=== PATIENT | male | born 1955 | race Caucasian/White ===

== ENCOUNTER 2017-11-11 12:37 | Inpatient (IN) ==
--- NOTE | 2017-11-11 16:06 | Emergency Department Note ---
Disposition Clinical Impression: Cellulitis of both feet, Necrotic eschar Disposition: Admitted As Inpatient Condition: Fair [facility] Care Provider[facility] - Forms: ED Satisfaction Letter Time of Disposition: 16:13 Extremity Problem HPI - General Chief complaint: ED Extremity Problem,Nontraumatic Stated complaint: Feet swollen/bleeding Time Seen by Provider: 11/11/17 15:58 Source: patient Mode of arrival: ambulatory Limitations: no limitations Nursing Notes Reviewed: Yes Vital Signs Reviewed: Yes - History of Present Illness HPI Narrative: 62-year-old diabetic who says it has been fighting an infection for about 6 weeks in both of his feet. Recent revascularization surgery. He states he went [facility] and nothing was done for him there. Comes in with worsening redness and foul-smelling drainage. Pt Subjective Complaint: extremity pain, extremity swelling Onset (ago): week(s) Consistency: constant Pain Scale: 10 Quality: burning, aching Improves with: nothing Worsens with: weight bearing Associated symptoms: Reports: denies other symptoms - Related Data Home Medications Medication Instructions Recorded Confirmed Aspirin [Lo-Dose Aspirin EC] 325 mg PO DAILY 04/12/17 11/06/17 Lisinopril [Zestril] 20 mg PO DAILY 04/12/17 11/06/17 Insulin ASPART [Novolog Flexpen] 14 unit SQ AD 05/10/17 11/06/17 Insulin Glargine [Lantus] 54 unit SQ HS 05/10/17 11/06/17 Hydrochlorothiazide [Microzide] 12.5 mg PO DAILY 11/06/17 11/06/17 Isosorbide MONOnitrate (24 HR) 30 mg PO DAILY 11/06/17 11/06/17 [Imdur] Pravastatin Sodium [Pravachol] 10 mg PO 2XW 11/06/17 11/06/17 dilTIAZem HCl [Diltiazem 24Hr Cd] 120 mg PO DAILY 11/06/17 11/06/17 Previous Rx's Medication Instructions Recorded Acetaminophen [Tylenol] 1,000 mg PO Q6HR PRN #90 tablet 11/06/17 Clopidogrel [Plavix] 75 mg PO DAILY #30 tablet 11/06/17 Allergies Allergy/AdvReac Type Severity Reaction Status Date / Time atorvastatin [From Lipitor] Allergy Diarrhea Verified 04/12/17 10:01 All systems ED: reviewed and negative except as stated. Constitutional: Denies: fever, chills, weakness, weight change Eyes: Denies: eye pain, eye discharge, vision change ENT ED: Denies: ear pain, throat pain, dental pain, hearing loss, epistaxis, congestion, dysphagia Cardiovascular: Denies: chest pain, palpitations, dyspnea on exertion, edema, syncope Respiratory: Denies: cough, dyspnea, wheezes, hemoptysis, stridor Gastrointestinal: Denies: abdominal pain, nausea, vomiting, diarrhea, constipation, hematemesis, melena, hematochezia Genitourinary: Denies: urgency, dysuria, frequency, hematuria Musculoskeletal: Reports: arthralgia. Denies: back pain, neck pain, myalgia Integumentary: Denies: rash, abrasion, lesions Neurological: Denies: headache, weakness, numbness, paresthesias, confusion, abnormal gait, vertigo Psychiatric: Denies: anxiety, depression, suicidal thoughts, homicidal thoughts , auditory hallucinations, visual hallucinations Endocrine: Denies: fatigue Hematological/Lymphatic: Denies: easy bleeding, easy bruising Allergic/Immunologic: Denies: facial swelling, urticaria Past Medical History - Past Medical History Medical history: Reports: arthritis, atrial fibrillation, coronary artery disease, diabetes, myocardial infarction Surgical history: Reports: orthopedic, other Psychiatric history: Reports: no psych history - Social History Smoking Status: Current every day smoker Smokeless Tobacco Status: No Alcohol use: Reports: none Drug use: Reports: none Physical Exam - General Limitations: no limitations General appearance: alert, in no apparent distress - Head Head exam: atraumatic, normocephalic, normal inspection - Eye Eye exam: Present: normal appearance, PERRL, EOMI - ENT ENT exam: normal exam, normal oropharynx, mucous membranes moist - Neck Neck exam: Present: normal inspection, full ROM, trachea midline - Chest Chest inspection: Present: normal inspection, symmetric chest wall rise - Respiratory Respiratory exam: Present: normal lung sounds bilaterally - Cardiovascular Cardiovascular exam: Present: regular rate, normal rhythm, normal heart sounds - Abdominal Exam Abdominal exam: Present: soft, Non-Tender. Absent: tenderness, distention, guarding, rebound, rigidity - Expanded Lower Extremity Exam Foot/toe exam: Present: other (Necrotic area) - Back Exam Back exam: Present: normal inspection - Neurological Exam Neurological exam: Present: alert, oriented X3 - Psychiatric Psychiatric exam: Present: normal affect, normal mood - Skin Skin exam: Present: warm, dry, intact, normal color Course - Reevaluation(s) Reevaluation #1: 62-year-old diabetic with ulcers on both feet. Consultation obtained with podiatry will see the patient. Antibiotics started. Time: 18:07 - Consultations Consultation #1: Discussed with Dr. Morales, seeing in consult. Time: 16:13 Consultation #2: Discussed with Dr.Lalie morales. Time: 16:15 Vital Signs Temperature 98.4 F 11/11/17 12:39 Pulse Rate 69 11/11/17 12:39 Respiratory Rate 18 11/11/17 12:39 Blood Pressure 122/66 11/11/17 12:39 O2 Sat by Pulse Oximetry 100 11/11/17 12:39 Temperature 98.4 F 11/11/17 12:39 Pulse Rate 69 11/11/17 12:39 Respiratory Rate 18 11/11/17 12:39 Blood Pressure 122/66 11/11/17 12:39 O2 Sat by Pulse Oximetry 100 11/11/17 12:39 Oxygen Delivery Oxygen Delivery Room Air Extremity Problem, Nontraumati - Lab Data Lab results reviewed: Yes I reviewed the patient's lab results. Result diagrams: 11/11/17 16:31 11/11/17 16:31 Lab Results 11/11/17 11/11/17 11/11/17 Range/Units 16:31 16:31 16:31 WBC 14.5 H (4.3-11.1) K/mcL RBC 4.32 (4.19-5.50) M/mcL Hgb 13.0 (12.9-16.9) g/dL Hct 38.6 (37.5-50.1) % MCV 89.4 (83.0-100.0) fL MCH 30.1 (28.0-33.3) pg MCHC 33.7 (31.6-35.5) g/dL RDW 12.6 (11.5-14.5) % Plt Count 275 (140-400) K/mcL MPV 10.5 (9.4-12.4) fL Immature Gran % 0.5 (0-4) % Seg Neutrophils % 81.5 % Lymphocytes % 10.5 % Monocytes % 6.3 % Eosinophils % 0.9 % Basophils % 0.3 % Neutrophils # 11.8 H (1.6-8.9) K/mcL Lymphocytes # 1.5 (0.6-4.6) K/mcL Monocytes # 0.9 (0.0-1.3) K/mcL Eosinophils # 0.1 (0.0-0.6) K/mcL Basophils # 0.1 (0.0-0.2) K/mcL ESR 54 H (0-10) mm/hr Sodium 133 L (136-145) mEq/L Potassium 4.0 (3.5-5.1) mEq/L Chloride 102 (98-107) mEq/L Carbon Dioxide 26 (23-29) mEq/L BUN 25 H (8-23) mg/dL Creatinine 0.95 (0.70-1.30) mg/dL Est GFR ( Amer) > 60 (> 60) Est GFR (Non-Af Amer) > 60 (> 60) BUN/Creatinine Ratio 26 (6-26) Glucose 164 H (70-105) mg/dL Calculated Osmolality 284 (280-300) Lactic Acid (0.5-2.2) mmol/L Calcium 9.3 (8.6-10.3) mg/dL 11/11/17 Range/Units 16:31 WBC (4.3-11.1) K/mcL RBC (4.19-5.50) M/mcL Hgb (12.9-16.9) g/dL Hct (37.5-50.1) % MCV (83.0-100.0) fL MCH (28.0-33.3) pg MCHC (31.6-35.5) g/dL RDW (11.5-14.5) % Plt Count (140-400) K/mcL MPV (9.4-12.4) fL Immature Gran % (0-4) % Seg Neutrophils % % Lymphocytes % % Monocytes % % Eosinophils % % Basophils % % Neutrophils # (1.6-8.9) K/mcL Lymphocytes # (0.6-4.6) K/mcL Monocytes # (0.0-1.3) K/mcL Eosinophils # (0.0-0.6) K/mcL Basophils # (0.0-0.2) K/mcL ESR (0-10) mm/hr Sodium (136-145) mEq/L Potassium (3.5-5.1) mEq/L Chloride (98-107) mEq/L Carbon Dioxide (23-29) mEq/L BUN (8-23) mg/dL Creatinine (0.70-1.30) mg/dL Est GFR ( Amer) (> 60) Est GFR (Non-Af Amer) (> 60) BUN/Creatinine Ratio (6-26) Glucose (70-105) mg/dL Calculated Osmolality (280-300) Lactic Acid 1.0 (0.5-2.2) mmol/L Calcium (8.6-10.3) mg/dL - Radiology Data Radiology results reviewed: Yes I reviewed the patient's radiology results.
[2017-11-11 17:01] LABS: Basophils # 0.1 K/mcL (0.0-0.2); Basophils % 0.3 %; Eosinophils # 0.1 K/mcL (0.0-0.6); Eosinophils % 0.9 %; Hematocrit 38.6 % (37.5-50.1); Immature Granulocytes % 0.5 % (0-4); Lymphocytes # 1.5 K/mcL (0.6-4.6); Lymphocytes % 10.5 %; Mean Corpuscular HGB Conc 33.7 g/dL (31.6-35.5); Mean Corpuscular Hemoglobin 30.1 pg (28.0-33.3); Mean Corpuscular Volume 89.4 fL (83.0-100.0); Mean Platelet Volume 10.5 fL (9.4-12.4); Monocytes # 0.9 K/mcL (0.0-1.3); Monocytes % 6.3 %; Neutrophils # 11.8 K/mcL (1.6-8.9); Platelet Count 275 K/mcL (140-400); Red Blood Count 4.32 M/mcL (4.19-5.50); Red Cell Distribution Width 12.6 % (11.5-14.5); Segmented Neutrophils % 81.5 %
[2017-11-11 17:06] LABS: BUN/Creatinine Ratio 26 (6-26); Blood Urea Nitrogen 25 mg/dL (8-23); Calcium 9.3 mg/dL (8.6-10.3); Carbon Dioxide 26 mEq/L (23-29); Chloride 102 mEq/L (98-107); Glucose 164 mg/dL (70-105); Osmolality,Calculated 284 (280-300); Sodium 133 mEq/L (136-145); eGFR For African Americans > 60 (> 60); eGFR For Non-African Americans > 60 (> 60)
[2017-11-11] MEDS ORDERED: *HR* Dextrose 50 % in Water (Syg) 50 ML SYRINGE IVP PRN (18:24)
[2017-11-11] MEDS ORDERED: D5% in Water 1,000 ML IVC PRN (18:24)
[2017-11-11] MEDS ORDERED: Dextrose Gel 15 GM/37.5 ML TUBE PO PRN ×2 (18:24)
--- NOTE | 2017-11-11 18:35 | Internal Med History&Physical ---
<Jenae Harper - Last Filed: 11/11/17 19:09> Date of Encounter: 11/11/17 Time of Encounter: 18:28 Internal Medicine - H&P: HPI Admitted From: Home Plans for Post Hospital Care: Home History of present illness: Mr. Prescott is a 62 year old male with past medical history of peripheral vascular disease and diabetes presented with bilateral foot ulcers. He reported to have bilateral foot ulcers for the past 4 months, has been seen and treated in the [facility]. He underwent left lower extremity revascularization due to severe vascular stenosis/blockage on 11/06/2017. He reported his left leg ulcers much improved after the procedure. He has schedule for the right leg revascularization on 12/02/2017. But in the past couple days, his foot ulcers have become worse with foul smell and yellow drainage. At the ED, his vital signs were stable. X-ray for both feet was completed but results still pending. Received 1 dose of vancomycin. He will be admitted for further management. Past Med Surg Social Fam HX - Past Medical History Medical history: arthritis, atrial fibrillation, coronary artery disease, diabetes, myocardial infarction Psychiatric history: no psych history - Past Surgical History Surgical History: orthopedic, other - Social History Smoking Status: Current every day smoker Smokeless Tobacco Status: No Alcohol use: none Drug use: none - Family History Mother Living Status: Hx Family Cancer: Yes Internal Medicine - H&P: Meds Aspirin [Lo-Dose Aspirin EC] 325 mg PO DAILY 04/12/17 [History] Lisinopril [Zestril] 20 mg PO DAILY 04/12/17 [History] Insulin ASPART [Novolog Flexpen] 14 unit SQ QAM 05/10/17 [History] Acetaminophen [Tylenol] 1,000 mg PO Q6HR PRN #90 tablet 11/06/17 [Rx] Clopidogrel [Plavix] 75 mg PO DAILY #30 tablet 11/06/17 [Rx] Hydrochlorothiazide [Microzide] 12.5 mg PO DAILY 11/06/17 [History] Isosorbide MONOnitrate (24 HR) [Imdur] 30 mg PO DAILY 11/06/17 [History] Pravastatin Sodium [Pravachol] 10 mg PO MOTH 11/06/17 [History] dilTIAZem HCl [Diltiazem 24Hr Cd] 120 mg PO DAILY 11/06/17 [History] Insulin ASPART [NovoLOG] 10 unit SQ BID 11/11/17 [History] Insulin Glargine,Hum.rec.anlog [Lantus Solostar] 54 - 60 unit SQ HS 11/11/17 [ History] 3 Allergy/AdvReac Type Severity Reaction Status Date / Time atorvastatin [From Lipitor] Allergy Diarrhea Verified 11/11/17 18:33 All Systems PM: A 10-system review of systems was performed and is negative for pertinent findings except as documented above in the HPI. Review of systems: REVIEW OF SYSTEMS: CONSTITUTIONAL: No weight loss, fever, chills, weakness or fatigue. HEENT: Eyes: No visual loss, blurred vision, double vision or yellow sclerae. Ears, Nose, Throat: No hearing loss, sneezing, congestion, runny nose or sore throat. SKIN: No rash or itching. CARDIOVASCULAR: No chest pain, chest pressure or chest discomfort. No palpitations or edema. RESPIRATORY: No shortness of breath, cough or sputum. GASTROINTESTINAL: No anorexia, nausea, vomiting or diarrhea. No abdominal pain or blood. GENITOURINARY: No dysuria, urgency, or frequency. NEUROLOGICAL: No headache, dizziness, syncope, paralysis, ataxia, numbness or tingling in the extremities. No change in bowel or bladder control. MUSCULOSKELETAL: see HPI. HEMATOLOGIC: No anemia, bleeding or bruising. LYMPHATICS: No enlarged nodes. No history of splenectomy. PSYCHIATRIC: No history of depression or anxiety. ENDOCRINOLOGIC: No reports of sweating, cold or heat intolerance. No polyuria or polydipsia. - Constitutional Vitals: Temp Pulse Resp BP Pulse Ox 98.4 F 69 18 122/66 100 11/11/17 12:39 11/11/17 12:39 11/11/17 12:39 11/11/17 12:39 11/11/17 12:39 General appearance: Present: A&O X 3 Exam: PHYSICAL EXAMINATION: GENERAL APPEARANCE: The patient is alert, oriented and in no acute distress. HEENT: Head is normocephalic. The sinuses are nontender. Pupils are equal and reactive. The nares are patent. Oropharynx clear without lesions. NECK: Supple without lymphadenopathy. HEART: Regular rate and rhythm. LUNGS: No crackles or wheezes are heard. ABDOMEN: Soft, nontender, nondistended with good bowel sounds heard. Inguinal area is normal. EXTREMITIES: several wounds noted on both feet with black escar and yellow drainage. NEUROLOGICAL: Gross nonfocal. SKIN: Warm and dry without any rash. Internal Med - H&P Results - Labs CBC & Chem 7: 11/11/17 16:31 11/11/17 16:31 Labs: Short CBC 11/11/17 Range/Units 16:31 WBC 14.5 H (4.3-11.1) K/mcL Hgb 13.0 (12.9-16.9) g/dL Hct 38.6 (37.5-50.1) % Plt Count 275 (140-400) K/mcL Neutrophils # 11.8 H (1.6-8.9) K/mcL BMP 11/11/17 16:31 Sodium 133 L Potassium 4.0 Chloride 102 Carbon Dioxide 26 BUN 25 H Creatinine 0.95 Glucose 164 H Calcium 9.3 - Assessment and plan (1) Necrotic eschar Current Visit: Yes Status: Acute Assessment and plan: - Patient likely needs a debridement after the revascularization procedure. We will consult sap abap programmer. (2) Diabetes mellitus Current Visit: No Status: Chronic Assessment and plan: Continue Lantus at home dose, bolus insulin before each meal, continue insulin sliding scale. Qualifiers: Diabetes mellitus type: type 2 Diabetes mellitus technician terminal and repeater insulin use: with long-term use Diabetes mellitus complication status: with circulatory complication Diabetes mellitus complication detail: with peripheral angiopathy with gangrene Qualified Code(s): E11.52 - Type 2 diabetes 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; Z79.4 - predatory animal exterminator (current) use of insulin; Z79.4 - predatory animal exterminator (current) use of insulin; Z79.4 - predatory animal exterminator ( current) use of insulin; Z79.4 - predatory animal exterminator (current) use of insulin (3) Peripheral vascular disease Current Visit: No Status: Chronic Assessment and plan: - Continue aspirin, Plavix, statins. - Vascular surgery consult. (4) Chronic foot ulcer Current Visit: Yes Status: Acute Assessment and plan: 62-year-old male with history of diabetes and severe bilateral peripheral vascular disease presented with worsening bilateral foot wounds. He has been receiving treatment at [facility] in the past with IV antibiotics. He underwent right lower extremity revascularization about a week ago. He reported improved wound healing on the left side. He is planning to have right- sided leg revascularization 20 days. - Worsening bilateral foot wounds with for foul smell and yellow drainage. Suspicious for infection. Received 1 dose IV vancomycin at ED. Wound culture ordered. We will start patient on Zosyn plus vancomycin. - We will consult vascular surgery to see the surgery can be done in this admission. Qualifiers: Laterality: unspecified laterality Non-pressure ulcer stage: unspecified non-pressure ulcer stage Qualified Code(s): L97.509 - Non-pressure chronic ulcer of other part of unspecified foot with unspecified severity - Time Spent With Patient Total time spent is greater than 50% in coordination of care (as documented) at patient's floor/unit and/or counseling patient: Greater than 35 minutes <Ban Dorsey - Last Filed: 11/11/17 20:41> Date of Encounter: 11/11/17 Internal Medicine - H&P: HPI History of present illness: Mr. Prescott is a 62 year old male All Systems PM: A 10-system review of systems was performed and is negative for pertinent findings except as documented above in the HPI. - Constitutional Vitals: Temp Pulse Resp BP Pulse Ox 99.2 F 76 15 153/73 98 11/11/17 20:02 11/11/17 20:02 11/11/17 20:02 11/11/17 20:02 11/11/17 20:02 Internal Med - H&P Results - Labs CBC & Chem 7: 11/11/17 16:31 11/11/17 16:31 - Attending Attestation Examined the patient reviewed the note and agreed with the plan. - Assessment and plan (1) Necrotic eschar Current Visit: Yes Status: Acute (2) Diabetes mellitus Current Visit: No Status: Chronic Qualifiers: Diabetes mellitus type: type 2 Diabetes mellitus technician terminal and repeater insulin use: with technician terminal and repeater use Diabetes mellitus complication status: with circulatory complication Diabetes mellitus complication detail: with peripheral angiopathy with gangrene Qualified Code(s): E11.52 - Type 2 diabetes 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; Z79.4 - [facility] (current) use of insulin; Z79.4 - [facility] (current) use of insulin; Z79.4 - predatory animal exterminator ( current) use of insulin; Z79.4 - predatory animal exterminator (current) use of insulin (3) Peripheral vascular disease Current Visit: No Status: Chronic (4) Chronic foot ulcer Current Visit: Yes Status: Acute Qualifiers: Laterality: unspecified laterality Non-pressure ulcer stage: unspecified non-pressure ulcer stage Qualified Code(s): L97.509 - Non-pressure chronic ulcer of other part of unspecified foot with unspecified severity - Time Spent With Patient Total time spent is greater than 50% in coordination of care (as documented) at patient's floor/unit and/or counseling patient:
[2017-11-11] MEDS: Insulin LISPRO 300 UNITS/3 ML VIAL SQ SCH (21:13)
[2017-11-11] MEDS: Insulin DETEMIR 100 UNIT/ML X5UNITS SQ SCH (21:13)
[2017-11-12] MEDS: Piperacillin/Tazobactam 3.375 GM in 0.9 % Sodium Chloride Mini Bag 100 ML IVPB SCH ×2 (00:04→07:45)
[2017-11-12] MEDS: *HR* Heparin 5,000 UNIT/ML VIAL SQ SCH ×2 (05:55→17:15)
[2017-11-12] MEDS: Insulin LISPRO 300 UNITS/3 ML VIAL SQ SCH ×7 (07:44→20:20)
[2017-11-12] MEDS: Aspirin Enteric Coated 325 MG Tablet PO SCH (07:47)
[2017-11-12] MEDS: Diltiazem CD (24hr) 120 MG CAPSULE PO SCH (07:47)
[2017-11-12] MEDS: hydroCHLOROthiazide 25 MG TABLET PO SCH (07:48)
[2017-11-12] MEDS: Lisinopril 20 MG TABLET PO SCH (07:49)
[2017-11-12] MEDS: Isosorbide MONOnitrate (24 HR) 30 MG TAB.ER.24H PO SCH (07:49)
--- NOTE | 2017-11-12 11:50 | Vascular/Endovasc Consult Note ---
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 He has diabetic foot ulcers bilaterally which are actively infected. The patient previously underwent a left femoral to above-knee popliteal artery bypass graft with vein at another facility. He recently underwent an angiogram which revealed high-grade stenosis of the distal anastomosis. This was treated with angioplasty. His left lower extremity wounds have been healing per the patient's report. However he has developed bilateral foot infections. Would recommend continuing intravenous antibiotics at this time. Also recommend podiatry consultation. The patient has known right lower extremity peripheral vascular disease. He will be scheduled for an angiogram after his acute issues resolved. Continue with daily Plavix. Qualifiers: Peripheral atherosclerosis artery type: bypass graft, autologous vein Qualified Code(s): I70.433 - Atherosclerosis of autologous vein bypass graft(s) of the right leg with ulceration of ankle; I70.443 - Atherosclerosis of autologous vein bypass graft(s) of the left leg with ulceration of ankle; I70.443 - Atherosclerosis of autologous vein bypass graft(s) of the left leg with ulceration of ankle; I70.443 - Atherosclerosis of autologous vein bypass graft(s) of the left leg with ulceration of ankle; I70.443 - Atherosclerosis of autologous vein bypass graft(s) of the left leg with ulceration of ankle; I70.443 - Atherosclerosis of autologous vein bypass graft(s) of the left leg with ulceration of ankle; I70.443 - Atherosclerosis of autologous vein bypass graft(s) of the left leg with ulceration of ankle (2) CAD (coronary artery disease) Current Visit: Yes Status: Chronic Qualifiers: Coronary Disease-Associated Artery/Lesion type: [place] artery [place] vs. transplanted heart: unspecified whether [place] or transplanted heart Associated angina: without angina Qualified Code(s): I25.10 - Atherosclerotic heart disease of [place] coronary artery without angina pectoris (3) Cellulitis of both feet Current Visit: Yes Status: Acute (4) Diabetes mellitus Current Visit: No Status: Chronic Qualifiers: Diabetes mellitus type: type 2 Diabetes mellitus terminal gauger insulin use: with terminal gauger use Diabetes mellitus complication status: with circulatory complication Diabetes mellitus complication detail: with peripheral angiopathy with gangrene Qualified Code(s): E11.52 - Type 2 diabetes 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; Z79.4 - jail (current) use of insulin; Z79.4 - petroleum terminal plant operator (current) use of insulin; Z79.4 - petroleum terminal plant operator ( current) use of insulin; Z79.4 - petroleum terminal plant operator (current) use of insulin (5) Tobacco abuse Current Visit: Yes Status: Chronic The patient was counseled on smoking cessation. - History of Present Illness Consult date: 11/12/17 Requesting physician: Jenae Harper Consult reason: Peripheral vascular disease with ulceration Chief complaint: Bilateral foot infections History of present illness: Mr. Prescott is a 62 year old male with a history of hypertension hyperlipidemia and tobacco abuse COPD and diabetes. He also has a history of peripheral vascular disease with ulceration. He has no significant disease in the bilateral lower extremities. There is present undergone a left femoral to popliteal artery bypass at the [facility]. The patient recently required angioplasty of the distal anastomosis of his left femoral to popliteal artery bypass. He also significant right lower extremity disease. Patient presented with a cellulitis and ulceration of the bilateral lower extremities. Vascular surgery consultation for further evaluation. He denies chest pain or shortness of breath. He reports recent fevers. Past Med Surg Social Fam HX - Past Medical History Medical history: arthritis, atrial fibrillation, coronary artery disease, diabetes, myocardial infarction Psychiatric history: no psych history - Past Surgical History Surgical History: orthopedic, other - Social History Smoking Status: Current every day smoker Smokeless Tobacco Status: No Alcohol use: none Drug use: none - Family History Mother Adopted: [place]: Liliane Prescott Family Member Ethnicity: Non- Living Status: Age at : 76 Cause of : Bone Cancer Hx Family Cancer: Yes Son Living Status: Still Living Medications and Allergies Aspirin [Lo-Dose Aspirin EC] 325 mg PO DAILY 04/12/17 [History] Lisinopril [Zestril] 20 mg PO DAILY 04/12/17 [History] Insulin ASPART [Novolog Flexpen] 14 unit SQ QAM 05/10/17 [History] Acetaminophen [Tylenol] 1,000 mg PO Q6HR PRN #90 tablet 11/06/17 [Rx] Clopidogrel [Plavix] 75 mg PO DAILY #30 tablet 11/06/17 [Rx] Hydrochlorothiazide [Microzide] 12.5 mg PO DAILY 11/06/17 [History] Isosorbide MONOnitrate (24 HR) [Imdur] 30 mg PO DAILY 11/06/17 [History] Pravastatin Sodium [Pravachol] 10 mg PO MOTH 11/06/17 [History] dilTIAZem HCl [Diltiazem 24Hr Cd] 120 mg PO DAILY 11/06/17 [History] Insulin ASPART [NovoLOG] 10 unit SQ BID 11/11/17 [History] Insulin Glargine,Hum.rec.anlog [Lantus Solostar] 54 - 60 unit SQ HS 11/11/17 [ History] 3 Allergy/AdvReac Type Severity Reaction Status Date / Time atorvastatin [From Lipitor] Allergy Diarrhea Verified 11/11/17 18:33 All Systems Review: The remainder of the systems were reviewed and are negative - Constitutional Constitutional: fever(s), no chills - Cardiovascular Cardiovascular: no chest pain at rest, no dyspnea at rest Exam Vital Signs, Last 4 Hours Temp Pulse Resp BP Pulse Ox 11/12/17 10:32 98.8 F 67 18 142/65 97 11/12/17 09:00 97 General: Present: Conversant, No Apparent Distress Neck: Absent: JVD, Lymphadenopathy Cardiac: Present: Normal S1 and S2, No Murmur Lungs: Present: Normal Breath Sounds, No Wheeze, Rales, Rhonchi Neuro: Present: Alert and responsive, Motor nerves grossly intact, Sensory nerves grossly intact Abdomen: Present: Soft, Non-tender. Absent: Masses Vascular: Present: Normal capillary refill. Absent: Edema Skin: Present: Wound/ulcer(s) (Right lateral foot and heel ulceration. Bilateral great toe amputations. Cyanosis and ulceration of the left second toe.) Consult Discharge Plan - Plan [facility]errals: [facility] [Primary Care Provider[facility] -
--- NOTE | 2017-11-12 13:44 | Podiatry Consult Note ---
Date of Encounter: 11/12/17 Time of Encounter: 12:00 Assessment and Plan (1) Peripheral vascular disease Current visit: No Status: Chronic Vascular has been consulted, recent revasc x2 weeks of of the LLE, planned RLE once stable Most recent JOSEMANUEL's from October 2016 Segmental Pressures Side Location Pressure Index Result Right Posterior Tibial 84 0.68 Right Dorsalis Pedis 87 0.71 Left Posterior Tibial 116 0.94 Left Dorsalis Pedis 103 0.84 Ankle Brachial Index Right Systolic Diastolic JOSEMANUEL Brachial 113 0.71 Dorsalis Pedis 87 0.71 Posterior Tibial 84 0.68 Left Systolic Diastolic JOSEMANUEL Brachial 123 0.94 Dorsalis Pedis 103 0.84 Posterior Tibial 116 0.94 (2) Cellulitis of both feet Current visit: Yes Status: Acute Continue with current antibiotic treatment-Will obtain intraop cultures (3) Necrotic eschar Current visit: Yes Status: Acute Assessment: Multiple necrotic ulcerations of BLE as noted in exam PLAN: Assessed at bedside Cleansed wounds with saline Applied dry dressing, leave intact until tomorrow unless drainage is noted, all ulcerations intact and dry at this time Elevate heels off of bed at all times Will plan for formal debridement of all wounds tomorrow in OR with and probable amputation of distal aspect of toe #2 left Explained to patient at bedside, verbalized understanding Probable vac placement Will need SW on board for wound vac management and IV antibiotics on discharge Patient will be NPO after midnight Will follow up post op Please continue medical management (4) Chronic foot ulcer Current visit: Yes Status: Acute see above Qualifiers: Laterality: unspecified laterality Non-pressure ulcer stage: unspecified non-pressure ulcer stage Qualified Code(s): L97.509 - Non-pressure chronic ulcer of other part of unspecified foot with unspecified severity History of Present Illness HPI: Mr. Prescott is a 62 year old male admitted to [facility] with complaints of chronic ulcerations to bilateral feet. Patient has PMH significant for PVD with recent revasc of the LLE per manuel and pending revasc to the right. Patient states ulcerations of the RLE have been ongoing x6 weeks and [facility], states that wounds to LLE started 1-2 weeks ago. Patient also has hx of DM and is a current smoker, reports he has smoked 50+ years. Patient reports ulcerations are intermittently painful, states the pain comes and goes. Has dry dressings to feet on arrival. Patient is afebrile and resting comfortably in bed. Admit WBC 14.5 ESR 54, bilateral xrays of feet show no definite osteomyelitis. Patient was admitted and started on OV vanc and cefepine. Foot X-Ray 11/11/17 16:02 IMPRESSION: 1. Symmetric nonspecific mild dorsal forefoot edema which could relate to cellulitis. 2. 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 There are nonspecific changes of the metatarsal head which could represent postsurgical change though chronic osteomyelitis cannot be excluded. 3. No evidence of acute osseous abnormality. D/ / 11/11/2017 21:38:46 Jose Forde MD / geo Interpreting Provider: Jose Forde MD Past Med Surg Social Fam HX - Past Medical History Medical history: arthritis, atrial fibrillation, coronary artery disease, diabetes, myocardial infarction Psychiatric history: no psych history - Past Surgical History Surgical History: orthopedic, other - Social History Smoking Status: Current every day smoker Smokeless Tobacco Status: No Alcohol use: none Drug use: none - Family History Mother Adopted: [place]: Liliane Prescott Family Member Ethnicity: Non- Living Status: Age at : 76 Cause of : Bone Cancer Hx Family Cancer: Yes Medications and Allergies Aspirin [Lo-Dose Aspirin EC] 325 mg PO DAILY 04/12/17 [History] Lisinopril [Zestril] 20 mg PO DAILY 04/12/17 [History] Insulin ASPART [Novolog Flexpen] 14 unit SQ QAM 05/10/17 [History] Acetaminophen [Tylenol] 1,000 mg PO Q6HR PRN #90 tablet 11/06/17 [Rx] Clopidogrel [Plavix] 75 mg PO DAILY #30 tablet 11/06/17 [Rx] Hydrochlorothiazide [Microzide] 12.5 mg PO DAILY 11/06/17 [History] Isosorbide MONOnitrate (24 HR) [Imdur] 30 mg PO DAILY 11/06/17 [History] Pravastatin Sodium [Pravachol] 10 mg PO MOTH 11/06/17 [History] dilTIAZem HCl [Diltiazem 24Hr Cd] 120 mg PO DAILY 11/06/17 [History] Insulin ASPART [NovoLOG] 10 unit SQ BID 11/11/17 [History] Insulin Glargine,Hum.rec.anlog [Lantus Solostar] 54 - 60 unit SQ HS 11/11/17 [ History] 3 Allergy/AdvReac Type Severity Reaction Status Date / Time atorvastatin [From Lipitor] Allergy Diarrhea Verified 11/11/17 18:33 All Systems Reviewed: As per HPI Physical Exam - Constitutional Vitals: Temp Pulse Resp BP Pulse Ox 98.8 F 67 18 142/65 97 11/12/17 10:32 11/12/17 10:32 11/12/17 10:32 11/12/17 10:32 11/12/17 10:32 Exam: General Examination: CONSTITUTIONAL: Alert, oriented, in no acute distress, non-toxic. EXTREMITIES: CFT 3 seconds all toes. Edema +1 and pedal pulses per signal only, warm toes to tibia SKIN: Multiple ulcerations noted to bilateral feet, erythema and edema noted to feet consistent with cellulitis however it is not ascending or streaking at this time foul odor noted upon entering room from wounds to bilateral feet Left foot: Ulcer #1, MTP toe amputation site #1, large wound measuring [id number] with 50 % granulation tissue, 50% fibrous connective tissue and slight surrounding edema and erythema. No fluctuance noted. mild warmth Ulcer #2: Ischemic wound distal aspect toe #2 left, 1.6ens0nt very distal aspect of toe, no fluctuance, mild surrounding edema and erythema Ulcer #3 lateral aspect of MTP #5 - large unstageable [id number] with 40 % eschar tissue 60% hyperkeratotic devitalized tissue, fluctuance noted under wound mild warmth and erythema surrounding Ulcer #4 #5 lateral and posterior aspect of heel, small 0.3cmx0.3cm wounds with 100% fibrous base, underlying fluctuance noted to both wounds- surrounding erythema and edema Right Foot: Ulcer #6: Lateral aspect of MTP joint toe #5 , large [id number] ischemic unstageable wound, 80% eschar tissue, 20% devitalized hyperkeratosis with underlying fluctuance to wound and surrounding erythema and edema Ulcer #7 Lateral aspect right heel- Large unstageable ulceration, 100% eschar tissue [id number] with underlying fluctuance and surrounding erythema and edema NEUROLOGIC: Intact sensation to moderate touch Results - Labs Result Diagrams: 11/11/17 16:31 11/11/17 16:31 Labs: Abnormal lab results WBC 14.5 K/mcL (4.3-11.1) H 11/11/17 16:31 Neutrophils # 11.8 K/mcL (1.6-8.9) H 11/11/17 16:31 ESR 54 mm/hr (0-10) H 11/11/17 16:31 Sodium 133 mEq/L (136-145) L 11/11/17 16:31 BUN 25 mg/dL (8-23) H 11/11/17 16:31 Glucose 164 mg/dL (70-105) H 11/11/17 16:31 All other labs normal. Consult Discharge Plan - Plan Referrals: [facility] [Outside]
--- NOTE | 2017-11-12 14:53 | Internal Med Progress Note ---
Date of Encounter: 11/12/17 Time of Encounter: 14:49 - Assessment and plan (1) Necrotic eschar Current Visit: Yes Status: Acute Assessment and plan: surrounded by cellulitis on both feet, likely related to DM and severe PVD Stop Zosyn at day #1 continue vancomycin IV day #2 start cefepime IV wound cultures Podiatry and vascular surgery consulted - Patient likely needs a debridement after the revascularization procedure. (2) Diabetes mellitus Current Visit: No Status: Chronic Assessment and plan: Continue Lantus at home dose, bolus insulin before each meal, continue insulin sliding scale. Qualifiers: Diabetes mellitus type: type 2 Diabetes mellitus m[facility] insulin use: with donor relations officer use Diabetes mellitus complication status: with circulatory complication Diabetes mellitus complication detail: with peripheral angiopathy with gangrene Qualified Code(s): E11.52 - Type 2 diabetes 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; Z79.4 - [facility] (current) use of insulin; Z79.4 - [facility] (current) use of insulin; Z79.4 - [facility] ( current) use of insulin; Z79.4 - [facility] (current) use of insulin (3) Peripheral vascular disease Current Visit: No Status: Chronic Assessment and plan: - Continue aspirin, Plavix, statins. - Vascular surgery consult. (4) Chronic foot ulcer Current Visit: Yes Status: Acute Assessment and plan: 62-year-old male with history of diabetes and severe bilateral peripheral vascular disease presented with worsening bilateral foot wounds. He has been receiving treatment at a [facility] in the past with IV antibiotics. He underwent right lower extremity revascularization about a week ago. He reported improved wound healing on the left side. He is planning to have right-sided leg revascularization 20 days. - Worsening bilateral foot wounds with for foul smell and yellow drainage. . Qualifiers: Laterality: unspecified laterality Non-pressure ulcer stage: unspecified non-pressure ulcer stage Qualified Code(s): L97.509 - Non-pressure chronic ulcer of other part of unspecified foot with unspecified severity (5) A-fib Current Visit: Yes Status: Acute Assessment and plan: diltiazem Qualifiers: Atrial fibrillation type: paroxysmal Qualified Code(s): I48.0 - Paroxysmal atrial fibrillation (6) CAD (coronary artery disease) Current Visit: Yes Status: Acute Qualifiers: Coronary Disease-Associated Artery/Lesion type: [place] artery [place] vs. transplanted heart: unspecified whether [place] or transplanted heart Associated angina: without angina Qualified Code(s): I25.10 - Atherosclerotic heart disease of [place] coronary artery without angina pectoris - Time Spent With Patient Total time spent is greater than 50% in coordination of care (as documented) at patient's floor/unit and/or counseling patient: - Subjective Interval history: complains of pain on both feet mainly the right one, no CP or SOB, no abdominal pain , dysuria or diarrhea, no fever - Constitutional Vitals: Temp Pulse Resp BP Pulse Ox 98.8 F 67 18 142/65 97 11/12/17 10:32 11/12/17 10:32 11/12/17 10:32 11/12/17 10:32 11/12/17 10:32 General appearance: Present: A&O X 3 - Head Head exam: Present: atraumatic, normocephalic - Eye Eye exam: Present: PERRL, conjuntiva pink, sclera anicteric Pupils: Present: PERRL - Neck Neck exam general surgery: Present: supple, trachea midline. Absent: lymphadenopathy - Respiratory Respiratory exam: Present: CTAB. Absent: accessory muscle use, rales, rhonchi, wheezes - Cardiovascular Cardiovascular exam: Present: RRR, +S1, +S2. Absent: diastolic murmur, gallop, rubs, systolic murmur - GI/Abdominal GI/Abdominal exam: Present: normal bowel sounds, soft, no peritoneal signs. Absent: distended, tenderness - Extremities Exam Extremities exam: Present: warm, radial pulses palpable and symmetrical. Absent : calf tenderness, cyanotic, pedal edema - Neurological Exam Neurological exam: Present: CN II-XII intact, oriented X3, no focal deficits. Absent: pronater drift, facial droop, speech deficit - Skin Skin exam: Present: dry. Absent: intact Additional comments: multiple lower extremities wounds/eschars , worse on the right foot, covered by dressing Prior toe amputations left 2nd necrotic toe Internal Medicine: Result - Labs CBC & Chem 7: 11/11/17 16:31 11/11/17 16:31 Consult Discharge Plan - Plan Referrals: [facility] [Outside]
[2017-11-12] MEDS: Cefepime HCl 1,000 MG in Water for inj. (sterile) 20 ML 10 ML IVP SCH (15:52)
[2017-11-12] MEDS: Insulin DETEMIR 100 UNIT/ML X5UNITS SQ SCH (20:20)
[2017-11-13] MEDS: Cefepime HCl 1,000 MG in Water for inj. (sterile) 20 ML 10 ML IVP SCH ×2 (03:12→15:57)
[2017-11-13] MEDS: *HR* Heparin 5,000 UNIT/ML VIAL SQ SCH ×2 (06:22→18:27)
[2017-11-13 06:46] LABS: Hematocrit 36.6 % (37.5-50.1); Hemoglobin 11.9 g/dL (12.9-16.9); Mean Corpuscular HGB Conc 32.5 g/dL (31.6-35.5); Mean Corpuscular Hemoglobin 28.8 pg (28.0-33.3); Mean Corpuscular Volume 88.6 fL (83.0-100.0); Mean Platelet Volume 10.3 fL (9.4-12.4); Platelet Count 236 K/mcL (140-400); Red Blood Count 4.13 M/mcL (4.19-5.50); Red Cell Distribution Width 12.3 % (11.5-14.5)
[2017-11-13 06:59] LABS: BUN/Creatinine Ratio 22 (6-26); Blood Urea Nitrogen 17 mg/dL (8-23); Calcium 9.1 mg/dL (8.6-10.3); Carbon Dioxide 26 mEq/L (23-29); Chloride 106 mEq/L (98-107); Glucose 63 mg/dL (70-105); Osmolality,Calculated 284 (280-300); Potassium 4.1 mEq/L (3.5-5.1); Sodium 137 mEq/L (136-145); eGFR For African Americans > 60 (> 60); eGFR For Non-African Americans > 60 (> 60)
[2017-11-13] MEDS: Insulin LISPRO 300 UNITS/3 ML VIAL SQ SCH ×7 (07:54→19:48)
[2017-11-13] MEDS: Diltiazem CD (24hr) 120 MG CAPSULE PO SCH (07:58)
[2017-11-13] MEDS: Isosorbide MONOnitrate (24 HR) 30 MG TAB.ER.24H PO SCH (07:58)
[2017-11-13] MEDS: Lisinopril 20 MG TABLET PO SCH (07:58)
[2017-11-13] MEDS: Aspirin Enteric Coated 325 MG Tablet PO SCH (07:58)
[2017-11-13] MEDS: hydroCHLOROthiazide 25 MG TABLET PO SCH (07:59)
--- NOTE | 2017-11-13 08:36 | Internal Med Progress Note ---
Date of Encounter: 11/13/17 Time of Encounter: 08:34 - Assessment and plan (1) Necrotic eschar Current Visit: Yes Status: Acute Assessment and plan: surrounded by cellulitis on both feet, likely related to DM and severe PVD Stop Zosyn at day #1 continue vancomycin IV day #3 Continue cefepime IV day #2 wound cultures sent Podiatry and vascular surgery consulted - Patient likely needs a debridement after the revascularization procedure. (2) Diabetes mellitus Current Visit: No Status: Chronic Assessment and plan: Continue Lantus at home dose, bolus insulin before each meal, continue insulin sliding scale. Qualifiers: Diabetes mellitus type: type 2 Diabetes mellitus scientific illustrator insulin use: with scientific illustrator use Diabetes mellitus complication status: with circulatory complication Diabetes mellitus complication detail: with peripheral angiopathy with gangrene Qualified Code(s): E11.52 - Type 2 diabetes 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; Z79.4 - jail (current) use of insulin; Z79.4 - clerical receptionist (current) use of insulin; Z79.4 - clerical receptionist ( current) use of insulin; Z79.4 - jail (current) use of insulin (3) Peripheral vascular disease Current Visit: No Status: Chronic Assessment and plan: - Continue aspirin, Plavix, statins. - Vascular surgery consult. (4) Chronic foot ulcer Current Visit: Yes Status: Acute Assessment and plan: 62-year-old male with history of diabetes and severe bilateral peripheral vascular disease presented with worsening bilateral foot wounds. He has been receiving treatment at a [facility] in the past with IV antibiotics. He underwent right lower extremity revascularization about a week ago. He reported improved wound healing on the left side. He is planning to have right-sided leg revascularization 20 days. - Worsening bilateral foot wounds with for foul smell and yellow drainage. . Qualifiers: Laterality: unspecified laterality Non-pressure ulcer stage: unspecified non-pressure ulcer stage Qualified Code(s): L97.509 - Non-pressure chronic ulcer of other part of unspecified foot with unspecified severity (5) A-fib Current Visit: Yes Status: Acute Assessment and plan: diltiazem Qualifiers: Atrial fibrillation type: paroxysmal Qualified Code(s): I48.0 - Paroxysmal atrial fibrillation (6) CAD (coronary artery disease) Current Visit: Yes Status: Acute Qualifiers: Coronary Disease-Associated Artery/Lesion type: [place] artery [place] vs. transplanted heart: unspecified whether [place] or transplanted heart Associated angina: without angina Qualified Code(s): I25.10 - Atherosclerotic heart disease of [place] coronary artery without angina pectoris - Time Spent With Patient Total time spent is greater than 50% in coordination of care (as documented) at patient's floor/unit and/or counseling patient: - Subjective Interval history: complains of less pain on both feet mainly the right one, no CP or SOB, no abdominal pain , dysuria or diarrhea, no fever - Constitutional Vitals: Temp Pulse Resp BP Pulse Ox 98.5 F 75 16 155/77 96 11/13/17 06:32 11/13/17 06:32 11/13/17 06:32 11/13/17 06:32 11/13/17 06:32 General appearance: Present: A&O X 3 Exam: - Head Head exam: Present: atraumatic, normocephalic - Eye Eye exam: Present: PERRL, conjuntiva pink, sclera anicteric Pupils: Present: PERRL - Neck Neck exam general surgery: Present: supple, trachea midline. Absent: lymphadenopathy - Respiratory Respiratory exam: Present: CTAB. Absent: accessory muscle use, rales, rhonchi, wheezes - Cardiovascular Cardiovascular exam: Present: RRR, +S1, +S2. Absent: diastolic murmur, gallop, rubs, systolic murmur - GI/Abdominal GI/Abdominal exam: Present: normal bowel sounds, soft, no peritoneal signs. Absent: distended, tenderness - Extremities Exam Extremities exam: Present: warm, radial pulses palpable and symmetrical. Absent : calf tenderness, cyanotic, pedal edema - Neurological Exam Neurological exam: Present: CN II-XII intact, oriented X3, no focal deficits. Absent: pronater drift, facial droop, speech deficit - Skin Skin exam: Present: dry. Absent: intact Additional comments: multiple lower extremities wounds/eschars , worse on the right foot, covered by dressing Prior toe amputations left 2nd necrotic toe Internal Medicine: Result - Labs CBC & Chem 7: 11/13/17 06:00 11/13/17 06:00 Labs: Short CBC 11/13/17 Range/Units 06:00 WBC 10.5 (4.3-11.1) K/mcL Hgb 11.9 L (12.9-16.9) g/dL Hct 36.6 L (37.5-50.1) % Plt Count 236 (140-400) K/mcL BMP 11/13/17 06:00 Sodium 137 Potassium 4.1 Chloride 106 Carbon Dioxide 26 BUN 17 Creatinine 0.78 Glucose 63 L Calcium 9.1 Consult Discharge Plan - Plan [facility]: [facility] [Primary Care Provider[facility] -
[2017-11-13] MEDS ORDERED: *HR* OxyCODONE Immed Rel 5 MG TABLET PO PRN ×2 (15:52→21:59)
[2017-11-13] MEDS: *HR* OxyCODONE Immed Rel 5 MG TABLET PO PRN (16:13)
[2017-11-13] MEDS: Insulin DETEMIR 100 UNIT/ML X5UNITS SQ SCH (20:31)
--- NOTE | 2017-11-13 21:19 | Podiatry Progress Note ---
Date of Encounter: 11/13/17 Time of Encounter: 12:16 - Assessment and Plan (1) Cellulitis of both feet Current Visit: Yes Status: Acute Due to the ischemia of the second digit the decision was made to amputate the second digit of the left foot. The patient was also instructed that the ulcers were all be inspected for any purulence or infection. The patient was instructed that the large ulceration on the right foot may or may not be debrided depending on the condition of the deep tissue. We will inspect all of the ulceration sites very thoroughly and irrigate and debride all of the sites. After adequate irrigation and debridement the patient will hopefully undergo revascularization. The exact procedure discussed was irrigation and debridement of all ulceration sites on bilateral lower extremities with partial amputation of the left second digit.Patient was informed of the risks and complications of surgery. These may include but are not limited to the following ; nerve damage, numbness, tingling, RSD/CRPS, loss of motor function, loss of toe, loss of limb, loss of life, ischemia, wound healing issues, infection, scarring, keloid formation, continued pain, arthritis, non-union, mal-union, prominent hardware, displaced hardware, reaction to hardware, the need to remove hardware, bruising, continued limp, the need for future surgery, over correction, under correction, chronic swelling, the need for physical therapy, stiffness of joints, ulceration, slow healing, wound dehiscence, reaction to implant, reaction to sutures. The patient was informed of the possible conservative treatments available which may include but are not limited to the following: Orthotics, bracing, non -weight bearing, physical therapy, padding, taping, steroid injections, NSAIDS, casting. The patient was given the option to seek a second opinion. It was explained that surgery is an art and not an exact science therefore results cannot be guaranteed. All the patients questions and concerns were addressed. Patient agrees to have the surgery despite the possible risks and complications. Absolutely no guarantees were given or implied. Postoperatively the patient will likely need to remain nonweightbearing. The patient will likely need continuous wound care and may need to be transitioned to a wound VAC. The patient will need to follow up in a wound care center. The patient was instructed that amputation of additional digits or a foot may be required at a later time. The patient was instructed that the right foot ischemia is very severe and the wound may have difficulty healing. The patient relates that he understands. The was also instructed that this is a salvage procedure appropriate expectations were discussed. Subjective Principal diagnosis: Ischemic foot ulcers bilateral lower extremities Interval history: Patient relates that over the last few weeks he has had increasing pain in his feet. Patient relates that the foot ulcer seems to be getting infected. Patient relates that the skin is turning black. Patient relates that his left second toe is black. Patient relates pain associated with the ischemia. Patient denies any recent trauma. Objective - Vital Signs Vital Signs: Vital Signs Temp Pulse Resp BP Pulse Ox 11/13/17 19:03 99.0 F 68 15 124/65 97 Intake and Output 11/13/17 11/13/17 11/13/17 07:59 15:59 23:59 Intake Total 0 / 0 Output Total 250 / 250 Balance -250 / -250 Intake: Oral 0 / 0 Output: Urine 250 / 250 - Exam Exam: General Examination: CONSTITUTIONAL: Alert, oriented, in no acute distress, non-toxic. EXTREMITIES: CFT 3 seconds all toes except the great toes of bilateral lower extremities which are amputated and the second digit of the left foot which has ischemia at the distal aspect. Edema +1 and pedal pulses per signal only, warm toes to tibia SKIN: Multiple ulcerations noted to bilateral feet, erythema and edema noted to feet consistent with cellulitis however it is not ascending or streaking at this time foul odor noted upon entering room from wounds to bilateral feet Left foot: Ulcer #1, MTP toe amputation site #1, large wound measuring [id number] with 50 % granulation tissue, 50% fibrous connective tissue and slight surrounding edema and erythema. No fluctuance noted. mild warmth Ulcer #2: Ischemic wound distal aspect toe #2 left, [id number] very distal aspect of toe, no fluctuance, mild surrounding edema and erythema Ulcer #3 lateral aspect of MTP #5 - large unstageable [id number] with 40 % eschar tissue 60% hyperkeratotic devitalized tissue, fluctuance noted under wound mild warmth and erythema surrounding Ulcer #4 #5 lateral and posterior aspect of heel, small 0.3cmx0.3cm wounds with 100% fibrous base, underlying fluctuance noted to both wounds- surrounding erythema and edema Right Foot: Ulcer #6: Lateral aspect of MTP joint toe #5 , large [id number] ischemic unstageable wound, 80% eschar tissue, 20% devitalized hyperkeratosis with underlying fluctuance to wound and surrounding erythema and edema Ulcer #7 Lateral aspect right heel- Large unstageable ulceration, 100% eschar tissue [id number] with underlying fluctuance and surrounding erythema and edema NEUROLOGIC: Intact sensation to moderate touch - Lab Result Diagrams: 11/13/17 06:00 11/13/17 06:00 Labs: Abnormal lab results RBC 4.13 M/mcL (4.19-5.50) L 11/13/17 06:00 Hgb 11.9 g/dL (12.9-16.9) L 11/13/17 06:00 Hct 36.6 % (37.5-50.1) L 11/13/17 06:00 Neutrophils # 11.8 K/mcL (1.6-8.9) H 11/11/17 16:31 ESR 54 mm/hr (0-10) H 11/11/17 16:31 Glucose 63 mg/dL (70-105) L 11/13/17 06:00 Vancomycin Trough 15 mcg/mL (5-10) H 11/13/17 06:00 Consult Discharge Plan - Plan [facility]errals: [facility] [Primary Care Provider] -
--- NOTE | 2017-11-13 21:45 | Anesthesia Evaluation PreOp ---
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: CVA (CVA-no residual) Other Medical History: Diabetes Type II Anesthesia History: No Prior Anesthetic Complications, Past Anesthesia Alcohol Use: none Drug use: none Medications and Allergies Aspirin [Lo-Dose Aspirin EC] 325 mg PO DAILY 04/12/17 [History] Lisinopril [Zestril] 20 mg PO DAILY 04/12/17 [History] Insulin ASPART [Novolog Flexpen] 14 unit SQ QAM 05/10/17 [History] Acetaminophen [Tylenol] 1,000 mg PO Q6HR PRN #90 tablet 11/06/17 [Rx] Clopidogrel [Plavix] 75 mg PO DAILY #30 tablet 11/06/17 [Rx] Hydrochlorothiazide [Microzide] 12.5 mg PO DAILY 11/06/17 [History] Isosorbide MONOnitrate (24 HR) [Imdur] 30 mg PO DAILY 11/06/17 [History] Pravastatin Sodium [Pravachol] 10 mg PO MOTH 11/06/17 [History] dilTIAZem HCl [Diltiazem 24Hr Cd] 120 mg PO DAILY 11/06/17 [History] Insulin ASPART [NovoLOG] 10 unit SQ BID 11/11/17 [History] Insulin Glargine,Hum.rec.anlog [Lantus Solostar] 54 - 60 unit SQ HS 11/11/17 [ History] 3 Allergy/AdvReac Type Severity Reaction Status Date / Time atorvastatin [From Lipitor] Allergy Diarrhea Verified 11/11/17 18:33 - Meds/Allergy Pre-op Review Medications Reviewed: Yes Allergies Reviewed: Yes Beta Blockers on Current Med List: No Anesthesia Results - Labs 11/13/17 06:00 11/13/17 06:00 - Imaging EKG: report reviewed (11/04/2017 SINUS RHYTHM) Additional studies: 11/30/2015 Echo Impressions: LVEF 60%. The basal inferior segment appeared mildly hypokinetic, otherwise normal LV function. Mild concentric left ventricular hypertrophy. Mild left ventricular diastolic dysfunction. Atypical septal motion consistent with post-operative status. Normal right ventricular structure and function. No evidence of pulmonary hypertension. No significant valvular dysfunction. Anesthesia Exam Vital Signs/O2 Sat/Glucose, Most Recent Temp Pulse Resp BP Pulse Ox 99.0 F 68 15 124/65 97 11/13/17 19:03 11/13/17 19:03 11/13/17 19:03 11/13/17 19:03 11/13/17 19:03 Blood Glucose* 78 Height: 5'11'' Weight: 239 lbs/109 kg NPO (# of Hours): 8 Pain Scale: 5 (right foot) Pain Scale Used: Numeric (1 - 10) - HEENT Pupil (Motor): EOMI Mallampati: II Teeth: Edentulous Oral Opening: Greater than 3 - RECREATION ENGINEER LOC: Oriented RECREATION ENGINEER Motor: Normal RUE, Normal LUE, Normal RLE, Normal LLE, Normal Face RECREATION ENGINEER Sensory: Normal: RUE, LUE, Face, Deficit: RLE, LLE - Cardiac Rhythm: Regular Murmur: None - Pulmonary Breath Sounds: bilateral Clear (expiratory wheeze) Respiratory Effort: Symmetrical Anesthesia Assess/Plan ASA Score: 3 Modified Viviana Scale for Level of Consciousness: Cooperative, oriented, and tranquil Anesthetic Plan: General Monitoring Plan: Standard Monitors Recovery Plan: PACU
[2017-11-13] MEDS ORDERED: Albuterol 2.5 MG/3 ML NEBULIZER ONE (21:56)
[2017-11-13] MEDS ORDERED: Albuterol 2.5 MG/3 ML NEBULIZER IH ONE (21:58)
[2017-11-13] MEDS ORDERED: *HR* Midazolam HCl 2 MG/2 ML VIAL ONE (22:03)
[2017-11-13] MEDS ORDERED: *HR* Succinylcholine 200 MG/10 ML VIAL IVP ONE (22:03)
[2017-11-13] MEDS ORDERED: *HR* Propofol 200 MG/20 ML VIAL IVP ONE (22:03)
[2017-11-13] MEDS ORDERED: Lidocaine -MPF 2% 2 ML VIAL ONE (22:03)
[2017-11-13] MEDS ORDERED: *HR* FentaNYL (PF) 100 MCG/2 ML VIAL ONE ×2 (22:03→23:42)
[2017-11-13] MEDS ORDERED: Dexamethasone 4 MG/ML VIAL ONE (22:41)
[2017-11-13] MEDS ORDERED: Ondansetron 4 MG/2 ML VIAL ONE (22:41)
[2017-11-14] MEDS ORDERED: *HR* FentaNYL (PF) 100 MCG/2 ML VIAL IVP PRN (00:10)
--- NOTE | 2017-11-14 00:10 | Operative Note ---
Date of procedure: 11/13/17 Pre-op diagnosis: Ulcerations with infection bilateral feet, ischemia secondary to left foot Post-op diagnosis: same Procedure: Full-thickness debridement ulcerations bilateral feet with amputation of distal aspect of the left second digit at the level of the middle phalanx. Implants: None Complications: None Anesthesia: ROSALBAA Surgeon: Wiley Morales Was there an assistant coach present: No Estimated blood loss (cc): 5 Specimen: Second digit left foot, cultures from the left foot and right foot. Condition: stable Disposition: PACU Procedure in Detail: The patient was administered IV antibiotics. The patient was transported to the operative room and placed on operating table. Following anesthesia the extremity was scrubbed prepped and draped in the usual aseptic fashion. A timeout was performed. An incision was made and deepened through subcutaneous tissue with care taken to identify and retract all vital neurovascular structures. Incision was made circumferentially around the second digit of the left foot. The left second digit was noted to be completely ischemic at the distal aspect. An osteotomy was made in the middle phalanx removing half of the middle phalanx and the distal phalanx for the amputation. Irrigation was completed and flaps were created plantarly and dorsally and closed to close the amputation site. The left foot ulceration on the head of the fifth metatarsal was then debrided as well. There was noted to be a small amount of purulence at the dorsal aspect of the ulceration. The purulence was cultured. The remainder of the ulceration site was debrided. The ulceration measured approximately 2 cm in diameter and full-thickness in depth. The ulceration at the left lateral aspect of the heel was noted to be small and superficial in nature. The ischemic tissue was sharply debrided with a 15 blade scalpel, the debridement consisted of epidermis, dermis, subcutaneous and the full-thickness debridement was performed and there was not any signs of purulence at that ulceration site. The ulceration on the lateral aspect of the right fifth metatarsal head was also inspected and there is not any noted purulence or other sign of infection at the ulceration site. A debridement was performed which was full-thickness however less aggressive and a significant portion of the eschar was left intact. The eschar was crosshatched to allow better penetration of Santyl. The large ulceration on the right heel was inspected and at the dorsal aspect of the ulceration site/proximal aspect of the ulceration site there is noted to be purulence. The purulence was cultured. A full-thickness debridement was performed of the eschar to remove any purulent fluid. All of the sites were pulse irrigated and dressed with Adaptic, 4 x 4's, Kerlix. The patient tolerated the procedure and anesthesia well and was transported to the recovery room with vital signs stable and vascular status intact to both feet.
--- NOTE | 2017-11-14 00:53 | Anesthesia Evaluation Post Op ---
Date of Encounter: 11/14/17 Time of Encounter: 00:02 - Vital Signs Vital Signs: Vital Signs/O2 Sat/Glucose, Most Current Temp Pulse Resp BP Pulse Ox 11/13/17 23:57 73 20 112/54 95 - Lungs Lungs: Clear Ascult./Percussion - Airway Airway: Non-obstructed - Cardiovascular Regular Rate - Mental Status Mental Status: Alert & Oriented, Answers Appropriately - Pain Pain Scale: 0 Pain Scale used: Numeric (1 - 10) - Nausea Vomiting Nausea Vomiting: Not Present - Hydration Hydration: NPO, Has not voided - Discharge PostOp Status: Transfer Patient to floor
[2017-11-14] MEDS: Cefepime HCl 1,000 MG in Water for inj. (sterile) 20 ML 10 ML IVP SCH ×2 (02:45→16:09)
[2017-11-14] MEDS: *HR* Heparin 5,000 UNIT/ML VIAL SQ SCH ×2 (06:08→18:14)
--- NOTE | 2017-11-14 07:21 | Vascular/[facility] Progress Note ---
Date of Encounter: 11/13/17 Time of Encounter: 17:10 - Assessment and plan (1) Atherosclerosis of both lower extremities with bilateral ulceration of ankles Current Visit: Yes Status: Chronic The patient has a long history of peripheral vascular disease with ulcerations. He has diabetic foot ulcers bilaterally which are actively infected. The patient previously underwent a left femoral to above-knee popliteal artery bypass graft with vein at another facility. He recently underwent an angiogram which revealed high-grade stenosis of the distal anastomosis. This was treated with angioplasty. His left lower extremity wounds have been healing per the patient's report. However he has developed bilateral foot infections. Would recommend continuing intravenous antibiotics at this time. Also recommend podiatry consultation. The patient has known right lower extremity peripheral vascular disease. He will be scheduled for an angiogram after his acute issues resolved. Continue with daily Plavix. Qualifiers: Peripheral atherosclerosis artery type: bypass graft, autologous vein Qualified Code(s): I70.433 - Atherosclerosis of autologous vein bypass graft(s) of the right leg with ulceration of ankle; I70.443 - Atherosclerosis of autologous vein bypass graft(s) of the left leg with ulceration of ankle; I70.443 - Atherosclerosis of autologous vein bypass graft(s) of the left leg with ulceration of ankle; I70.443 - Atherosclerosis of autologous vein bypass graft(s) of the left leg with ulceration of ankle; I70.443 - Atherosclerosis of autologous vein bypass graft(s) of the left leg with ulceration of ankle; I70.443 - Atherosclerosis of autologous vein bypass graft(s) of the left leg with ulceration of ankle; I70.443 - Atherosclerosis of autologous vein bypass graft(s) of the left leg with ulceration of ankle (2) Cellulitis of both feet Current Visit: Yes Status: Acute (3) Chronic foot ulcer Current Visit: Yes Status: Acute Qualifiers: Laterality: unspecified laterality Non-pressure ulcer stage: unspecified non-pressure ulcer stage Qualified Code(s): L97.509 - Non-pressure chronic ulcer of other part of unspecified foot with unspecified severity (4) CAD (coronary artery disease) Current Visit: Yes Status: Chronic Qualifiers: Coronary Disease-Associated Artery/Lesion type: [place] artery [place] vs. transplanted heart: unspecified whether [place] or transplanted heart Associated angina: without angina Qualified Code(s): I25.10 - Atherosclerotic heart disease of [place] coronary artery without angina pectoris (5) Diabetes mellitus Current Visit: Yes Status: Chronic Qualifiers: Diabetes mellitus type: type 2 Diabetes mellitus group home insulin use: with group home use Diabetes mellitus complication status: with circulatory complication Diabetes mellitus complication detail: with peripheral angiopathy with gangrene Qualified Code(s): E11.52 - Type 2 diabetes 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; 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 - Subjective Interval history: The patient is comfortable and without complaints. He reports that his pain is well controlled. He denies chest pain or shortness of breath. He denies feveres or chills. Vital Signs, Last 4 Hours Temp Pulse Resp BP Pulse Ox 11/14/17 06:37 98.1 F 66 16 180/76 96 11/14/17 04:12 97.8 F 67 15 158/72 95 11/14/17 03:30 98.3 F 67 16 145/71 98 - Physical Examination General: Present: Conversant, No Apparent Distress Cardiac: Present: Normal S1 and S2 Lungs: Present: Normal Breath Sounds Neuro: Present: Alert and responsive, No focal deficits noted, Motor nerves grossly intact, Sensory nerves grossly intact Vascular: Present: Normal capillary refill, Pulse, diminished. Absent: Edema Abdomen: Present: Soft Skin: Present: Wound/ulcer(s) (necrotic wounds on bilateral feet) Results 11/19/17 05:17 11/19/17 05:17 11/13/17 06:00 11/13/17 06:00 Consult Discharge Plan - Plan Referrals: Jad Harris MD [Partnered Physician] - [facility] Provider[facility] -
--- NOTE | 2017-11-14 08:31 | Internal Med Progress Note ---
Date of Encounter: 11/14/17 Time of Encounter: 08:29 - Assessment and plan (1) Necrotic eschar Current Visit: Yes Status: Acute Assessment and plan: surrounded by cellulitis on both feet, likely related to DM and severe PVD s/p left 2nd toe partial amputation and debridement of wounds Stopped Zosyn at day #1 continue vancomycin IV day #4 Continue cefepime IV day #3 wound cultures pending: growing GNR and GPC Podiatry and vascular surgery consulted - Patient likely needs a debridement after the revascularization procedure. (2) Diabetes mellitus Current Visit: No Status: Chronic Assessment and plan: Continue Lantus at home dose, bolus insulin before each meal, continue insulin sliding scale. 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 - Vascular surgery consult. (4) Chronic foot ulcer Current Visit: Yes Status: Acute Assessment and plan: 62-year-old male with history of diabetes and severe bilateral peripheral vascular disease presented with worsening bilateral foot wounds. He has been receiving treatment at a [facility] in the past with IV antibiotics. He underwent right lower extremity revascularization about a week ago. He reported improved wound healing on the left side. He is planning to have right-sided leg revascularization 20 days. - Worsening bilateral foot wounds with for foul smell and yellow drainage. . Qualifiers: Laterality: unspecified laterality Non-pressure ulcer stage: unspecified non-pressure ulcer stage Qualified Code(s): L97.509 - Non-pressure chronic ulcer of other part of unspecified foot with unspecified severity (5) A-fib Current Visit: Yes Status: Acute Assessment and plan: diltiazem Qualifiers: Atrial fibrillation type: paroxysmal Qualified Code(s): I48.0 - Paroxysmal atrial fibrillation (6) CAD (coronary artery disease) Current Visit: Yes Status: Acute Qualifiers: Coronary Disease-Associated Artery/Lesion type: [place] artery [place] vs. transplanted heart: unspecified whether [place] or transplanted heart Associated angina: without angina Qualified Code(s): I25.10 - Atherosclerotic heart disease of [place] coronary artery without angina pectoris - Time Spent With Patient Total time spent is greater than 50% in coordination of care (as documented) at patient's floor/unit and/or counseling patient: - Subjective Interval history: Denies pain on both feet mainly the right one, no CP or SOB, no abdominal pain , dysuria or diarrhea, no fever - Constitutional Vitals: Temp Pulse Resp BP Pulse Ox 98.1 F 66 16 180/76 96 11/14/17 06:37 11/14/17 06:37 11/14/17 06:37 11/14/17 06:37 11/14/17 06:37 General appearance: Present: A&O X 3 Exam: - Head Head exam: Present: atraumatic, normocephalic - Eye Eye exam: Present: PERRL, conjuntiva pink, sclera anicteric Pupils: Present: PERRL - Neck Neck exam general surgery: Present: supple, trachea midline. Absent: lymphadenopathy - Respiratory Respiratory exam: Present: CTAB. Absent: accessory muscle use, rales, rhonchi, wheezes - Cardiovascular Cardiovascular exam: Present: RRR, +S1, +S2. Absent: diastolic murmur, gallop, rubs, systolic murmur - GI/Abdominal GI/Abdominal exam: Present: normal bowel sounds, soft, no peritoneal signs. Absent: distended, tenderness - Extremities Exam Extremities exam: Present: warm, radial pulses palpable and symmetrical. Absent : calf tenderness, cyanotic, pedal edema - Neurological Exam Neurological exam: Present: CN II-XII intact, oriented X3, no focal deficits. Absent: pronater drift, facial droop, speech deficit - Skin Skin exam: Present: dry. Absent: intact Additional comments: multiple lower extremities wounds/eschars , worse on the right foot covered by dressing Prior toe amputations left 2nd necrotic toe partially amputated Internal Medicine: Result - Labs CBC & Chem 7: 11/13/17 06:00 11/13/17 06:00 Consult Discharge Plan - Plan [facility]: [facility] [[facility] Care Provider[facility] -
[2017-11-14] MEDS: hydroCHLOROthiazide 25 MG TABLET PO SCH (08:53)
[2017-11-14] MEDS: Aspirin Enteric Coated 325 MG Tablet PO SCH (08:53)
[2017-11-14] MEDS: Insulin LISPRO 300 UNITS/3 ML VIAL SQ SCH ×7 (08:53→21:19)
[2017-11-14] MEDS: Lisinopril 20 MG TABLET PO SCH (08:53)
[2017-11-14] MEDS: Diltiazem CD (24hr) 120 MG CAPSULE PO SCH (08:53)
[2017-11-14] MEDS: Isosorbide MONOnitrate (24 HR) 30 MG TAB.ER.24H PO SCH (08:57)
--- NOTE | 2017-11-14 13:54 | Podiatry Progress Note ---
Date of Encounter: 11/14/17 Time of Encounter: 12:40 - Assessment and Plan (1) Cellulitis of both feet Current Visit: Yes Status: Acute (2) Chronic foot ulcer Current Visit: Yes Status: Acute S/p full-thickness debridement ulcerations bilateral feet with amputation of distal aspect of the left second digit at the level of the middle phalanx by Dr. Morales on 11/13/17. Dressings changed at bedside. Right foot ulcerations with necrotic tissue, malodrous, periwound erythema to both ulcerations, no streaking. Ulcerations to left foot with granualtion and fibrous tissue, no necrosis to wound beds of left foot, incision line is well approximated, no streaking. WBC: 10.5, a febrile Wound cultures from 11/12/17: Left 2nd toe isolated Staph Aureus Right foot: prelim: Gram Negative Ramírez, Gram Positive Cocci. Intraop cutlures obtained and pending. Plan: Dressings changed at bedside. Continue antibiotics. Probable wound vac to the right lateral calcanues and lateral aspect of left foot at the 5th met head. animal control licensing worker for discharge planning with wound vac and IV antibiotics. Patient will most likely need further wound debridement of the right foot after revascularization. Will continue to follow patient closely. Qualifiers: Laterality: unspecified laterality Non-pressure ulcer stage: unspecified non-pressure ulcer stage Qualified Code(s): L97.509 - Non-pressure chronic ulcer of other part of unspecified foot with unspecified severity (3) Atherosclerosis of both lower extremities with bilateral ulceration of ankles Current Visit: Yes Status: Chronic Qualifiers: Peripheral atherosclerosis artery type: bypass graft, autologous vein Qualified Code(s): I70.433 - Atherosclerosis of autologous vein bypass graft(s) of the right leg with ulceration of ankle; I70.443 - Atherosclerosis of autologous vein bypass graft(s) of the left leg with ulceration of ankle; I70.443 - Atherosclerosis of autologous vein bypass graft(s) of the left leg with ulceration of ankle; I70.443 - Atherosclerosis of autologous vein bypass graft(s) of the left leg with ulceration of ankle; I70.443 - Atherosclerosis of autologous vein bypass graft(s) of the left leg with ulceration of ankle; I70.443 - Atherosclerosis of autologous vein bypass graft(s) of the left leg with ulceration of ankle; I70.443 - Atherosclerosis of autologous vein bypass graft(s) of the left leg with ulceration of ankle (4) Diabetes mellitus Current Visit: No Status: Chronic Qualifiers: Diabetes mellitus type: type 2 Diabetes mellitus [facility] 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 Diabetes mellitus complication status: with circulatory complication Diabetes mellitus complication detail: with peripheral angiopathy with gangrene Qualified Code(s): E11.52 - Type 2 diabetes 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; 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 Morales on 11/13/17. Patient is sitting up in bed eating lunch with brother at bedside. Patient denies any pain, fever, chills, or flu like symptoms overnight. Dressings are intact to both feet. Objective - Vital Signs Vital Signs: Vital Signs Temp Pulse Resp BP Pulse Ox 11/14/17 10:59 98.2 F 69 18 135/66 95 11/14/17 06:37 98.1 F 66 16 180/76 96 11/14/17 04:12 97.8 F 67 15 158/72 95 11/14/17 03:30 98.3 F 67 16 145/71 98 11/14/17 02:30 98.2 F 73 14 132/71 98 11/14/17 01:20 98.5 F 67 14 108/72 94 11/14/17 01:00 98 F 71 16 122/66 92 11/14/17 00:30 98.2 F 71 16 119/67 96 11/14/17 00:07 98.8 F 70 20 112/57 98 11/13/17 23:57 73 20 112/54 95 11/13/17 23:47 72 20 109/53 93 11/13/17 23:37 98.2 F 77 20 105/58 95 11/13/17 19:03 99.0 F 68 15 124/65 97 Intake and Output 11/13/17 11/14/17 11/14/17 23:59 07:59 15:59 Intake Total 260 / 260 210 / 210 490 / 490 Output Total 255 / 255 100 / 100 925 / 925 Balance 5 110 / 110 -435 / -435 Intake: IV Fluids 260 / 260 250 / 250 Maxipime 1,000 MG In Water for inj. (sterile) 10 ML @ 150 mls/ hr IVP Q12H [facility] Rx#:[id number] Vancocin 1,500 MG In 0.9 % 250 / 250 250 / 250 Sodium Chloride 250 ML @ 166. 667 mls/hr IVPB Q12H [facility] Rx#: [id number] Oral 0 / 0 200 / 200 240 / 240 Output: Urine 250 / 250 100 / 100 925 / 925 Estimated Blood Loss Other: Meal Breakfast Percent of Meal Consumed 100% Weight 103.3 kg Blood Glucose* 88 339 Patient Weight 11/14/17 23:59 Weight 103.3 kg - Exam Exam: General appearance: alert awake oriented X 3. Calm and pleasant, no acute distress.. Vascular: Pedal pulses non palpable. Edema graded at 1+/4, Skin Temperature warm , No calf pain with manual compression. capillary refill time is immediate to digits. Postop Exam: S/P Incision line to toe #2 left foot well approximated, light periwound erythema, no streaking, no pus, no odor. Wound #1: Full thickness ulceration to the lateral aspect of the right calcaneus measuring 5 cm in length x 6 cm in width x 1.5 cm in depth, base of wound is necrotic and malodorous, moderate amount of bloody drainage observed to dressing, periwound erythema. Wound #2: Lateral aspect of right foot at the 5th metatarsal head, with dried eschar, connected, unstageable, periwound erythema, no streaking. No purulent drainage. Wound #3: Full thickness ulceration to the lateral aspect of left foot at the 5th metatarsal head measuring 2.2 cm in length x 2 cm in width x 0.5 cm in depth , base of wound with yellow fibrous tissue and dried blood, wound edges connected, no tunneling, no sinus tracts, no odor, no pus. periwound erythema, no streaking. No probe to bone, no exposed bone, ligament or tendon. Wound #4: Full thickness ulceration to the lateral aspect of left calcaneus measuring 1.5 cm in length x 1.5 cm in width x 0.2 cm in depth base of wound with yellow fibrous tissue and granulation tissue, no pus, no odor, no tunneling , no sinus tracts, no probe to bone, no exposed bone, ligament or tendon. Wound #5: Ulceration to the amputation site of the 1st MTPJ left, base of wound with 80 % granualtion tissue, 20 % yellow tissue, no pus, no odor, no streaking , no fluctuance. - Lab Result Diagrams: 11/13/17 06:00 11/13/17 06:00 Labs: Abnormal lab results RBC 4.13 M/mcL (4.19-5.50) L 11/13/17 06:00 Hgb 11.9 g/dL (12.9-16.9) L 11/13/17 06:00 Hct 36.6 % (37.5-50.1) L 11/13/17 06:00 Neutrophils # 11.8 K/mcL (1.6-8.9) H 11/11/17 16:31 ESR 54 mm/hr (0-10) H 11/11/17 16:31 Glucose 63 mg/dL (70-105) L 11/13/17 06:00 Vancomycin Trough 15 mcg/mL (5-10) H 11/13/17 06:00 - VTE Documentation of Mechanical Device: Intermittent pneumatic compression device Consult Discharge Plan - Plan [facility]: [facility] [Primary Care Provider[facility] -
[2017-11-14] MEDS: Insulin DETEMIR 100 UNIT/ML X5UNITS SQ SCH (21:19)
[2017-11-15] MEDS: *HR* OxyCODONE Immed Rel 5 MG TABLET PO PRN (01:04)
[2017-11-15] MEDS: Cefepime HCl 1,000 MG in Water for inj. (sterile) 20 ML 10 ML IVP SCH (03:32)
[2017-11-15 05:27] LABS: Hematocrit 34.8 % (37.5-50.1); Hemoglobin 11.5 g/dL (12.9-16.9); Mean Corpuscular Volume 87.9 fL (83.0-100.0); Mean Platelet Volume 10.4 fL (9.4-12.4); Platelet Count 251 K/mcL (140-400); Red Blood Count 3.96 M/mcL (4.19-5.50); Red Cell Distribution Width 12.2 % (11.5-14.5)
[2017-11-15] MEDS: *HR* Heparin 5,000 UNIT/ML VIAL SQ SCH ×2 (05:36→16:52)
[2017-11-15 05:48] LABS: BUN/Creatinine Ratio 25 (6-26); Blood Urea Nitrogen 27 mg/dL (8-23); Carbon Dioxide 30 mEq/L (23-29); Chloride 103 mEq/L (98-107); Glucose 274 mg/dL (70-105); Osmolality,Calculated 297 (280-300); Potassium 4.3 mEq/L (3.5-5.1); Sodium 136 mEq/L (136-145); eGFR For African Americans > 60 (> 60); eGFR For Non-African Americans > 60 (> 60)
[2017-11-15] MEDS: Insulin LISPRO 300 UNITS/3 ML VIAL SQ SCH ×7 (07:36→22:32)
[2017-11-15] MEDS: Aspirin Enteric Coated 325 MG Tablet PO SCH (07:40)
[2017-11-15] MEDS: Diltiazem CD (24hr) 120 MG CAPSULE PO SCH (07:40)
[2017-11-15] MEDS: Isosorbide MONOnitrate (24 HR) 30 MG TAB.ER.24H PO SCH (07:40)
[2017-11-15] MEDS: Lisinopril 20 MG TABLET PO SCH (07:41)
[2017-11-15] MEDS: hydroCHLOROthiazide 25 MG TABLET PO SCH (07:41)
[2017-11-15] MEDS ORDERED: Aminoglycoside Consult 1 EACH MC ONE (08:11)
[2017-11-15] MEDS ORDERED: Piperacillin/Tazobactam 3.375 GM in 0.9 % Sodium Chloride Mini Bag 100 ML IVPB SCH (08:43)
--- NOTE | 2017-11-15 08:48 | Internal Med Progress Note ---
Date of Encounter: 11/15/17 Time of Encounter: 08:44 - Assessment and plan (1) Necrotic eschar Current Visit: Yes Status: Acute Assessment and plan: surrounded by cellulitis on both feet, likely related to DM and severe PVD s/p left 2nd toe partial amputation and debridement of wounds Stopped Zosyn at day #1, resume Zosyn Discontinue vancomycin IV at day #5 and cefepime IV at day #4 wound cultures pending: growing GNR and MSSA ( pansensitive) Podiatry and vascular surgery consulted - Patient likely needs further debridement , Vascular surgery might repeat angiogram after acute problems improve (2) Diabetes mellitus Current Visit: No Status: Chronic Assessment and plan: Continue Lantus at home dose, bolus insulin before each meal, continue insulin sliding scale. Qualifiers: Diabetes mellitus type: type 2 Diabetes mellitus usp insulin use: with watermelon inspector use Diabetes mellitus complication status: with circulatory complication Diabetes mellitus complication detail: with peripheral angiopathy with gangrene Qualified Code(s): E11.52 - Type 2 diabetes 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; Z79.4 - care home (current) use of insulin; Z79.4 - emt intermediate (current) use of insulin; Z79.4 - emt intermediate ( current) use of insulin; Z79.4 - emt intermediate (current) use of insulin (3) Peripheral vascular disease Current Visit: No Status: Chronic Assessment and plan: - Continue aspirin, Plavix, statins. - Vascular surgery consulted. (4) Chronic foot ulcer Current Visit: Yes Status: Acute Assessment and plan: 62-year-old male with history of diabetes and severe bilateral peripheral vascular disease presented with worsening bilateral foot wounds. He has been receiving treatment at a [facility] in the past with IV antibiotics. He underwent right lower extremity revascularization about a week ago. He reported improved wound healing on the left side. He is planning to have right-sided leg revascularization 20 days. - Came with worsening bilateral foot wounds with for foul smell and yellow drainage. . Qualifiers: Laterality: unspecified laterality Non-pressure ulcer stage: unspecified non-pressure ulcer stage Qualified Code(s): L97.509 - Non-pressure chronic ulcer of other part of unspecified foot with unspecified severity (5) A-fib Current Visit: Yes Status: Acute Assessment and plan: diltiazem Qualifiers: Atrial fibrillation type: paroxysmal Qualified Code(s): I48.0 - Paroxysmal atrial fibrillation (6) CAD (coronary artery disease) Current Visit: Yes Status: Chronic Qualifiers: Coronary Disease-Associated Artery/Lesion type: [place] artery [place] vs. transplanted heart: unspecified whether [place] or transplanted heart Associated angina: without angina Qualified Code(s): I25.10 - Atherosclerotic heart disease of [place] coronary artery without angina pectoris - Time Spent With Patient Total time spent is greater than 50% in coordination of care (as documented) at patient's floor/unit and/or counseling patient: - Subjective Interval history: Feet are very fouls smelling. Denies pain on both feet mainly the right one, no CP or SOB, no abdominal pain , dysuria or diarrhea, no fever - Constitutional Vitals: Temp Pulse Resp BP Pulse Ox 97.7 F 62 16 135/79 96 11/15/17 06:48 11/15/17 06:48 11/15/17 06:48 11/15/17 06:48 11/15/17 06:48 General appearance: Present: A&O X 3 Exam: - Head Head exam: Present: atraumatic, normocephalic - Eye Eye exam: Present: PERRL, conjuntiva pink, sclera anicteric Pupils: Present: PERRL - Neck Neck exam general surgery: Present: supple, trachea midline. Absent: lymphadenopathy - Respiratory Respiratory exam: Present: CTAB. Absent: accessory muscle use, rales, rhonchi, wheezes - Cardiovascular Cardiovascular exam: Present: RRR, +S1, +S2. Absent: diastolic murmur, gallop, rubs, systolic murmur - GI/Abdominal GI/Abdominal exam: Present: normal bowel sounds, soft, no peritoneal signs. Absent: distended, tenderness - Extremities Exam Extremities exam: Present: warm, radial pulses palpable and symmetrical. Absent : calf tenderness, cyanotic, pedal edema - Neurological Exam Neurological exam: Present: CN II-XII intact, oriented X3, no focal deficits. Absent: pronater drift, facial droop, speech deficit - Skin Skin exam: Present: dry. Absent: intact Additional comments: multiple lower extremities wounds/eschars , worse on the right foot aterior and posterior lateral areas with necrotic tissue Prior toe amputations left 2nd necrotic toe partially amputated, surrounding erythema improving Internal Medicine: Result - Labs CBC & Chem 7: 11/15/17 05:12 11/15/17 05:12 Labs: Short CBC 11/15/17 Range/Units 05:12 WBC 10.7 (4.3-11.1) K/mcL Hgb 11.5 L (12.9-16.9) g/dL Hct 34.8 L (37.5-50.1) % Plt Count 251 (140-400) K/mcL BMP 11/15/17 05:12 Sodium 136 Potassium 4.3 Chloride 103 Carbon Dioxide 30 H BUN 27 H Creatinine 1.06 Glucose 274 H Calcium 9.0 - VTE Documentation of Mechanical Device: Intermittent pneumatic compression device Consult Discharge Plan - Plan [facility]: [facility] [Primary Care Provider] -
[2017-11-15] MEDS: Piperacillin/Tazobactam 3.375 GM in 0.9 % Sodium Chloride Mini Bag 100 ML IVPB SCH ×2 (10:36→19:50)
--- NOTE | 2017-11-15 13:41 | Podiatry Progress Note ---
Date of Encounter: 11/15/17 Time of Encounter: 12:00 - Assessment and Plan (1) Peripheral vascular disease Current Visit: No Status: Chronic Vascular has been consulted, recent revasc x2 weeks of of the LLE, planned RLE once stable Most recent JOSEMANUEL's from October 2016 Segmental Pressures Side Location Pressure Index Result Right Posterior Tibial 84 0.68 Right Dorsalis Pedis 87 0.71 Left Posterior Tibial 116 0.94 Left Dorsalis Pedis 103 0.84 Ankle Brachial Index Right Systolic Diastolic JOSEMANUEL Brachial 113 0.71 Dorsalis Pedis 87 0.71 Posterior Tibial 84 0.68 Left Systolic Diastolic JOSEMANUEL Brachial 123 0.94 Dorsalis Pedis 103 0.84 Posterior Tibial 116 0.94 (2) Cellulitis of both feet Current Visit: Yes Status: Acute Continue with current antibiotic treatment-Will obtain intraop cultures (3) Necrotic eschar Current Visit: Yes Status: Acute S/p full-thickness debridement ulcerations bilateral feet with amputation of distal aspect of the left second digit at the level of the middle phalanx by Dr. Morales on 11/13/17. Dressings changed at bedside. Right foot ulcerations with necrotic tissue, malodrous, periwound erythema to both ulcerations, no streaking. Ulcerations to left foot with granualtion and fibrous tissue, no necrosis to wound beds of left foot, incision line is well approximated, no streaking. Wound cultures from 11/12/17: Left 2nd toe isolated Staph Aureus and citrobacter frundii Right foot: prelim: Gram Negative Ramírez, Gram Positive Cocci. Intraop cutlures obtained and pending. Plan: Dressings changed at bedside. Continue antibiotics. 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 Patient will most likely need further wound debridement of the right foot after revascularization. Will continue to follow patient closely. (4) Chronic foot ulcer Current Visit: Yes Status: Acute see above Qualifiers: Laterality: unspecified laterality Non-pressure ulcer stage: unspecified non-pressure ulcer stage Qualified Code(s): L97.509 - Non-pressure chronic ulcer of other part of unspecified foot with unspecified severity Subjective Principal diagnosis: Ischemic foot ulcers bilateral lower extremities Interval history: Patient is s/p full-thickness debridement ulcerations bilateral feet with amputation of distal aspect of the left second digit at the level of the middle phalanx by Dr. Morales on 11/13/17. Patient is resting comfortably in bed at this time. Patient denies any pain, fever, chills, or flu like symptoms overnight. Dressings are intact to both feet. Objective - Vital Signs Vital Signs: Vital Signs Temp Pulse Resp BP Pulse Ox 11/15/17 10:48 98.2 F 59 16 104/63 94 11/15/17 06:48 97.7 F 62 16 135/79 96 11/15/17 03:05 98.3 F 65 16 120/72 96 11/14/17 20:30 97 11/14/17 19:02 98.2 F 66 14 116/57 97 11/14/17 14:54 98.6 F 65 18 136/52 96 Intake and Output 11/14/17 11/15/17 11/15/17 23:59 07:59 15:59 Intake Total 450 / 450 480 / 480 830 / 830 Output Total 575 / 575 350 / 350 175 / 175 Balance -125 / -125 130 / 130 655 / 655 Intake: IV Fluids Maxipime 1,000 MG In Water for inj. (sterile) 10 ML @ 150 mls/ hr IVP Q12H PENDING SALE TO [facility] Rx#:[id number] Oral 440 / 440 480 / 480 830 / 830 Output: Urine 575 / 575 350 / 350 175 / 175 Other: Meal Dinner Lunch Percent of Meal Consumed 85% 100% # Bowel Movements 0 0 Blood Glucose* 297 276 180 - Exam Exam: General appearance: alert awake oriented X 3. Calm and pleasant, no acute distress.. Vascular: Pedal pulses non palpable. Edema graded at 1+/4, Skin Temperature warm , No calf pain with manual compression. capillary refill time is immediate to digits. Postop Exam: S/P Incision line to toe #2 left foot well approximated, light periwound erythema, no streaking, no pus, no odor. Wound #1: Full thickness ulceration to the lateral aspect of the right calcaneus measuring 5 cm in length x 6 cm in width x 1.5 cm in depth, base of wound is necrotic and malodorous, moderate amount of serous drainage observed to dressing, periwound erythema., there remains boggy tissue within wound. NO granulation tissue noted. Wound #2: Lateral aspect of right foot at the 5th metatarsal head, with dried eschar, connected, unstageable, periwound erythema, no streaking. No purulent drainage. Wound #3: Full thickness ulceration to the lateral aspect of left foot at the 5th metatarsal head measuring 2.2 cm in length x 2 cm in width x 0.5 cm in depth , base of wound with yellow fibrous tissue and dried blood, wound edges connected, no tunneling, no sinus tracts, no odor, no pus. periwound erythema, no streaking. No probe to bone, no exposed bone, ligament or tendon. Wound #4: Full thickness ulceration to the lateral aspect of left calcaneus measuring 1.5 cm in length x 1.5 cm in width x 0.2 cm in depth base of wound with yellow fibrous tissue and granulation tissue, no pus, no odor, no tunneling , no sinus tracts, no probe to bone, no exposed bone, ligament or tendon. Wound #5: Ulceration to the amputation site of the 1st MTPJ left, base of wound with 80 % granualtion tissue, 20 % yellow tissue, no pus, no odor, no streaking , no fluctuan - Lab Result Diagrams: 11/15/17 05:12 11/15/17 05:12 Labs: Abnormal lab results RBC 3.96 M/mcL (4.19-5.50) L 11/15/17 05:12 Hgb 11.5 g/dL (12.9-16.9) L 11/15/17 05:12 Hct 34.8 % (37.5-50.1) L 11/15/17 05:12 Neutrophils # 11.8 K/mcL (1.6-8.9) H 11/11/17 16:31 ESR 54 mm/hr (0-10) H 11/11/17 16:31 Carbon Dioxide 30 mEq/L (23-29) H 11/15/17 05:12 BUN 27 mg/dL (8-23) H 11/15/17 05:12 Glucose 274 mg/dL (70-105) H 11/15/17 05:12 POC Glucose 276 mg/dL (70-99) H 11/15/17 07:17 Vancomycin Trough 22 mcg/mL (5-10) H 11/15/17 05:12 Microbiology, Last 48 Hours 11/13/17 Unknown Wound Culture - Preliminary Right Foot Gram Negative Ramírez - VTE Documentation of Mechanical Device: Intermittent pneumatic compression device Consult Discharge Plan - Plan [facility]errals: [facility] [Primary Care Provider] -
--- NOTE | 2017-11-15 18:50 | Vascular/Endovas Progress Note ---
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 He has previously been revascularized the left lower extremities. He has significant right lower extremity disease. He has been scheduled for an angiogram with possible intervention on 11/18/2017. The risks benefits alternatives were discussed and all questions were answered. He will continue with daily Plavix at this time. Qualifiers: Peripheral atherosclerosis artery type: bypass graft, autologous vein Qualified Code(s): I70.433 - Atherosclerosis of autologous vein bypass graft(s) of the right leg with ulceration of ankle; I70.443 - Atherosclerosis of autologous vein bypass graft(s) of the left leg with ulceration of ankle; I70.443 - Atherosclerosis of autologous vein bypass graft(s) of the left leg with ulceration of ankle; I70.443 - Atherosclerosis of autologous vein bypass graft(s) of the left leg with ulceration of ankle; I70.443 - Atherosclerosis of autologous vein bypass graft(s) of the left leg with ulceration of ankle; I70.443 - Atherosclerosis of autologous vein bypass graft(s) of the left leg with ulceration of ankle; I70.443 - Atherosclerosis of autologous vein bypass graft(s) of the left leg with ulceration of ankle (2) CAD (coronary artery disease) Current Visit: Yes Status: Chronic Qualifiers: Coronary Disease-Associated Artery/Lesion type: [place] artery [place] vs. transplanted heart: unspecified whether [place] or transplanted heart Associated angina: without angina Qualified Code(s): I25.10 - Atherosclerotic heart disease of [place] coronary artery without angina pectoris (3) Cellulitis of both feet Current Visit: Yes Status: Acute (4) Diabetes mellitus Current Visit: No Status: Chronic Qualifiers: Diabetes mellitus type: type 2 Diabetes mellitus custodial insulin use: with director long term care use Diabetes mellitus complication status: with circulatory complication Diabetes mellitus complication detail: with peripheral angiopathy with gangrene Qualified Code(s): E11.52 - Type 2 diabetes 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; Z79.4 - director long term care (current) use of insulin; Z79.4 - director long term care (current) use of insulin; Z79.4 - director long term care ( current) use of insulin; Z79.4 - [facility] (current) use of insulin (5) Tobacco abuse Current Visit: Yes Status: Chronic The patient was counseled on smoking cessation. - Subjective Interval history: The patient reports adequate pain control. He denies any fevers or chills. He denies chest pain shortness breath. - Physical Examination General: Present: Conversant, No Apparent Distress HEENT: Present: Pupils equal Cardiac: Present: Reg Rate and Rhythm Lungs: Present: Normal Breath Sounds Neuro: Present: Alert and responsive, No focal deficits noted Vascular: Present: Normal capillary refill, Surgical incisions (Right foot wounds are bandaged, left wound VAC in place). Absent: Edema Abdomen: Present: Soft Skin: Present: No rashes noted on visualized skin, Wound/ulcer(s) (No odor detected) - VTE Documentation of Mechanical Device: Intermittent pneumatic compression device Results 11/15/17 05:12 11/15/17 05:12 Lab Results, Last 24 hours 11/15/17 11/15/17 05:12 05:12 WBC 10.7 Hgb 11.5 L Hct 34.8 L Plt Count 251 Sodium 136 Potassium 4.3 Chloride 103 Carbon Dioxide 30 H BUN 27 H Creatinine 1.06 Glucose 274 H Calcium 9.0 Consult Discharge Plan - Plan [facility]errals: [facility] [Primary Care Provider] -
[2017-11-15] MEDS: Insulin DETEMIR 100 UNIT/ML X5UNITS SQ SCH (22:28)
[2017-11-16] MEDS: Piperacillin/Tazobactam 3.375 GM in 0.9 % Sodium Chloride Mini Bag 100 ML IVPB SCH ×3 (03:24→21:20)
[2017-11-16] MEDS: *HR* Heparin 5,000 UNIT/ML VIAL SQ SCH ×2 (06:01→17:37)
[2017-11-16] MEDS: Insulin LISPRO 300 UNITS/3 ML VIAL SQ SCH ×8 (08:09→21:22)
[2017-11-16] MEDS: Aspirin Enteric Coated 325 MG Tablet PO SCH (08:11)
[2017-11-16] MEDS: Lisinopril 20 MG TABLET PO SCH (08:11)
[2017-11-16] MEDS: Isosorbide MONOnitrate (24 HR) 30 MG TAB.ER.24H PO SCH (08:11)
[2017-11-16] MEDS: Diltiazem CD (24hr) 120 MG CAPSULE PO SCH (08:11)
[2017-11-16] MEDS: hydroCHLOROthiazide 25 MG TABLET PO SCH (08:12)
--- NOTE | 2017-11-16 08:34 | Internal Med Progress Note ---
Date of Encounter: 11/16/17 Time of Encounter: 08:30 - Assessment and plan (1) Necrotic eschar Current Visit: Yes Status: Acute Assessment and plan: surrounded by cellulitis on both feet, likely related to DM and severe PVD s/p left 2nd toe partial amputation and debridement of wounds Stopped Zosyn at day #1 of hospitalization , resumed Zosyn day #2 ( will cover anarobes as well) Discontinued vancomycin IV at day #5 and cefepime IV at day #4 wound cultures pending: growing Leclercia, ( pansensitive) MSSA, Citrobacter ( resistant to Augmentin and cefazolin) . Culture from Right foot 11/13/17 growing additional GNR and SA, sensitivities pending Podiatry and vascular surgery consulted - Patient likely needs further debridement , Vascular surgery might repeat angiogram by Saturday (2) Diabetes mellitus Current Visit: No Status: Chronic Assessment and plan: Change Levemir to 30 units twice a day, lispro up to 15 units 3 times a day plus sliding scale. 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 treater helper insulin use: with termite treater helper use Diabetes mellitus complication status: with circulatory complication Diabetes mellitus complication detail: with peripheral angiopathy with gangrene Qualified Code(s): E11.52 - Type 2 diabetes 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; Z79.4 - termite treater helper (current) use of insulin; Z79.4 - nursing home (current) use of insulin; Z79.4 - nursing home ( current) use of insulin; Z79.4 - nursing home (current) use of insulin (3) Peripheral vascular disease Current Visit: No Status: Chronic Assessment and plan: - Continue aspirin, Plavix, statins. - Vascular surgery consulted. (4) Chronic foot ulcer Current Visit: Yes Status: Acute Assessment and plan: 62-year-old male with history of diabetes and severe bilateral peripheral vascular disease presented with worsening bilateral foot wounds. He has been receiving treatment at a [facility] in the past with IV antibiotics. He underwent right lower extremity revascularization about a week ago. He reported improved wound healing on the left side. He is planning to have right-sided leg revascularization 20 days. - Came with worsening bilateral foot wounds with for foul smell and yellow drainage. . Qualifiers: Laterality: unspecified laterality Non-pressure ulcer stage: unspecified non-pressure ulcer stage Qualified Code(s): L97.509 - Non-pressure chronic ulcer of other part of unspecified foot with unspecified severity (5) A-fib Current Visit: Yes Status: Acute Assessment and plan: diltiazem Qualifiers: Atrial fibrillation type: paroxysmal Qualified Code(s): I48.0 - Paroxysmal atrial fibrillation (6) CAD (coronary artery disease) Current Visit: Yes Status: Chronic Qualifiers: Coronary Disease-Associated Artery/Lesion type: [place] artery [place] vs. transplanted heart: unspecified whether [place] or transplanted heart Associated angina: without angina Qualified Code(s): I25.10 - Atherosclerotic heart disease of [place] coronary artery without angina pectoris - Time Spent With Patient Total time spent is greater than 50% in coordination of care (as documented) at patient's floor/unit and/or counseling patient: - Subjective Interval history: Feet wounds are less foul smelling. Denies pain on both feet mainly the right one, no CP or SOB, no abdominal pain , dysuria or diarrhea, no fever - Constitutional Vitals: Temp Pulse Resp BP Pulse Ox 97.9 F 67 16 171/72 97 11/16/17 07:02 11/16/17 07:02 11/16/17 07:02 11/16/17 07:02 11/16/17 07:02 General appearance: Present: A&O X 3 Exam: - Head Head exam: Present: atraumatic, normocephalic - Eye Eye exam: Present: PERRL, conjuntiva pink, sclera anicteric Pupils: Present: PERRL - Neck Neck exam general surgery: Present: supple, trachea midline. Absent: lymphadenopathy - Respiratory Respiratory exam: Present: CTAB. Absent: accessory muscle use, rales, rhonchi, wheezes - Cardiovascular Cardiovascular exam: Present: RRR, +S1, +S2. Absent: diastolic murmur, gallop, rubs, systolic murmur - GI/Abdominal GI/Abdominal exam: Present: normal bowel sounds, soft, no peritoneal signs. Absent: distended, tenderness - Extremities Exam Extremities exam: Present: warm, radial pulses palpable and symmetrical. Absent : calf tenderness, cyanotic, pedal edema - Neurological Exam Neurological exam: Present: CN II-XII intact, oriented X3, no focal deficits. Absent: pronater drift, facial droop, speech deficit - Skin Skin exam: Present: dry. Absent: intact Additional comments: multiple lower extremities wounds/eschars , worse on the right foot aterior and posterior lateral areas with necrotic tissue Prior toe amputations left 2nd necrotic toe partially amputated, surrounding erythema improving Internal Medicine: Result - Labs CBC & Chem 7: 11/15/17 05:12 11/15/17 05:12 - VTE Documentation of Mechanical Device: Intermittent pneumatic compression device Consult Discharge Plan - Plan Referrals: Jad Harris MD [Partnered Physician] - [facility] [Primary Care Provider] -
[2017-11-16] MEDS: Insulin DETEMIR 100 UNIT/ML X5UNITS SQ SCH ×2 (09:46→21:22)
--- NOTE | 2017-11-16 14:12 | Vascular/Endovas Progress Note ---
Date of Encounter: 11/16/17 Time of Encounter: 13:30 - Assessment and plan (1) Peripheral vascular disease Current Visit: No Status: Chronic Patient for aortogram with runoff and possible endovascular intervention per Dr. Harris on Saturday morning. The procedure was reviewed with the patient. All questions were answered. - Subjective Interval history: The patient has no complaints. Vital Signs, Last 4 Hours Temp Pulse Resp BP Pulse Ox 11/16/17 10:57 98.1 F 72 16 127/68 96 - Physical Examination General: Present: Conversant, No Apparent Distress Vascular: Present: Other (The wound VAC is in position and functioning for left foot. The right foot dressing is intact over the ankle and foot area. The right calf is mildly tender. The patient does have a odor of necrotic tissue from the right foot.) - VTE Documentation of Mechanical Device: Intermittent pneumatic compression device Results 11/15/17 05:12 11/15/17 05:12 Consult Discharge Plan - Plan Referrals: Jad Harris MD [Partnered Physician] - [facility] [Primary Care Provider] -
[2017-11-16] MEDS: *HR* OxyCODONE Immed Rel 5 MG TABLET PO PRN (21:20)
[2017-11-17] MEDS: Piperacillin/Tazobactam 3.375 GM in 0.9 % Sodium Chloride Mini Bag 100 ML IVPB SCH ×3 (03:39→20:41)
[2017-11-17] MEDS: *HR* Heparin 5,000 UNIT/ML VIAL SQ SCH ×2 (05:44→18:15)
[2017-11-17] MEDS: Insulin LISPRO 300 UNITS/3 ML VIAL SQ SCH ×7 (07:47→22:14)
[2017-11-17] MEDS: Lisinopril 20 MG TABLET PO SCH (07:49)
[2017-11-17] MEDS: hydroCHLOROthiazide 25 MG TABLET PO SCH (07:49)
[2017-11-17] MEDS: Diltiazem CD (24hr) 120 MG CAPSULE PO SCH (07:49)
[2017-11-17] MEDS: Isosorbide MONOnitrate (24 HR) 30 MG TAB.ER.24H PO SCH (07:49)
[2017-11-17] MEDS: Aspirin Enteric Coated 325 MG Tablet PO SCH (07:49)
[2017-11-17] MEDS: Insulin DETEMIR 100 UNIT/ML X5UNITS SQ SCH (07:55)
--- NOTE | 2017-11-17 08:23 | Internal Med Progress Note ---
Date of Encounter: 11/17/17 Time of Encounter: 08:21 - Assessment and plan (1) Necrotic eschar Current Visit: Yes Status: Acute Assessment and plan: surrounded by cellulitis on both feet, likely related to DM and severe PVD s/p left 2nd toe partial amputation and debridement of wounds Stopped Zosyn at day #1 of hospitalization , resumed Zosyn day #3 ( will cover anarobes as well) Discontinued vancomycin IV at day #5 and cefepime IV at day #4 wound cultures pending: growing Leclercia, ( pansensitive) MSSA, Citrobacter ( resistant to Augmentin and cefazolin) . Culture from Right foot 11/13/17 growing additional GNR and SA, sensitivity still pending Podiatry and vascular surgery consulted - Patient likely needs further debridement , Vascular surgery might repeat angiogram by Saturday (2) Diabetes mellitus Current Visit: No Status: Chronic Assessment and plan: Change Levemir to 30 units twice a day, lispro up to 15 units 3 times a day plus sliding scale. Give only 15 unit of levemir tonight as he will be NPO Qualifiers: Diabetes mellitus type: type 2 Diabetes mellitus mcfp insulin use: with mcfp use Diabetes mellitus complication status: with circulatory complication Diabetes mellitus complication detail: with peripheral angiopathy with gangrene Qualified Code(s): E11.52 - Type 2 diabetes 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; Z79.4 - terminal system operator (current) use of insulin; Z79.4 - alf (current) use of insulin; Z79.4 - alf ( current) use of insulin; Z79.4 - alf (current) use of insulin (3) Peripheral vascular disease Current Visit: No Status: Chronic Assessment and plan: - Continue aspirin, Plavix, statins. - Vascular surgery consulted. (4) Chronic foot ulcer Current Visit: Yes Status: Acute Assessment and plan: 62-year-old male with history of diabetes and severe bilateral peripheral vascular disease presented with worsening bilateral foot wounds. He has been receiving treatment at a [facility] in the past with IV antibiotics. He underwent right lower extremity revascularization about a week prior to his admission. He reported improved wound healing on the left side. He is planning to have right-sided leg revascularization 20 days. - Came with worsening bilateral foot wounds with for foul smell and yellow drainage. . Qualifiers: Laterality: unspecified laterality Non-pressure ulcer stage: unspecified non-pressure ulcer stage Qualified Code(s): L97.509 - Non-pressure chronic ulcer of other part of unspecified foot with unspecified severity (5) A-fib Current Visit: Yes Status: Acute Assessment and plan: diltiazem Qualifiers: Atrial fibrillation type: paroxysmal Qualified Code(s): I48.0 - Paroxysmal atrial fibrillation (6) CAD (coronary artery disease) Current Visit: Yes Status: Chronic Qualifiers: Coronary Disease-Associated Artery/Lesion type: [place] artery [place] vs. transplanted heart: unspecified whether [place] or transplanted heart Associated angina: without angina Qualified Code(s): I25.10 - Atherosclerotic heart disease of [place] coronary artery without angina pectoris - Time Spent With Patient Total time spent is greater than 50% in coordination of care (as documented) at patient's floor/unit and/or counseling patient: - Subjective Interval history: No new complaints. Feet wounds are less foul smelling. Denies pain on both feet mainly the right one, no CP or SOB, no abdominal pain , dysuria or diarrhea, no fever - Constitutional Vitals: Temp Pulse Resp BP Pulse Ox 98.2 F 66 17 128/78 95 11/17/17 07:28 11/17/17 07:28 11/17/17 07:28 11/17/17 07:28 11/17/17 07:28 General appearance: Present: A&O X 3 Exam: - Head Head exam: Present: atraumatic, normocephalic - Eye Eye exam: Present: PERRL, conjuntiva pink, sclera anicteric Pupils: Present: PERRL - Neck Neck exam general surgery: Present: supple, trachea midline. Absent: lymphadenopathy - Respiratory Respiratory exam: Present: CTAB. Absent: accessory muscle use, rales, rhonchi, wheezes - Cardiovascular Cardiovascular exam: Present: RRR, +S1, +S2. Absent: diastolic murmur, gallop, rubs, systolic murmur - GI/Abdominal GI/Abdominal exam: Present: normal bowel sounds, soft, no peritoneal signs. Absent: distended, tenderness - Extremities Exam Extremities exam: Present: warm, radial pulses palpable and symmetrical. Absent : calf tenderness, cyanotic, pedal edema - Neurological Exam Neurological exam: Present: CN II-XII intact, oriented X3, no focal deficits. Absent: pronater drift, facial droop, speech deficit - Skin Skin exam: Present: dry. Absent: intact Additional comments: multiple lower extremities wounds/eschars , worse on the right foot aterior and posterior lateral areas with necrotic tissue Prior toe amputations left 2nd necrotic toe partially amputated, surrounding erythema improving Internal Medicine: Result - Labs CBC & Chem 7: 11/15/17 05:12 11/15/17 05:12 - VTE Documentation of Mechanical Device: Intermittent pneumatic compression device Consult Discharge Plan - Plan Referrals: Jad Harris MD [Partnered Physician] - [facility] [[facility] Care Provider[facility] -
[2017-11-17] MEDS ORDERED: Insulin DETEMIR 100 UNIT/ML X5UNITS SQ ONE (21:00)
--- NOTE | 2017-11-17 22:42 | Podiatry Progress Note ---
Date of Encounter: 11/17/17 Time of Encounter: 22:38 - Assessment and Plan (1) Cellulitis of both feet Current Visit: Yes Status: Acute The patient was instructed that there is a low probability that we will be able to save his right leg due to the large wounds. If we are able to increase his blood flow and we will increase his chances of keeping his leg. Patient was instructed that the left leg also may or may not be very viable. We will continue the wound VAC on the left leg to try and salvage as much as we can and continue to monitor the site for infection. Patient related understanding. From this point forward we will continue to monitor the sites and may consider another washout on some patient has increased vascularity and we could also consider putting a wound VAC on the site to improve the chances of the right leg healing. Subjective Principal diagnosis: Ischemic foot ulcers bilateral lower extremities Interval history: Patient relates that overall he is feeling okay, patient relates that he is having the procedure tomorrow. Patient relates that he hopes that he will be able to keep his leg. Patient denies any other new pedal complaints. Objective - Vital Signs Vital Signs: Vital Signs Temp Pulse Resp BP Pulse Ox 11/17/17 20:51 99 11/17/17 19:23 98.6 F 63 14 138/63 99 11/17/17 15:37 98.4 F 60 17 117/60 96 11/17/17 10:30 98.2 F 69 16 121/59 99 11/17/17 07:28 98.2 F 66 17 128/78 95 11/17/17 03:51 98.3 F 67 14 161/75 97 Intake and Output 11/17/17 11/17/17 11/17/17 07:59 15:59 23:59 Intake Total 680 / 680 340 / 340 480 / 480 Output Total 1200 / 1200 0 / 0 600 / 600 Balance -520 / -520 340 / 340 -120 / -120 Intake: IV Fluids 200 / 200 100 / 100 Zosyn 3.375 GM In 0.9 % Sodium 200 / 200 100 / 100 Chloride (Mini-Bag +) 100 ML @ 25 mls/hr IVPB Q8H HUI Rx#: [id number] Oral 480 / 480 240 / 240 480 / 480 Output: Urine 1200 / 1200 0 / 0 600 / 600 Other: Meal Lunch Dinner Percent of Meal Consumed 100% 100% # Bowel Movements 0 Weight 106.2 kg Blood Glucose* 235 175 126 Patient Weight 11/17/17 23:59 Weight 106.2 kg - Exam Exam: Ulcers consistent with prior exam. Wound VAC intact to the left foot ulceration. No new open wounds. Pulses difficult to palpate. Right lower extremity has impaired blood flow. - Lab Result Diagrams: 11/15/17 05:12 11/15/17 05:12 Labs: Abnormal lab results RBC 3.96 M/mcL (4.19-5.50) L 11/15/17 05:12 Hgb 11.5 g/dL (12.9-16.9) L 11/15/17 05:12 Hct 34.8 % (37.5-50.1) L 11/15/17 05:12 Neutrophils # 11.8 K/mcL (1.6-8.9) H 11/11/17 16:31 ESR 54 mm/hr (0-10) H 11/11/17 16:31 Carbon Dioxide 30 mEq/L (23-29) H 11/15/17 05:12 BUN 27 mg/dL (8-23) H 11/15/17 05:12 Glucose 274 mg/dL (70-105) H 11/15/17 05:12 POC Glucose 124 mg/dL (70-99) H 11/17/17 21:01 Vancomycin Trough 15 mcg/mL (5-10) H 11/15/17 17:48 Microbiology, Last 48 Hours 11/13/17 Unknown Anaerobic Culture - Preliminary Right Foot At this time, no anaerobic growth is present. The culture will be finalized after 5 days of incubation. 11/13/17 Unknown Anaerobic Culture - Preliminary Left Foot At this time, no anaerobic growth is present. The culture will be finalized after 5 days of incubation. 11/13/17 Unknown Wound Culture - Final Right Foot Leclercia adecarboxylata Citrobacter freundii Staphylococcus aureus 11/13/17 Unknown Wound Culture - Final Left Foot Staphylococcus aureus - VTE Documentation of Mechanical Device: Intermittent pneumatic compression device Consult Discharge Plan - Plan Referrals: Jad Harris MD [Partnered Physician] - [facility] [Primary Care Provider] -
[2017-11-18] MEDS: Piperacillin/Tazobactam 3.375 GM in 0.9 % Sodium Chloride Mini Bag 100 ML IVPB SCH (03:57)
[2017-11-18 05:32] LABS: BUN/Creatinine Ratio 29 (6-26); Blood Urea Nitrogen 26 mg/dL (8-23); Calcium 9.3 mg/dL (8.6-10.3); Carbon Dioxide 26 mEq/L (23-29); Chloride 103 mEq/L (98-107); Glucose 155 mg/dL (70-105); Osmolality,Calculated 288 (280-300); Potassium 4.3 mEq/L (3.5-5.1); Sodium 135 mEq/L (136-145); eGFR For African Americans > 60 (> 60); eGFR For Non-African Americans > 60 (> 60)
[2017-11-18] MEDS: *HR* Heparin 5,000 UNIT/ML VIAL SQ SCH ×2 (05:35→17:30)
[2017-11-18] MEDS ORDERED: 0.9 % Sodium Chloride 1,000 ML ONE ×2 (07:09→07:59)
[2017-11-18] MEDS ORDERED: Heparin 1,000 UNITS/500 mL 500 ML ONE (07:09)
[2017-11-18] MEDS ORDERED: ISOVUE-250 150 ML INFUS..BTL IV ONE (07:09)
[2017-11-18] MEDS ORDERED: *HR* Heparin 10,000 UNIT/10 ML VIAL ONE (07:09)
--- NOTE | 2017-11-18 07:56 | Pre-Sedation Evaluation ---
Pre-sedation evaluation - Pre-sedation checklist Date of procedure: 11/13/17 Procedure: peripheral Recent Vitals: Last Vital Signs Temp 98.2 F 11/18/17 07:01 Pulse 68 11/18/17 07:01 Resp 16 11/18/17 07:01 BP 163/79 11/18/17 07:01 Pulse Ox 97 11/18/17 07:01 H&P (including ROS) documented in medical record: Yes Previous reaction to sedatives/anesthetics: No Dietary Status: NPO after Midnight Dentition: No loose teeth or bridges ASA Classification *see protocol: CLASS III-Severe systemic disease Plan of Care: Pt appropriate candidate for procedure/moderate/conscious sedation , Risks/benefits of procedure/sedation discussed w/ patient/family
[2017-11-18 07:58] LABS: INR 1.2; Prothrombin Time 13.3 Seconds (9.4-12.1)
[2017-11-18] MEDS ORDERED: *HR* FentaNYL (PF) 100 MCG/2 ML VIAL ONE (07:59)
[2017-11-18] MEDS ORDERED: *HR* Midazolam HCl 2 MG/2 ML VIAL ONE (07:59)
--- NOTE | 2017-11-18 08:24 | Internal Med Progress Note ---
Date of Encounter: 11/18/17 Time of Encounter: 08:22 - Assessment and plan (1) Necrotic eschar Current Visit: Yes Status: Acute Assessment and plan: surrounded by cellulitis on both feet, likely related to DM and severe PVD s/p left 2nd toe partial amputation and debridement of wounds Stop Zosyn day #4 , start Levaquin IV Discontinued vancomycin IV at day #5 and cefepime IV at day #4 wound cultures : growing Leclercia, ( pansensitive) MSSA, Citrobacter ( resistant to Augmentin and cefazolin) . All sensitive to Levaquin Podiatry and vascular surgery consulted - Patient likely needs further debridement or amputations , Vascular surgery will perfome angiogram today (2) Diabetes mellitus Current Visit: No Status: Chronic Assessment and plan: May resume Levemir to 30 units twice a day after procedure, lispro up to 15 units 3 times a day plus sliding scale. Given only 15 unit of levemir last night as he was NPO Qualifiers: Diabetes mellitus type: type 2 Diabetes mellitus penitentiary insulin use: with penitentiary use Diabetes mellitus complication status: with circulatory complication Diabetes mellitus complication detail: with peripheral angiopathy with gangrene Qualified Code(s): E11.52 - Type 2 diabetes 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; Z79.4 - rn long term care (current) use of insulin; Z79.4 - rn long term care (current) use of insulin; Z79.4 - rn long term care ( current) use of insulin; Z79.4 - detention (current) use of insulin (3) Peripheral vascular disease Current Visit: No Status: Chronic Assessment and plan: - Continue aspirin, Plavix, statins. - Vascular surgery consulted. (4) Chronic foot ulcer Current Visit: Yes Status: Acute Assessment and plan: 62-year-old male with history of diabetes and severe bilateral peripheral vascular disease presented with worsening bilateral foot wounds. He has been receiving treatment at [facility] in the past with IV antibiotics. He underwent right lower extremity revascularization about a week prior to his admission. He reported improved wound healing on the left side. He is planning to have right-sided leg revascularization 20 days. - Came with worsening bilateral foot wounds with for foul smell and yellow drainage. . Qualifiers: Laterality: unspecified laterality Non-pressure ulcer stage: unspecified non-pressure ulcer stage Qualified Code(s): L97.509 - Non-pressure chronic ulcer of other part of unspecified foot with unspecified severity (5) A-fib Current Visit: Yes Status: Acute Assessment and plan: diltiazem Qualifiers: Atrial fibrillation type: paroxysmal Qualified Code(s): I48.0 - Paroxysmal atrial fibrillation (6) CAD (coronary artery disease) Current Visit: Yes Status: Chronic Qualifiers: Coronary Disease-Associated Artery/Lesion type: [place] artery [place] vs. transplanted heart: unspecified whether [place] or transplanted heart Associated angina: without angina Qualified Code(s): I25.10 - Atherosclerotic heart disease of [place] coronary artery without angina pectoris - Time Spent With Patient Total time spent is greater than 50% in coordination of care (as documented) at patient's floor/unit and/or counseling patient: - Subjective Interval history: Stable. Feet wounds are less foul smelling. Denies pain on both feet mainly the right one, no CP or SOB, no abdominal pain , dysuria or diarrhea, no fever - Constitutional Vitals: Temp Pulse Resp BP Pulse Ox 98.2 F 68 16 163/79 97 11/18/17 07:01 11/18/17 07:01 11/18/17 07:01 11/18/17 07:01 11/18/17 07:01 General appearance: Present: A&O X 3 Exam: - Head Head exam: Present: atraumatic, normocephalic - Eye Eye exam: Present: PERRL, conjuntiva pink, sclera anicteric Pupils: Present: PERRL - Neck Neck exam general surgery: Present: supple, trachea midline. Absent: lymphadenopathy - Respiratory Respiratory exam: Present: CTAB. Absent: accessory muscle use, rales, rhonchi, wheezes - Cardiovascular Cardiovascular exam: Present: RRR, +S1, +S2. Absent: diastolic murmur, gallop, rubs, systolic murmur - GI/Abdominal GI/Abdominal exam: Present: normal bowel sounds, soft, no peritoneal signs. Absent: distended, tenderness - Extremities Exam Extremities exam: Present: warm, radial pulses palpable and symmetrical. Absent : calf tenderness, cyanotic, pedal edema - Neurological Exam Neurological exam: Present: CN II-XII intact, oriented X3, no focal deficits. Absent: pronater drift, facial droop, speech deficit - Skin Skin exam: Present: dry. Absent: intact Additional comments: multiple lower extremities wounds/eschars , worse on the right foot aterior and posterior lateral areas with necrotic tissue Prior toe amputations left 2nd necrotic toe partially amputated, surrounding erythema improving Internal Medicine: Result - Labs CBC & Chem 7: 11/15/17 05:12 11/18/17 04:53 Labs: BMP 11/18/17 04:53 Sodium 135 L Potassium 4.3 Chloride 103 Carbon Dioxide 26 BUN 26 H Creatinine 0.89 Glucose 155 H Calcium 9.3 - ABG Interpretation ABG results: PT/INR, D-dimer PT 13.3 Seconds (9.4-12.1) H 11/18/17 07:32 - VTE Documentation of Mechanical Device: Intermittent pneumatic compression device Consult Discharge Plan - Plan Referrals: Jad Harris MD [Partnered Physician] - [facility] [Primary Care Provider] -
--- NOTE | 2017-11-18 08:43 | Procedure Note ---
Date of procedure: 11/18/17 Pre-op diagnosis: Peripheral vascular disease with ulceration Post-op diagnosis: same Procedure: Angiogram with right superficial femoral artery angioplasty with 4 x 100mm balloon. Direct pressure held for hemostasis. Anesthesia: local, IV sedation (moderate conscious sedation) Surgeon: Jad Harris Was there an assistant statistician present: No Estimated blood loss (cc): 1 Specimen: none Pathology: none sent Condition: stable (no complications) Disposition: floor
[2017-11-18] MEDS: Insulin LISPRO 300 UNITS/3 ML VIAL SQ SCH ×7 (09:54→20:26)
[2017-11-18] MEDS: Isosorbide MONOnitrate (24 HR) 30 MG TAB.ER.24H PO SCH (12:05)
[2017-11-18] MEDS: Lisinopril 20 MG TABLET PO SCH (12:05)
[2017-11-18] MEDS: hydroCHLOROthiazide 25 MG TABLET PO SCH (12:06)
[2017-11-18] MEDS: Aspirin Enteric Coated 325 MG Tablet PO SCH (12:06)
[2017-11-18] MEDS: Diltiazem CD (24hr) 120 MG CAPSULE PO SCH (12:06)
[2017-11-18] MEDS: Levofloxacin 750 MG/150 ML 750 MG/150 ML BAG IVPB SCH (12:07)
--- NOTE | 2017-11-18 13:18 | Invasive Diagnostic Lab Proc ---
Name: Devin Prescott Date of Study: 11/18/2017 Date: 1955 Ht: 180.0 in Medical Record#: [id number] Age: 62 Wt: 105 lb Gender: Male BSA: 2.24 Order #: [id number] BMI: 32.41 Physicians Performing MD: Jad Jackson MD Referring MD: Referring MD: Staff Name Position Time In Tara Orellana RT (R) Tree Driller ReynaTara osei RT (R) Scrub Sites, Hannah RT (R) Monitor Indications Non-healing Ulcer Procedures Performed AORTOGRAPHY W/RUNOFF BILAT S&I FEM/POPL REVAS W/TLA Add'l Complete exam Pre-Procedure Checklist Informed consent is complete signed and on chart. H&P is on chart. ID band is on and ID verified with patient. Patient NPO for procedure The procedure was described for the patient and questions were answered. Blood Pressure: 179/87 ECG is on chart. Rhythm: NSR Plan of Care Patient will tolerate the procedure without complications. Adequate level of comfort will be maintained. Hemodynamics will remain stable Patient will recover from procedure without complications. Respiratory function will be maintained. Cardiac rhythm will remain stable. Patient temperature will be maintained. Patient and/or family have verbalized understanding of the procedure. Patient Education Chief Complaint/Reason for Test: Peripheral angiogram Developmental Category: Geriatric (65+ years) Learning Barriers: None Education Needs: Procedure Education Method: Verbal Information Taught: Peripheral angiogram Educational Evaluation: Able to repeat information Intravenous Access Time IV Size Location DC'd Fluid/Drip Rate Units RN 20g 1 07/11" Patent On Arrival Lt Antecubital 0.9NaCl 25 ml/hr Kristel Llamas RN Allergies atorvastatin Vital Signs Time BP Systolic BP Diastolic HR O2 Sats ASA 163 79 68 97 07:56 AM 07:59 AM 179 87 68 96 08:04 AM 173 83 68 98 08:09 AM 178 83 67 99 08:14 AM 163 80 69 99 08:19 AM 174 79 67 99 08:24 AM 170 82 65 99 08:29 AM 161 77 67 99 08:34 AM 155 79 67 98 08:39 AM 172 87 68 98 08:44 AM 166 83 66 99 08:49 AM 166 81 69 99 08:54 AM 183 81 68 99 09:20 AM 135 78 67 93 09:37 AM 169 78 70 96 09:50 AM 154 79 70 98 10:01 AM 159 71 71 97 10:34 AM 150 82 68 96 11:05 AM 137 77 68 94 Procedure Medications Time Medication Dose Units Method Route 07:56 AM Oxygen 2 L/min nasal cannula 08:05 AM Versed 1 mg Intravenous 08:13 AM Lidocaine 2% 6 ml Subcutaneous 08:14 AM Versed 1 mg Intravenous 08:24 AM Heparin 3000 units Intravenous 08:45 AM Plavix 75 mg Orally ASA Classification: CLASS III- Severe systemic disease (i.e. prior AMI, diabetes with vascular complications, morbid obesity) Hannah Score Preprocedure Postprocedure Activity 2- Moves 4 extremities sustained head lift Activity 2- Moves 4 extremities sustained head lift Circulation 2- SBP +/= 20 points of pre-anesthetic level Circulation 2- SBP +/= 20 points of pre-anesthetic level Consciousness 2- Awake and alert oriented x 3 Consciousness 2- Awake and alert oriented x 3 O2 Saturation 2- Able to maintain O2 satruation of 92% on room air O2 Saturation 2- Able to maintain O2 satruation of 92% on room air Respiratory 2- Able to deep breathe and cough well Respiratory 2- Able to deep breathe and cough well Total Score 10 Total Score 10 Contrast: Isovue 250- 150ml Contrast Amount: 20 ml Fluoro Dose: 86 mGy Activated Clotting Time Time Drawn ACT (sec) 08:36 AM 197 Procedure Log Time Note Entered By 07:38 AM Kristel Llamas RN Position: Tree Driller Time in: 07:38 07:38 AM Tara Orellana RT (R) Position: Scrub Time in: 07:38 07:39 AM Hannah Ochoa RT (R) Position: Monitor Time in: 07:39 07:55 AM Pt arrived to production laborer 1 at 07:55 [email or web address] 07:55 AM Case delayed: No [email or web address] 07:55 AM Physician arrived 07:55 dspell 07:55 AM Meet and greet completed 07:55 AM Sign in performed according to hospital policy. 07:56 AM Procedure start 07:55 dspell 07:56 AM 07:56 Oxygen at 2 L/min per nasal cannula by Kristel Llamas RN [facility] 07:56 AM Time: 07:56 Is patient comfortable and pain free?: [email or web address] AM Time: 07:56LOC: 5 = Fully awake and oriented or at pre-proc level [email or web address] 08:05 AM Hair removed from procedure site in holding area using clippers. Bilateral groin prepped with Chloraprep by Kristel Llamas RN, then patient was draped. Skin intact. tsites 08:05 AM 08:05 Versed 1 mg Intravenous Given by Kristel Llamas RN tsites 08:08 AM Time out perfomed tsites 08:[address] jackson reviewing previous angiogram tsites 08:13 AM 08:13 6 ml Lidocaine 2% to left groin Subcutaneous Given By Jad Jackson MD tsites 08:13 AM Ultrasound, Sonosite, utilized to obtain vascular access tsites 08:14 AM Access obtained in the left femoral artery by percutaneous puncture. 4 Fr. 10 cm Terumo Napoleon sheath placed in left femoral artery tsites 08:14 AM 08:14 Versed 1 mg Intravenous Given by Kristel Llamas RN tsites 08:14 AM 0.035 180cm Bentson wire utilized to assist with catheter placement tsites 08:14 AM 4Fr Omniflush catheter inserted over the wire tsites 08:21 AM Sheath exchanged for a 4 Fr 45 cm Flexor Check-Russell Performer sheath inserted into left femoral artery tsites 08:23 AM 0.014 Journey 300cm guidewire advanced to target vessel. tsites 08:23 AM 5cc of contrast injected into rt sfa tsites 08:25 AM 4 mm x 100 mm [place] balloon catheter placed into right superficial femoral tsites 08:26 AM Balloon inflated @ 12 joe for 60 seconds tsites 08:28 AM 5cc of contrast injected tsites 08:28 AM Balloon removed intact tsites 08:29 AM 5cc of contrast injected tsites 08:31 AM Balloon inflated @ 12 joe for 60 seconds tsites 08:24 AM 08:24 Heparin 3000 units Intravenous by Kristel Llamas RN tsites 08:33 AM 5cc of contrast injected tsites 08:34 AM ACT drawn tsites 08:37 AM ACT: 197 seconds 08:36 tsites 08:39 AM Procedure completed at 08:39 tsites 08:39 AM Sign Out completed: Radiation Dose 86 mGy Fluoro Time: 2.6 minutes. Isovue 250- 150ml contrast 20 ml given by Jad Jackson MD. Complications: None. Confirmed administered medications:Yes tsites 08:39 AM Isovue 250- 150ml,1 bottle(s) used. tsites 08:40 AM Arterial sheath pulled using manual compression and V+Pad for 15 minutes by Tara Orellana RT (R) tsites 08:40 AM Estimated Blood Loss: less than 20cc tsites 08:40 AM Post Blood Pressure: 172/87 tsites 08:40 AM Post EKG: NSR tsites 08:41 AM 08:41 Post Pulses: Bilateral DP & PT Doppler. 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 Pt taken to Holding room, Room # 4 08:59 tsites 08:59 AM Pt taken to Holding room Room# 4 tsites 09:00 AM Delay to floor: Receiving unit staff issue tsites 09:00 AM Family placed in consult room. tsites 09:00 AM Patient out of room 09:00 tsites 07:58 AM Recorded ECG: HR=68 Condition=Condition 1 07:58 AM Vitals capture started with the following parameters, Patient=Adult, Interval=5 min, Initial Pjvvbgff=015 mmHg, Deflation Rate=3 mmHg, Cuff placed on Right Arm 07:59 AM HR=68 bpm, ABXB=314/87 mmhg, SpO2=96.0 %, Resp=10 B/min 08:04 AM HR=68 bpm, VHAL=528/83 mmhg, SpO2=98.0 %, Resp=21 B/min 08:09 AM HR=67 bpm, YQPG=949/83 mmhg, SpO2=99.0 %, Resp=8 B/min 08:14 AM HR=69 bpm, ZJEA=266/80 mmhg, SpO2=99 %, Resp=12 B/min 08:19 AM HR=67 bpm, LHPY=300/79 mmhg, SpO2=99.0 %, Resp=24 B/min 08:24 AM HR=65 bpm, XQGH=105/82 mmhg, SpO2=99 %, Resp=16 B/min 08:29 AM HR=67 bpm, CZAC=300/77 mmhg, SpO2=99 %, Resp=9 B/min 08:34 AM HR=67 bpm, VVTJ=728/79 mmhg, SpO2=98 %, Resp=19 B/min 08:39 AM HR=68 bpm, LBMK=410/87 mmhg, SpO2=98.0 %, Resp=15 B/min 08:44 AM HR=66 bpm, UWQQ=652/83 mmhg, SpO2=99 %, Resp=17 B/min 08:49 AM HR=69 bpm, ISHK=022/81 mmhg, SpO2=99 %, Resp=11 B/min 08:54 AM HR=68 bpm, RQLF=366/81 mmhg, SpO2=99.0 %, Resp=20 B/min 09:00 AM PVIStat 09:37 AM Pt resting comfortably, no complaints of pain, family at the bedside. [email or web address] 10:01 AM pt assisted with post cath meal tray, voided 300cc clear yellow per urinal [email or web address] 10:39 AM Report given to Xin LEOS. Pt taken to , Room # 46 10:39 [email or web address] 10:39 AM nurse aware that pt will not be brought to the room until after [address] Jackson's request [email or web address] 11:05 AM Patient out of room 12:23 [email or web address] Post Procedure Information Blood Pressure: 172/87 mmHg Rhythm: NSR Post procedure instructions given Site Checks Time Location Status Staff Sheath In? Note 8:59:00 AM Lt Groin No bleeding/hematoma Tara Orellana RT (R) 11/18/2017 9:20:00 AM Lt Groin No bleeding/ No Hematoma Shannan Lobo RN 11/18/2017 9:36:00 AM Lt Groin No bleeding/ No Hematoma Tara Orellana RT (R) 11/18/2017 9:49:00 AM Lt Groin No bleeding/ No Hematoma Shannan Lobo RN 11/18/2017 10:01:00 AM Lt Groin No bleeding/ No Hematoma Shannan Lobo RN 11/18/2017 10:34:00 AM Lt Groin No bleeding/ No Hematoma Shannan Lobo RN 11/18/2017 11:05:00 AM Lt Groin No bleeding/ No Hematoma Shannan Lobo RN Pulses Time Site Pre Procedure Post Procedure Note Bilateral DP Doppler Bilateral radial 2+ 8:41:00 AM Bilateral DP & PT Doppler Updated by Shannan Lobo RN on 11/18/2017 12:24:00 PM electronically signed on 11/18/2017 12:24:29 PM with status of Final
[2017-11-19] MEDS: *HR* Heparin 5,000 UNIT/ML VIAL SQ SCH ×2 (05:10→17:27)
[2017-11-19 06:05] LABS: Hematocrit 34.1 % (37.5-50.1); Hemoglobin 11.5 g/dL (12.9-16.9); Mean Corpuscular HGB Conc 33.7 g/dL (31.6-35.5); Mean Corpuscular Hemoglobin 29.8 pg (28.0-33.3); Mean Corpuscular Volume 88.3 fL (83.0-100.0); Mean Platelet Volume 10.1 fL (9.4-12.4); Platelet Count 255 K/mcL (140-400); Red Blood Count 3.86 M/mcL (4.19-5.50); Red Cell Distribution Width 12.2 % (11.5-14.5)
[2017-11-19 06:12] LABS: BUN/Creatinine Ratio 30 (6-26); Blood Urea Nitrogen 26 mg/dL (8-23); Calcium 9.3 mg/dL (8.6-10.3); Carbon Dioxide 25 mEq/L (23-29); Chloride 103 mEq/L (98-107); Glucose 252 mg/dL (70-105); Osmolality,Calculated 291 (280-300); Potassium 4.7 mEq/L (3.5-5.1); Sodium 134 mEq/L (136-145); eGFR For African Americans > 60 (> 60); eGFR For Non-African Americans > 60 (> 60)
[2017-11-19] MEDS: Levofloxacin 750 MG/150 ML 750 MG/150 ML BAG IVPB SCH (08:37)
[2017-11-19] MEDS: Aspirin Enteric Coated 325 MG Tablet PO SCH (08:38)
[2017-11-19] MEDS: Diltiazem CD (24hr) 120 MG CAPSULE PO SCH (08:38)
[2017-11-19] MEDS: Lisinopril 20 MG TABLET PO SCH (08:38)
[2017-11-19] MEDS: Isosorbide MONOnitrate (24 HR) 30 MG TAB.ER.24H PO SCH (08:38)
[2017-11-19] MEDS: hydroCHLOROthiazide 25 MG TABLET PO SCH (08:39)
[2017-11-19] MEDS: Insulin LISPRO 300 UNITS/3 ML VIAL SQ SCH ×7 (08:41→20:23)
--- NOTE | 2017-11-19 14:43 | Internal Med Progress Note ---
Date of Encounter: 11/19/17 Time of Encounter: 14:43 - Assessment and plan (1) Necrotic eschar Current Visit: Yes Status: Acute Assessment and plan: Bilateral feet. Surrounded by cellulitis. Patient with severe PVD. Underwent left second toe partial amputation and debridement. Wound VAC in place to left foot. Also underwent a right superficial femoral angioplasty. Podiatry and vascular surgery following. Wound culture is growing Leclercia, MSSA, Citrobacter all of them are sensitive to Levaquin. Patient is currently receiving Levaquin. We will consult infectious disease for further antibiotic recommendations. (2) Diabetes mellitus Current Visit: Yes Status: Chronic Assessment and plan: Blood sugars are elevated. We will place him on long-acting insulin and addition to sliding scale coverage. Qualifiers: Diabetes mellitus type: type 2 Diabetes mellitus computer terminal operator insulin use: with computer terminal operator use Diabetes mellitus complication status: with circulatory complication Diabetes mellitus complication detail: with peripheral angiopathy with gangrene Qualified Code(s): E11.52 - Type 2 diabetes 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; Z79.4 - intermodal dispatcher (current) use of insulin; Z79.4 - intermodal dispatcher (current) use of insulin; Z79.4 - intermodal dispatcher ( current) use of insulin; Z79.4 - [facility] (current) use of insulin (3) Peripheral vascular disease Current Visit: Yes Status: Chronic Assessment and plan: Continue aspirin and Plavix along with statin. (4) Chronic foot ulcer Current Visit: Yes Status: Acute Assessment and plan: Bilateral. Continue local wound care. Qualifiers: Laterality: unspecified laterality Non-pressure ulcer stage: unspecified non-pressure ulcer stage Qualified Code(s): L97.509 - Non-pressure chronic ulcer of other part of unspecified foot with unspecified severity (5) A-fib Current Visit: Yes Status: Chronic Assessment and plan: Rate controlled. Continue Cardizem Qualifiers: Atrial fibrillation type: paroxysmal Qualified Code(s): I48.0 - Paroxysmal atrial fibrillation (6) CAD (coronary artery disease) Current Visit: Yes Status: Chronic Assessment and plan: On aspirin, Plavix, simvastatin, lisinopril. Qualifiers: Coronary Disease-Associated Artery/Lesion type: [place] artery [place] vs. transplanted heart: unspecified whether [place] or transplanted heart Associated angina: without angina Qualified Code(s): I25.10 - Atherosclerotic heart disease of [place] coronary artery without angina pectoris - Time Spent With Patient Total time spent is greater than 50% in coordination of care (as documented) at patient's floor/unit and/or counseling patient: - Subjective Interval history: Patient seen earlier today. Was lying in bed. Comfortable. Did complain of some pain in his bilateral lower extremities. Underwent angioplasty of his right lower extremity yesterday. No postoperative complications. - Constitutional Vitals: Temp Pulse Resp BP Pulse Ox 98.7 F 68 16 118/66 98 11/19/17 14:34 11/19/17 14:34 11/19/17 14:34 11/19/17 14:34 11/19/17 14:34 General appearance: Present: cooperative, mild distress, A&O X 3, answers questions appropriately - Neck Neck exam general surgery: Present: supple, trachea midline. Absent: lymphadenopathy - Respiratory Respiratory exam: Present: CTAB. Absent: accessory muscle use, rales, rhonchi, wheezes - Cardiovascular Cardiovascular exam: Present: RRR, +S1, +S2. Absent: diastolic murmur, gallop, rubs, systolic murmur - GI/Abdominal GI/Abdominal exam: Present: normal bowel sounds, soft, no peritoneal signs. Absent: distended, tenderness - Extremities Exam Extremities exam: Present: warm, radial pulses palpable and symmetrical. Absent : calf tenderness, cyanotic, pedal edema Additional comments: Both feet are currently bandaged. Wound VAC in place to left foot. - Neurological Exam Neurological exam: Present: CN II-XII intact, oriented X3, no focal deficits. Absent: pronater drift, facial droop, speech deficit - Skin Skin exam: Present: dry, intact Internal Medicine: Result - Labs CBC & Chem 7: 11/19/17 05:17 11/19/17 05:17 Labs: Short CBC 11/19/17 Range/Units 05:17 WBC 8.9 (4.3-11.1) K/mcL Hgb 11.5 L (12.9-16.9) g/dL Hct 34.1 L (37.5-50.1) % Plt Count 255 (140-400) K/mcL BMP 11/19/17 05:17 Sodium 134 L Potassium 4.7 Chloride 103 Carbon Dioxide 25 BUN 26 H Creatinine 0.87 Glucose 252 H Calcium 9.3 - ABG Interpretation ABG results: PT/INR, D-dimer PT 13.3 Seconds (9.4-12.1) H 11/18/17 07:32 - VTE Documentation of Mechanical Device: Intermittent pneumatic compression device Consult Discharge Plan - Plan Referrals: Jad Harris MD [Partnered Physician] - ME,PCP [Primary Care Provider] -
[2017-11-19] MEDS: Insulin DETEMIR 100 UNIT/ML X5UNITS SQ SCH (20:30)
[2017-11-20] MEDS: *HR* Heparin 5,000 UNIT/ML VIAL SQ SCH ×2 (05:53→17:40)
[2017-11-20] MEDS: Insulin LISPRO 300 UNITS/3 ML VIAL SQ SCH ×7 (08:27→21:24)
[2017-11-20] MEDS: hydroCHLOROthiazide 25 MG TABLET PO SCH (08:29)
[2017-11-20] MEDS: Isosorbide MONOnitrate (24 HR) 30 MG TAB.ER.24H PO SCH (08:29)
[2017-11-20] MEDS: Diltiazem CD (24hr) 120 MG CAPSULE PO SCH (08:29)
[2017-11-20] MEDS: Aspirin Enteric Coated 325 MG Tablet PO SCH (08:29)
[2017-11-20] MEDS: Levofloxacin 750 MG/150 ML 750 MG/150 ML BAG IVPB SCH (08:30)
[2017-11-20] MEDS: Lisinopril 20 MG TABLET PO SCH (08:30)
[2017-11-20] MEDS ORDERED: Insulin DETEMIR 100 UNIT/ML X5UNITS SQ ONE (14:25)
--- NOTE | 2017-11-20 14:33 | Infectious Disease Consult ---
Date of Encounter: 11/20/17 Time of Encounter: 14:15 Assessment and Plan (1) Sepsis Status: Acute Assessment and plan: The patient had two SIRS criteria. Likely secondary to left 2nd toe osteomyelitis and bilateral foot infections. Improved. WBC normalized. Afebrile since 11/12/17. Blood cultures drawn 11/11/17 x 2 sets are negative. Qualifiers: Sepsis type: sepsis due to unspecified organism Qualified Code(s): A41.9 - Sepsis, unspecified organism (2) Osteomyelitis Status: Acute Assessment and plan: Location: Left foot, distal second toe. Causative organism: MSSA. Likely secondary to chronic venous ulcers. ESR 54 pre-op. Podiatry consulted and following. Status post debridement of ulcers to the bilateral feet with amputation of the distal left second digit at the level of the middle phalanx. Pathology indicative of OM. Cultures as above. Continue wound care and activity restrictions per the podiatry team. Start Rocephin 2 grams IV daily. Duration of treatment depends on the clinical picture. Given the patient's poor vasculature, diabetes, and extensive infection, will likely pursue IV antibiotics on discharge with exact duration determined based on the patient's response to therapy. Consult VAT prior to discharge for line placement. hvac services professional to assist with discharge planning. Qualifiers: Osteomyelitis type: acute hematogenous Osteomyelitis location: foot Laterality: left Qualified Code(s): M86.072 - Acute hematogenous osteomyelitis , left ankle and foot (3) Wound infection Status: Acute Assessment and plan: Location: Right heel and left fifth metatarsal wounds. Causative organisms: MSSA, Citrobacter freundii, Lecleria adecarboxylata. Secondary to non-healing venous ulcers. Status post debridement 11/13/[address] Morales. Wound care per the podiatry team. Continue Levaquin 750mg IV daily. Start Rocephin 2 grams IV daily. Duration of treatment depends on the clinical picture. Monitor renal function and dose-adjust antibiotics. (4) Cellulitis of both feet Status: Acute Assessment and plan: Causative organism: Lecleria adecarboxylata, Citrobacter freundii, and MSSA. Secondary to chronic venous stasis ulcers. Improved per patient reports. Antibiotics as above. (5) Diabetes mellitus Status: Chronic Assessment and plan: Check HgbA1C. Recommend aggressive glucose monitoring and control to promote wound healing and prevent re-infection. Management per the primary team. Qualifiers: Diabetes mellitus type: type 2 Diabetes mellitus glass blower helper insulin use: with fpc use Diabetes mellitus complication status: with circulatory complication Diabetes mellitus complication detail: with peripheral angiopathy with gangrene Qualified Code(s): E11.52 - Type 2 diabetes 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; Z79.4 - doctor of dental medicine (current) use of insulin; Z79.4 - custodial (current) use of insulin; Z79.4 - doctor of dental medicine ( current) use of insulin; Z79.4 - custodial (current) use of insulin (6) Peripheral vascular disease Status: Chronic Assessment and plan: Status post femoral to above the knee popliteal bypass graft in 2015. Status post left LE Angiogram with balloon angioplasty of the previous graft anastamosis 11/06/[address] Harris. Status post RLE angiogram with balloon angioplasty of the right SFA. Vascular surgery consulted and following. (7) A-fib Status: Chronic Qualifiers: Atrial fibrillation type: paroxysmal Qualified Code(s): I48.0 - Paroxysmal atrial fibrillation (8) CAD (coronary artery disease) Status: Chronic Qualifiers: Coronary Disease-Associated Artery/Lesion type: [place] artery [place] vs. transplanted heart: unspecified whether [place] or transplanted heart Associated angina: without angina Qualified Code(s): I25.10 - Atherosclerotic heart disease of [place] coronary artery without angina pectoris (9) Tobacco abuse Status: Chronic Infectious Disease HPI - Data of Consult Patient: new to practice Consult date: 11/20/17 Requesting Physician: Salena Mobley MD [facility] Care Provider[facility] - Consult Narrative Reason for consult: Bilateral foot ulcers History of present illness: Mr. Prescott is a 62 year old male with a past medical history of arthritis, A. fib, CAD, type 2 diabetes currently on oral anti-hyperglycemics and insulin, MT status post CABG, remote history of bilateral great toe infection status post amputation, and peripheral vascular disease status post femoral to above-the- knee popliteal bypass graft with vein back in 2015 and status post angiogram 11/[address] Harris that showed 99% stenosis of the previous bypass with angioplasty of the bypass with no residual stenosis. The patient was admitted to the hospital 11/11/17 for bilateral foot ulcers. We are consulted November 20 for antibiotic recommendations for bilateral foot infections. Briefly, the patient is a 62-year-old male with past medical history as stated above. The patient reports spontaneous onset of a crack to his right heel that started about 6 weeks ago. He states he was evaluated [facility] the [facility] and had some mild debridement of the wound and was referred to their wound care center. He states he saw the wound care center at the [facility] and was instructed to go to the urgent care for evaluation. He states once he got there, the physician did not seem concerned about his feet and he was discharged. He subsequently saw Dr. Harris on November 04 in the office and was scheduled for a peripheral angiogram which was completed on November 06 that showed 99% stenosis of the distal anastomosis of the previous femoral to [id number] popliteal bypass graft. He underwent successful angioplasty and was scheduled to undergo a LLE angiogram on 11/29/17. He developed ulcerations to the left heel, left second toe , and overlying the first MT on the left foot as well. A couple of days prior to admission, the patient developed worsening pain, foul-smelling drainage, and increased erythema with wound regression. He presented to the ER for evaluation. Upon arrival to the ER, the patient was afebrile and hemodynamically stable. He did have leukocytosis with neutrophilic predominance. Lactic acid and serum creatinine were normal. ESR was elevated at 54. He had bilateral foot x-rays that showed symmetric nonspecific mild dorsal foot edema which could relate to cellulitis, prior bilateral first digit and mutations at the MTP joints with nonspecific changes of the metatarsal head which could represent postsurgical change though chronic osteomyelitis could not be excluded. There was no evidence of acute osseous abnormality. Blood cultures were negative x 2 sets. The patient was started empirically on IV antibiotics and admitted to the hospital for further evaluation. Since admission, the patient has been evaluated by vascular surgery and podiatry. Hydrate the patient to the operating room on November 13 performed debridement of the ulcers on the bilateral feet with irritation of the distal aspect of the left second digit at the level of the middle phalanx. Review of the operative note indicates that there was pus in the right heel and left fifth metatarsal wounds. Pathology of the left second toe that was amputated was positive for ostial myelitis. Cultures of the left second toe was positive for MSSA. Cultures of the right heel are positive for Citrobacter, MSSA, and Lecleria adecarboxylata. Vascular surgery took the patient to the [facility] on November 18 and performed angiogram with angioplasty of the right SFA. His antibiotics were de-escalated to IV Levaquin. We've been asked to evaluate and make further recommendations. During my exam today, the patient states that overall he feels better. He denies any systemic symptoms prior to arrival, including fevers, chills, or rigors. Denies chest pain, shortness of breath, or cough. Denies headache, neck pain, or weakness. Denies congestion, earache, or sore throat. Denies nausea, vomiting, or diarrhea. Denies abdominal pain, urinary complaints, or appetite changes. States he wasn't eating much at home due to the smell of his foot. Reports severe pain prior to admission, but states the pain has improved markedly. Reports foul-smelling drainage from several of the wounds and reports some increased redness around them as well. Denies any redness or streaking up the leg. Denies oral thrush or other skin lesions. The patient lives at home alone. He has family that check in on him. He does smoke about 1.5 packs of cigarettes per day. Denies alcohol or illicit drug use. Denies exposure to animals. 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 Denies travel outside the [facility]. Denies exposure to water other than bathing. CC: Salena Mobley MD Past Med Surg Social Fam HX - Past Medical History Attestation: Yes The following information was validated with the patient. Source: patient, old records reviewed, nursing notes reviewed Medical history: arthritis, atrial fibrillation, coronary artery disease, diabetes, myocardial infarction Psychiatric history: no psych history - Past Surgical History Surgical History: coronary bypass (CABG), orthopedic, other (Bilateral great toe amputations) - Social History Smoking Status: Current every day smoker Packs per day: 1.5 Smokeless Tobacco Status: No Alcohol use: none Drug use: none Occupational status: retired Current living situation: Home - Independent Activity Level: Independent ambulation Recent Out of Country Travel Within the Last 8 Weeks: No Exposure or Possible Exposure to Illness During Travel: No - Family History Mother Adopted: [employer]: Liliane Prescott Family Member Ethnicity: Non- Living Status: Age at : 77 Cause of : Bone Cancer Hx Family Cancer: Yes Son Living Status: Still Living Infectious Disease-CN:Meds Aspirin [Lo-Dose Aspirin EC] 325 mg PO DAILY 04/12/17 [History] Lisinopril [Zestril] 20 mg PO DAILY 04/12/17 [History] Insulin ASPART [Novolog Flexpen] 14 unit SQ QAM 05/10/17 [History] Acetaminophen [Tylenol] 1,000 mg PO Q6HR PRN #90 tablet 11/06/17 [Rx] Clopidogrel [Plavix] 75 mg PO DAILY #30 tablet 11/06/17 [Rx] Hydrochlorothiazide [Microzide] 12.5 mg PO DAILY 11/06/17 [History] Isosorbide MONOnitrate (24 HR) [Imdur] 30 mg PO DAILY 11/06/17 [History] Pravastatin Sodium [Pravachol] 10 mg PO MOTH 11/06/17 [History] dilTIAZem HCl [Diltiazem 24Hr Cd] 120 mg PO DAILY 11/06/17 [History] Insulin ASPART [NovoLOG] 10 unit SQ BID 11/11/17 [History] Insulin Glargine,Hum.rec.anlog [Lantus Solostar] 54 - 60 unit SQ HS 11/11/17 [ History] 3 Allergy/AdvReac Type Severity Reaction Status Date / Time atorvastatin [From Lipitor] Allergy Diarrhea Verified 11/11/17 18:33 All systems: reviewed and no additional remarkable complaints except as stated Exam - Constitutional Vitals: Temp Pulse Resp BP Pulse Ox 98.3 F 67 16 118/71 99 11/20/17 10:49 11/20/17 10:49 11/20/17 07:38 11/20/17 10:49 11/20/17 10:49 General appearance: average body habitus, cooperative, no acute distress - Head Head exam: Present: atraumatic, normal inspection, normocephalic - Eye Eye exam: Present: EOMI, normal appearance, PERRL Pupils: Present: normal accommodation - ENT ENT exam: Present: mucous membranes moist - Neck Neck exam: Present: normal inspection - Respiratory Respiratory exam: Present: CTAB. Absent: rales, respiratory distress, rhonchi, wheezes - Cardiovascular Cardiovascular exam: Present: irregular rhythm. Absent: tachycardia - GI/Abdominal GI/Abdominal exam: Present: normal bowel sounds, soft. Absent: distended, tenderness - Extremities Exam Extremities exam: Present: tenderness (Bilateral feet). Absent: pedal edema - Expanded Lower Extremity Exam 1 - Status post amputation of the distal aspect of the left foot 2nd toe with sutures intact. Erythema noted to the remaining digit. 2 - Superficial lesion noted overlying the 1st MT head with some scabbing. No warmth, erythema, or fluctuance noted. 1 - Large ulceration noted to the posterior and lateral aspects of the right heel with ~75% wound eschar and 25% slough. Mild erythema surrounding the wound. Foul-smelling. 2 - Ulceration noted to the lateral aspect of the right foot overlying the 5th MTP joint with 100% eschar. No surrounding erythema noted. 3 - Ulceration noted to the lateral aspect of the left foot with wound bed beefy red with some slough. No surrounding erythema or drainage. 4 - Superficial ulceration noted to the lateral aspect of the left heel with 100% beefy red wound bed. No drainage or erythema noted. - Neurological Exam Neurological exam: Present: alert, oriented X3, no focal deficits - Psychiatric Psychiatric exam: Present: normal affect, normal mood - Skin Skin exam: Present: dry, intact, normal color, warm Infectious Disease CN: Results - Labs CBC & Chem 7: 11/19/17 05:17 11/19/17 05:17 Cultures: Cultures 11/13/17 Unknown Anaerobic Culture - Preliminary Left Foot 11/13/17 Unknown Anaerobic Culture - Preliminary Right Foot At this time, no anaerobic growth is present. The culture will be finalized after 5 days of incubation. 11/13/17 Unknown Wound Culture - Final Right Foot Leclercia adecarboxylata Citrobacter freundii Staphylococcus aureus 11/13/17 Unknown Wound Culture - Final Left Foot Staphylococcus aureus - VTE Documentation of Mechanical Device: Intermittent pneumatic compression device Consult Discharge Plan - Plan Referrals: Jad Harris MD [Partnered Physician] - [facility] [Primary Care Provider[facility] - - Attending Attestation I examined this patient and my medical decision-making was reviewed with the Resident Physician. I agree with the documented findings, disposition and treatment plan as described except to the extent set forth below. This is an addendum to original report dictated by Shannan Kulkarni CNP. Please refer to Seven note for full detail. Patient is a 62-year-old gentleman with past medical history mentioned below including remote history of bilateral great toe infection status post amputation , peripheral vascular disease status post femoral to [id number] popliteal bypass graft in 2015 with a vein. Repeat angiogram November [address] falcon revealed 99% stenosis of previous bypass presented to the hospital on November 11 with bilateral foot ulcers, we are consulted on November 20 for antibiotic recommendations. Since admission patient has not been septic and had normal lactic acid. Inflammatory markers were elevated with an ESR 54. Bilateral foot x-rays showed symmetric nonspecific mild dorsal foot edema which could relate to cellulitis. Patient was seen by surgery where he had debridement and there was pus in the right heel and the left fifth metatarsal wound. Cultures grew MSSA, Citrobacter and Lecleria adecarboxylata. Vascular surgery took the patient to the [facility] on November 18 and performed angiogram with angioplasty of the right SFA. His antibiotics were de-escalated to IV Levaquin. We've been asked to evaluate and make further recommendations. Assessment and plan: Osteomyelitis Wound infection Bilateral feet cellulitis Sepsis Severe peripheral vascular disease Recommendations: At this point patients prognosis is guarded because he has severe peripheral vascular disease not sure antibiotics are given at home but we will try them as a salvage approach. Based on his bacteria profile I think the reasonable thing to do is start Rocephin and start levofloxacin. Rocephin theoretically would cover all 3 organisms Citrobacter has high amp C activity. Duration of treatment at least 2 weeks maybe longer. While on antibiotics. To do CBC, BMP , ESR and CRP weekly Patient will probably need a midline Monitor labs and for drug toxicity
--- NOTE | 2017-11-20 14:44 | Podiatry Progress Note ---
Date of Encounter: 11/21/17 Time of Encounter: 12:30 - Assessment and Plan (1) Cellulitis of both feet Current Visit: Yes Status: Acute (2) Chronic foot ulcer Current Visit: Yes Status: Acute S/p full-thickness debridement ulcerations bilateral feet with amputation of distal aspect of the left second digit at the level of the middle phalanx by Dr. Morales on 11/13/17. Dressings changed at bedside. Right foot ulcerations with necrotic tissue, malodrous, periwound erythema to ulcerations of the right heel, no streaking. Ulcerations to left foot with granulation and fibrous tissue , no necrosis to wound beds of left foot, incision line is well approximated, no streaking. WBC: 8.9 on 11/19/17, a febrile Patient is s/p angiogram with right superficial femoral artery angioplasty by Dr. Harris on 11/18/17 Microbiology 11/13/17 Unknown Right Foot Wound Culture - Final Leclercia adecarboxylata Citrobacter freundii Staphylococcus aureus 11/13/17 Unknown Left Foot Wound Culture - Final Staphylococcus aureus 11/11/17 16:31 Peripheral Venipuncture Blood Culture - Final No growth. 11/11/17 16:31 Peripheral Venipuncture Blood Culture - Final No growth. 11/12/17 15:30 Right Foot Wound Culture - Final Citrobacter freundii Staphylococcus aureus 11/12/17 15:30 Left Second Toe Wound Culture - Final Staphylococcus aureus Plan: Dressings changed at bedside. Infectious Disease consulted and evaluated patient today. Continue wound vac to the left lateral aspect of left foot at the 5th metatarsal head, change every M-W-, connect to 125 mmhg low continuous suction with small black [place] wound vac sponge. Patient will require wound vac post discharge. Wound vac paperwork completed. No surgical debridement of ulcerations to right foot at this time, will allow for more adequate perfusion of right foot. Recommend treating wounds to right foot with Santyl and gentamicin. Follow up with Dr. Morales one week after discharge from the hospital. odd job worker for discharge planning with wound vac and IV antibiotics. Will continue to follow patient closely. Qualifiers: Laterality: unspecified laterality Non-pressure ulcer stage: unspecified non-pressure ulcer stage Qualified Code(s): L97.509 - Non-pressure chronic ulcer of other part of unspecified foot with unspecified severity (3) Atherosclerosis of both lower extremities with bilateral ulceration of ankles Current Visit: Yes Status: Chronic Qualifiers: Peripheral atherosclerosis artery type: bypass graft, autologous vein Qualified Code(s): I70.433 - Atherosclerosis of autologous vein bypass graft(s) of the right leg with ulceration of ankle; I70.443 - Atherosclerosis of autologous vein bypass graft(s) of the left leg with ulceration of ankle; I70.443 - Atherosclerosis of autologous vein bypass graft(s) of the left leg with ulceration of ankle; I70.443 - Atherosclerosis of autologous vein bypass graft(s) of the left leg with ulceration of ankle; I70.443 - Atherosclerosis of autologous vein bypass graft(s) of the left leg with ulceration of ankle; I70.443 - Atherosclerosis of autologous vein bypass graft(s) of the left leg with ulceration of ankle; I70.443 - Atherosclerosis of autologous vein bypass graft(s) of the left leg with ulceration of ankle (4) Diabetes mellitus Current Visit: Yes Status: Chronic Qualifiers: Diabetes mellitus type: type 2 Diabetes mellitus fdc insulin use: with ferry terminal agent use Diabetes mellitus complication status: with circulatory complication Diabetes mellitus complication detail: with peripheral angiopathy with gangrene Qualified Code(s): E11.52 - Type 2 diabetes 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; Z79.4 - [facility] (current) use of insulin; Z79.4 - long term care social worker (current) use of insulin; Z79.4 - [facility] ( current) use of insulin; Z79.4 - [facility] (current) use of insulin (5) Peripheral vascular disease Current Visit: Yes Status: Chronic Subjective Principal diagnosis: Ischemic foot ulcers bilateral lower extremities Interval history: Patient is s/p full-thickness debridement ulcerations bilateral feet with amputation of distal aspect of the left second digit at the level of the middle phalanx by Dr. Morales on 11/13/17. Patient is sitting up in bed eating lunch. Patient denies any pain, fever, chills, or flu like symptoms overnight. Dressings are intact to both feet. Patient is s/p angiogram with right superficial femoral artery angioplasty by Dr. Harris on 11/18/17. Patient states his feet are feeling better. Patient states he is hoping to go home soon. Objective - Vital Signs Vital Signs: Vital Signs Temp Pulse Resp BP Pulse Ox 11/20/17 10:49 98.3 F 67 118/71 99 11/20/17 07:38 97.8 F 61 16 172/78 97 11/20/17 04:31 98.0 F 80 14 157/75 97 11/19/17 20:07 98.6 F 66 14 152/72 97 Intake and Output 11/19/17 11/20/17 11/20/17 23:59 07:59 15:59 Intake Total 440 / 440 0 / 0 Output Total 400 / 400 1025 / 1025 250 / 250 Balance 40 / 40 -1025 / -1025 -250 / -250 Intake: Oral 440 / 440 0 / 0 Output: Urine 400 / 400 1025 / 1025 250 / 250 Other: Meal Dinner Percent of Meal Consumed 100% Weight 108.862 kg Blood Glucose* 165 184 224 Patient Weight 11/20/17 23:59 Weight 108.862 kg - Exam Exam: General appearance: alert awake oriented X 3. Calm and pleasant, no acute distress.. Vascular: Pedal pulses non palpable. Edema graded at 1+/4, Skin Temperature warm , No calf pain with manual compression. capillary refill time is immediate to digits. Postop Exam: S/P Incision line to toe #2 left foot well approximated, light periwound erythema, no streaking, no pus, no odor. Wound #1: Full thickness ulceration to the lateral aspect of the right calcaneus measuring 5 cm in length x 6 cm in width x 1.5 cm in depth, base of wound is with 80% connected eschar, 20 % white slough, malodorous, moderate amount of serous drainage observed to dressing, periwound erythema, no streaking , no probe to bone, no exposed bone. Wound #2: Lateral aspect of right foot at the 5th metatarsal head, with dried eschar, connected, unstageable, no streaking. No purulent drainage,no periwound erythema. Wound #3: Full thickness ulceration to the lateral aspect of left foot at the 5th metatarsal head measuring 2 cm in length x 2 cm in width x 0.5 cm in depth, base of wound with yellow fibrous tissue, wound edges connected and macerated, no tunneling, no sinus tracts, no odor, no pus. periwound erythema, no streaking. No probe to bone, no exposed bone. Wound #4: Full thickness ulceration to the lateral aspect of left calcaneus measuring 1.5 cm in length x 1.5 cm in width x 0.2 cm in depth base of wound with 100% granulation tissue, no pus, no odor, no tunneling, no sinus tracts, no probe to bone, no exposed bone, ligament or tendon. Wound #5: Ulceration to the amputation site of the 1st MTPJ left, base of wound with 80 % granulation tissue, 20 % yellow tissue, no pus, no odor, no streaking , no fluctuance, no pus, no odor, no probe to bone, no streaking, no ascending cellulitis. - Lab Result Diagrams: 11/19/17 05:17 11/19/17 05:17 Labs: Abnormal lab results RBC 3.86 M/mcL (4.19-5.50) L 11/19/17 05:17 Hgb 11.5 g/dL (12.9-16.9) L 11/19/17 05:17 Hct 34.1 % (37.5-50.1) L 11/19/17 05:17 Neutrophils # 11.8 K/mcL (1.6-8.9) H 11/11/17 16:31 ESR 54 mm/hr (0-10) H 11/11/17 16:31 PT 13.3 Seconds (9.4-12.1) H 11/18/17 07:32 Sodium 134 mEq/L (136-145) L 11/19/17 05:17 BUN 26 mg/dL (8-23) H 11/19/17 05:17 BUN/Creatinine Ratio 30 (6-26) H 11/19/17 05:17 Glucose 252 mg/dL (70-105) H 11/19/17 05:17 POC Glucose 232 mg/dL (70-99) H 11/19/17 11:33 Vancomycin Trough 15 mcg/mL (5-10) H 11/15/17 17:48 Microbiology, Last 48 Hours 11/13/17 Unknown Anaerobic Culture - Preliminary Left Foot - VTE Documentation of Mechanical Device: Intermittent pneumatic compression device Consult Discharge Plan - Plan Referrals: Jad Harris MD [Partnered Physician] - Shannan Kulkarni CNP [Advanced Practice Nurse] - 12/09/17 9:20 am [facility] [Primary Care Provider[facility] - Prescriptions: cefTRIAXone [Rocephin] 2,000 mg IVPB DAILY #14 vial Levofloxacin 750 MG/150 ML [Levaquin Premix 750mg/150 mL] 750 mg IVPB DAILY #14 bag
[2017-11-20] MEDS ORDERED: cefTRIAXone 2,000 MG in 0.9 % Sodium Chloride Mini Bag 100 ML IVPB SCH (15:00)
--- NOTE | 2017-11-20 16:10 | Internal Med Progress Note ---
Date of Encounter: 11/20/17 Time of Encounter: 16:17 - Assessment and plan (1) Necrotic eschar Current Visit: Yes Status: Acute Assessment and plan: With acute infection. Status post-debridement of the left foot lesion. Wound VAC in place. Discussed with podiatry. Will evaluate patient and may consider possible surgery later today. If not will reschedule patient for surgery for right foot as outpatient in a few days to allow for healing and return of blood flow from recent angioplasty. Infectious diseases has been consulted and will follow the recommendations regarding antibiotic treatment. Continue Levaquin for now. (2) Diabetes mellitus Current Visit: Yes Status: Chronic Assessment and plan: Remains elevated. Will add Levemir 10 units during daytime. Continue sliding scale coverage and Levemir 15 units at bedtime. Qualifiers: Qualified Code(s): E11.52 - Type 2 diabetes 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; Z79.4 - longterm (current) use of insulin (3) Peripheral vascular disease Current Visit: Yes Status: Chronic Assessment and plan: status post right-sided superficial femoral angioplasty. Follow up with vascular surgery as outpatient. Continue aspirin and Plavix. (4) Chronic foot ulcer Current Visit: Yes Status: Acute Qualifiers: Qualified Code(s): L97.509 - Non-pressure chronic ulcer of other part of unspecified foot with unspecified severity (5) A-fib Current Visit: Yes Status: Chronic Assessment and plan: Rate controlled. On Cardizem. Not currently on anticoagulation. Qualifiers: Qualified Code(s): I48.0 - Paroxysmal atrial fibrillation (6) CAD (coronary artery disease) Current Visit: Yes Status: Chronic Assessment and plan: On aspirin, Plavix, Zocor and Zestril. Qualifiers: Qualified Code(s): I25.10 - Atherosclerotic heart disease of [place] coronary artery without angina pectoris - Time Spent With Patient Total time spent is greater than 50% in coordination of care (as documented) at patient's floor/unit and/or counseling patient: - Subjective Interval history: Patient is doing well. Denies any complaints. Pain in his lower extremities is well controlled. No fever or chills reported overnight. - Constitutional Vitals: Temp Pulse Resp BP Pulse Ox 98.3 F 67 16 118/71 99 11/20/17 10:49 11/20/17 10:49 11/20/17 07:38 11/20/17 10:49 11/20/17 10:49 General appearance: Present: cooperative, mild distress, A&O X 3, answers questions appropriately - Neck Neck exam general surgery: Present: supple, trachea midline. Absent: lymphadenopathy - Respiratory Respiratory exam: Present: CTAB. Absent: accessory muscle use, rales, rhonchi, wheezes - Cardiovascular Cardiovascular exam: Present: RRR, +S1, +S2. Absent: diastolic murmur, gallop, rubs, systolic murmur - GI/Abdominal GI/Abdominal exam: Present: normal bowel sounds, soft, no peritoneal signs. Absent: distended, tenderness - Extremities Exam Extremities exam: Present: warm, radial pulses palpable and symmetrical. Absent : calf tenderness, cyanotic, pedal edema Additional comments: Bilateral feet are bandaged. Wound VAC in place to left foot. - Neurological Exam Neurological exam: Present: alert, oriented X3, no focal deficits. Absent: facial droop, speech deficit Internal Medicine: Result - Labs CBC & Chem 7: 11/19/17 05:17 11/19/17 05:17 - ABG Interpretation ABG results: PT/INR, D-dimer PT 13.3 Seconds (9.4-12.1) H 11/18/17 07:32 - VTE Documentation of Mechanical Device: Intermittent pneumatic compression device Consult Discharge Plan - Plan Referrals: Jad Harris MD [Partnered Physician] - [facility] Provider[facility] -
[2017-11-20] MEDS: cefTRIAXone 2,000 MG in Water for inj. (sterile) 20 ML 20 ML IVP SCH (16:28)
[2017-11-20] MEDS: Insulin DETEMIR 100 UNIT/ML X5UNITS SQ SCH (21:22)
[2017-11-21] MEDS: *HR* Heparin 5,000 UNIT/ML VIAL SQ SCH ×2 (05:44→18:35)
[2017-11-21] MEDS: Insulin LISPRO 300 UNITS/3 ML VIAL SQ SCH ×7 (08:46→20:09)
[2017-11-21] MEDS: Aspirin Enteric Coated 325 MG Tablet PO SCH (08:47)
[2017-11-21] MEDS: Diltiazem CD (24hr) 120 MG CAPSULE PO SCH (08:47)
[2017-11-21] MEDS: Isosorbide MONOnitrate (24 HR) 30 MG TAB.ER.24H PO SCH (08:47)
[2017-11-21] MEDS: Levofloxacin 750 MG/150 ML 750 MG/150 ML BAG IVPB SCH (08:47)
[2017-11-21] MEDS: hydroCHLOROthiazide 25 MG TABLET PO SCH (08:47)
[2017-11-21] MEDS: Lisinopril 20 MG TABLET PO SCH (08:48)
[2017-11-21] MEDS ORDERED: Insulin DETEMIR 100 UNIT/ML X5UNITS SQ SCH ×2 (09:00→21:00)
--- NOTE | 2017-11-21 09:43 | Infectious Disease Progress No ---
Date of Encounter: 11/21/17 Time of Encounter: 09:40 - Assessment and Plan (1) Sepsis Current Visit: Yes Status: Resolved The patient had two SIRS criteria. Likely secondary to left 2nd toe osteomyelitis and bilateral foot infections. Improved. WBC normalized. Afebrile since 11/12/17. Blood cultures drawn 11/11/17 x 2 sets are negative. Qualifiers: Sepsis type: sepsis due to unspecified organism Qualified Code(s): A41.9 - Sepsis, unspecified organism (2) Osteomyelitis Current Visit: Yes Status: Acute Location: Left foot, distal second toe. Causative organism: MSSA. Likely secondary to chronic venous ulcers. ESR 54 pre-op. Podiatry consulted and following. Status post debridement of ulcers to the bilateral feet with amputation of the distal left second digit at the level of the middle phalanx. Pathology indicative of OM. Cultures as above. Continue wound care and activity restrictions per the podiatry team. Continue Rocephin 2 grams IV daily. Duration of treatment depends on the clinical picture. Given the patient's poor vasculature, diabetes, and extensive infection, will likely pursue IV antibiotics on discharge with exact duration determined based on the patient's response to therapy. Consult VAT prior to discharge for line placement. human services worker to assist with discharge planning. Will need weekly CBC, BUN/Cr, ESR, and CRP. Will need weekly IV care per protocol. Follow up with ID 12/09/17 at 0920. Qualifiers: Osteomyelitis type: acute hematogenous Osteomyelitis location: foot Laterality: left Qualified Code(s): M86.072 - Acute hematogenous osteomyelitis , left ankle and foot (3) Wound infection Current Visit: Yes Status: Acute Location: Right heel and left fifth metatarsal wounds. Causative organisms: MSSA, Citrobacter freundii, Lecleria adecarboxylata. Secondary to non-healing venous ulcers. Status post debridement 11/13/[address] Morales. Wound care per the podiatry team. Continue Levaquin 750mg IV daily. Continue Rocephin 2 grams IV daily. In theory, Rocephin would cover all causative organisms, but Citrobacter has a high incidence of developing AmpC gene, leading to treatment failure. Duration of treatment depends on the clinical picture. Monitor renal function and dose-adjust antibiotics. (4) Cellulitis of both feet Current Visit: Yes Status: Acute Causative organism: Lecleria adecarboxylata, Citrobacter freundii, and MSSA. Secondary to chronic venous stasis ulcers. Improved per patient reports. Antibiotics as above. (5) Diabetes mellitus Current Visit: Yes Status: Chronic Check HgbA1C. Recommend aggressive glucose monitoring and control to promote wound healing and prevent re-infection. Management per the primary team. Qualifiers: Diabetes mellitus type: type 2 Diabetes mellitus skilled nursing insulin use: with oysterman use Diabetes mellitus complication status: with circulatory complication Diabetes mellitus complication detail: with peripheral angiopathy with gangrene Qualified Code(s): E11.52 - Type 2 diabetes 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; Z79.4 - tank terminal gauger (current) use of insulin; Z79.4 - tank terminal gauger (current) use of insulin; Z79.4 - correction ( current) use of insulin; Z79.4 - correction (current) use of insulin (6) Peripheral vascular disease Current Visit: Yes Status: Chronic Status post femoral to above the knee popliteal bypass graft in 2016. Status post left LE Angiogram with balloon angioplasty of the previous graft anastamosis 11/06/[address] Harris. Status post RLE angiogram with balloon angioplasty of the right SFA. Vascular surgery consulted and following. (7) A-fib Current Visit: Yes Status: Chronic Qualifiers: Atrial fibrillation type: paroxysmal Qualified Code(s): I48.0 - Paroxysmal atrial fibrillation (8) CAD (coronary artery disease) Current Visit: Yes Status: Chronic Qualifiers: Coronary Disease-Associated Artery/Lesion type: [place] artery [place] vs. transplanted heart: unspecified whether [place] or transplanted heart Associated angina: without angina Qualified Code(s): I25.10 - Atherosclerotic heart disease of [place] coronary artery without angina pectoris (9) Tobacco abuse Current Visit: Yes Status: Chronic - Subjective Interval history: Patient seen and examined. No acute events noted overnight. Patient resting in bed. Denies fevers, chills, or rigors. Denies chest pain, shortness of breath, or cough. Denies nausea, vomiting, or diarrhea. Denies abdominal pain, appetite changes, or urinary complaints. Reports mild pain in the right foot, but otherwise denies pain. Denies oral thrush or new skin lesions. Infect Dis PN-Objective Data - Labs CBC & Chem 7: 11/19/17 05:17 11/19/17 05:17 Labs: Laboratory Results - last 24 hr 11/19/17 11/19/17 11/20/17 16:11 20:07 07:42 POC Glucose 160 H 165 H 184 H 11/20/17 11/20/17 10:54 16:21 POC Glucose 224 H 150 H Cultures: Cultures 11/13/17 Unknown Anaerobic Culture - Preliminary Left Foot 11/13/17 Unknown Anaerobic Culture - Preliminary Right Foot At this time, no anaerobic growth is present. The culture will be finalized after 5 days of incubation. 11/13/17 Unknown Wound Culture - Final Right Foot Leclercia adecarboxylata Citrobacter freundii Staphylococcus aureus 11/13/17 Unknown Wound Culture - Final Left Foot Staphylococcus aureus Exam - Constitutional Vitals: Temp Pulse Resp BP Pulse Ox 98.1 F 71 15 156/95 99 11/21/17 06:58 11/21/17 06:58 11/21/17 06:58 11/21/17 06:58 11/21/17 06:58 General appearance: average body habitus, cooperative, no acute distress - Head Head exam: Present: atraumatic, normal inspection, normocephalic - Eye Eye exam: Present: EOMI, normal appearance, PERRL Pupils: Present: normal accommodation - ENT ENT exam: Present: mucous membranes moist - Neck Neck exam: Present: normal inspection - Respiratory Respiratory exam: Present: CTAB. Absent: rales, respiratory distress, rhonchi, wheezes - Cardiovascular Cardiovascular exam: Present: RRR, +S1, +S2 - GI/Abdominal GI/Abdominal exam: Present: normal bowel sounds, soft. Absent: distended, tenderness - Extremities Exam Additional comments: WOund VAC dressing noted to the left foot with scant serous drainage noted. Overlying guaze dressing C/D/I. Surgical site to the left 2nd toe with sutures intact and mild erythema. No tenderness or fluctuance noted. Right foot dressing with small amount of serous drainage noted. Foul-smelling. No erythema noted up the leg. Right groin dressing C/D/I. - Neurological Exam Neurological exam: Present: alert, oriented X3, no focal deficits - Psychiatric Psychiatric exam: Present: normal affect, normal mood - Skin Skin exam: Present: dry, intact, normal color, warm - VTE Documentation of Mechanical Device: Intermittent pneumatic compression device Consult Discharge Plan - Plan Referrals: Jad Harris MD [Partnered Physician] - [place],PCP [Primary Care Provider] - Shannan Kulkarni CNP [Advanced Practice Nurse] - 12/09/17 9:20 am Prescriptions: cefTRIAXone [Rocephin] 2,000 mg IVPB DAILY #14 vial Levofloxacin 750 MG/150 ML [Levaquin Premix 750mg/150 mL] 750 mg IVPB DAILY #14 bag - Attending Attestation I examined this patient and my medical decision-making was reviewed with the Resident Physician. I agree with the documented findings, disposition and treatment plan as described except to the extent set forth below.
[2017-11-21 10:27] LABS: Estimated Average Glucose 206 mg/dl; Hemoglobin A1C 8.8 %
[2017-11-21] MEDS: Gentamicin Oint 15 GM TUBE TP SCH (14:41)
--- NOTE | 2017-11-21 14:53 | Internal Med Progress Note ---
Date of Encounter: 11/21/17 Time of Encounter: 11:20 - Assessment and plan (1) Sepsis Current Visit: Yes Status: Resolved Assessment and plan: Present on admission. On IV antibiotics. From acute osteomyelitis and bilateral foot infections. Qualifiers: Sepsis type: sepsis due to unspecified organism Qualified Code(s): A41.9 - Sepsis, unspecified organism (2) Osteomyelitis Current Visit: Yes Status: Acute Assessment and plan: Involving the left foot distal second toe. Patient does have a wound infection in the right foot and will need surgery on this at some point. Podiatry following. Continue IV antibiotics. 4-6 weeks of intravenous antibiotics. habilitation worker working on this [facility]. Continue local wound VAC care to left foot. Patient will eventually need surgery on the right foot. Qualifiers: Osteomyelitis type: acute hematogenous Osteomyelitis location: foot Laterality: left Qualified Code(s): M86.072 - Acute hematogenous osteomyelitis , left ankle and foot (3) Necrotic eschar Current Visit: Yes Status: Acute Assessment and plan: Continue current antibiotics (4) Diabetes mellitus Current Visit: Yes Status: Chronic Assessment and plan: Blood sugars remain elevated. We will increase long-acting insulin regimen Qualifiers: Diabetes mellitus type: type 2 Diabetes mellitus jail insulin use: with jail use Diabetes mellitus complication status: with circulatory complication Diabetes mellitus complication detail: with peripheral angiopathy with gangrene Qualified Code(s): E11.52 - Type 2 diabetes 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; Z79.4 - watch repairer (current) use of insulin; Z79.4 - watch repairer (current) use of insulin; Z79.4 - watch repairer ( current) use of insulin; Z79.4 - watch repairer (current) use of insulin (5) Peripheral vascular disease Current Visit: Yes Status: Chronic Assessment and plan: Status post-balloon angioplasty of the right superficial femoral artery. Continue aspirin, Plavix and statin (6) Chronic foot ulcer Current Visit: Yes Status: Acute Qualifiers: Laterality: unspecified laterality Non-pressure ulcer stage: unspecified non-pressure ulcer stage Qualified Code(s): L97.509 - Non-pressure chronic ulcer of other part of unspecified foot with unspecified severity (7) A-fib Current Visit: Yes Status: Chronic Assessment and plan: Rate controlled. Continue Cardizem Qualifiers: Atrial fibrillation type: paroxysmal Qualified Code(s): I48.0 - Paroxysmal atrial fibrillation (8) CAD (coronary artery disease) Current Visit: Yes Status: Chronic Assessment and plan: Chronic. On aspirin, Plavix and statin Qualifiers: Coronary Disease-Associated Artery/Lesion type: [place] artery [place] vs. transplanted heart: unspecified whether [place] or transplanted heart Associated angina: without angina Qualified Code(s): I25.10 - Atherosclerotic heart disease of [place] coronary artery without angina pectoris (9) Cellulitis of both feet Current Visit: Yes Status: Acute Assessment and plan: Treating with IV antibiotics. - Time Spent With Patient Total time spent is greater than 50% in coordination of care (as documented) at patient's floor/unit and/or counseling patient: - Subjective Interval history: Patient doing well at this time. No new complaints. Pain in his lower extremities is well controlled. [facility] and IV antibiotics. EP IV placed today - Constitutional Vitals: Temp Pulse Resp BP Pulse Ox 98.2 F 67 15 100/56 98 11/21/17 14:26 11/21/17 14:26 11/21/17 14:26 11/21/17 14:26 11/21/17 14:26 General appearance: Present: cooperative, mild distress, A&O X 3, answers questions appropriately - Neck Neck exam general surgery: Present: supple, trachea midline. Absent: lymphadenopathy - Respiratory Respiratory exam: Present: CTAB. Absent: accessory muscle use, rales, rhonchi, wheezes - Cardiovascular Cardiovascular exam: Present: RRR, +S1, +S2. Absent: diastolic murmur, gallop, rubs, systolic murmur - Extremities Exam Extremities exam: Present: warm, radial pulses palpable and symmetrical. Absent : calf tenderness, cyanotic, pedal edema Additional comments: Both feet bandaged. Left foot wound VAC in place - Neurological Exam Neurological exam: Present: alert, CN II-XII intact, oriented X3, no focal deficits. Absent: facial droop, speech deficit Internal Medicine: Result - Labs CBC & Chem 7: 11/19/17 05:17 11/19/17 05:17 - ABG Interpretation ABG results: PT/INR, D-dimer PT 13.3 Seconds (9.4-12.1) H 11/18/17 07:32 - VTE Documentation of Mechanical Device: Intermittent pneumatic compression device Consult Discharge Plan - Plan Referrals: Jad Harris MD [Partnered Physician] - Shannan Kulkarni CNP [Advanced Practice Nurse] - 12/09/17 9:20 am [place],PCP [Primary Care Provider] - Prescriptions: cefTRIAXone [Rocephin] 2,000 mg IVPB DAILY #14 vial Levofloxacin 750 MG/150 ML [Levaquin Premix 750mg/150 mL] 750 mg IVPB DAILY #14 bag
[2017-11-21] MEDS: cefTRIAXone 2,000 MG in Water for inj. (sterile) 20 ML 20 ML IVP SCH (15:22)
[2017-11-22] MEDS: *HR* Heparin 5,000 UNIT/ML VIAL SQ SCH (05:27)
[2017-11-22] MEDS: Levofloxacin 750 MG/150 ML 750 MG/150 ML BAG IVPB SCH (08:28)
[2017-11-22] MEDS: Insulin LISPRO 300 UNITS/3 ML VIAL SQ SCH ×4 (08:28→12:16)
[2017-11-22] MEDS: hydroCHLOROthiazide 25 MG TABLET PO SCH (08:29)
[2017-11-22] MEDS: Diltiazem CD (24hr) 120 MG CAPSULE PO SCH (08:29)
[2017-11-22] MEDS: Lisinopril 20 MG TABLET PO SCH (08:30)
[2017-11-22] MEDS: Aspirin Enteric Coated 325 MG Tablet PO SCH (08:30)
[2017-11-22] MEDS: Isosorbide MONOnitrate (24 HR) 30 MG TAB.ER.24H PO SCH (08:30)
[2017-11-22] MEDS ORDERED: Insulin DETEMIR 100 UNIT/ML X5UNITS SQ SCH (09:00)
[2017-11-22 11:13] VITALS: BP 106/61
[2017-11-22] MEDS: Gentamicin Oint 15 GM TUBE TP SCH (12:15)
--- NOTE | 2017-11-22 12:20 | Infectious Disease Progress No ---
Date of Encounter: 11/22/17 Time of Encounter: 12:19 - Assessment and Plan (1) Sepsis Current Visit: Yes Status: Resolved The patient had two SIRS criteria. Likely secondary to left 2nd toe osteomyelitis and bilateral foot infections. Improved. WBC normalized. Afebrile since 11/12/17. Blood cultures drawn 11/11/17 x 2 sets are negative. Qualifiers: Sepsis type: sepsis due to unspecified organism Qualified Code(s): A41.9 - Sepsis, unspecified organism (2) Osteomyelitis Current Visit: Yes Status: Acute Location: Left foot, distal second toe. Causative organism: MSSA. Likely secondary to chronic venous ulcers. ESR 54 pre-op. Podiatry consulted and following. Status post debridement of ulcers to the bilateral feet with amputation of the distal left second digit at the level of the middle phalanx. Pathology indicative of OM. Cultures as above. Continue wound care and activity restrictions per the podiatry team. Continue Rocephin 2 grams IV daily. Duration of treatment depends on the clinical picture. Given the patient's poor vasculature, diabetes, and extensive infection, will likely pursue IV antibiotics on discharge with exact duration determined based on the patient's response to therapy. Consult VAT prior to discharge for line placement. marine services technician to assist with discharge planning. Will need weekly CBC, BUN/Cr, ESR, and CRP. Will need weekly IV care per protocol. Follow up with ID 12/09/17 at 0920. Qualifiers: Osteomyelitis type: acute hematogenous Osteomyelitis location: foot Laterality: left Qualified Code(s): M86.072 - Acute hematogenous osteomyelitis , left ankle and foot (3) Wound infection Current Visit: Yes Status: Acute Location: Right heel and left fifth metatarsal wounds. Causative organisms: MSSA, Citrobacter freundii, Lecleria adecarboxylata. Secondary to non-healing venous ulcers. Status post debridement 11/13/[address] Morales. Wound care per the podiatry team. Continue Levaquin 750mg IV daily. Continue Rocephin 2 grams IV daily. In theory, Rocephin would cover all causative organisms, but Citrobacter has a high incidence of developing AmpC gene, leading to treatment failure. Duration of treatment depends on the clinical picture. Monitor renal function and dose-adjust antibiotics. (4) Cellulitis of both feet Current Visit: Yes Status: Acute Causative organism: Lecleria adecarboxylata, Citrobacter freundii, and MSSA. Secondary to chronic venous stasis ulcers. Improved per patient reports. Antibiotics as above. (5) Diabetes mellitus Current Visit: Yes Status: Chronic Check HgbA1C. Recommend aggressive glucose monitoring and control to promote wound healing and prevent re-infection. Management per the primary team. Qualifiers: Diabetes mellitus type: type 2 Diabetes mellitus half-way insulin use: with terminal carman use Diabetes mellitus complication status: with circulatory complication Diabetes mellitus complication detail: with peripheral angiopathy with gangrene Qualified Code(s): E11.52 - Type 2 diabetes 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; Z79.4 - dedicated intermodal truck driver (current) use of insulin; Z79.4 - dedicated intermodal truck driver (current) use of insulin; Z79.4 - detention ( current) use of insulin; Z79.4 - detention (current) use of insulin (6) Peripheral vascular disease Current Visit: Yes Status: Chronic Status post femoral to above the knee popliteal bypass graft in 2016. Status post left LE Angiogram with balloon angioplasty of the previous graft anastamosis 11/06/[address] Harris. Status post RLE angiogram with balloon angioplasty of the right SFA. Vascular surgery consulted and following. (7) A-fib Current Visit: Yes Status: Chronic Qualifiers: Atrial fibrillation type: paroxysmal Qualified Code(s): I48.0 - Paroxysmal atrial fibrillation (8) CAD (coronary artery disease) Current Visit: Yes Status: Chronic Qualifiers: Coronary Disease-Associated Artery/Lesion type: [place] artery [place] vs. transplanted heart: unspecified whether [place] or transplanted heart Associated angina: without angina Qualified Code(s): I25.10 - Atherosclerotic heart disease of [place] coronary artery without angina pectoris (9) Tobacco abuse Current Visit: Yes Status: Chronic - Subjective Interval history: Patient seen and examined. No acute events noted overnight. Patient resting in bed. Denies fevers, chills, or rigors. Denies chest pain, shortness of breath, or cough. Denies nausea, vomiting, or diarrhea. He tells me that [facility] and [facility] and hopefully he can be discharged later today Infect Dis PN-Objective Data - Labs CBC & Chem 7: 11/19/17 05:17 11/19/17 05:17 Labs: Laboratory Results - last 24 hr 11/20/17 11/21/17 11/21/17 20:25 06:59 11:03 POC Glucose 186 H 200 H 208 H 11/21/17 11/21/17 15:55 19:32 POC Glucose 145 H 199 H Cultures: Cultures 11/13/17 Unknown Anaerobic Culture - Final Left Foot No anaerobes were recovered. 11/13/17 Unknown Anaerobic Culture - Final Right Foot No anaerobes were recovered. 11/13/17 Unknown Wound Culture - Final Right Foot Leclercia adecarboxylata Citrobacter freundii Staphylococcus aureus 11/13/17 Unknown Wound Culture - Final Left Foot Staphylococcus aureus Exam - Constitutional Vitals: Temp Pulse Resp BP Pulse Ox 99.0 F 90 15 106/61 97 11/22/17 11:08 11/22/17 11:08 11/22/17 11:08 11/22/17 11:08 11/22/17 11:08 General appearance: no acute distress, no febrile - Head Head exam: Present: atraumatic, normocephalic - Respiratory Respiratory exam: Present: CTAB. Absent: wheezes - Cardiovascular Cardiovascular exam: Present: RRR, +S1, +S2 - GI/Abdominal GI/Abdominal exam: Present: normal bowel sounds, soft. Absent: tenderness - VTE Documentation of Mechanical Device: Intermittent pneumatic compression device Consult Discharge Plan - Plan Referrals: Jad Harris MD [Partnered Physician] - Shannan Kulkarni CNP [Advanced Practice Nurse] - 12/09/17 9:20 am [facility] [Primary Care Provider[facility] - Prescriptions: cefTRIAXone [Rocephin] 2,000 mg IVPB DAILY #14 vial Levofloxacin 750 MG/150 ML [Levaquin Premix 750mg/150 mL] 750 mg IVPB DAILY #14 bag
--- NOTE | 2017-11-22 12:51 | Discharge Summary ---
- NOTES TO OUTPATIENT PROVIDER Notes to Outpatient Provider: Patient hospitalized for necrotic wounds in bilateral feet. Evaluated by podiatry and underwent debridement on the left side. Diagnosed with osteomyelitis. Also has wounds on right foot. Underwent balloon angioplasty due to history of PVD. Will be discharged today with wound VAC on left foot and IV antibiotics with plan for surgery at later date on right foot. He will follow up with infectious disease and podiatry after discharge. Follow up on CBC, BMP, CRP and ESR weekly while patient is receiving IV antibiotics. He will be on IV antibiotics for 4-6 weeks. Date of Encounter: 11/22/17 Time of Encounter: 12:49 - Discharge Diagnosis (1) Sepsis Priority: Primary Status: Resolved Qualifiers: Sepsis type: sepsis due to unspecified organism Qualified Code(s): A41.9 - Sepsis, unspecified organism (2) Osteomyelitis Priority: Secondary Status: Acute Qualifiers: Osteomyelitis type: acute hematogenous Osteomyelitis location: foot Laterality: left Qualified Code(s): M86.072 - Acute hematogenous osteomyelitis , left ankle and foot (3) Necrotic eschar Priority: Secondary Status: Acute (4) Diabetes mellitus Priority: Secondary Status: Chronic Qualifiers: Diabetes mellitus type: type 2 Diabetes mellitus scientific programmer insulin use: with scientific programmer use Diabetes mellitus complication status: with circulatory complication Diabetes mellitus complication detail: with peripheral angiopathy with gangrene Qualified Code(s): E11.52 - Type 2 diabetes 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; Z79.4 - nuclear equipment research engineer (current) use of insulin; Z79.4 - nuclear equipment research engineer (current) use of insulin; Z79.4 - nuclear equipment research engineer ( current) use of insulin; Z79.4 - skilled nursing (current) use of insulin (5) Peripheral vascular disease Priority: Secondary Status: Chronic (6) Chronic foot ulcer Priority: Secondary Status: Acute Qualifiers: Laterality: unspecified laterality Non-pressure ulcer stage: unspecified non-pressure ulcer stage Qualified Code(s): L97.509 - Non-pressure chronic ulcer of other part of unspecified foot with unspecified severity (7) A-fib Priority: Secondary Status: Chronic Qualifiers: Atrial fibrillation type: paroxysmal Qualified Code(s): I48.0 - Paroxysmal atrial fibrillation (8) CAD (coronary artery disease) Priority: Secondary Status: Chronic Qualifiers: Coronary Disease-Associated Artery/Lesion type: [place] artery [place] vs. transplanted heart: unspecified whether [place] or transplanted heart Associated angina: without angina Qualified Code(s): I25.10 - Atherosclerotic heart disease of [place] coronary artery without angina pectoris (9) Cellulitis of both feet Priority: Secondary Status: Acute Hospital course: Mr. Prescott is a 62 year old male Patient with history of diabetes, peripheral arterial disease, hypertension who was hospitalized for necrotic wounds in bilateral feet. Evaluated by podiatry and underwent debridement on the left side. Diagnosed with osteomyelitis. He also has necrotic wounds on right foot. Per recommendations from vascular surgery, patient underwent balloon angioplasty due to his history of PVD. He has had a wound VAC in place on his left foot following debridement. He does need surgery on his right foot but a podiatric recommends giving some time to allow the foot to heal from his angioplasty. He will be discharged today with wound VAC on left foot and IV antibiotics with plan for surgery at later date on right foot. He will follow up with infectious disease and podiatry after discharge. Follow up on CBC, BMP , CRP and ESR weekly while patient is receiving IV antibiotics. He will be on IV antibiotics for 4-6 weeks. Discharge discussed with: patient, nurse, social work, otm consultant - Time Spent with Patient Total time spent providing and/or coordinating discharge services: Greater than 30 minutes (45 min) - Discharge Medications Prescriptions: cefTRIAXone [Rocephin] 2,000 mg IVPB DAILY #14 vial Collagenase Oint [Santyl] 1 appl TP DAILY #1 tube Gentamicin Oint [Garamycin] 1 appl TP DAILY #1 tube Levofloxacin 750 MG/150 ML [Levaquin Premix 750mg/150 mL] 750 mg IVPB DAILY #14 bag Home Medications: Aspirin [Lo-Dose Aspirin EC] 325 mg PO DAILY 04/12/17 [History] Lisinopril [Zestril] 20 mg PO DAILY 04/12/17 [History] Insulin ASPART [Novolog Flexpen] 14 unit SQ QAM 05/10/17 [History] Acetaminophen [Tylenol] 1,000 mg PO Q6HR PRN #90 tablet 11/06/17 [Rx] Clopidogrel [Plavix] 75 mg PO DAILY #30 tablet 11/06/17 [Rx] Hydrochlorothiazide [Microzide] 12.5 mg PO DAILY 11/06/17 [History] Isosorbide MONOnitrate (24 HR) [Imdur] 30 mg PO DAILY 11/06/17 [History] Pravastatin Sodium [Pravachol] 10 mg PO MOTH 11/06/17 [History] dilTIAZem HCl [Diltiazem 24Hr Cd] 120 mg PO DAILY 11/06/17 [History] Insulin ASPART [NovoLOG] 10 unit SQ BID 11/11/17 [History] Insulin Glargine,Hum.rec.anlog [Lantus Solostar] 54 - 60 unit SQ HS 11/11/17 [ History] Levofloxacin 750 MG/150 ML [Levaquin Premix 750mg/150 mL] 750 mg IVPB DAILY #14 bag 11/21/17 [Rx] cefTRIAXone [Rocephin] 2,000 mg IVPB DAILY #14 vial 11/21/17 [Rx] Collagenase Oint [Santyl] 1 appl TP DAILY #1 tube 11/22/17 [Rx] Gentamicin Oint [Garamycin] 1 appl TP DAILY #1 tube 11/22/17 [Rx] Allergies/Adverse Reactions: 3 Allergy/AdvReac Type Severity Reaction Status Date / Time atorvastatin [From Lipitor] Allergy Diarrhea Verified 11/11/17 18:33 Date of admission: 11/13/17 18:44 [facility] care [facility] Consults: 11/19/17 13:48 Consult to Infectious Diseases [CONS] Routine Consulting Provider: Infectious Disease [facility] Reason for Consult: Multiorganism wound infection Call Completed: Yes 11/21/17 09:49 Consult to Invasive Line Access Team [CONS] Routine Reason for Consult: Rocephin and LEvaquin 2-6 weeks Line Type: EPIV PICC line indications: nuclear equipment research engineer Med/Antibiotic Time Notified: 09:50 Call Completed: Yes Discharging clinician: Salena Mobley Anticipated date of discharge: 11/22/17 - Constitutional Vitals: Temp Pulse Resp BP Pulse Ox 99.0 F 90 15 106/61 97 11/22/17 11:08 11/22/17 11:08 11/22/17 11:08 11/22/17 11:08 11/22/17 11:08 General appearance: Present: cooperative, A&O X 3, no acute distress, answers questions appropriately - Neck Neck exam general surgery: Present: supple, trachea midline. Absent: lymphadenopathy - Respiratory Respiratory exam: Present: CTAB. Absent: accessory muscle use, rales, rhonchi, wheezes - Cardiovascular Cardiovascular exam: Present: RRR, +S1, +S2. Absent: diastolic murmur, gallop, rubs, systolic murmur - GI/Abdominal GI/Abdominal exam: Present: normal bowel sounds, soft, no peritoneal signs. Absent: distended, tenderness - Extremities Exam Extremities exam: Present: warm, radial pulses palpable and symmetrical. Absent : calf tenderness, cyanotic, pedal edema Additional comments: Both feet are bandaged. Wound VAC to left foot in place. - Neurological Exam Neurological exam: Present: alert, oriented X3, no focal deficits. Absent: facial droop, speech deficit - Skin Skin exam: Present: dry, intact - Patient Status Disposition: Home Health Service Condition: Fair Functional capacity at discharge: wheelchair bound Overall status at discharge: patient is progressing back to baseline - Discharge Instructions Instructions: Cellulitis (DC), Diabetes Mellitus Type 2 in Adults (DC), Peripheral Vascular Disorders (DC) Follow Up With: Wiley Morales DPM [Partnered Physician] - 12/05/17 2:00 pm (In one to 2 weeks) Jad Harris MD [Partnered Physician] - 12/16/17 11:40 am (In 1-2 weeks) Shannan Kulkarni CNP [Advanced Practice Nurse] - 12/09/17 9:20 am - Diet and Activity Activity: increase activity as tolerated Diet: diabetic diet, low fat, low cholesterol, low salt diet - VTE Documentation of Mechanical Device: Intermittent pneumatic compression device
--- NOTE | 2017-11-22 12:57 | Physician Discharge Referral ---
Home Health/Hosp Referral Info Transfer to: Home Health Provider in Charge Post Discharge: PCP - Diagnosis (1) Sepsis Priority: Primary Status: Resolved (2) Osteomyelitis Priority: Secondary Status: Acute (3) Necrotic eschar Priority: Secondary Status: Acute (4) Diabetes mellitus Priority: Secondary Status: Chronic (5) Peripheral vascular disease Priority: Secondary Status: Chronic (6) Chronic foot ulcer Priority: Secondary Status: Acute (7) A-fib Priority: Secondary Status: Chronic (8) CAD (coronary artery disease) Priority: Secondary Status: Chronic (9) Cellulitis of both feet Priority: Secondary Status: Acute - Respiratory Orders Smoking Cessation: Smoking cessation has been advised. For more information, call the [facility] Tobacco Quit Line at 6-694-GRZI-NOW. - Diet/Nutrition Diet/Nutrition Orders: Cardiac, No Concentrated Sweets (diabetic) - Activity Activity Orders: Chair - Services Needed Following services are medically necessary services: Nursing, Physical Therapy, Occupational Therapy, Home Infusion Home Care Orders: Please check CBC, basic panel, ESR, CRP weekly while patient is receiving IV antibiotics. Please change dressings to BLE daily, cleanse all wounds, except lateral foot wound which has wound vac placed, with sterile saline, apply adaptic to incision line of left foot and wound of amputation site of left, 4x4 and kerlix. Apply 50/50 mix of Santyl and Gentamicin ointment, nickel thick amount to the ulcerations of the right foot with dry sterile gauze to the right heel and saline moistened gauze to the ulceration lateral aspect of 5th metatarsal head right foot with kerlix and tape. Please apply wound vac to left lateral foot wound Small black simplace sponge, track to top of foot, drape skin with tegaderm for protection Apply to 125mmhg suction Nurse to apply and change - Transfer Medications Prescriptions: cefTRIAXone [Rocephin] 2,000 mg IVPB DAILY #14 vial Collagenase Oint [Santyl] 1 appl TP DAILY #1 tube Gentamicin Oint [Garamycin] 1 appl TP DAILY #1 tube Levofloxacin 750 MG/150 ML [Levaquin Premix 750mg/150 mL] 750 mg IVPB DAILY #14 bag Home Medications: Aspirin [Lo-Dose Aspirin EC] 325 mg PO DAILY 04/12/17 [History] Lisinopril [Zestril] 20 mg PO DAILY 04/12/17 [History] Insulin ASPART [Novolog Flexpen] 14 unit SQ QAM 05/10/17 [History] Acetaminophen [Tylenol] 1,000 mg PO Q6HR PRN #90 tablet 11/06/17 [Rx] Clopidogrel [Plavix] 75 mg PO DAILY #30 tablet 11/06/17 [Rx] Hydrochlorothiazide [Microzide] 12.5 mg PO DAILY 11/06/17 [History] Isosorbide MONOnitrate (24 HR) [Imdur] 30 mg PO DAILY 11/06/17 [History] Pravastatin Sodium [Pravachol] 10 mg PO MOTH 11/06/17 [History] dilTIAZem HCl [Diltiazem 24Hr Cd] 120 mg PO DAILY 11/06/17 [History] Insulin ASPART [NovoLOG] 10 unit SQ BID 11/11/17 [History] Insulin Glargine,Hum.rec.anlog [Lantus Solostar] 54 - 60 unit SQ HS 11/11/17 [ History] Levofloxacin 750 MG/150 ML [Levaquin Premix 750mg/150 mL] 750 mg IVPB DAILY #14 bag 11/21/17 [Rx] cefTRIAXone [Rocephin] 2,000 mg IVPB DAILY #14 vial 11/21/17 [Rx] Collagenase Oint [Santyl] 1 appl TP DAILY #1 tube 11/22/17 [Rx] Gentamicin Oint [Garamycin] 1 appl TP DAILY #1 tube 11/22/17 [Rx] Allergies/Adverse Reactions: 3 Allergy/AdvReac Type Severity Reaction Status Date / Time atorvastatin [From Lipitor] Allergy Diarrhea Verified 11/11/17 18:33 Certification: Further, I certify that my clinical findings support that this patient is homebound (i.e. absences from home require considerable and taxing effort and are for medical reasons or yazidism services or infrequently or short duration when for other reasons) because: Homebound Reason: Patient requires assistance of a person or device to safely leave home Attestation: My signature below is to certify that this patient is under my care and that I, or nurse practitioner, or a physician's guest services assistant working with me, has a face-to -face encounter with this patient.
[2017-11-22] MEDS: cefTRIAXone 2,000 MG in Water for inj. (sterile) 20 ML 20 ML IVP SCH (15:12)
== END 2017-11-22 17:10 | disposition home health service (06) | DRG 854 ==
LOC: 3ANU 12:37 → EMEROO 12:37 → SUATTDRO 18:44 → 3ANU 19:51 → SUATTDRO 11-13 18:44
PROVIDERS: ADMIT General Practice; ATTEND Internal Medicine

== ENCOUNTER 2017-12-09 10:18 | Inpatient (IN) ==
[2017-12-09] MEDS ORDERED: 0.9 % Sodium Chloride 1,000 ML IVC ONE (10:40)
[2017-12-09] MEDS ORDERED: *HR* OxyCODONE/APAP 5/325 TABLET PO ONE (10:44)
--- NOTE | 2017-12-09 10:48 | Emergency Department Note ---
Disposition Clinical Impression: Peripheral arterial disease Foot ulcer Qualifiers: Laterality: unspecified laterality Non-pressure ulcer stage: unspecified non- pressure ulcer stage Qualified Code(s): L97.509 - Non-pressure chronic ulcer of other part of unspecified foot with unspecified severity Osteomyelitis Qualifiers: Osteomyelitis type: subacute Osteomyelitis location: foot Laterality: right Qualified Code(s): M86.271 - Subacute osteomyelitis, right ankle and foot Anemia Qualifiers: Anemia type: unspecified type Qualified Code(s): D64.9 - Anemia, unspecified Disposition: Admitted As Inpatient Condition: Fair Time of Disposition: 12:00 Extremity Problem HPI - General Chief complaint: ED Extremity Problem,Nontraumatic Stated complaint: "ulcers on feet infected/swollen" Time Seen by Provider: 12/09/17 10:26 Source: patient, family Mode of arrival: private vehicle Limitations: no limitations Nursing Notes Reviewed: Yes Vital Signs Reviewed: Yes - History of Present Illness HPI Narrative: Devin is a pleasant 62-year-old male. He presents the emergency room with a chief complaint of worsening infection in his right foot. He has he [facility] States that at treatment earlier in the day is requested to come to the emergency for evaluation for osteomyelitis. He denies antibiotics in the last 30 days. He denies fevers. He has a history of bilateral great how this amputations. He is diabetic. He is unsure what his last chemotherapy lumen A1c was. Pt Subjective Complaint: extremity pain Onset (ago): month(s) Consistency: constant Injury Location: left, right, lower extremity Pain Scale: 4 Quality: stabbing, sharp Worsens with: weight bearing, walking - Related Data Home Medications Medication Instructions Recorded Confirmed Aspirin [Lo-Dose Aspirin EC] 325 mg PO DAILY 04/12/17 12/09/17 Insulin ASPART [Novolog Flexpen] 14 unit SQ QAM 05/10/17 12/09/17 Isosorbide MONOnitrate (24 HR) 30 mg PO DAILY 11/06/17 12/09/17 [Imdur] Pravastatin Sodium [Pravachol] 10 mg PO MOTH 11/06/17 12/09/17 dilTIAZem HCl [Diltiazem 24Hr Cd] 120 mg PO DAILY 11/06/17 12/09/17 Insulin ASPART [NovoLOG] 10 unit SQ BID 11/11/17 12/09/17 Insulin Glargine,Hum.rec.anlog 54 - 60 unit SQ HS 11/11/17 12/09/17 [Lantus Solostar] Budesonide/Formoterol 80/4.5 2 puff IH BID 12/09/17 12/09/17 [Symbicort 80/4.5] Lisinopril/Hydrochlorothiazide 1 tab PO DAILY 12/09/17 12/09/17 [Zestoretic 20-12.5 mg Tablet] Previous Rx's Medication Instructions Recorded Acetaminophen [Tylenol] 1,000 mg PO Q6HR PRN #90 tablet 11/06/17 Clopidogrel [Plavix] 75 mg PO DAILY #30 tablet 11/06/17 Levofloxacin 750 MG/150 ML 750 mg IVPB DAILY #14 bag 11/21/17 [Levaquin Premix 750mg/150 mL] cefTRIAXone [Rocephin] 2,000 mg IVPB DAILY #14 vial 11/21/17 Collagenase Oint [Santyl] 1 appl TP DAILY #1 tube 11/22/17 Gentamicin Oint [Garamycin] 1 appl TP DAILY #1 tube 11/22/17 Allergies Allergy/AdvReac Type Severity Reaction Status Date / Time atorvastatin [From Lipitor] Allergy Diarrhea Verified 11/11/17 18:33 All systems ED: reviewed and negative except as stated. Review of Systems: As Per HPI Past Medical History - Past Medical History Medical history: Reports: arthritis, atrial fibrillation, coronary artery disease, diabetes, myocardial infarction Surgical history: Reports: coronary bypass (CABG), orthopedic, other (Bilateral great toe amputations) Psychiatric history: Reports: no psych history - Social History Smoking Status: Current every day smoker Smokeless Tobacco Status: No Alcohol use: Reports: none Drug use: Reports: none Physical Exam Patient presents with both feet wrapped and postop shoes. The left side has a great toe amputation and some tissue degeneration on the distal tip of the 2nd toe. The right foot has 2 decub ulcers on the lateral side, one posterior lateral measuring roughly 6 cm x 4 cm with dark necrosis and drainage from the center. The anterior lateral ulcer measure roughly 3 cm x 2 cm and with necrosis centrally. Great toe also amputated. 2+ dorsalis pedis pulse. Patient has sensation on that outside of both ulcerated areas. - General Limitations: no limitations General appearance: alert Course Vital Signs Temperature 99.5 F 12/09/17 10:21 Pulse Rate 92 12/09/17 10:21 Respiratory Rate 18 12/09/17 10:21 Blood Pressure 115/71 12/09/17 10:21 O2 Sat by Pulse Oximetry 98 12/09/17 10:21 Temperature 98.0 F 12/10/17 07:22 Pulse Rate 65 12/10/17 07:22 Respiratory Rate 16 12/10/17 07:22 Blood Pressure 151/68 12/10/17 07:22 O2 Sat by Pulse Oximetry 95 12/10/17 07:22 Oxygen Delivery Oxygen Delivery Room Air Extremity Problem, Nontraumati - MDM Narrative Medical decision making narrative: Care was signed out to oncoming physician Dr. Alvarado. Initial workup is in the computer we are awaiting labs results of imaging. Patient likely dissipate disposition will be inpatient with an orthopedic consult. - Lab Data Result diagrams: 12/10/17 04:45 12/10/17 04:45 Lab Results 12/09/17 12/09/17 12/09/17 Range/Units 11:57 11:57 11:57 WBC 12.0 H (4.3-11.1) K/mcL RBC 3.30 L (4.19-5.50) M/mcL Hgb 9.9 L D (12.9-16.9) g/dL Hct 29.7 L (37.5-50.1) % MCV 90.0 (83.0-100.0) fL MCH 30.0 (28.0-33.3) pg MCHC 33.3 (31.6-35.5) g/dL RDW 13.1 (11.5-14.5) % Plt Count 188 (140-400) K/mcL MPV 10.0 (9.4-12.4) fL Immature Gran % 1.0 (0-4) % Seg Neutrophils % 85.3 % Lymphocytes % 5.8 % Monocytes % 7.2 % Eosinophils % 0.5 % Basophils % 0.2 % Neutrophils # 10.2 H (1.6-8.9) K/mcL Lymphocytes # 0.7 (0.6-4.6) K/mcL Monocytes # 0.9 (0.0-1.3) K/mcL Eosinophils # 0.1 (0.0-0.6) K/mcL Basophils # 0.0 (0.0-0.2) K/mcL PT 14.3 H (9.4-12.1) Seconds INR 1.3 APTT 31.8 (26.0-36.0) Seconds Sodium 134 L (136-145) mEq/L Potassium 4.2 (3.5-5.1) mEq/L Chloride 103 (98-107) mEq/L Carbon Dioxide 23 (23-29) mEq/L BUN 27 H (8-23) mg/dL Creatinine 1.01 (0.70-1.30) mg/dL Est GFR ( Amer) > 60 (> 60) Est GFR (Non-Af Amer) > 60 (> 60) BUN/Creatinine Ratio 27 H (6-26) Glucose 309 H (70-105) mg/dL Calculated Osmolality 295 (280-300) Lactic Acid (0.5-2.2) mmol/L Calcium 9.1 (8.6-10.3) mg/dL Phosphorus 3.1 (2.7-4.5) mg/dL Magnesium 1.7 (1.6-2.6) mg/dL Total Bilirubin 0.6 (0.3-1.0) mg/dL Direct Bilirubin 0.1 (0.0-0.2) mg/dL Indirect Bilirubin 0.5 (0.0-1.2) mg/dL AST 7 L (13-39) Units/L ALT 6 L (7-52) Units/L Alkaline Phosphatase 73 (34-104) Units/L Serum Total Protein 7.2 (6.4-8.9) g/dL Albumin 3.3 L (3.5-5.7) g/dL Globulin 3.9 H (2.4-3.5) g/dL Albumin/Globulin Ratio 0.8 L (1.1-2.2) Urine Color (Yellow) Urine Clarity (Clear) Urine pH (5.0-8.0) pH Units Ur Specific [place] (1.010-1.025) Urine Protein (Neg-Trace) mg/dL Urine Glucose (UA) (Normal) mg/dL Urine Ketones (Negative) mg/dL Urine Blood (Negative) Urine Nitrite (Negative) Urine Bilirubin (Negative) Urine Urobilinogen (Normal) mg/dL Ur Leukocyte Esterase (Negative) Urine Microscopic RBC (0-3) per hpf Urine Microscopic WBC (0-3) per hpf Ur Squamous Epith Cells (None-Few) per lpf Urine Bacteria (None-Few) per hpf Hyaline Casts (None-Few) per lpf Ur Culture Indicated? (NO) 12/09/17 12/09/17 Range/Units 11:57 12:24 WBC (4.3-11.1) K/mcL RBC (4.19-5.50) M/mcL Hgb (12.9-16.9) g/dL Hct (37.5-50.1) % MCV (83.0-100.0) fL MCH (28.0-33.3) pg MCHC (31.6-35.5) g/dL RDW (11.5-14.5) % Plt Count (140-400) K/mcL MPV (9.4-12.4) fL Immature Gran % (0-4) % Seg Neutrophils % % Lymphocytes % % Monocytes % % Eosinophils % % Basophils % % Neutrophils # (1.6-8.9) K/mcL Lymphocytes # (0.6-4.6) K/mcL Monocytes # (0.0-1.3) K/mcL Eosinophils # (0.0-0.6) K/mcL Basophils # (0.0-0.2) K/mcL PT (9.4-12.1) Seconds INR APTT (26.0-36.0) Seconds Sodium (136-145) mEq/L Potassium (3.5-5.1) mEq/L Chloride (98-107) mEq/L Carbon Dioxide (23-29) mEq/L BUN (8-23) mg/dL Creatinine (0.70-1.30) mg/dL Est GFR ( Amer) (> 60) Est GFR (Non-Af Amer) (> 60) BUN/Creatinine Ratio (6-26) Glucose (70-105) mg/dL Calculated Osmolality (280-300) Lactic Acid 1.1 (0.5-2.2) mmol/L Calcium (8.6-10.3) mg/dL Phosphorus (2.7-4.5) mg/dL Magnesium (1.6-2.6) mg/dL Total Bilirubin (0.3-1.0) mg/dL Direct Bilirubin (0.0-0.2) mg/dL Indirect Bilirubin (0.0-1.2) mg/dL AST (13-39) Units/L ALT (7-52) Units/L Alkaline Phosphatase (34-104) Units/L Serum Total Protein (6.4-8.9) g/dL Albumin (3.5-5.7) g/dL Globulin (2.4-3.5) g/dL Albumin/Globulin Ratio (1.1-2.2) Urine Color Yellow (Yellow) Urine Clarity Clear (Clear) Urine pH 5.5 (5.0-8.0) pH Units Ur Specific [place] > 1.030 H (1.010-1.025) Urine Protein 30 H (Neg-Trace) mg/dL Urine Glucose (UA) >=1000 H (Normal) mg/dL Urine Ketones Negative (Negative) mg/dL Urine Blood Negative (Negative) Urine Nitrite Negative (Negative) Urine Bilirubin Negative (Negative) Urine Urobilinogen Normal (Normal) mg/dL Ur Leukocyte Esterase Negative (Negative) Urine Microscopic RBC 0-3 (0-3) per hpf Urine Microscopic WBC 0-3 (0-3) per hpf Ur Squamous Epith Cells Many H (None-Few) per lpf Urine Bacteria None Seen (None-Few) per hpf Hyaline Casts None Seen (None-Few) per lpf Ur Culture Indicated? NO (NO)
[2017-12-09] MEDS ORDERED: *HR* FentaNYL (PF) 100 MCG/2 ML VIAL IVP ONE (11:09)
--- NOTE | 2017-12-09 11:11 | Emergency Department Note ---
Disposition Clinical Impression: Peripheral arterial disease Foot ulcer Qualifiers: Laterality: unspecified laterality Non-pressure ulcer stage: unspecified non- pressure ulcer stage Qualified Code(s): L97.509 - Non-pressure chronic ulcer of other part of unspecified foot with unspecified severity Osteomyelitis Qualifiers: Osteomyelitis type: subacute Osteomyelitis location: foot Laterality: right Qualified Code(s): M86.271 - Subacute osteomyelitis, right ankle and foot Anemia Qualifiers: Anemia type: unspecified type Qualified Code(s): D64.9 - Anemia, unspecified Disposition: Admitted As Inpatient Condition: Fair Forms: ED Satisfaction Letter Time of Disposition: 12:35 General Adult HPI - General Chief complaint: ED Extremity Problem,Nontraumatic Stated complaint: "ulcers on feet infected/swollen" Time Seen by Provider: 12/09/17 10:26 Source: patient, family Limitations: no limitations - History of Present Illness Pain Scale: 10 - Related Data Home Medications Medication Instructions Recorded Confirmed Aspirin [Lo-Dose Aspirin EC] 325 mg PO DAILY 04/12/17 11/11/17 Lisinopril [Zestril] 20 mg PO DAILY 04/12/17 11/11/17 Insulin ASPART [Novolog Flexpen] 14 unit SQ QAM 05/10/17 11/11/17 Hydrochlorothiazide [Microzide] 12.5 mg PO DAILY 11/06/17 11/11/17 Isosorbide MONOnitrate (24 HR) 30 mg PO DAILY 11/06/17 11/11/17 [Imdur] Pravastatin Sodium [Pravachol] 10 mg PO MOTH 11/06/17 11/11/17 dilTIAZem HCl [Diltiazem 24Hr Cd] 120 mg PO DAILY 11/06/17 11/11/17 Insulin ASPART [NovoLOG] 10 unit SQ BID 11/11/17 11/11/17 Insulin Glargine,Hum.rec.anlog 54 - 60 unit SQ HS 11/11/17 11/11/17 [Lantus Solostar] Previous Rx's Medication Instructions Recorded Acetaminophen [Tylenol] 1,000 mg PO Q6HR PRN #90 tablet 11/06/17 Clopidogrel [Plavix] 75 mg PO DAILY #30 tablet 11/06/17 Levofloxacin 750 MG/150 ML 750 mg IVPB DAILY #14 bag 11/21/17 [Levaquin Premix 750mg/150 mL] cefTRIAXone [Rocephin] 2,000 mg IVPB DAILY #14 vial 11/21/17 Collagenase Oint [Santyl] 1 appl TP DAILY #1 tube 11/22/17 Gentamicin Oint [Garamycin] 1 appl TP DAILY #1 tube 11/22/17 Allergies Allergy/AdvReac Type Severity Reaction Status Date / Time atorvastatin [From Lipitor] Allergy Diarrhea Verified 11/11/17 18:33 Past Medical History - Past Medical History Medical history: Reports: arthritis, atrial fibrillation, coronary artery disease, diabetes, myocardial infarction Surgical history: Reports: coronary bypass (CABG), orthopedic, other (Bilateral great toe amputations) Psychiatric history: Reports: no psych history - Social History Smoking Status: Current every day smoker Smokeless Tobacco Status: No Alcohol use: Reports: none Drug use: Reports: none Physical Exam - General Limitations: no limitations General appearance: alert, appears intoxicated Course Vital Signs Temperature 99.5 F 12/09/17 10:21 Pulse Rate 92 12/09/17 10:21 Respiratory Rate 18 12/09/17 10:21 Blood Pressure 115/71 12/09/17 10:21 O2 Sat by Pulse Oximetry 98 12/09/17 10:21 Temperature 99.5 F 12/09/17 10:21 Pulse Rate 83 12/09/17 11:01 Respiratory Rate 18 12/09/17 11:01 Blood Pressure 149/67 12/09/17 11:01 O2 Sat by Pulse Oximetry 99 12/09/17 11:01 Oxygen Delivery Oxygen Delivery Room Air Medical Decision Making - Lab Data Lab results reviewed: Yes I reviewed the patient's lab results. Result diagrams: 12/09/17 11:57 Lab Results 12/09/17 12/09/17 12/09/17 Range/Units 11:57 11:57 11:57 WBC 12.0 H (4.3-11.1) K/mcL RBC 3.30 L (4.19-5.50) M/mcL Hgb 9.9 L D (12.9-16.9) g/dL Hct 29.7 L (37.5-50.1) % MCV 90.0 (83.0-100.0) fL MCH 30.0 (28.0-33.3) pg MCHC 33.3 (31.6-35.5) g/dL RDW 13.1 (11.5-14.5) % Plt Count 188 (140-400) K/mcL MPV 10.0 (9.4-12.4) fL Immature Gran % 1.0 (0-4) % Seg Neutrophils % 85.3 % Lymphocytes % 5.8 % Monocytes % 7.2 % Eosinophils % 0.5 % Basophils % 0.2 % Neutrophils # 10.2 H (1.6-8.9) K/mcL Lymphocytes # 0.7 (0.6-4.6) K/mcL Monocytes # 0.9 (0.0-1.3) K/mcL Eosinophils # 0.1 (0.0-0.6) K/mcL Basophils # 0.0 (0.0-0.2) K/mcL PT 14.3 H (9.4-12.1) Seconds INR 1.3 APTT 31.8 (26.0-36.0) Seconds Lactic Acid 1.1 (0.5-2.2) mmol/L - Radiology Data Radiology results reviewed: Yes I reviewed the patient's radiology results. Attestation Statement - Attestation Attestation: For this encounter, I have reviewed the [employer] or PA documentation, treatment plan, and medical decision making; and I have had face to face time with this patient. [id number] time provided Patient presents at the recommendation of his home health care team. He is currently receiving midline antibiotics for bilateral lower extremity foot ulcers secondary to peripheral arterial disease. The patient does have draining foul-smelling ulcers involving his right lower extremity as well as his left lower extremity at the feet. He complains of pain over the affected areas. The patient is being managed by podiatry, vascular surgery, infectious disease. I anticipate him requiring admission upon completion of the workup today
[2017-12-09 12:13] LABS: Basophils % 0.2 %; Eosinophils # 0.1 K/mcL (0.0-0.6); Eosinophils % 0.5 %; Hematocrit 29.7 % (37.5-50.1); Hemoglobin 9.9 g/dL (12.9-16.9); Lymphocytes # 0.7 K/mcL (0.6-4.6); Lymphocytes % 5.8 %; Mean Corpuscular HGB Conc 33.3 g/dL (31.6-35.5); Monocytes # 0.9 K/mcL (0.0-1.3); Monocytes % 7.2 %; Neutrophils # 10.2 K/mcL (1.6-8.9); Platelet Count 188 K/mcL (140-400); Red Cell Distribution Width 13.1 % (11.5-14.5); Segmented Neutrophils % 85.3 %
[2017-12-09 12:15] LABS: INR 1.3; Prothrombin Time 14.3 Seconds (9.4-12.1)
[2017-12-09 12:18] LABS: Activated Partial Thrombo Time 31.8 Seconds (26.0-36.0)
[2017-12-09 12:46] LABS: Bilirubin,Urine Negative (Negative); Blood,Urine Negative (Negative); Clarity,Urine Clear (Clear); Color,Urine Yellow (Yellow); Glucose,Urine (UA) >=1000 mg/dL (Normal); Ketones,Urine Negative (Negative); Leukocyte Esterase,Urine Negative (Negative); Nitrite,Urine Negative (Negative); PH,Urine 5.5 pH Units (5.0-8.0); Protein,Urine 30 mg/dL (Neg-Trace); Specific Gravity,Urine > 1.030 (1.010-1.025); Urobilinogen,Urine Normal (Normal)
[2017-12-09 12:49] LABS: Bacteria,Urine None Seen per hpf (None-Few); Hyaline Casts,Urine None Seen per lpf (None-Few); RBC,Urine 0-3 per hpf (0-3); Squamous Epithelial Cell,Urine Many per lpf (None-Few); WBC,Urine 0-3 per hpf (0-3)
[2017-12-09 12:51] LABS: Alanine Aminotransferase 6 Units/L (7-52); Albumin 3.3 g/dL (3.5-5.7); Albumin/Globulin Ratio 0.8 (1.1-2.2); Alkaline Phosphatase 73 Units/L (34-104); Aspartate Amino Transferase 7 Units/L (13-39); BUN/Creatinine Ratio 27 (6-26); Bilirubin,Direct 0.1 mg/dL (0.0-0.2); Bilirubin,Indirect 0.5 mg/dL (0.0-1.2); Bilirubin,Total 0.6 mg/dL (0.3-1.0); Blood Urea Nitrogen 27 mg/dL (8-23); Calcium 9.1 mg/dL (8.6-10.3); Carbon Dioxide 23 mEq/L (23-29); Chloride 103 mEq/L (98-107); Globulin 3.9 g/dL (2.4-3.5); Glucose 309 mg/dL (70-105); Magnesium 1.7 mg/dL (1.6-2.6); Osmolality,Calculated 295 (280-300); Phosphorous 3.1 mg/dL (2.7-4.5); Potassium 4.2 mEq/L (3.5-5.1); Sodium 134 mEq/L (136-145); Total Protein 7.2 g/dL (6.4-8.9); eGFR For African Americans > 60 (> 60); eGFR For Non-African Americans > 60 (> 60)
[2017-12-09] MEDS ORDERED: Ipratropium/Albuterol Neb 3 ML IH PRN (13:50)
[2017-12-09] MEDS ORDERED: Cefepime HCl 1,000 MG in Water for inj. (sterile) 20 ML 10 ML IVP SCH (13:50)
[2017-12-09] MEDS ORDERED: Naloxone 0.4 MG/ML INJ IVP PRN (13:58)
[2017-12-09] MEDS ORDERED: D5% in Water 1,000 ML IVC PRN (13:58)
[2017-12-09] MEDS ORDERED: Dextrose Gel 15 GM/37.5 ML TUBE PO PRN ×2 (13:58)
[2017-12-09] MEDS ORDERED: *HR* Dextrose 50 % in Water (Syg) 50 ML SYRINGE IVP PRN (13:58)
[2017-12-09] MEDS ORDERED: Insulin DETEMIR 100 UNIT/ML X5UNITS SQ SCH (14:00)
--- NOTE | 2017-12-09 14:04 | Internal Med History&Physical ---
Date of Encounter: 12/09/17 Time of Encounter: 14:01 Internal Medicine - H&P: HPI Chief complaint: Right foot infection Admitted From: Emergency Dept History of present illness: Mr. Prescott is a 62 year old male with past medical history of hypertension diabetes type 2 insulin-dependent, tobacco abuse who was recently discharged from this hospital on 11/22/2017 when he was treated for osteomyelitis, he was sent on 2 more weeks of Rocephin and Levaquin IV as he grew Leclercia, Staphylococcus aureus and Citrobacter in his cultures, the patient says that he has been very compliant and has been taking his antibiotics every day until yesterday, he was sent from the wound center as his wounds have been more foul smelling in both feet. His hemoglobin is 9.9 today and has been dropping slowly over the past few months, white blood cell count is 12, sodium is 134 glucose 309. X-ray of the right foot shows the fifth metatarsal head osteomyelitis, he has a wound VAC on the left foot. They are contacted the podiatry service for the patient to be evaluated. Heart rate is 92. Denies any other complaints Past Med Surg Social Fam HX - Past Medical History Medical history: arthritis, atrial fibrillation (Not on anticoagulation), coronary artery disease, diabetes (Insulin-dependent), myocardial infarction, other (CAD status post stents, tobacco use, polydipsia bacterial infection in both feet, tuberculosis, asthma, gastric ulcers, anemia, diastolic CHF) Additional medical history: swelled retna's, bad blood flow, heart attack Psychiatric history: no psych history - Past Surgical History Surgical History: coronary bypass (CABG), orthopedic, other, other (Balloon angioplasty due to severe peripheral vascular disease, toes amputations) Additional surgical history: Bilat big toe amputation. left artery cleaned out - Social History Smoking Status: Current every day smoker Packs per day: 1 Smokeless Tobacco Status: No Alcohol use: none Drug use: none - Family History Mother Adopted: No Family Member Ethnicity: Non- Living Status: Hx Family Cancer: Yes Son Living Status: Still Living - Additional Family History Additional family history: Father with myocardial infarction, mother with diabetes Internal Medicine - H&P: Meds Aspirin [Lo-Dose Aspirin EC] 325 mg PO DAILY 04/12/17 [History] Lisinopril [Zestril] 20 mg PO DAILY 04/12/17 [History] Insulin ASPART [Novolog Flexpen] 14 unit SQ QAM 05/10/17 [History] Acetaminophen [Tylenol] 1,000 mg PO Q6HR PRN #90 tablet 11/06/17 [Rx] Clopidogrel [Plavix] 75 mg PO DAILY #30 tablet 11/06/17 [Rx] Hydrochlorothiazide [Microzide] 12.5 mg PO DAILY 11/06/17 [History] Isosorbide MONOnitrate (24 HR) [Imdur] 30 mg PO DAILY 11/06/17 [History] Pravastatin Sodium [Pravachol] 10 mg PO MOTH 11/06/17 [History] dilTIAZem HCl [Diltiazem 24Hr Cd] 120 mg PO DAILY 11/06/17 [History] Insulin ASPART [NovoLOG] 10 unit SQ BID 11/11/17 [History] Insulin Glargine,Hum.rec.anlog [Lantus Solostar] 54 - 60 unit SQ HS 11/11/17 [ History] Levofloxacin 750 MG/150 ML [Levaquin Premix 750mg/150 mL] 750 mg IVPB DAILY #14 bag 11/21/17 [Rx] cefTRIAXone [Rocephin] 2,000 mg IVPB DAILY #14 vial 11/21/17 [Rx] Collagenase Oint [Santyl] 1 appl TP DAILY #1 tube 11/22/17 [Rx] Gentamicin Oint [Garamycin] 1 appl TP DAILY #1 tube 11/22/17 [Rx] 3 Allergy/AdvReac Type Severity Reaction Status Date / Time atorvastatin [From Lipitor] Allergy Diarrhea Verified 11/11/17 18:33 All Systems PM: A 10-system review of systems was performed and is negative for pertinent findings except as documented above in the HPI. Review of systems: Pressures or breath, chest pain, other systems out of the 10 reviewed were negative - Constitutional Vitals: Temp Pulse Resp BP Pulse Ox 98.6 F 71 16 158/91 96 12/09/17 13:55 12/09/17 13:55 12/09/17 13:55 12/09/17 13:55 12/09/17 13:55 General appearance: Present: A&O X 3 - Head Head exam: Present: atraumatic, normocephalic - Eye Eye exam: Present: PERRL, conjuntiva pink, sclera anicteric Pupils: Present: PERRL - Neck Neck exam general surgery: Present: supple, trachea midline. Absent: lymphadenopathy - Respiratory Respiratory exam: Present: CTAB. Absent: accessory muscle use, rales, rhonchi, wheezes - Cardiovascular Cardiovascular exam: Present: RRR, +S1, +S2. Absent: diastolic murmur, gallop, rubs, systolic murmur - GI/Abdominal GI/Abdominal exam: Present: normal bowel sounds, soft, no peritoneal signs. Absent: distended, tenderness - Extremities Exam Extremities exam: Present: warm, radial pulses palpable and symmetrical. Absent : calf tenderness, cyanotic, pedal edema - Neurological Exam Neurological exam: Present: CN II-XII intact, oriented X3, no focal deficits. Absent: pronater drift, facial droop, speech deficit Additional comments: Pedal Pulses are present but very diminished especially on the left foot - Skin Skin exam: Present: dry. Absent: intact Additional comments: Multiple wounds the largest one on the right heel measuring 6 x 5 cm necrotic, smaller one close to them right fifth metatarsal 2 x 2 centimeters that appears necrotic as well. Other wounds in the left foot with a recent second toe amputation which was partial, wound VAC in place Internal Med - H&P Results - Labs CBC & Chem 7: 12/09/17 11:57 12/09/17 11:57 - Assessment and plan (1) Osteomyelitis Current Visit: Yes Status: Acute Assessment and plan: New right fifth metatarsal head acute osteomyelitis With multiple other feet ulcers Continue cefepime which will cover all other bacteria that grew on prior cultures discussed above Start IV vancomycin Podiatry consulted IV fluids Omeprazole for GI prophylaxis and subcutaneous tenderness heparin for DVT prophylaxis. The patient will be admitted as inpatient, expected to stay more than 2 midnights. Full code. Time spent on this admission 40 minutes Qualifiers: Osteomyelitis type: subacute Osteomyelitis location: foot Laterality: right Qualified Code(s): M86.271 - Subacute osteomyelitis, right ankle and foot (2) Foot ulcer Current Visit: Yes Status: Acute Qualifiers: Laterality: unspecified laterality Non-pressure ulcer stage: unspecified non-pressure ulcer stage Qualified Code(s): L97.509 - Non-pressure chronic ulcer of other part of unspecified foot with unspecified severity (3) Peripheral arterial disease Current Visit: Yes Status: Acute Assessment and plan: Has been seen by Dr. Harris who performed an angioplasty during last hospitalization (4) Necrotic eschar Current Visit: No Status: Acute (5) A-fib Current Visit: No Status: Chronic Assessment and plan: Not on anticoagulation, continue diltiazem Qualifiers: Atrial fibrillation type: paroxysmal Qualified Code(s): I48.0 - Paroxysmal atrial fibrillation (6) CAD (coronary artery disease) Current Visit: No Status: Chronic Assessment and plan: Continue aspirin and Plavix Qualifiers: Coronary Disease-Associated Artery/Lesion type: [place] artery [place] vs. 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 Diabetes mellitus complication status: with circulatory complication Diabetes mellitus complication detail: with peripheral angiopathy with gangrene Qualified Code(s): E11.52 - Type 2 diabetes 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; 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 insulin; Z79.4 - [facility] (current) use of insulin; Z79.4 - silo painter ( current) use of insulin; Z79.4 - [facility] (current) use of insulin (8) Tobacco abuse Current Visit: No Status: Chronic Assessment and plan: Smoking cessation counseling given for 5 minutes, nicotine patch (9) Anemia Current Visit: Yes Status: Acute Assessment and plan: Acute on chronic blood loss anemia, history of gastric ulcers Hemoglobin has dropped from 13 on November 11 down to 9.9, no active bleeding Continue PPI GI consult to consider EGD Qualifiers: Anemia type: unspecified type Qualified Code(s): D64.9 - Anemia, unspecified - Time Spent With Patient Total time spent is greater than 50% in coordination of care (as documented) at patient's floor/unit and/or counseling patient:
[2017-12-09] MEDS: 0.9 % Sodium Chloride 1,000 ML IVC SCH (16:40)
[2017-12-09] MEDS: *HR* Heparin 5,000 UNIT/ML VIAL SQ SCH ×2 (16:41→21:55)
[2017-12-09] MEDS: Nicotine 21 MG PATCH.TD24 TD SCH (16:49)
[2017-12-09] MEDS: Insulin LISPRO 300 UNITS/3 ML VIAL SQ SCH ×2 (16:54→16:55)
[2017-12-09] MEDS: Cefepime HCl 1,000 MG in Water for inj. (sterile) 20 ML 10 ML IVP SCH (17:00)
[2017-12-09] MEDS: Insulin DETEMIR 100 UNIT/ML X5UNITS SQ SCH (21:54)
[2017-12-10] MEDS: *HR* HYDROcodone/Acet 5/325 mg TABLET PO PRN ×2 (02:51→14:03)
[2017-12-10 04:58] LABS: Hematocrit 26.1 % (37.5-50.1); Hemoglobin 8.8 g/dL (12.9-16.9); Mean Corpuscular HGB Conc 33.7 g/dL (31.6-35.5); Mean Corpuscular Hemoglobin 29.9 pg (28.0-33.3); Mean Corpuscular Volume 88.8 fL (83.0-100.0); Mean Platelet Volume 9.7 fL (9.4-12.4); Platelet Count 167 K/mcL (140-400); Red Blood Count 2.94 M/mcL (4.19-5.50); Red Cell Distribution Width 12.9 % (11.5-14.5)
[2017-12-10 05:14] LABS: BUN/Creatinine Ratio 26 (6-26); Blood Urea Nitrogen 26 mg/dL (8-23); Calcium 8.4 mg/dL (8.6-10.3); Carbon Dioxide 23 mEq/L (23-29); Chloride 106 mEq/L (98-107); Glucose 236 mg/dL (70-105); Osmolality,Calculated 288 (280-300); Potassium 3.8 mEq/L (3.5-5.1); Sodium 133 mEq/L (136-145); eGFR For African Americans > 60 (> 60); eGFR For Non-African Americans > 60 (> 60)
[2017-12-10] MEDS: Insulin LISPRO 300 UNITS/3 ML VIAL SQ SCH ×7 (05:32→17:01)
[2017-12-10] MEDS: *HR* Heparin 5,000 UNIT/ML VIAL SQ SCH ×2 (05:43→14:07)
[2017-12-10] MEDS: Cefepime HCl 1,000 MG in Water for inj. (sterile) 20 ML 10 ML IVP SCH ×2 (05:44→17:06)
[2017-12-10] MEDS: Insulin DETEMIR 100 UNIT/ML X5UNITS SQ SCH (08:38)
[2017-12-10] MEDS: Diltiazem CD (24hr) 120 MG CAPSULE PO SCH (08:40)
[2017-12-10] MEDS: Lisinopril 20 MG TABLET PO SCH (08:40)
[2017-12-10] MEDS: Aspirin Enteric Coated 325 MG Tablet PO SCH (08:40)
[2017-12-10] MEDS: Isosorbide MONOnitrate (24 HR) 30 MG TAB.ER.24H PO SCH (08:40)
[2017-12-10] MEDS: Nicotine 21 MG PATCH.TD24 TD SCH (08:51)
--- NOTE | 2017-12-10 12:05 | Gastroenterology Consult Note ---
<Calvin Hogue - Last Filed: 12/10/17 12:03> Date of Encounter: 12/10/17 Time of Encounter: 10:20 - Assessment and plan (1) Anemia Current Visit: Yes Status: Acute Assessment and plan: Hgb on admission was 9.9 and this AM Hgb 8.8. On 12/02/2017 Hgb 11.9 and on 2017 Hgb 13. Continue to monitor CBC and transfuse PRBC as needed. Plan for EGD and colonoscopy tomorrow. Clear liquid diet today, no red or purple. NPO at midnight. If unable tolerate NuLytely please use MiraLAX prep. If not clear by 6 AM, give 2 tap water enemas. Continue PPI. Qualifiers: Anemia type: unspecified type Qualified Code(s): D64.9 - Anemia, unspecified (2) Osteomyelitis Current Visit: Yes Status: Acute Qualifiers: Osteomyelitis type: subacute Osteomyelitis location: foot Laterality: right Qualified Code(s): M86.271 - Subacute osteomyelitis, right ankle and foot - Time Spent With Patient Total time spent is greater than 50% in coordination of care (as documented) at patient's floor/unit and/or counseling patient: GI History of Present Illness - Data of Consult Patient: new to practice Consult date: 12/10/17 Requesting Physician: Emanuel Ro - Consult Narrative Reason for consult: Anemia History of present illness: Mr. Prescott is a 62 year old male with PMHx of arthritis, Afib, CAD, DM, gastric ulcer, SD, CAD s/p stents, TB, asthma, CHF who presented to the ED from the wound center with worsening infection in his right foot. He follows with wound care regulatory affairs strategy specialist at the [facility]. He was recently discharged from this hospital on 11/22/2017 when he was treated for osteomyelitis, he was sent on 2 more weeks of Rocephin and Levaquin IV as he grew Leclercia, Staphylococcus aureus and Citrobacter in his cultures. We have been consulted to evaluate his anemia. Hgb on admission was 9.9 and this AM Hgb 8.8. On 12/02/2017 Hgb 11.9 and on 2017 Hgb 13. Procedures: Colonoscopy with 16 polyps per patient report. NSAIDs: ASA Anticoagulation: Plavix Past Med Surg Social Fam HX - Past Medical History Medical history: arthritis, atrial fibrillation, coronary artery disease, diabetes, myocardial infarction Additional medical history: swelled retna's, bad blood flow, heart attack Psychiatric history: no psych history - Past Surgical History Surgical History: coronary bypass (CABG), orthopedic, other (Bilateral great toe amputations) Additional surgical history: Bilat big toe amputation. left artery cleaned out - Social History Smoking Status: Current every day smoker Packs per day: 1 Smokeless Tobacco Status: No Alcohol use: none Drug use: none - Family History Mother Adopted: No Family Member Ethnicity: Non- Living Status: Hx Family Cancer: Yes Son Living Status: Still Living - Gastrointestinal Gastrointestinal: Present: as per HPI - Constitutional Constitutional: as per HPI - EENT Eyes: as per HPI Ears: Present: as per HPI Nose, mouth and throat: Present: as per HPI - Cardiovascular Cardiovascular ROS: Present: as per HPI - Respiratory Respiratory IM: Present: as per HPI - Genitourinary Genitourinary: Absent: change in color, Urinary frequency - Neurological ROS Neurological GI: Present: as per HPI - Hematologic/Lymphatic Hematologic/Lymphatic pediatric: Present: as per HPI - Musculoskeletal Musculoskeletal ROS GI: Present: as per HPI - Integumentary Integumentary GI: Present: as per HPI - Psychiatric ROS Psychiatric GI: Present: as per HPI - Endocrine Endocrine IM: Present: as per HPI - Constitutional Vitals: Temp Pulse Resp BP Pulse Ox 98.3 F 67 16 134/65 98 12/10/17 10:44 12/10/17 10:44 12/10/17 10:44 12/10/17 10:44 12/10/17 10:44 General appearance: Present: cooperative, A&O X 3, no acute distress, answers questions appropriately - Head Head exam: Present: atraumatic, normocephalic - Eye Eye exam: Present: normal appearance, sclera anicteric - ENT ENT exam: Present: mucous membranes moist - Neck Neck exam general surgery: Present: normal inspection, trachea midline - Respiratory Respiratory exam: Present: CTAB. Absent: rales, rhonchi - Cardiovascular Cardiovascular exam: Present: RRR, +S1, +S2 - GI/Abdominal GI/Abdominal exam: Present: soft, no peritoneal signs. Absent: distended, firm , guarding, tenderness - Rectal Rectal exam: Present: deferred - Extremities Exam Extremities exam: Present: warm - Neurological Exam Neurological exam: Present: no focal deficits - Psychiatric Psychiatric exam: Present: normal affect, normal mood - Skin Skin exam: Present: dry, intact, normal color, warm Results - Labs CBC & Chem 7: 12/10/17 04:45 12/10/17 04:45 Labs: Last Result Calcium 8.4 mg/dL (8.6-10.3) L 12/10/17 04:45 Entire Visit Hgb 8.8 g/dL (12.9-16.9) L 12/10/17 04:45 Hct 26.1 % (37.5-50.1) L 12/10/17 04:45 PT 14.3 Seconds (9.4-12.1) H 12/09/17 11:57 Total Bilirubin 0.6 mg/dL (0.3-1.0) 12/09/17 11:57 AST 7 Units/L (13-39) L 12/09/17 11:57 ALT 6 Units/L (7-52) L 12/09/17 11:57 - ABG ABG results: PT/INR, D-dimer PT 14.3 Seconds (9.4-12.1) H 12/09/17 11:57 Consult Discharge Plan - Plan [facility]errals: [facility] Care Provider[facility] - <Aroldo Goel - Last Filed: 12/10/17 14:33> Date of Encounter: 12/10/17 Time of Encounter: 12:00 - Time Spent With Patient Total time spent is greater than 50% in coordination of care (as documented) at patient's floor/unit and/or counseling patient: GI History of Present Illness - Data of Consult Requesting Physician: Emanuel Ro - Consult Narrative History of present illness: Mr. Prescott is a 62 year old male - Constitutional Vitals: Temp Pulse Resp BP Pulse Ox 98.3 F 67 16 134/65 98 12/10/17 10:44 12/10/17 10:44 12/10/17 10:44 12/10/17 10:44 12/10/17 10:44 Results - Labs CBC & Chem 7: 12/10/17 04:45 12/10/17 04:45 Labs: Last Result Calcium 8.4 mg/dL (8.6-10.3) L 12/10/17 04:45 Entire Visit Hgb 8.8 g/dL (12.9-16.9) L 12/10/17 04:45 Hct 26.1 % (37.5-50.1) L 12/10/17 04:45 PT 14.3 Seconds (9.4-12.1) H 12/09/17 11:57 Total Bilirubin 0.6 mg/dL (0.3-1.0) 12/09/17 11:57 AST 7 Units/L (13-39) L 12/09/17 11:57 ALT 6 Units/L (7-52) L 12/09/17 11:57 - ABG ABG results: PT/INR, D-dimer PT 14.3 Seconds (9.4-12.1) H 12/09/17 11:57 - Attending Attestation I have personally performed a face to face evaluation on this patient. I have reviewed and agree with the care plan. History and Exam by me shows: Patient seen patient with anemia but no overt GI bleeding. Recommendation: EGD/ colon in the morning
[2017-12-10] MEDS ORDERED: Gadolinium Contrast Agent (WT Based) IV PRN (13:58)
[2017-12-10] MEDS: 0.9 % Sodium Chloride 1,000 ML IVC SCH (14:04)
--- NOTE | 2017-12-10 14:09 | Podiatry Consult Note ---
Date of Encounter: 12/10/17 Time of Encounter: 12:30 Assessment and Plan (1) Foot ulcer Current visit: Yes Status: Acute Multiple ulcerations present Right lateral calcaneus wound and right lateral foot wound, cleanse daily with mild soap and water Adaptic and dry dressing There is an area of concern to the medial right foot, dark, purple, erythema noted, concerning of abscess formation, will obtain MRI to further assess, abscess vs vascular compromise Will also consult vascular, due to recent angio and sudden reports of pain want to rule out vascular compromise Continue current antibiotic therapy Left lateral foot wound, will write orders to reapply vac, MWF changes, 125mmHg suction, adaptic, 4x4 and kerliex to left lateral heel wound, adaptic to surgical site of toe #2 and adaptic to wound of amputation site of Toe #1. Qualifiers: Laterality: unspecified laterality Non-pressure ulcer stage: unspecified non-pressure ulcer stage Qualified Code(s): L97.509 - Non-pressure chronic ulcer of other part of unspecified foot with unspecified severity (2) Peripheral arterial disease Current visit: Yes Status: Acute consult vascular for evaluation Concern of right mid foot color change and acute pain (3) Cellulitis of both feet Current visit: No Status: Acute continue with current antibiotic therapy has midline in place Will order MRI of right foot (4) Necrotic eschar Current visit: No Status: Acute History of Present Illness HPI: Mr. Prescott is a 62 year old male admitted to [facility] for evaluation for pain of right foot. Patient was recently admitted and underwent 11/13 Full-thickness debridement ulcerations bilateral feet with amputation of distal aspect of the left second digit at the level of the middle phalanx per , he then underwent Angiogram with right superficial femoral artery angioplasty with 4 x 100mm balloon. Direct pressure held for hemostasis. on 11/18 with . Patient has known extensive hx of PVD. Patient was discharged in stable condition on IV rocephin 2grams daily and was to follow up outpatient with wound care center. Patient was readmitted on 12/09. States he started to have pain of the right foot about 1 week ago. Reports pain with touch or ambulation. States he has not been chilling but gets cold easily. Admitted with WBC 12.0 and temp of 99.2. Patient denies any known injury. Patient has midline to RUE for IV antibiotic therapy. Has history of IDDM and tobacco abuse. Past Med Surg Social Fam HX - Past Medical History Medical history: arthritis, atrial fibrillation, coronary artery disease, diabetes, myocardial infarction Additional medical history: swelled retna's, bad blood flow, heart attack Psychiatric history: no psych history - Past Surgical History Surgical History: coronary bypass (CABG), orthopedic, other (Bilateral great toe amputations) Additional surgical history: Bilat big toe amputation. left artery cleaned out - Social History Smoking Status: Current every day smoker Packs per day: 1 Smokeless Tobacco Status: No Alcohol use: none Drug use: none - Family History Mother Adopted: No Family Member Ethnicity: Non- Living Status: Hx Family Cancer: Yes Son Living Status: Still Living Medications and Allergies Aspirin [Lo-Dose Aspirin EC] 325 mg PO DAILY 04/12/17 [History] Insulin ASPART [Novolog Flexpen] 14 unit SQ QAM 05/10/17 [History] Acetaminophen [Tylenol] 1,000 mg PO Q6HR PRN #90 tablet 11/06/17 [Rx] Clopidogrel [Plavix] 75 mg PO DAILY #30 tablet 11/06/17 [Rx] Isosorbide MONOnitrate (24 HR) [Imdur] 30 mg PO DAILY 11/06/17 [History] Pravastatin Sodium [Pravachol] 10 mg PO MOTH 11/06/17 [History] dilTIAZem HCl [Diltiazem 24Hr Cd] 120 mg PO DAILY 11/06/17 [History] Insulin ASPART [NovoLOG] 10 unit SQ BID 11/11/17 [History] Insulin Glargine,Hum.rec.anlog [Lantus Solostar] 54 - 60 unit SQ HS 11/11/17 [ History] Levofloxacin 750 MG/150 ML [Levaquin Premix 750mg/150 mL] 750 mg IVPB DAILY #14 bag 11/21/17 [Rx] cefTRIAXone [Rocephin] 2,000 mg IVPB DAILY #14 vial 11/21/17 [Rx] Collagenase Oint [Santyl] 1 appl TP DAILY #1 tube 11/22/17 [Rx] Gentamicin Oint [Garamycin] 1 appl TP DAILY #1 tube 11/22/17 [Rx] Budesonide/Formoterol 80/4.5 [Symbicort 80/4.5] 2 puff IH BID 12/09/17 [History ] Lisinopril/Hydrochlorothiazide [Zestoretic 20-12.5 mg Tablet] 1 tab PO DAILY 10/23 [History] 3 Allergy/AdvReac Type Severity Reaction Status Date / Time atorvastatin [From Lipitor] Allergy Diarrhea Verified 11/11/17 18:33 All Systems Reviewed: as per HPI Denies any gastrointestinal issues Denies any n/v or diarrhea Denies any blood in stool Denies any blood in urine or burning with urination - Constitutional Additional comments: Awake alert and oriented, denies any fevers, chills, n/v or flu like symptoms. - Cardiovascular Additional comments: Denies any chest pain or SOB - Respiratory Additional comments: Denies any respiratory distress, cough or sputum production - Musculoskeletal Additional comments: reports pain of right foot, 12/15. Has neuropathy and is unable to report exact pain area, states that foot hurts Physical Exam - Constitutional Vitals: Temp Pulse Resp BP Pulse Ox 98.3 F 67 16 134/65 98 12/10/17 10:44 12/10/17 10:44 12/10/17 10:44 12/10/17 10:44 12/10/17 10:44 Exam: General appearance: alert awake oriented X 3. Calm and pleasant, no acute distress.. Vascular: Pedal pulses non palpable. Edema graded at 1+/4, Skin Temperature warm , No calf pain with manual compression. capillary refill time is immediate to digits. Postop Exam: S/P Incision line to toe #2 left foot well approximated, minimal periwound erythema , no streaking, no pus, no odor. Wound #1: Full thickness ulceration to the lateral aspect of the right calcaneus measuring 6 cm in length x 6 cm in width x 1.5 cm in depth, base of wound is with 80% connected eschar, 20 % white slough, malodorous, moderate amount of serous drainage observed to dressing, periwound erythema, no streaking , no probe to bone, no exposed bone. Wound #2: Lateral aspect of right foot at the 5th metatarsal head, with dried eschar, connected, unstageable, no streaking. No purulent drainage,no periwound erythema. Wound #3: Full thickness ulceration to the lateral aspect of left foot at the 5th metatarsal head measuring 2 cm in length x 2 cm in width x 0.5 cm in depth, base of wound with yellow fibrous tissue, wound edges connected and macerated, no tunneling, no sinus tracts, no odor, no pus. periwound erythema, no streaking. No probe to bone, no exposed bone. Wound #4: Full thickness ulceration to the lateral aspect of left calcaneus measuring 1.5 cm in length x 1.5 cm in width x 0.2 cm in depth base of wound with 100% granulation tissue, no pus, no odor, no tunneling, no sinus tracts, no probe to bone, no exposed bone, ligament or tendon. Wound #5: Ulceration to the amputation site of the 1st MTPJ left, base of wound with 80 % granulation tissue, 20 % yellow tissue, no pus, no odor, no streaking , no fluctuance, no pus, no odor, no probe to bone, no streaking, no ascending cellulitis. There is a noted area of concern to the medial aspect of right right foot nearing the arch, dark purple/red discoloration extending [id number], erythema surrounding to midfoot, slight warmth noted- concerning of abscess formation, patient reports pain to palpation however there is not noted fluctuance of this area. No open ulceration at this site, concern of tracking from lateral foot wounds. Results - Labs Result Diagrams: 12/10/17 04:45 12/10/17 04:45 Labs: Abnormal lab results RBC 2.94 M/mcL (4.19-5.50) L 12/10/17 04:45 Hgb 8.8 g/dL (12.9-16.9) L 12/10/17 04:45 Hct 26.1 % (37.5-50.1) L 12/10/17 04:45 Neutrophils # 10.2 K/mcL (1.6-8.9) H 12/09/17 11:57 PT 14.3 Seconds (9.4-12.1) H 12/09/17 11:57 Sodium 133 mEq/L (136-145) L 12/10/17 04:45 BUN 26 mg/dL (8-23) H 12/10/17 04:45 Glucose 236 mg/dL (70-105) H 12/10/17 04:45 POC Glucose 194 mg/dL (70-99) H 12/10/17 07:33 Calcium 8.4 mg/dL (8.6-10.3) L 12/10/17 04:45 AST 7 Units/L (13-39) L 12/09/17 11:57 ALT 6 Units/L (7-52) L 12/09/17 11:57 Albumin 3.3 g/dL (3.5-5.7) L 12/09/17 11:57 Globulin 3.9 g/dL (2.4-3.5) H 12/09/17 11:57 Albumin/Globulin Ratio 0.8 (1.1-2.2) L 12/09/17 11:57 Ur Specific [place] > 1.030 (1.010-1.025) H 12/09/17 12:24 Urine Protein 30 mg/dL (Neg-Trace) H 12/09/17 12:24 Urine Glucose (UA) >=1000 mg/dL (Normal) H 12/09/17 12:24 Ur Squamous Epith Cells Many per lpf (None-Few) H 12/09/17 12:24 H & H 12/10/17 Range/Units 04:45 Hgb 8.8 L (12.9-16.9) g/dL Hct 26.1 L (37.5-50.1) % All other labs normal. Consult Discharge Plan - Plan [facility]errals: [facility] [Primary Care Provider] -
[2017-12-10] MEDS ORDERED: SODIUM CHLORIDE/NAHCO3/KCL/PEG 4,000 ML SOLN.RECON PO ONE (17:00)
--- NOTE | 2017-12-10 19:01 | Internal Med Progress Note ---
Date of Encounter: 12/10/17 Time of Encounter: 11:00 - Assessment and plan (1) Anemia Current Visit: Yes Status: Acute Assessment and plan: Acute on chronic blood loss anemia, history of gastric ulcers Hemoglobin has dropped from 13 on November 11 down to 8.8 GI consult with plans for EGD/colonoscopy on 12/11/17 Qualifiers: Anemia type: unspecified type Qualified Code(s): D64.9 - Anemia, unspecified (2) Osteomyelitis Current Visit: Yes Status: Acute Assessment and plan: New right fifth metatarsal head acute osteomyelitis With multiple other feet ulcers Continue cefepime and IV vancomycin Podiatry consulted and appreciate recommendations Qualifiers: Osteomyelitis type: subacute Osteomyelitis location: foot Laterality: right Qualified Code(s): M86.271 - Subacute osteomyelitis, right ankle and foot (3) Peripheral arterial disease Current Visit: Yes Status: Acute Assessment and plan: Has been seen by Dr. 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 mellitus care home insulin use: with rodent exterminator use Diabetes mellitus complication status: with circulatory complication Diabetes mellitus complication detail: with peripheral angiopathy with gangrene Qualified Code(s): E11.52 - Type 2 diabetes 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; Z79.4 - termite treater (current) use of insulin; Z79.4 - half-way (current) use of insulin; Z79.4 - termite treater ( current) use of insulin; Z79.4 - termite treater (current) use of insulin (5) A-fib Current Visit: No Status: Chronic Assessment and plan: Not on anticoagulation, continue diltiazem Qualifiers: Atrial fibrillation type: paroxysmal Qualified Code(s): I48.0 - Paroxysmal atrial fibrillation (6) CAD (coronary artery disease) Current Visit: No Status: Chronic Assessment and plan: Continue aspirin and Plavix Qualifiers: Coronary Disease-Associated Artery/Lesion type: [place] artery [place] vs. transplanted heart: unspecified whether [place] or transplanted heart Associated angina: without angina Qualified Code(s): I25.10 - Atherosclerotic heart disease of [place] coronary artery without angina pectoris (7) Tobacco abuse Current Visit: No Status: Chronic Assessment and plan: Smoking cessation;nicotine patch (8) DVT prophylaxis Current Visit: Yes Status: Acute Assessment and plan: Subcutaneous heparin - Time Spent With Patient Total time spent is greater than 50% in coordination of care (as documented) at patient's floor/unit and/or counseling patient: - Subjective Interval history: Patient seen hemoglobin steadily declining but hemodynamically stable Consult with plans for EGD/colonoscopy on 12/11/17 - Constitutional Vitals: Temp Pulse Resp BP Pulse Ox 99.7 F H 74 16 134/67 94 12/10/17 15:42 12/10/17 15:42 12/10/17 15:42 12/10/17 15:42 12/10/17 15:42 General appearance: Present: A&O X 3 - Respiratory Respiratory exam: Present: CTAB. Absent: accessory muscle use, rales, rhonchi, wheezes - Cardiovascular Cardiovascular exam: Present: RRR, +S1, +S2. Absent: diastolic murmur, gallop, rubs, systolic murmur Internal Medicine: Result - Labs CBC & Chem 7: 12/10/17 04:45 12/10/17 04:45 Labs: Short CBC 12/10/17 Range/Units 04:45 WBC 9.6 (4.3-11.1) K/mcL Hgb 8.8 L (12.9-16.9) g/dL Hct 26.1 L (37.5-50.1) % Plt Count 167 (140-400) K/mcL BMP 12/10/17 04:45 Sodium 133 L Potassium 3.8 Chloride 106 Carbon Dioxide 23 BUN 26 H Creatinine 0.99 Glucose 236 H Calcium 8.4 L - ABG Interpretation ABG results: PT/INR, D-dimer PT 14.3 Seconds (9.4-12.1) H 12/09/17 11:57 - Impressions Impressions Foot MRI 12/10/17 13:58 IMPRESSION: 1. MRI signal characteristics in the 5th metatarsal head and 5th proximal phalangeal base compatible with osteomyelitis. 2. Deep soft tissue ulceration lateral to the 5th MTP joint. No sinus tract or drainable fluid collection. Adjacent subcutaneous edema extending along the dorsum of the mid and forefoot compatible with cellulitis. 3. Partially visualized bone marrow edema in the calcaneus with a suspected partially visualized overlying deep soft tissue ulceration. Consider further evaluation with dedicated MRI of the hindfoot. 4. Diffuse fatty atrophy and edema of the visualized musculature compatible with diabetic myopathy versus denervation versus myositis. 5. Status post 1st digit amputation. D/ / Brad Osborne MD / Brad Osborne MD Interpreting Provider: Brad Osborne MD Consult Discharge Plan - Plan [facility]errals: [facility] [Primary Care Provider] -
[2017-12-10] MEDS ORDERED: Budesonide/Formoterol 80/4.5 MDI IH SCH (22:00)
[2017-12-11] MEDS: Insulin LISPRO 300 UNITS/3 ML VIAL SQ SCH ×7 (03:32→21:09)
[2017-12-11] MEDS: *HR* Heparin 5,000 UNIT/ML VIAL SQ SCH ×2 (03:32→05:45)
[2017-12-11] MEDS: Insulin DETEMIR 100 UNIT/ML X5UNITS SQ SCH ×2 (03:32→08:38)
[2017-12-11] MEDS: Cefepime HCl 1,000 MG in Water for inj. (sterile) 20 ML 10 ML IVP SCH (05:44)
[2017-12-11] MEDS: Diltiazem CD (24hr) 120 MG CAPSULE PO SCH (08:36)
[2017-12-11] MEDS: Lisinopril 20 MG TABLET PO SCH (08:36)
[2017-12-11] MEDS: Nicotine 21 MG PATCH.TD24 TD SCH (08:37)
[2017-12-11] MEDS: Aspirin Enteric Coated 325 MG Tablet PO SCH (08:37)
[2017-12-11] MEDS: Isosorbide MONOnitrate (24 HR) 30 MG TAB.ER.24H PO SCH (08:37)
[2017-12-11 10:06] LABS: Basophils % 0.2 %; Eosinophils # 0.1 K/mcL (0.0-0.6); Eosinophils % 0.5 %; Hematocrit 24.8 % (37.5-50.1); Hemoglobin 8.3 g/dL (12.9-16.9); Immature Granulocytes % 0.7 % (0-4); Lymphocytes # 0.8 K/mcL (0.6-4.6); Lymphocytes % 7.2 %; Mean Corpuscular HGB Conc 33.5 g/dL (31.6-35.5); Mean Corpuscular Hemoglobin 29.6 pg (28.0-33.3); Mean Corpuscular Volume 88.6 fL (83.0-100.0); Mean Platelet Volume 10.3 fL (9.4-12.4); Monocytes # 0.8 K/mcL (0.0-1.3); Neutrophils # 8.7 K/mcL (1.6-8.9); Platelet Count 162 K/mcL (140-400); Red Cell Distribution Width 12.9 % (11.5-14.5); Segmented Neutrophils % 83.4 %
--- NOTE | 2017-12-11 11:01 | Infectious Disease Consult ---
Date of Encounter: 12/11/17 Time of Encounter: 10:51 Assessment and Plan (1) Sepsis Status: Resolved Assessment and plan: The patient had two SIRS criteria on admission. Likely secondary to osteomyelitis of the right foot. Improved. WBC normal. Tachycardia has resolved. The patient did have a fever yesterday. Blood cultures drawn 12/09/17 are NGTD x 2 sets. Qualifiers: Sepsis type: sepsis due to unspecified organism Qualified Code(s): A41.9 - Sepsis, unspecified organism (2) Osteomyelitis Status: Acute Assessment and plan: Previous osteomyelitis left foot second toe status post partial amputation. Imaging shows new osteomyelitis of the 5th metatarsal and 5th proximal phalanx. Causative organism unclear. Previous cultures positive for MSSA, Citrobacter, and Lecleria. Previously on IV Rocephin and IV Levaquin. X-ray of the right foot showed OM of the right 5th metatarsal. MRI of the right showed osteomyelitis of the right 5th metatarsal and 5th proximal phalanx. Podiatry consulted and following. Awaiting further input from vascular surgery. Wound care per the podiatry team. Check ESR and CRP. Continue Vancomycin IV. Pharmacy to dose. Goal trough ~15. Discontinue Cefepime. The patient grew Citrobacter previously which has a high rate of AmpC gene, making risk of treatment failure high when using 3rd or 4th generation cephalosporins. Start Meropenem 1 gram IV Q8H. Duration of treatment depends on the clinical picture. Monitor renal function and for drug toxicity and dose-adjust antibiotics. Qualifiers: Osteomyelitis type: subacute Osteomyelitis location: foot Laterality: right Qualified Code(s): M86.271 - Subacute osteomyelitis, right ankle and foot (3) Wound infection Status: Acute Assessment and plan: Previous wound infection of the right heel and left 5th metatarsal. Causative organisms: MSSA, Citrobacter freundii, Lecleria adecarboxylata. Clinically, left lateral foot wound looks okay, but right heel continues to have regression and very foul-smelling discharge. Podiatry consulted and following. Wound care recommendations from the Podiatry team. Given the extent of the right heel wound, I am not sure that the limb is salvageable, but will await further recommendations from the vascular and podiatry teams. Continue antibiotics as above for now. (4) Anemia Status: Acute Assessment and plan: Hemoglobin down to 9.9 on admission, 8.3 today. GI consulted. Recommend EGD/C-scope, but patient unable to tolerate bowel prep. Further workup and management per the primary and GI teams. Qualifiers: Anemia type: unspecified type Qualified Code(s): D64.9 - Anemia, unspecified (5) Diabetes mellitus Status: Chronic Assessment and plan: HgbA1C 8.8% last month. Recommend aggressive glucose monitoring and control to promote wound healing and prevent re-infection. Management per the primary team. Qualifiers: Diabetes mellitus type: type 2 Diabetes mellitus fci insulin use: with intermediate card tender use Diabetes mellitus complication status: with circulatory complication Diabetes mellitus complication detail: with peripheral angiopathy with gangrene Qualified Code(s): E11.52 - Type 2 diabetes 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; Z79.4 - intermediate card tender (current) use of insulin; Z79.4 - intermediate card tender (current) use of insulin; Z79.4 - skilled nursing ( current) use of insulin; Z79.4 - intermediate card tender (current) use of insulin (6) Peripheral vascular disease Status: Chronic Assessment and plan: Status post femoral to above the knee popliteal bypass graft in 2016. Status post left LE Angiogram with balloon angioplasty of the previous graft anastamosis 11/06/[address] Harris. Status post RLE angiogram with balloon angioplasty of the right SFA 11/18/[address] Harris. Vascular surgery consulted. Await recommendations. 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 Status: Chronic Qualifiers: Peripheral atherosclerosis artery type: bypass graft, autologous vein Qualified Code(s): I70.433 - Atherosclerosis of autologous vein bypass graft(s) of the right leg with ulceration of ankle; I70.443 - Atherosclerosis of autologous vein bypass graft(s) of the left leg with ulceration of ankle; I70.443 - Atherosclerosis of autologous vein bypass graft(s) of the left leg with ulceration of ankle; I70.443 - Atherosclerosis of autologous vein bypass graft(s) of the left leg with ulceration of ankle; I70.443 - Atherosclerosis of autologous vein bypass graft(s) of the left leg with ulceration of ankle; I70.443 - Atherosclerosis of autologous vein bypass graft(s) of the left leg with ulceration of ankle; I70.443 - Atherosclerosis of autologous vein bypass graft(s) of the left leg with ulceration of ankle (8) A-fib Status: Chronic Qualifiers: Atrial fibrillation type: paroxysmal Qualified Code(s): I48.0 - Paroxysmal atrial fibrillation (9) CAD (coronary artery disease) Status: Chronic Qualifiers: Coronary Disease-Associated Artery/Lesion type: [place] artery [place] vs. transplanted heart: unspecified whether [place] or transplanted heart Associated angina: without angina Qualified Code(s): I25.10 - Atherosclerotic heart disease of [place] coronary artery without angina pectoris (10) Tobacco abuse Status: Chronic Infectious Disease HPI - Data of Consult Patient: known to practice within the last 3 years Consult date: 12/11/17 Requesting Physician: Emanuel Ro Primary Care Provider: SHILA [facility] - Consult Narrative Reason for consult: Osteomyelitis History of present illness: Mr. Prescott is a 62 year old male with a past medical history of arthritis, A. fib, CAD, type 2 diabetes currently on oral anti-hyperglycemics and insulin, NE status post CABG, remote history of bilateral great toe infection status post amputation, and peripheral vascular disease status post femoral to above-the- knee popliteal bypass graft with vein back in 2015 and status post angiogram 11/[address] Harris that showed 99% stenosis of the previous bypass with angioplasty of the bypass with no residual stenosis. The patient was admitted to the hospital December 09 for PAD, osteomyelitis, and anemia. We are consulted December 11 for further recommendations for osteomyelitis of the right foot. Recent, the patient is a 62-year-old male with past medical history as stated above. The patient is well-known to the infectious disease services were on lyman on his case during his most recent hospitalization. At that time, the patient was admitted on November 11 for bilateral foot ulcers. At that time, he had had an ongoing ulcer to the right heel that had started about 6 weeks prior to admission. He had seen the [facility] and was referred to vascular surgery. He saw Dr. Gonzales as her on November 06 and had an angiogram that showed 99% stenosis of the distal anastomosis of the previous them to [id number] popliteal bypass graft. He underwent successful angioplasty was scheduled to undergo a left lower extremity angiogram on November 29. He developed ulcerations to the left heel , left second toe, and overlying the first metatarsal on the left foot as well. A couple of days prior to that admission he developed worsening pain, foul- smelling drainage, and increased erythema with wound regression. He presented to the ER at that time it was noted to have leukocytosis, elevated ESR, and osteomyelitis of the left foot second toe. He was admitted for further evaluation and seen by vascular surgery and podiatry. Podiatry took the patient to the OR on November 13 and performed debridement of all of the ulcers on bilateral feet with amputation of the distal aspect of the left second digit at the level of the middle phalanx. Intraoperatively, there was pus noted in the right heel wound, but no evidence of bony destruction. Intra-Op cultures taken of the left foot second toe amputation site were positive for MSSA. Pathology was positive for osteomyelitis of the left foot second toe. Wound culture obtained from the right heel grew out Citrobacter, MSSA, and Lecleria adecarboxylata. Vascular surgery took the patient to the [facility] on 11/18 and performed angiogram with angioplasty of the right SFA. Based on culture susceptibilities, we opted to discharge the patient on IV Rocephin and Levaquin. I saw the patient in the office two days ago and he was noted to have chills, malaise, and severe pain in the right heel with regression of the wounds and foul- smelling discharge. He was referred to the ER for further evaluation. Upon arrival to the ER, the patient had low-grade fever and leukocytosis. X-rays of the bilateral feet showed new osteomyelitis of the right 5th MT and proximal 5th phalanx. He was started on IV Vanc and Cefepime and admitted to the hospital for further evaluation. Since admission, the patient's WBC has normalized. He did have a fever this morning. Podiatry has been consulted and recommended an MRI of the right foot and Vascular surgery consult. MRI showed OM of the 5th metatarsal and 5th proximal phalanx. The patient was noted to have worsening anemia, so GI was consulted and recommended an EGD/C-scope to be completed today, but the patient could not tolerate the prep. Vascular consult is pending. We've been asked to evaluate and make further recommendations. During my exam today, the patient states that overall he feels better. Reports chills have resolved. Denies known fever this morning. Denies chest pain, shortness of breath, or cough. Denies nausea, vomiting, or diarrhea. States appetite is better than when I saw him in the office. Denies abdominal pain, urinary complaints. Denies oral thrush or skin lesions. The patient lives at home alone. He is retired. He smokes one pack of cigarettes per day. He denies alcohol or illicit drug use. CC: Emanuel Ro Past Med Surg Social Fam HX - Past Medical History Attestation: Yes The following information was validated with the patient. Source: patient, old records reviewed, nursing notes reviewed Medical history: arthritis, atrial fibrillation, coronary artery disease, diabetes, myocardial infarction Additional medical history: swelled retna's, bad blood flow, heart attack Psychiatric history: no psych history - Past Surgical History Surgical History: coronary bypass (CABG), orthopedic, other (Bilateral great toe amputations) Additional surgical history: Bilat big toe amputation. left artery cleaned out - Social History Smoking Status: Current every day smoker Packs per day: 1 Smokeless Tobacco Status: No Alcohol use: none Drug use: none Occupational status: retired Current living situation: Home - Independent Activity Level: Independent ambulation Recent Out of Country Travel Within the Last 8 Weeks: No Exposure or Possible Exposure to Illness During Travel: No - Family History Mother Adopted: No Family Member Ethnicity: Non- Living Status: Hx Family Cancer: Yes Son Living Status: Still Living Infectious Disease-CN:Meds Aspirin [Lo-Dose Aspirin EC] 325 mg PO DAILY 04/12/17 [History] Insulin ASPART [Novolog Flexpen] 14 unit SQ QAM 05/10/17 [History] Acetaminophen [Tylenol] 1,000 mg PO Q6HR PRN #90 tablet 11/06/17 [Rx] Clopidogrel [Plavix] 75 mg PO DAILY #30 tablet 11/06/17 [Rx] Isosorbide MONOnitrate (24 HR) [Imdur] 30 mg PO DAILY 11/06/17 [History] Pravastatin Sodium [Pravachol] 10 mg PO MOTH 11/06/17 [History] dilTIAZem HCl [Diltiazem 24Hr Cd] 120 mg PO DAILY 11/06/17 [History] Insulin ASPART [NovoLOG] 10 unit SQ BID 11/11/17 [History] Insulin Glargine,Hum.rec.anlog [Lantus Solostar] 54 - 60 unit SQ HS 11/11/17 [ History] Levofloxacin 750 MG/150 ML [Levaquin Premix 750mg/150 mL] 750 mg IVPB DAILY #14 bag 11/21/17 [Rx] cefTRIAXone [Rocephin] 2,000 mg IVPB DAILY #14 vial 11/21/17 [Rx] Collagenase Oint [Santyl] 1 appl TP DAILY #1 tube 11/22/17 [Rx] Gentamicin Oint [Garamycin] 1 appl TP DAILY #1 tube 11/22/17 [Rx] Budesonide/Formoterol 80/4.5 [Symbicort 80/4.5] 2 puff IH BID 12/09/17 [History ] Lisinopril/Hydrochlorothiazide [Zestoretic 20-12.5 mg Tablet] 1 tab PO DAILY 10/23 [History] 3 Allergy/AdvReac Type Severity Reaction Status Date / Time atorvastatin [From Lipitor] Allergy Diarrhea Verified 11/11/17 18:33 All systems: reviewed and no additional remarkable complaints except as stated Exam - Constitutional Vitals: Temp Pulse Resp BP Pulse Ox 98.9 F 71 17 158/65 96 12/11/17 10:39 12/11/17 10:39 12/11/17 10:39 12/11/17 10:39 12/11/17 10:39 General appearance: average body habitus, cooperative, no acute distress - Head Head exam: Present: atraumatic, normal inspection, normocephalic - Eye Eye exam: Present: EOMI, normal appearance, PERRL Pupils: Present: normal accommodation - ENT ENT exam: Present: mucous membranes moist - Neck Neck exam: Present: normal inspection - Respiratory Respiratory exam: Present: wheezes (Faint expiratory wheezes bilateral anterior bases.). Absent: rales, respiratory distress, rhonchi - Cardiovascular Cardiovascular exam: Present: irregular rhythm. Absent: tachycardia - GI/Abdominal GI/Abdominal exam: Present: normal bowel sounds, soft. Absent: distended, tenderness - Extremities Exam Extremities exam: Absent: pedal edema Additional comments: Bilateral foot dressings C/D/I. - Neurological Exam Neurological exam: Present: alert, oriented X3, no focal deficits - Psychiatric Psychiatric exam: Present: normal affect, normal mood - Skin Skin exam: Present: dry, intact, normal color, warm Infectious Disease CN: Results - Labs CBC & Chem 7: 12/13/17 08:14 12/13/17 08:14 Consult Discharge Plan - Plan Referrals: [facility],PCP [Primary Care Provider] - Luis New MD [Partnered Physician] - 01/01/18 11:45 am - Attending Attestation I examined this patient and my medical decision-making was reviewed with the Resident Physician. I agree with the documented findings, disposition and treatment plan as described except to the extent set forth below. This is an addendum to original report dictated by Shannan DURON. Please refer to Seven note for full detail. Patient is a 62-year-old gentleman well-known to our service with extensive past medical history mentioned below including diabetes mellitus type 2, coronary artery disease, vascular path with remote history of bilateral great toe infection status post amputation and peripheral vascular disease status post femoral to [id number] popliteal bypass graft with vein back in 2016 Status post angiogram on November 06 of this year with 99% stenosis was admitted for peripheral artery disease osteomyelitis and anemia we are consulted for antibiotics recommendation. Since admission, the patient's WBC has normalized. He did have a fever this morning. Podiatry has been consulted and recommended an MRI of the right foot and Vascular surgery consult. MRI showed OM of the 5th metatarsal and 5th proximal phalanx. The patient was noted to have worsening anemia, so GI was consulted and recommended an EGD/C-scope to be completed today , but the patient could not tolerate the prep. Vascular consult is pending. We' ve been asked to evaluate and make further recommendations. Currently patient laying in bed. Appears comfortable but mildly toxic. Denies really any complaints other than the fact that he had a lot of drainage from his feet with very foul-smelling odor. Assessment and plan: Sepsis Osteomyelitis previous cellulitis of the left foot second toe status post partial amputation and now imaging shows new also evidence of the fifth metatarsal and fifth proximal phalanx causative organism unclear but previous cultures were positive for MSSA, Citrobacter and Lecleria. Previously was treated with IV Rocephin and levofloxacin. Wound infection Anemia Poorly controlled blood sugar Tobacco abuse Peripheral vascular disease Atrial fibrillation Recommendation: Patient needs to be evaluated by vascular surgery. Podiatry resulted patient appreciated the recommendations. Based on previous cultures in the fact that he failed treatment, I would discontinue the cefepime and will start the patient on meropenem. Also continue vancomycin. Await cultures to finalize. Monitor labs. Check inflammatory markers. Prognosis is overall guarded.
[2017-12-11 11:07] LABS: BUN/Creatinine Ratio 21 (6-26); Blood Urea Nitrogen 17 mg/dL (8-23); C-Reactive Protein 163 mg/L (Less than 10); Calcium 8.1 mg/dL (8.6-10.3); Carbon Dioxide 23 mEq/L (23-29); Chloride 106 mEq/L (98-107); Glucose 127 mg/dL (70-105); Osmolality,Calculated 285 (280-300); Potassium 3.8 mEq/L (3.5-5.1); Sodium 136 mEq/L (136-145); eGFR For African Americans > 60 (> 60); eGFR For Non-African Americans > 60 (> 60)
--- NOTE | 2017-12-11 14:39 | Podiatry Progress Note ---
Date of Encounter: 12/11/17 Time of Encounter: 12:00 - Assessment and Plan (1) Foot ulcer Current Visit: Yes Status: Acute Multiple ulcerations present Right lateral calcaneus wound and right lateral foot wound, cleanse daily with mild soap and water apply gent/santyl mix and went to dry dressing Orders written There is an area of concern to the medial right foot, dark, purple, erythema noted, concerning of abscess formation, MRI shows no evidence of abscess formation Spoke with Shaq, states he will touch base with manuel for further evaluation , possibly in AM Continue current antibiotic therapy Left lateral foot wound, will write orders to reapply vac, MWF changes, 125mmHg suction, adaptic, 4x4 and kerliex to left lateral heel wound, adaptic to surgical site of toe #2 and adaptic to wound of amputation site of Toe #1. Qualifiers: Laterality: unspecified laterality Non-pressure ulcer stage: unspecified non-pressure ulcer stage Qualified Code(s): L97.509 - Non-pressure chronic ulcer of other part of unspecified foot with unspecified severity (2) Peripheral arterial disease Current Visit: Yes Status: Acute consult vascular for evaluation Concern of right mid foot color change and acute pain (3) Cellulitis of both feet Current Visit: No Status: Acute continue with current antibiotic therapy has midline in place MRI consistent with new osteomyelitis of the right 5th met but does not show apparent abscess formation Awaiting vascular recommendations prior to intervention (4) Necrotic eschar Current Visit: No Status: Acute Subjective Interval history: 12/11/17 Patient resting comfortably in bed. Dressings intact to BLE. States he has slightly increased pain today as compared to yesterday. Continues with IV antibiotics. Denies any known fevers, chills, n.v or flu like symptoms 12/10/17MrAmira Prescott is a 62 year old male admitted to [facility] for evaluation for pain of right foot. Patient was recently admitted and underwent 11/13 Full-thickness debridement ulcerations bilateral feet with amputation of distal aspect of the left second digit at the level of the middle phalanx per , he then underwent Angiogram with right superficial femoral artery angioplasty with 4 x 100mm balloon. Direct pressure held for hemostasis. on 11/18 with . Patient has known extensive hx of PVD. Patient was discharged in stable condition on IV rocephin 2grams daily and was to follow up outpatient with wound care center. Patient was readmitted on 12/09. States he started to have pain of the right foot about 1 week ago. Reports pain with touch or ambulation. States he has not been chilling but gets cold easily. Admitted with WBC 12.0 and temp of 99.2. Patient denies any known injury. Patient has midline to RUE for IV antibiotic therapy. Has history of IDDM and tobacco abuse. Objective - Vital Signs Vital Signs: Vital Signs Temp Pulse Resp BP Pulse Ox 12/11/17 10:39 98.9 F 71 17 158/65 96 12/11/17 05:51 98.7 F 70 16 150/67 95 12/10/17 23:49 100.9 F H 71 16 133/54 96 12/10/17 19:37 98.7 F 70 14 141/63 96 12/10/17 15:42 99.7 F H 74 16 134/67 94 Intake and Output 12/10/17 12/11/17 12/11/17 23:59 07:59 15:59 Intake Total 130 / 130 260 / 260 0 / 0 Output Total 500 / 500 225 / 225 250 / 250 Balance -370 / -370 35 / 35 -250 / -250 Intake: IV Fluids 260 / 260 Maxipime 1,000 MG In Water for inj. (sterile) 10 ML @ 300 mls/ hr IVP Q12H [facility] Rx#:[id number] Vancocin 1,250 MG In 0.9 % 250 / 250 Sodium Chloride 250 ML @ 166.67 mls/hr IVPB Q12H [facility] Rx#: [id number] Oral 120 / 120 0 / 0 0 / 0 Output: Urine 500 / 500 225 / 225 250 / 250 Other: Meal Clear Lunch Percent of Meal Consumed 75% # Bowel Movements 1 0 0 Blood Glucose* 89 109 148 - Exam Exam: Awake alert and oriented Cap refill of toes 3-4 seconds Pulses per signal only No calf pain with manual compression Will leave dressings intact at this time, recently changed by nurse. - Lab Result Diagrams: 12/11/17 08:59 12/11/17 08:59 Labs: Abnormal lab results RBC 2.80 M/mcL (4.19-5.50) L 12/11/17 08:59 Hgb 8.3 g/dL (12.9-16.9) L 12/11/17 08:59 Hct 24.8 % (37.5-50.1) L 12/11/17 08:59 ESR 87 mm/hr (0-10) H 12/11/17 08:59 PT 14.3 Seconds (9.4-12.1) H 12/09/17 11:57 Glucose 127 mg/dL (70-105) H 12/11/17 08:59 POC Glucose 148 mg/dL (70-99) H 12/11/17 11:04 Calcium 8.1 mg/dL (8.6-10.3) L 12/11/17 08:59 AST 7 Units/L (13-39) L 12/09/17 11:57 ALT 6 Units/L (7-52) L 12/09/17 11:57 C-Reactive Protein 163 mg/L (Less than 10) H 12/11/17 08:59 Albumin 3.3 g/dL (3.5-5.7) L 12/09/17 11:57 Globulin 3.9 g/dL (2.4-3.5) H 12/09/17 11:57 Albumin/Globulin Ratio 0.8 (1.1-2.2) L 12/09/17 11:57 Ur Specific [place] > 1.030 (1.010-1.025) H 12/09/17 12:24 Urine Protein 30 mg/dL (Neg-Trace) H 12/09/17 12:24 Urine Glucose (UA) >=1000 mg/dL (Normal) H 12/09/17 12:24 Ur Squamous Epith Cells Many per lpf (None-Few) H 12/09/17 12:24 Vancomycin Trough 15 mcg/mL (5-10) H 12/11/17 02:40 Consult Discharge Plan - Plan [facility]errals: [facility] [Primary Care Provider] -
[2017-12-11] MEDS: *HR* OxyCODONE Immed Rel 5 MG TABLET PO PRN (17:02)
--- NOTE | 2017-12-11 17:08 | Internal Med Progress Note ---
Date of Encounter: 12/11/17 Time of Encounter: 11:00 - Assessment and plan (1) Anemia Current Visit: Yes Status: Acute Assessment and plan: Acute on chronic blood loss anemia, history of gastric ulcers Hemoglobin has dropped from 13 on November 11 down to 8.3 this morning GI consult with plans for EGD/colonoscopy on 12/11/17 but patient refused to go through with testing Qualifiers: Anemia type: unspecified type Qualified Code(s): D64.9 - Anemia, unspecified (2) Osteomyelitis Current Visit: Yes Status: Acute Assessment and plan: New right fifth metatarsal head acute osteomyelitis With multiple other feet ulcers Podiatry following and appreciate recommendations Infectious disease also following with recommendations to discontinue cefepime due to prior resistance to Citrobacter with recommendations to start meropenem. Qualifiers: Osteomyelitis type: subacute Osteomyelitis location: foot Laterality: right Qualified Code(s): M86.271 - Subacute osteomyelitis, right ankle and foot (3) Peripheral arterial disease Current Visit: Yes Status: Acute Assessment and plan: Has been seen by Dr. 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 computer terminal operator insulin use: with remote computer terminal operator use Diabetes mellitus complication status: with circulatory complication Diabetes mellitus complication detail: with peripheral angiopathy with gangrene Qualified Code(s): E11.52 - Type 2 diabetes 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; Z79.4 - terminal superintendent (current) use of insulin; Z79.4 - terminal superintendent (current) use of insulin; Z79.4 - care home ( current) use of insulin; Z79.4 - care home (current) use of insulin (5) A-fib Current Visit: No Status: Chronic Assessment and plan: Not on anticoagulation, continue diltiazem Qualifiers: Atrial fibrillation type: paroxysmal Qualified Code(s): I48.0 - Paroxysmal atrial fibrillation (6) CAD (coronary artery disease) Current Visit: No Status: Chronic Assessment and plan: Continue aspirin and Plavix Qualifiers: Coronary Disease-Associated Artery/Lesion type: [place] artery [place] vs. transplanted heart: unspecified whether [place] or transplanted heart Associated angina: without angina Qualified Code(s): I25.10 - Atherosclerotic heart disease of [place] coronary artery without angina pectoris (7) Tobacco abuse Current Visit: No Status: Chronic Assessment and plan: Smoking cessation;nicotine patch (8) DVT prophylaxis Current Visit: Yes Status: Acute Assessment and plan: Subcutaneous heparin - Time Spent With Patient Total time spent is greater than 50% in coordination of care (as documented) at patient's floor/unit and/or counseling patient: - Subjective Interval history: Patient seen hemoglobin steadily declining but hemodynamically stable Consult with plans for EGD/colonoscopy on 12/11/17 however patient declined testing - Constitutional Vitals: Temp Pulse Resp BP Pulse Ox 100.1 F H 72 16 138/61 95 12/11/17 15:11 12/11/17 15:11 12/11/17 15:11 12/11/17 15:11 12/11/17 15:11 General appearance: Present: A&O X 3, no acute distress - Respiratory Respiratory exam: Present: CTAB. Absent: accessory muscle use, rales, rhonchi, wheezes - Cardiovascular Cardiovascular exam: Present: RRR, +S1, +S2. Absent: diastolic murmur, gallop, rubs, systolic murmur Internal Medicine: Result - Labs CBC & Chem 7: 12/11/17 08:59 12/11/17 08:59 Labs: Short CBC 12/11/17 Range/Units 08:59 WBC 10.4 (4.3-11.1) K/mcL Hgb 8.3 L (12.9-16.9) g/dL Hct 24.8 L (37.5-50.1) % Plt Count 162 (140-400) K/mcL Neutrophils # 8.7 (1.6-8.9) K/mcL BMP 12/11/17 08:59 Sodium 136 Potassium 3.8 Chloride 106 Carbon Dioxide 23 BUN 17 Creatinine 0.82 Glucose 127 H Calcium 8.1 L - ABG Interpretation ABG results: PT/INR, D-dimer PT 14.3 Seconds (9.4-12.1) H 12/09/17 11:57 - Impressions Impressions Foot MRI 12/10/17 13:58 IMPRESSION: 1. MRI signal characteristics in the 5th metatarsal head and 5th proximal phalangeal base compatible with osteomyelitis. 2. Deep soft tissue ulceration lateral to the 5th MTP joint. No sinus tract or drainable fluid collection. Adjacent subcutaneous edema extending along the dorsum of the mid and forefoot compatible with cellulitis. 3. Partially visualized bone marrow edema in the calcaneus with a suspected partially visualized overlying deep soft tissue ulceration. Consider further evaluation with dedicated MRI of the hindfoot. 4. Diffuse fatty atrophy and edema of the visualized musculature compatible with diabetic myopathy versus denervation versus myositis. 5. Status post 1st digit amputation. D/ / Brad Osborne MD / Brad Osborne MD Interpreting Provider: Brad Osborne MD - VTE Documentation of Mechanical Device: Intermittent pneumatic compression device Consult Discharge Plan - Plan [facility]errals: [facility] [Primary Care Provider] -
--- NOTE | 2017-12-11 17:11 | Vascular/Endovasc Consult Note ---
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 He has ischemic ulcerations of the bilateral lower extremity. His present undergone right lower el the angioplasty as well as left femoral to above- knee popliteal artery bypass and left lower extremity antiplastic. His left lower extremity ulcers are healing, but his right lower surgery ulcers persist. The patient also has evidence of osteomyelitis. The patient will continue with intravenous antibiotics. Repeat vascular lab studies will be ordered including an ankle brachial index as well as a right lower extremity arterial duplex. The patient continued daily aspirin and Plavix. Further evaluation pending results of his testing. Qualifiers: Peripheral atherosclerosis artery type: bypass graft, autologous vein Qualified Code(s): I70.433 - Atherosclerosis of autologous vein bypass graft(s) of the right leg with ulceration of ankle; I70.443 - Atherosclerosis of autologous vein bypass graft(s) of the left leg with ulceration of ankle; I70.443 - Atherosclerosis of autologous vein bypass graft(s) of the left leg with ulceration of ankle; I70.443 - Atherosclerosis of autologous vein bypass graft(s) of the left leg with ulceration of ankle; I70.443 - Atherosclerosis of autologous vein bypass graft(s) of the left leg with ulceration of ankle; I70.443 - Atherosclerosis of autologous vein bypass graft(s) of the left leg with ulceration of ankle; I70.443 - Atherosclerosis of autologous vein bypass graft(s) of the left leg with ulceration of ankle (2) CAD (coronary artery disease) Current Visit: No Status: Chronic Qualifiers: Coronary Disease-Associated Artery/Lesion type: [place] artery [place] vs. transplanted heart: unspecified whether [place] or transplanted heart Associated angina: without angina Qualified Code(s): I25.10 - Atherosclerotic heart disease of [place] coronary artery without angina pectoris (3) Diabetes mellitus Current Visit: No Status: Chronic The patient was counseled regarding atherosclerotic risk factor reduction. Qualifiers: Diabetes mellitus type: type 2 Diabetes mellitus public stenographer insulin use: with public stenographer use Diabetes mellitus complication status: with circulatory complication Diabetes mellitus complication detail: with peripheral angiopathy with gangrene Qualified Code(s): E11.52 - Type 2 diabetes 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; Z79.4 - care home (current) use of insulin; Z79.4 - care home (current) use of insulin; Z79.4 - care home ( current) use of insulin; Z79.4 - care home (current) use of insulin (4) Tobacco abuse Current Visit: No Status: Chronic The patient was counseled regarding smoking cessation. - History of Present Illness Consult date: 12/11/17 Requesting physician: Soraya Wilson Consult reason: Peripheral vascular disease with ulceration Chief complaint: Nonhealing right lower extremity wound. History of present illness: Mr. Prescott is a 62 year old male With history of hyperlipidemia, hypertension and tobacco abuse. Patient also has COPD and diabetes. He long history of peripheral vascular disease with ulceration. He is previously undergone left femoral to popliteal artery bypass. He was recently noted to have stenosis of the distal anastomosis of his left femoral to popliteal artery bypass and required a angioplasty. The patient also had a right superficial femoral artery stenosis and was treated with antiplastic. The patient reportedly presented to [facility] recently with a nonhealing right lower extremity wound. Concern for ongoing ischemia arose in vascular surgery was counseled for further evaluation. The time of extremities patient denies any fevers or chills. He does report chronic pain in the right lower extremity which has progressed in the last few weeks. He denies chest pain shortness of breath. Past Med Surg Social Fam HX - Past Medical History Medical history: arthritis, atrial fibrillation, coronary artery disease, diabetes, myocardial infarction, peripheral artery disease (With ulceration) Additional medical history: swelled retna's, bad blood flow, heart attack Psychiatric history: no psych history - Past Surgical History Surgical History: coronary bypass (CABG), orthopedic, other (Bilateral great toe amputations), vascular surgery (Left femoral to popliteal bypass, bilateral lower extremity angioplasty.) Additional surgical history: Bilat big toe amputation. left artery cleaned out - Social History Smoking Status: Current every day smoker Packs per day: 1 Smokeless Tobacco Status: No Alcohol use: none Drug use: none - Family History Mother Adopted: No Family Member Ethnicity: Non- Living Status: Hx Family Cancer: Yes Son Living Status: Still Living Medications and Allergies Aspirin [Lo-Dose Aspirin EC] 325 mg PO DAILY 04/12/17 [History] Insulin ASPART [Novolog Flexpen] 14 unit SQ QAM 05/10/17 [History] Acetaminophen [Tylenol] 1,000 mg PO Q6HR PRN #90 tablet 11/06/17 [Rx] Clopidogrel [Plavix] 75 mg PO DAILY #30 tablet 11/06/17 [Rx] Isosorbide MONOnitrate (24 HR) [Imdur] 30 mg PO DAILY 11/06/17 [History] Pravastatin Sodium [Pravachol] 10 mg PO MOTH 11/06/17 [History] dilTIAZem HCl [Diltiazem 24Hr Cd] 120 mg PO DAILY 11/06/17 [History] Insulin ASPART [NovoLOG] 10 unit SQ BID 11/11/17 [History] Insulin Glargine,Hum.rec.anlog [Lantus Solostar] 54 - 60 unit SQ HS 11/11/17 [ History] Levofloxacin 750 MG/150 ML [Levaquin Premix 750mg/150 mL] 750 mg IVPB DAILY #14 bag 11/21/17 [Rx] cefTRIAXone [Rocephin] 2,000 mg IVPB DAILY #14 vial 11/21/17 [Rx] Collagenase Oint [Santyl] 1 appl TP DAILY #1 tube 11/22/17 [Rx] Gentamicin Oint [Garamycin] 1 appl TP DAILY #1 tube 11/22/17 [Rx] Budesonide/Formoterol 80/4.5 [Symbicort 80/4.5] 2 puff IH BID 12/09/17 [History ] Lisinopril/Hydrochlorothiazide [Zestoretic 20-12.5 mg Tablet] 1 tab PO DAILY 10/23 [History] 3 Allergy/AdvReac Type Severity Reaction Status Date / Time atorvastatin [From Lipitor] Allergy Diarrhea Verified 11/11/17 18:33 All Systems Review: The remainder of the systems were reviewed and are negative - Constitutional Constitutional: no chills, no fever(s) - Cardiovascular Cardiovascular: no chest pain at rest, no dyspnea at rest Exam Vital Signs, Last 4 Hours Temp Pulse Resp BP Pulse Ox 12/11/17 15:11 100.1 F H 72 16 138/61 95 General: Present: Conversant, No Apparent Distress HEENT: Present: Pupils equal Neck: Absent: JVD, Lymphadenopathy Cardiac: Present: Reg Rate and Rhythm, Normal S1 and S2 Lungs: Present: Normal Breath Sounds, No Wheeze, Rales, Rhonchi Neuro: Present: Alert and responsive, No focal deficits noted, Motor nerves grossly intact, Sensory nerves grossly intact Abdomen: Present: Soft, Non-tender Vascular: Present: Normal capillary refill (Bilaterally), Pulse, diminished ( Right tibial signals are monophasic, left tibial signals are polyphasic) Skin: Present: Wound/ulcer(s) (Multiple nonhealing wounds the right lower extremity, wound VAC in place.) Musculoskeletal: Present: No Chest Wall Tenderness Consult Discharge Plan - Plan [facility]errals: [facility] [Primary Care Provider] - Luis New MD [Partnered Physician] - 01/01/18 11:45 am
[2017-12-11] MEDS: Meropenem 1,000 MG in 0.9 % Sodium Chloride Mini Bag 100 ML IVPB SCH ×2 (17:33→23:10)
[2017-12-11] MEDS: Gentamicin Oint 15 GM TUBE TP SCH (21:09)
--- NOTE | 2017-12-12 08:57 | Infectious Disease Progress No ---
Date of Encounter: 12/12/17 Time of Encounter: 08:55 - Assessment and Plan (1) Sepsis Current Visit: No Status: Resolved The patient had two SIRS criteria on admission. Likely secondary to osteomyelitis of the right foot. Improved. WBC normal. Tachycardia has resolved. Low-grade fever overnight. Blood cultures drawn 12/09/17 are NGTD x 2 sets. Qualifiers: Sepsis type: sepsis due to unspecified organism Qualified Code(s): A41.9 - Sepsis, unspecified organism (2) Osteomyelitis Current Visit: Yes Status: Acute Previous osteomyelitis left foot second toe status post partial amputation. Imaging shows new osteomyelitis of the 5th metatarsal and 5th proximal phalanx. Causative organism unclear. Previous cultures positive for MSSA, Citrobacter, and Lecleria. Previously on IV Rocephin and IV Levaquin. X-ray of the right foot showed OM of the right 5th metatarsal. MRI of the right showed osteomyelitis of the right 5th metatarsal and 5th proximal phalanx. Podiatry consulted and following. Awaiting further input from vascular surgery. Wound care per the podiatry team. ESR 87, CRP 163. Continue Vancomycin IV. Pharmacy to dose. Goal trough ~15. Continue Meropenem 1 gram IV Q8H. Duration of treatment depends on the clinical picture. Monitor renal function and for drug toxicity and dose-adjust antibiotics. Qualifiers: Osteomyelitis type: subacute Osteomyelitis location: foot Laterality: right Qualified Code(s): M86.271 - Subacute osteomyelitis, right ankle and foot (3) Wound infection Current Visit: No Status: Acute Previous wound infection of the right heel and left 5th metatarsal. Causative organisms: MSSA, Citrobacter freundii, Lecleria adecarboxylata. Clinically, left lateral foot wound looks okay, but right heel continues to have regression and very foul-smelling discharge. Podiatry consulted and following. Wound care recommendations from the Podiatry team. Given the extent of the right heel wound, I am not sure that the limb is salvageable, but will await further recommendations from the vascular and podiatry teams. Continue antibiotics as above for now. (4) Anemia Current Visit: Yes Status: Acute Hemoglobin down to 9.9 on admission, 8.3 today. GI consulted. Recommend EGD/C-scope, but patient unable to tolerate bowel prep. Further workup and management per the primary and GI teams. Re-check CBC now. Qualifiers: Anemia type: unspecified type Qualified Code(s): D64.9 - Anemia, unspecified (5) Diabetes mellitus Current Visit: No Status: Chronic HgbA1C 8.8% last month. Recommend aggressive glucose monitoring and control to promote wound healing and prevent re-infection. Management per the primary team. 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: with nursing home use Diabetes mellitus complication status: with circulatory complication Diabetes mellitus complication detail: with peripheral angiopathy with gangrene Qualified Code(s): E11.52 - Type 2 diabetes 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; Z79.4 - jail (current) use of insulin; Z79.4 - termite treater (current) use of insulin; Z79.4 - termite treater ( current) use of insulin; Z79.4 - termite treater (current) use of insulin (6) Peripheral vascular disease Current Visit: No Status: Chronic Status post femoral to above the knee popliteal bypass graft in 2015. Status post left LE Angiogram with balloon angioplasty of the previous graft anastamosis 11/06/[address] Harris. Status post RLE angiogram with balloon angioplasty of the right SFA 11/18/[address] Harris. Vascular surgery consulted. Await recommendations. 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 Current Visit: No Status: Chronic Qualifiers: Peripheral atherosclerosis artery type: bypass graft, autologous vein Qualified Code(s): I70.433 - Atherosclerosis of autologous vein bypass graft(s) of the right leg with ulceration of ankle; I70.443 - Atherosclerosis of autologous vein bypass graft(s) of the left leg with ulceration of ankle; I70.443 - Atherosclerosis of autologous vein bypass graft(s) of the left leg with ulceration of ankle; I70.443 - Atherosclerosis of autologous vein bypass graft(s) of the left leg with ulceration of ankle; I70.443 - Atherosclerosis of autologous vein bypass graft(s) of the left leg with ulceration of ankle; I70.443 - Atherosclerosis of autologous vein bypass graft(s) of the left leg with ulceration of ankle; I70.443 - Atherosclerosis of autologous vein bypass graft(s) of the left leg with ulceration of ankle (8) A-fib Current Visit: No Status: Chronic Qualifiers: Atrial fibrillation type: paroxysmal Qualified Code(s): I48.0 - Paroxysmal atrial fibrillation (9) CAD (coronary artery disease) Current Visit: No Status: Chronic Qualifiers: Coronary Disease-Associated Artery/Lesion type: [place] artery [place] vs. transplanted heart: unspecified whether [place] or transplanted heart Associated angina: without angina Qualified Code(s): I25.10 - Atherosclerotic heart disease of [place] coronary artery without angina pectoris (10) Tobacco abuse Current Visit: No Status: Chronic - Subjective Interval history: Patient seen and examined. No acute events noted overnight. Patient states overall he feels okay. Low-grade fever with Tmax 100.1 overnight, but patient denies known fevers, chills, or rigors. Denies chest pain, shortness of breath, or cough. Denies nausea, vomiting, or diarrhea. Denies abdominal pain, urinary complaints, or appetite changes. States last BM was yesterday. Denies oral thrush or skin lesions. Labs pending collection by nursing this morning. Complains of mild pain in the right heel. Infect Dis PN-Objective Data - Labs CBC & Chem 7: 12/13/17 08:14 12/13/17 08:14 Labs: Laboratory Results - last 24 hr 12/10/17 12/10/17 12/10/17 11:10 16:55 22:23 WBC RBC Hgb Hct MCV MCH MCHC RDW Plt Count MPV Immature Gran % Seg Neutrophils % Lymphocytes % Monocytes % Eosinophils % Basophils % Neutrophils # Lymphocytes # Monocytes # Eosinophils # Basophils # ESR Sodium Potassium Chloride Carbon Dioxide BUN Creatinine Est GFR ( Amer) Est GFR (Non-Af Amer) BUN/Creatinine Ratio Glucose POC Glucose 132 H 117 H 89 Calculated Osmolality Calcium C-Reactive Protein 12/11/17 12/11/17 12/11/17 05:48 08:59 08:59 WBC 10.4 RBC 2.80 L Hgb 8.3 L Hct 24.8 L MCV 88.6 MCH 29.6 MCHC 33.5 RDW 12.9 Plt Count 162 MPV 10.3 Immature Gran % 0.7 Seg Neutrophils % 83.4 Lymphocytes % 7.2 Monocytes % 8.0 Eosinophils % 0.5 Basophils % 0.2 Neutrophils # 8.7 Lymphocytes # 0.8 Monocytes # 0.8 Eosinophils # 0.1 Basophils # 0.0 ESR 87 H Sodium Potassium Chloride Carbon Dioxide BUN Creatinine Est GFR ( Amer) Est GFR (Non-Af Amer) BUN/Creatinine Ratio Glucose POC Glucose 109 H Calculated Osmolality Calcium C-Reactive Protein 12/11/17 12/11/17 12/11/17 08:59 11:04 16:08 WBC RBC Hgb Hct MCV MCH MCHC RDW Plt Count MPV Immature Gran % Seg Neutrophils % Lymphocytes % Monocytes % Eosinophils % Basophils % Neutrophils # Lymphocytes # Monocytes # Eosinophils # Basophils # ESR Sodium 136 Potassium 3.8 Chloride 106 Carbon Dioxide 23 BUN 17 Creatinine 0.82 Est GFR ( Amer) > 60 Est GFR (Non-Af Amer) > 60 BUN/Creatinine Ratio 21 Glucose 127 H POC Glucose 148 H 255 H Calculated Osmolality 285 Calcium 8.1 L C-Reactive Protein 163 H 12/11/17 20:35 WBC RBC Hgb Hct MCV MCH MCHC RDW Plt Count MPV Immature Gran % Seg Neutrophils % Lymphocytes % Monocytes % Eosinophils % Basophils % Neutrophils # Lymphocytes # Monocytes # Eosinophils # Basophils # ESR Sodium Potassium Chloride Carbon Dioxide BUN Creatinine Est GFR ( Amer) Est GFR (Non-Af Amer) BUN/Creatinine Ratio Glucose POC Glucose 253 H Calculated Osmolality Calcium C-Reactive Protein Exam - Constitutional Vitals: Temp Pulse Resp BP Pulse Ox 99.6 F 73 16 124/60 91 12/12/17 07:09 12/12/17 07:09 12/12/17 07:09 12/12/17 07:09 12/12/17 07:09 General appearance: average body habitus, cooperative, no acute distress - Head Head exam: Present: atraumatic, normal inspection, normocephalic - Eye Eye exam: Present: EOMI, normal appearance, PERRL Pupils: Present: normal accommodation - ENT ENT exam: Present: mucous membranes moist - Neck Neck exam: Present: normal inspection - Respiratory Respiratory exam: Present: CTAB. Absent: rales, respiratory distress, rhonchi, wheezes - Cardiovascular Cardiovascular exam: Present: irregular rhythm. Absent: tachycardia - GI/Abdominal GI/Abdominal exam: Present: normal bowel sounds, soft. Absent: distended, tenderness - Extremities Exam Extremities exam: Absent: pedal edema Additional comments: Bilateral foot dressings C/D/I. Wound VAC dressing noted to the left lateral foot with sponge well-compressed, no leak, and no drainage in the canister. - Neurological Exam Neurological exam: Present: alert, oriented X3, no focal deficits - Psychiatric Psychiatric exam: Present: normal affect, normal mood - Skin Skin exam: Present: dry, intact, normal color, warm - VTE Documentation of Mechanical Device: Intermittent pneumatic compression device Consult Discharge Plan - Plan Referrals: [facility] [Primary Care Provider] - Luis New MD [Partnered Physician] - 01/01/18 11:45 am - Attending Attestation I examined this patient and my medical decision-making was reviewed with the Resident Physician. I agree with the documented findings, disposition and treatment plan as described except to the extent set forth below.
[2017-12-12 09:12] LABS: Basophils % 0.2 %; Eosinophils # 0.1 K/mcL (0.0-0.6); Eosinophils % 0.5 %; Hematocrit 26.1 % (37.5-50.1); Hemoglobin 8.5 g/dL (12.9-16.9); Immature Granulocytes % 0.6 % (0-4); Lymphocytes # 0.7 K/mcL (0.6-4.6); Lymphocytes % 6.8 %; Mean Corpuscular HGB Conc 32.6 g/dL (31.6-35.5); Mean Corpuscular Hemoglobin 29.2 pg (28.0-33.3); Mean Corpuscular Volume 89.7 fL (83.0-100.0); Mean Platelet Volume 9.9 fL (9.4-12.4); Monocytes # 0.7 K/mcL (0.0-1.3); Monocytes % 6.9 %; Neutrophils # 9.1 K/mcL (1.6-8.9); Platelet Count 149 K/mcL (140-400); Red Blood Count 2.91 M/mcL (4.19-5.50); Red Cell Distribution Width 12.9 % (11.5-14.5)
[2017-12-12] MEDS: Diltiazem CD (24hr) 120 MG CAPSULE PO SCH (09:16)
[2017-12-12] MEDS: Meropenem 1,000 MG in 0.9 % Sodium Chloride Mini Bag 100 ML IVPB SCH ×3 (09:16→23:46)
[2017-12-12] MEDS: Isosorbide MONOnitrate (24 HR) 30 MG TAB.ER.24H PO SCH (09:16)
[2017-12-12] MEDS: Aspirin Enteric Coated 325 MG Tablet PO SCH (09:16)
[2017-12-12] MEDS: Lisinopril 20 MG TABLET PO SCH (09:16)
[2017-12-12] MEDS: Nicotine 21 MG PATCH.TD24 TD SCH (09:17)
[2017-12-12] MEDS: Insulin LISPRO 300 UNITS/3 ML VIAL SQ SCH ×4 (09:18→21:37)
[2017-12-12 09:36] LABS: BUN/Creatinine Ratio 20 (6-26); Blood Urea Nitrogen 19 mg/dL (8-23); Calcium 8.3 mg/dL (8.6-10.3); Carbon Dioxide 22 mEq/L (23-29); Chloride 105 mEq/L (98-107); Glucose 225 mg/dL (70-105); Osmolality,Calculated 289 (280-300); Potassium 4.2 mEq/L (3.5-5.1); Sodium 135 mEq/L (136-145); eGFR For African Americans > 60 (> 60); eGFR For Non-African Americans > 60 (> 60)
--- NOTE | 2017-12-12 16:41 | Vascular/Endovas Progress Note ---
Date of Encounter: 12/12/17 Time of Encounter: 15:15 - Assessment and plan (1) Atherosclerosis of both lower extremities with bilateral ulceration of ankles Current Visit: No Status: Chronic The patient has ischemic ulcerations of the bilateral lower extremity. His left lower extremity ulcers are healing well. His right lower surgery ulcers persist. Evidence of osteomyelitis on his vascular labs were reviewed today. His left ankle brachial index is normal. His right ankle brachial index consistent with moderate disease. His right lower extremity arterial duplex reveals evidence of superficial femoral artery stenosis greater than 75%. An angiogram with possible intervention is recommended. The risks, benefits and alternatives were discussed WERE answered. The patient will undergo his procedure tomorrow morning. The patient will continue with daily aspirin and Plavix. Recommend continue with antibiotics and local wound care. Qualifiers: Peripheral atherosclerosis artery type: bypass graft, autologous vein Qualified Code(s): I70.433 - Atherosclerosis of autologous vein bypass graft(s) of the right leg with ulceration of ankle; I70.443 - Atherosclerosis of autologous vein bypass graft(s) of the left leg with ulceration of ankle; I70.443 - Atherosclerosis of autologous vein bypass graft(s) of the left leg with ulceration of ankle; I70.443 - Atherosclerosis of autologous vein bypass graft(s) of the left leg with ulceration of ankle; I70.443 - Atherosclerosis of autologous vein bypass graft(s) of the left leg with ulceration of ankle; I70.443 - Atherosclerosis of autologous vein bypass graft(s) of the left leg with ulceration of ankle; I70.443 - Atherosclerosis of autologous vein bypass graft(s) of the left leg with ulceration of ankle (2) CAD (coronary artery disease) Current Visit: No Status: Chronic Qualifiers: Coronary Disease-Associated Artery/Lesion type: [place] artery [place] vs. transplanted heart: unspecified whether [place] or transplanted heart Associated angina: without angina Qualified Code(s): I25.10 - Atherosclerotic heart disease of [place] coronary artery without angina pectoris (3) Tobacco abuse Current Visit: No Status: Chronic He was counseled aggressively regarding smoking cessation. He is a former that he is going he will certainly lead to progression of his atherosclerotic disease and may lead to amputation, heart attack, stroke or . (4) Osteomyelitis Current Visit: Yes Status: Acute Qualifiers: Osteomyelitis type: subacute Osteomyelitis location: foot Laterality: right Qualified Code(s): M86.271 - Subacute osteomyelitis, right ankle and foot (5) Diabetes mellitus Current Visit: No Status: Chronic Qualifiers: Diabetes mellitus type: type 2 Diabetes mellitus detention insulin use: with salvage determiner use Diabetes mellitus complication status: with circulatory complication Diabetes mellitus complication detail: with peripheral angiopathy with gangrene Qualified Code(s): E11.52 - Type 2 diabetes 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; Z79.4 - custodial (current) use of insulin; Z79.4 - terminal superintendent (current) use of insulin; Z79.4 - custodial ( current) use of insulin; Z79.4 - custodial (current) use of insulin (6) A-fib Current Visit: No Status: Chronic Qualifiers: Atrial fibrillation type: paroxysmal Qualified Code(s): I48.0 - Paroxysmal atrial fibrillation - Subjective Interval history: The patient denies any acute events overnight. He denies fevers or chills. He reports adequate pain control. He denies chest pain or shortness of breath. Vital Signs, Last 4 Hours Temp Pulse Resp BP Pulse Ox 12/12/17 14:58 98.7 F 101 16 133/57 98 - Physical Examination General: Present: Conversant, No Apparent Distress Cardiac: Present: Reg Rate and Rhythm Lungs: Present: Normal Breath Sounds Neuro: Present: Alert and responsive, No focal deficits noted Vascular: Present: Normal capillary refill, Pulse, diminished (Pedal signals are present bilaterally) Abdomen: Present: Soft Skin: Present: Wound/ulcer(s) (Wound VAC in place, multiple ulcerations are also present.) - VTE Documentation of Mechanical Device: Intermittent pneumatic compression device Results 12/12/17 09:00 12/12/17 09:00 Lab Results, Last 24 hours 12/12/17 12/12/17 09:00 09:00 WBC 10.7 Hgb 8.5 L Hct 26.1 L Plt Count 149 Sodium 135 L Potassium 4.2 Chloride 105 Carbon Dioxide 22 L BUN 19 Creatinine 0.93 Glucose 225 H Calcium 8.3 L - Imaging / Other Tests Non Invasive Vascular Testing: report reviewed, image reviewed Consult Discharge Plan - Plan Referrals: [facility] [Outside]
[2017-12-12] MEDS: Gentamicin Oint 15 GM TUBE TP SCH (18:46)
[2017-12-12] MEDS: *HR* HYDROcodone/Acet 5/325 mg TABLET PO PRN (18:52)
--- NOTE | 2017-12-12 19:15 | Internal Med Progress Note ---
Date of Encounter: 12/12/17 Time of Encounter: 11:00 - Assessment and plan (1) Peripheral arterial disease Current Visit: Yes Status: Acute Assessment and plan: Has been seen by Dr. Harris who performed an angioplasty during last hospitalization Vascular surgery following with recommendations for arteriogram with potential intervention on 12/13/17 (2) Osteomyelitis Current Visit: Yes Status: Acute Assessment and plan: New right fifth metatarsal head acute osteomyelitis With multiple other feet ulcers Podiatry following and appreciate recommendations Infectious disease also following with recommendations to discontinue cefepime due to prior resistance to Citrobacter with recommendations to start meropenem. Qualifiers: Osteomyelitis type: subacute Osteomyelitis location: foot Laterality: right Qualified Code(s): M86.271 - Subacute osteomyelitis, right ankle and foot (3) Anemia Current Visit: Yes Status: Acute Assessment and plan: Acute on chronic blood loss anemia, history of gastric ulcers Hemoglobin has dropped from 13 on November 11 down to 8.3 this morning GI consult with plans for EGD/colonoscopy on 12/11/17 but patient refused to go through with testing Qualifiers: Anemia type: unspecified type Qualified Code(s): D64.9 - Anemia, unspecified (4) Diabetes mellitus Current Visit: No Status: Chronic Assessment and plan: Insulin sliding scale Qualifiers: Diabetes mellitus type: type 2 Diabetes mellitus mcc insulin use: with watermelon inspector use Diabetes mellitus complication status: with circulatory complication Diabetes mellitus complication detail: with peripheral angiopathy with gangrene Qualified Code(s): E11.52 - Type 2 diabetes 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; Z79.4 - long-term (current) use of insulin; Z79.4 - long-term (current) use of insulin; Z79.4 - long-term ( current) use of insulin; Z79.4 - intermediate project manager (current) use of insulin (5) A-fib Current Visit: No Status: Chronic Assessment and plan: Not on anticoagulation, continue diltiazem Qualifiers: Atrial fibrillation type: paroxysmal Qualified Code(s): I48.0 - Paroxysmal atrial fibrillation (6) CAD (coronary artery disease) Current Visit: No Status: Chronic Assessment and plan: Continue aspirin and Plavix Qualifiers: Coronary Disease-Associated Artery/Lesion type: [place] artery [place] vs. transplanted heart: unspecified whether [place] or transplanted heart Associated angina: without angina Qualified Code(s): I25.10 - Atherosclerotic heart disease of [place] coronary artery without angina pectoris (7) Tobacco abuse Current Visit: No Status: Chronic Assessment and plan: Smoking cessation;nicotine patch (8) DVT prophylaxis Current Visit: Yes Status: Acute Assessment and plan: Subcutaneous heparin - Time Spent With Patient Total time spent is greater than 50% in coordination of care (as documented) at patient's floor/unit and/or counseling patient: - Subjective Interval history: Patient seen hemoglobin steadily declining but hemodynamically stable Consult with plans for EGD/colonoscopy on 12/11/17 however patient declined testing Vascular surgery following with recommendations for arteriogram with potential intervention on 12/13/17 - Constitutional Vitals: Temp Pulse Resp BP Pulse Ox 100.8 F H 80 16 160/54 93 12/12/17 19:00 12/12/17 19:00 12/12/17 19:00 12/12/17 19:00 12/12/17 19:00 General appearance: Present: A&O X 3, no acute distress - Respiratory Respiratory exam: Present: CTAB. Absent: accessory muscle use, rales, rhonchi, wheezes - Cardiovascular Cardiovascular exam: Present: RRR, +S1, +S2. Absent: diastolic murmur, gallop, rubs, systolic murmur Internal Medicine: Result - Labs CBC & Chem 7: 12/12/17 09:00 12/12/17 09:00 Labs: Short CBC 12/12/17 Range/Units 09:00 WBC 10.7 (4.3-11.1) K/mcL Hgb 8.5 L (12.9-16.9) g/dL Hct 26.1 L (37.5-50.1) % Plt Count 149 (140-400) K/mcL Neutrophils # 9.1 H (1.6-8.9) K/mcL BMP 12/12/17 09:00 Sodium 135 L Potassium 4.2 Chloride 105 Carbon Dioxide 22 L BUN 19 Creatinine 0.93 Glucose 225 H Calcium 8.3 L - ABG Interpretation ABG results: PT/INR, D-dimer PT 14.3 Seconds (9.4-12.1) H 12/09/17 11:57 - VTE Documentation of Mechanical Device: Intermittent pneumatic compression device Consult Discharge Plan - Plan Referrals: [facility] [Outside]
[2017-12-12] MEDS: Acetaminophen 325 MG TABLET PO PRN (19:56)
[2017-12-12] MEDS: Insulin DETEMIR 100 UNIT/ML X5UNITS SQ SCH (21:38)
[2017-12-13] MEDS ORDERED: *HR* Heparin 10,000 UNIT/10 ML VIAL ONE (07:10)
[2017-12-13] MEDS ORDERED: Heparin 1,000 UNITS/500 mL 500 ML ONE (07:11)
[2017-12-13] MEDS ORDERED: 0.9 % Sodium Chloride 1,000 ML ONE ×3 (07:11→08:41)
[2017-12-13] MEDS ORDERED: Isovue-300 200 mL Infus..BTL IV ONE ×2 (07:11→08:39)
[2017-12-13] MEDS ORDERED: *HR* FentaNYL (PF) 100 MCG/2 ML VIAL ONE ×3 (08:08→09:28)
[2017-12-13] MEDS ORDERED: *HR* Midazolam HCl 2 MG/2 ML VIAL ONE ×2 (08:08→08:50)
--- NOTE | 2017-12-13 08:08 | Pre-Sedation Evaluation ---
Pre-sedation evaluation - Pre-sedation checklist Date of procedure: 12/13/17 Procedure: peripheral Recent Vitals: Last Vital Signs Temp 100.1 F H 12/13/17 07:18 Pulse 73 12/13/17 07:18 Resp 14 12/13/17 07:18 BP 134/62 12/13/17 07:18 Pulse Ox 92 12/13/17 07:18 H&P (including ROS) documented in medical record: Yes Previous reaction to sedatives/anesthetics: Yes; explain in comment Dietary Status: NPO after Midnight Dentition: No loose teeth or bridges ASA Classification *see protocol: CLASS III-Severe systemic disease Plan of Care: Pt appropriate candidate for procedure/moderate/conscious sedation , Risks/benefits of procedure/sedation discussed w/ patient/family
--- NOTE | 2017-12-13 09:55 | Procedure Note ---
Date of procedure: 12/13/17 Pre-op diagnosis: Right lower extremity ischemia and nonhealing wound of the foot Post-op diagnosis: same Procedure: Abdominal aortogram Aortogram with bilateral lower extremity runoff Standard and drug coated balloon angioplasty of distal right common femoral artery stenosis Drug coated balloon angioplasty of distal right superficial femoral artery stenosis Placement of triple lumen central venous catheter via right femoral vein Anesthesia: MAC Surgeon: Luis New Was there an housing assistant present: No Estimated blood loss (cc): 0 Specimen: 0 Condition: stable Disposition: floor
--- NOTE | 2017-12-13 11:30 | Infectious Disease Progress No ---
Date of Encounter: 12/13/17 Time of Encounter: 11:27 - Assessment and Plan (1) Sepsis Current Visit: No Status: Resolved The patient had two SIRS criteria on admission. Likely secondary to osteomyelitis of the right foot. Improved. WBC normal. Tachycardia has resolved. Low-grade fever overnight. Blood cultures drawn 12/09/17 are NGTD x 2 sets. Qualifiers: Sepsis type: sepsis due to unspecified organism Qualified Code(s): A41.9 - Sepsis, unspecified organism (2) Osteomyelitis Current Visit: Yes Status: Acute Previous osteomyelitis left foot second toe status post partial amputation. Imaging shows new osteomyelitis of the 5th metatarsal and 5th proximal phalanx. Causative organism unclear. Previous cultures positive for MSSA, Citrobacter, and Lecleria. Previously on IV Rocephin and IV Levaquin. X-ray of the right foot showed OM of the right 5th metatarsal. MRI of the right showed osteomyelitis of the right 5th metatarsal and 5th proximal phalanx. Podiatry consulted and following. Await further recommendations. Wound care per the podiatry team. ESR 87, CRP 163. The patient continues to have fevers despite broad-spectrum antibiotics. I anticipate this is likely related to inadequate source control of infection/ osteomyelitis in the right foot. Continue Vancomycin IV. Pharmacy to dose. Goal trough ~15. Continue Meropenem 1 gram IV Q8H. Duration of treatment depends on the clinical picture. Monitor renal function and for drug toxicity and dose-adjust antibiotics. Qualifiers: Osteomyelitis type: subacute Osteomyelitis location: foot Laterality: right Qualified Code(s): M86.271 - Subacute osteomyelitis, right ankle and foot (3) Wound infection Current Visit: No Status: Acute Previous wound infection of the right heel and left 5th metatarsal. Causative organisms: MSSA, Citrobacter freundii, Lecleria adecarboxylata. Clinically, left lateral foot wound looks okay, but right heel continues to have regression and very foul-smelling discharge. Podiatry consulted and following. Wound care recommendations from the Podiatry team. Given the extent of the right heel wound, I am not sure that the limb is salvageable, but will await further recommendations from the vascular and podiatry teams. Continue antibiotics as above for now. (4) Anemia Current Visit: Yes Status: Acute Hemoglobin down to 9.9 on admission, 8.3 yesterday. Today's labs not collected. GI consulted. Recommend EGD/C-scope, but patient unable to tolerate bowel prep. Further workup and management per the primary and GI teams. Re-check CBC now. Qualifiers: Anemia type: unspecified type Qualified Code(s): D64.9 - Anemia, unspecified (5) Diabetes mellitus Current Visit: No Status: Chronic HgbA1C 8.8% last month. Recommend aggressive glucose monitoring and control to promote wound healing and prevent re-infection. Management per the primary team. 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 term care pharmacist insulin use: with long term care pharmacist use Diabetes mellitus complication status: with circulatory complication Diabetes mellitus complication detail: with peripheral angiopathy with gangrene Qualified Code(s): E11.52 - Type 2 diabetes 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; Z79.4 - lobsterman (current) use of insulin; Z79.4 - alf (current) use of insulin; Z79.4 - lobsterman ( current) use of insulin; Z79.4 - alf (current) use of insulin (6) Peripheral vascular disease Current Visit: No Status: Chronic Status post femoral to above the knee popliteal bypass graft in 2016. Status post left LE Angiogram with balloon angioplasty of the previous graft anastamosis 11/06/[address] Harris. Status post RLE angiogram with balloon angioplasty of the right SFA 11/18/[address] Harris. Vascular surgery consulted. Status post angiogram with balloon angioplasty to right SFA 12/13/[address] New. 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 Current Visit: No Status: Chronic Qualifiers: Peripheral atherosclerosis artery type: bypass graft, autologous vein Qualified Code(s): I70.433 - Atherosclerosis of autologous vein bypass graft(s) of the right leg with ulceration of ankle; I70.443 - Atherosclerosis of autologous vein bypass graft(s) of the left leg with ulceration of ankle; I70.443 - Atherosclerosis of autologous vein bypass graft(s) of the left leg with ulceration of ankle; I70.443 - Atherosclerosis of autologous vein bypass graft(s) of the left leg with ulceration of ankle; I70.443 - Atherosclerosis of autologous vein bypass graft(s) of the left leg with ulceration of ankle; I70.443 - Atherosclerosis of autologous vein bypass graft(s) of the left leg with ulceration of ankle; I70.443 - Atherosclerosis of autologous vein bypass graft(s) of the left leg with ulceration of ankle (8) A-fib Current Visit: No Status: Chronic Qualifiers: Atrial fibrillation type: paroxysmal Qualified Code(s): I48.0 - Paroxysmal atrial fibrillation (9) CAD (coronary artery disease) Current Visit: No Status: Chronic Qualifiers: Coronary Disease-Associated Artery/Lesion type: [place] artery [place] vs. transplanted heart: unspecified whether [place] or transplanted heart Associated angina: without angina Qualified Code(s): I25.10 - Atherosclerotic heart disease of [place] coronary artery without angina pectoris (10) Tobacco abuse Current Visit: No Status: Chronic - Subjective Interval history: Patient seen and examined. Status post angiogram with right SFA balloon angioplasty this morning. Patient states overall he feels okay. Low-grade fever with Tmax 100.8 overnight, but patient denies known fevers, chills, or rigors. Denies chest pain, shortness of breath, or cough. Denies nausea, vomiting, or diarrhea. Denies abdominal pain, urinary complaints, or appetite changes. States last BM was two days ago Denies oral thrush or skin lesions. Denies pain at this time. Infect Dis PN-Objective Data - Labs CBC & Chem 7: 12/13/17 08:14 12/13/17 08:14 Labs: Laboratory Results - last 24 hr 12/12/17 12/12/17 12/12/17 07:18 11:44 15:32 POC Glucose 218 H 228 H Vancomycin Trough 15 H 12/12/17 12/12/17 12/13/17 16:26 21:09 06:03 POC Glucose 277 H 229 H 276 H Vancomycin Trough Exam - Constitutional Vitals: Temp Pulse Resp BP Pulse Ox 100.1 F H 73 14 134/62 92 12/13/17 07:18 12/13/17 07:18 12/13/17 07:18 12/13/17 07:18 12/13/17 07:18 General appearance: average body habitus, cooperative, no acute distress - Head Head exam: Present: atraumatic, normal inspection, normocephalic - Eye Eye exam: Present: EOMI, normal appearance, PERRL Pupils: Present: normal accommodation - ENT ENT exam: Present: mucous membranes moist - Neck Neck exam: Present: normal inspection - Respiratory Respiratory exam: Present: CTAB. Absent: rales, respiratory distress, rhonchi, wheezes - Cardiovascular Cardiovascular exam: Present: irregular rhythm. Absent: tachycardia - GI/Abdominal GI/Abdominal exam: Present: normal bowel sounds, soft. Absent: distended, tenderness - Extremities Exam Extremities exam: Absent: pedal edema Additional comments: Bilateral foot dressings C/D/I. Wound VAC noted to the left without without leak and no drainage noted in the wound VAC canister. Left groin angiogram access site with guaze dressing C/D/I. Soft, no hematoma. Left femoral triple lumen CVC noted with transparent dressing C/D/I. - Neurological Exam Neurological exam: Present: alert, oriented X3, no focal deficits - Psychiatric Psychiatric exam: Present: normal affect, normal mood - Skin Skin exam: Present: dry, intact, normal color, warm - VTE Documentation of Mechanical Device: Intermittent pneumatic compression device Consult Discharge Plan - Plan [facility] - Luis New MD [Partnered Physician] - 01/01/18 11:45 am - Attending Attestation I examined this patient and my medical decision-making was reviewed with the Resident Physician. I agree with the documented findings, disposition and treatment plan as described except to the extent set forth below.
--- NOTE | 2017-12-13 11:34 | Invasive Diagnostic Lab Proc ---
Name: Devin Prescott Date of Study: 12/13/2017 Date: 1955 Ht: 180.0 in Medical Record#: [id number] Age: 62 Wt: 107 lb Gender: Male BSA: 2.26 Order #: [id number] BMI: 33.02 Physicians Performing MD: Luis New MD, FACS Referring MD: [facility] Referring MD: Staff Name Position Time In Pau Delgado RT (R) Scrub ReynaTara mckeon RT (R) Monitor All Mcpherson RN Transit Mixer Driver Walt Chapa RN Transit Mixer Driver Indications Peripheral Vasc Disease Procedures Performed AORTOGRAPHY, ABDOMINAL S&I AORTOGRAPHY W/RUNOFF BILAT S&I CENTRAL LINE PLACEMENT FEM/POPL REVAS W/TLA FEM/POPL REVAS W/TLA Pre-Procedure Checklist Informed consent is complete signed and on chart. H&P is on chart. ID band is on and ID verified with patient. Patient NPO for procedure The procedure was described for the patient and questions were answered. Blood Pressure: 156/73 ECG is on chart. Rhythm: Atrial Fibrillation Plan of Care Patient will tolerate the procedure without complications. Adequate level of comfort will be maintained. Hemodynamics will remain stable Patient will recover from procedure without complications. Respiratory function will be maintained. Cardiac rhythm will remain stable. Patient temperature will be maintained. Patient and/or family have verbalized understanding of the procedure. Patient Education Chief Complaint/Reason for Test: Peripheral angiogram Developmental Category: Adult (18-64 years) Learning Barriers: None Education Needs: Procedure Education Method: Verbal Information Taught: Peripheral angiogram Educational Evaluation: Able to repeat information Intravenous Access Time IV Size Location DC'd Fluid/Drip Rate Units RN 07:42 20g 1 07/11" Patent On Arrival Rt Arm Allergies atorvastatin Vital Signs Time BP Systolic BP Diastolic HR O2 Sats ASA 07:42 AM 148 62 70 95 08:05 AM 08:05 AM 08:24 AM 08:39 AM 08:54 AM 09:09 AM 09:25 AM 08:12 AM 171 74 75 98 08:17 AM 170 75 75 99 08:22 AM 155 77 71 92 08:26 AM 156 73 72 98 08:32 AM 158 74 72 98 08:37 AM 164 70 72 97 08:42 AM 159 68 69 97 08:47 AM 157 75 70 97 08:52 AM 156 76 69 98 08:57 AM 155 72 70 97 09:02 AM 155 72 70 96 09:07 AM 150 69 69 96 09:12 AM 148 70 69 96 09:17 AM 154 73 69 97 09:22 AM 148 72 69 94 09:27 AM 152 73 72 97 09:32 AM 143 71 68 95 09:37 AM 150 73 67 92 09:42 AM 137 71 71 95 09:47 AM 143 69 67 95 09:52 AM 149 70 68 96 09:57 AM 155 70 70 96 10:02 AM 155 75 70 96 10:07 AM 151 74 68 96 10:30 AM 150 68 69 97 10:45 AM 148 65 71 94 11:00 AM 153 69 68 95 11:15 AM 156 73 70 93 Procedure Medications Time Medication Dose Units Method Route 08:15 AM Oxygen 2 L/min nasal cannula 08:18 AM Versed 1 mg Intravenous 08:18 AM Fentanyl 75 mcg Intravenous 08:26 AM Versed 1 mg Intravenous 08:27 AM Lidocaine 2% 10 ml Subcutaneous 08:29 AM Fentanyl 50 mcg Intravenous 08:30 AM Lidocaine 2% 10 ml Subcutaneous 08:42 AM Lidocaine 2% 10 ml Subcutaneous 08:50 AM Versed 1 mg Intravenous 09:03 AM Heparin 5000 units Intravenous 09:14 AM Fentanyl 50 mcg Intravenous 09:27 AM Fentanyl 50 mcg Intravenous 09:56 AM Heparin 1000 units Intravenous 09:57 AM Plavix 75 mg Orally ASA Classification: CLASS III- Severe systemic disease (i.e. prior AMI, diabetes with vascular complications, morbid obesity) Hannah Score Preprocedure Postprocedure Activity 2- Moves 4 extremities sustained head lift Activity Circulation 2- SBP +/= 20 points of pre-anesthetic level Circulation Consciousness 2- Awake and alert oriented x 3 Consciousness O2 Saturation 2- Able to maintain O2 satruation of 92% on room air O2 Saturation Respiratory 2- Able to deep breathe and cough well Respiratory Total Score 10 Total Score Contrast: Isovue 250- 150ml Contrast Amount: 84.6 ml Fluoro Dose: 491 mGy Activated Clotting Time Time Drawn ACT (sec) 09:55 AM 165 Procedure Log Time Note Entered By 07:44 AM Pau Delgado RT (R) Position: Scrub Time in: 07:44 dspellman 07:44 AM Tara Orellana RT (R) Position: Monitor Time in: 07:44 dspellman 07:44 AM All Mcpherson RN Position: Transit Mixer Driver Time in: 07:44 ell 08:04 AM Pt arrived to lab scientist 1 at 08:04 dspell 08:05 AM Hair removed from procedure site in holding area using clippers. Bilateral groin prepped with Chloraprep by Pau Delgado (R), then patient was draped. Skin intact. 08:05 AM Physician arrived 08:05 dspell 08:05 AM Meet and elke completed 08:05 AM Sign in performed according to hospital policy. 08:05 AM Procedure start 08:05 dspell 08:05 AM Time: 08:05 Is patient comfortable and pain free?: Yes 08:05 AM Time: 08:05LOC: 5 = Fully awake and oriented or at pre-proc level dsp 08:15 AM 08:15 Oxygen at 2 L/min per nasal cannula by All Mcpherson RN sherrie 08:18 AM 08:18 Versed 1 mg Intravenous Given by All Mcpherson RN jordan 08:18 AM 08:18 Fentanyl 75 mcg Intravenous Given by All Mcpherson RN jordan 08:19 AM ASA Class CLASS III- Severe systemic disease (i.e. prior AMI, diabetes with vascular complications, morbid obesity) 08:24 AM Time: 08:05LOC: 5 = Fully awake and oriented or at pre-proc level dsp 08:24 AM Time: 08:05 Is patient comfortable and pain free?: Yes 08:24 AM Walt Chapa RN Position: Transit Mixer Driver to relieve All Mcpherson RN Time in: 08:24 dspell 08:26 AM 08:26 Versed 1 mg Intravenous Given by Walt Chapa RN jordan 08:27 AM Time out perfomed dsp 08:28 AM 08:27 10 ml Lidocaine 2% to left groin Subcutaneous Given By Michael 08:29 AM 08:29 Fentanyl 50 mcg Intravenous Given by Walt Chapa RN jordan 08:30 AM IV Supplies used: J loop Angio Cath. dsp 08:30 AM Patient charges- Angio tray pack, Pulse Oximetry and ACIST tubing and transducer dsp 08:30 AM Access obtained in the left femoral artery by percutaneous puncture. 5 Fr. 10 cm Terumo [place] sheath placed in left femoral artery dspell 08:31 AM 08:30 10 ml Lidocaine 2% to left groin Subcutaneous Given By Luis New MD, FACS dspell 08:32 AM 0.035 145cm J-wire wire utilized to assist with catheter placement dspell 08:32 AM 5Fr Short pigtail catheter inserted over the wire dspell 08:33 AM Abdominal aorta angiography performed in AP contrast injected 10/20 mls. dspell 08:34 AM Setting up for stepping dspell 08:34 AM Abdominal angiogram with runoff completed: 6 ml/sec for a total of 60 mls dspell 08:39 AM Time: 08:24LOC: 4 = Oriented but drowsy dspell 08:39 AM Time: 08:24 Is patient comfortable and pain free?: Yes dspell 08:39 AM reviewing images dspell 08:39 AM Catheter removed dspell 08:43 AM 08:42 10 ml Lidocaine 2% to left groin Subcutaneous Given By Luis New MD, FACS dspell 08:44 AM Ultrasound, Sonosite, utilized to obtain vascular access dspell 08:44 AM Venous access L Femoral Vein obtained by percutaneous puncture. 4 Fr 10 cm Terumo sheath placed for IV access. dspell 08:48 AM 5Fr Omniflush catheter inserted over the wire dspell 08:48 AM Wire removed dspell 08:49 AM Right femoral angiography performed in [place] contrast injected 2 mls. dspell 08:50 AM 08:50 Versed 1 mg Intravenous Given by Walt Chapa RN dspell 08:52 AM 0.035 145cm J-wire wire utilized to assist with catheter placement dspell 08:52 AM wire and catheter advanced up and over the bifurcation dspell 08:53 AM Sheath exchanged for a 6 Fr 45 cm Terumo Destination sheath inserted into left femoral artery dspell 08:54 AM Time: 08:39 Is patient comfortable and pain free?: Yes dspell 08:54 AM Time: 08:39LOC: 4 = Oriented but drowsy dspell 08:59 AM switching room around for Dr New to work from the left dspell 09:01 AM 0.035 260cm [place]-angled wire utilized to assist with catheter placement dspell 08:53 AM Catheter removed dspell 09:03 AM Intervention started at this time dspellman 09:03 AM 5Fr 65cm Glidecath Angled-Taper guide catheter advanced to target vessel dspell 09:04 AM 09:03 Heparin 5000 units Intravenous by Walt Chapa RN dspsherrie 09:06 AM Inflation device dspell 09:08 AM 4 mm x 20 mm Obstetric Assistant balloon catheter placed into distal right common femoral dspell 09:09 AM Time: 08:54LOC: 4 = Oriented but drowsy dspell 09:09 AM Time: 08:54 Is patient comfortable and pain free?: Yes dspell 09:10 AM Diagram Region: Lower Extremity Arteries Anatomical Region: LE-Art95% Lesion in Distal Right Common Femoral Intervention done: 1 (1=yes, 0=no) dspell 09:10 AM Balloon inflated @ 20 joe for 60 seconds dspell 09:10 AM Balloon removed intact dspell 09:12 AM 6 mm x 40 mm Medtronic drug coated balloon placed into right distal common femoral [id number] dspell 09:14 AM Balloon inflated @ 14 joe for 180 seconds dspell 09:15 AM 09:14 Fentanyl 50 mcg Intravenous Given by Walt Chapa RN dspell 09:18 AM Balloon removed intact dspell 09:19 AM contrast injected, images obtained dspell 09:20 AM repositioned to the mid to distal SFA dspell 09:25 AM Time: 09:09 Is patient comfortable and pain free?: Yes dspell 09:25 AM Time: 09:09LOC: 4 = Oriented but drowsy dspellman 09:26 AM 6 mm x 120 mm Medtronic drug coated balloon placed into right superficial femoral [id number] dspell 09:26 AM Balloon inflated @ 10 joe for 180 seconds dspellman 09:27 AM Diagram Region: Lower Extremity Arteries Anatomical Region: LE-Art60% Lesion in Distal Right Superficial Femoral Intervention done: 1 (1=yes, 0=no) dspell 09:28 AM 09:27 Fentanyl 50 mcg Intravenous Given by Walt Chapa RN dspjordan 09:31 AM Balloon removed intact dspellmike 09:32 AM contrast injected, images obtained dspell 09:33 AM sheath pulled back to the left common iliac dspell 09:33 AM Guide wire removed intact [email or web address] 09:41 AM Time: 09:25LOC: 4 = Oriented but drowsy dspell 09:41 AM Time: 09:25 Is patient comfortable and pain free?: Yes 09:41 AM prepping for Central Line Placement, left groin dspell 09:45 AM Placing 7 Fr Multi Lumen Central Venous Line in the Left groin. dsp 09:46 AM Guide wire removed intact dspell 09:46 AM Catheter sutured in place dspell 09:48 AM Procedure completed at 09:48 dspell 09:49 AM Sign Out completed: Radiation Dose 491.01 mGy Fluoro Time: 6.3 minutes. Isovue 250- 150ml contrast 84.6 ml given by Luis New MD, FACS. Complications: None. Confirmed administered medications:Yes 09:54 AM Family placed in consult room. dsp 09:55 AM Isovue 300- 150ml,2 bottle(s) used. 09:55 AM ACT drawn dsp 09:56 AM ACT: 165 seconds 09:55 dspell 09:56 AM 09:56 Heparin 1000 units Intravenous by Walt Chapa RN dsp 09:57 AM Time: 09:57 Plavix 75 mg Orally Given by Walt Chapa [facility] AM Called Bed Management for bed request, no beds available at this time [facility]59 AM PVIStat 08:05 AM Case Start 08:10 AM Vitals capture started with the following parameters, Patient=Adult, Interval=5 min, Initial Dsuguyjx=421 mmHg, Deflation Rate=3 mmHg, Cuff placed on Right Arm 08:12 AM HR=75 bpm, SOOO=465/74 mmhg, SpO2=98.0 %, Comment=A-Fib 08:17 AM HR=75 bpm, KKCM=453/75 mmhg, SpO2=99.0 %, Comment=A-Fib 08:22 AM HR=71 bpm, MWQO=428/77 mmhg, SpO2=92.0 %, Comment=A-Fib 08:26 AM HR=72 bpm, ANVN=568/73 mmhg, SpO2=98.0 %, Comment=A-Fib 08:32 AM HR=72 bpm, XMUP=299/74 mmhg, SpO2=98.0 %, Comment=A-Fib 08:32 AM Recorded Pressure: Ao, HR=73, Condition=Condition 1 (Aorta) Ao 183/78/121 08:33 AM Recorded Pressure: Ao, HR=73, Condition=Condition 1 (Aorta) Ao 173/87/121 08:37 AM HR=72 bpm, VTPU=900/70 mmhg, SpO2=97.0 %, Comment=A-Fib 08:38 AM Recorded Pressure: Ao, HR=71, Condition=Condition 1 (Aorta) Ao 170/86/119 08:42 AM HR=69 bpm, XCPO=745/68 mmhg, SpO2=97.0 %, Comment=A-Fib 08:47 AM HR=70 bpm, IRUL=356/75 mmhg, SpO2=97.0 %, Comment=A-Fib 08:52 AM HR=69 bpm, SLSD=840/76 mmhg, SpO2=98.0 %, Comment=A-Fib 08:57 AM HR=70 bpm, YKGD=087/72 mmhg, SpO2=97.0 %, Comment=A-Fib 09:02 AM HR=70 bpm, GZRN=455/72 mmhg, SpO2=96.0 %, Comment=A-Fib 09:07 AM HR=69 bpm, ZCKR=335/69 mmhg, SpO2=96.0 %, Comment=A-Fib 09:12 AM HR=69 bpm, SGWR=605/70 mmhg, SpO2=96.0 %, Comment=A-Fib 09:17 AM HR=69 bpm, OQEP=270/73 mmhg, SpO2=97.0 %, Comment=A-Fib 09:22 AM HR=69 bpm, URIG=951/72 mmhg, SpO2=94.0 %, Comment=A-Fib 09:27 AM HR=72 bpm, TLGK=657/73 mmhg, SpO2=97.0 %, Comment=A-Fib 09:32 AM HR=68 bpm, YBZS=980/71 mmhg, SpO2=95.0 %, Comment=A-Fib 09:37 AM HR=67 bpm, XZVT=000/73 mmhg, SpO2=92.0 %, Comment=A-Fib 09:42 AM HR=71 bpm, LDNN=378/71 mmhg, SpO2=95.0 %, Comment=A-Fib 09:47 AM HR=67 bpm, TQYS=158/69 mmhg, SpO2=95.0 %, Comment=A-Fib 09:52 AM HR=68 bpm, YCRT=574/70 mmhg, SpO2=96.0 %, Comment=A-Fib 09:57 AM HR=70 bpm, JBTL=502/70 mmhg, SpO2=96.0 % 10:02 AM HR=70 bpm, FUHW=396/75 mmhg, SpO2=96.0 %, Comment=A-Fib 10:07 AM HR=68 bpm, NIUM=007/74 mmhg, SpO2=96.0 %, Comment=A-Fib 10:09 AM Report given to Hannah Ochoa RT(R). Pt taken to Holding room, Room # 3 10:09 dspellman 10:09 AM Sheath left in place to be pulled on floor/holding areaV+Pad dspellman 10:09 AM Estimated Blood Loss: less than 20cc dspellman 10:09 AM Post Blood Pressure: 151/74 dspellman 10:09 AM Post EKG: Atrial Fibrillation dspellman 10:10 AM Information taught: Peripheral angiogram and MACHINE SHOP WORKER dspellman 10:10 AM Education needs: Procedure, Plan of Care, and Responsibilities of Patient in Care dspellman 10:10 AM Learning barriers: None dspellman 10:10 AM Education methods: Verbal dspellman 10:10 AM Education evaluation: Able to repeat information dspellman 10:10 AM Patient pain level 0/10 dspellman 10:11 AM Site status No bleeding/hematoma - Lt Groin as reported by Pau Delgado RT (R) at 10:10 dspellman 10:11 AM Opsite applied dspellman 10:11 AM Delay to floor: Bed availability dspellman 10:11 AM Pt taken to Holding room Room# 3 dspellman 10:11 AM Complications: None dspellman 10:12 AM Fluoro Time: 6.3 minutes dspellman 10:12 AM Isovue 250- 150ml contrast 84.6 ml given by Luis New MD, FACS dspellman 10:12 AM Radiation Dose 491 mGy dspellman 10:15 AM Patient out of room 10:15 dspellman 11:21 AM Report given to edgardo LEOS. Pt taken to , Room # 11 11:21 tsites 11:21 AM Delay to floor: Bed availability tsites 11:21 AM Pt taken to 2N Room# 11 tsites Hemodynamic Results Site Systolic Diastolic Mean Location Timing Ao 183 78 121 Ao 173 87 121 Ao 170 86 119 Peripheral Anatomy Vessel Pathology Lesion Stenosis Aneurysm Diameter Thrombus Type Right Common Femoral Lesion 95 Right Superficial Femoral Lesion 60 Peripheral Intervention Anatomical Region:LE-Art Vessel Segment:Undefined Bookmark: [email or web address] Pathology Type:Lesion Pre-Stenosis:95 Peripheral Intervention Anatomical Region:LE-Art Vessel Segment:Undefined Bookmark: [email or web address] Pathology Type:Lesion Pre-Stenosis:60 Post Procedure Information Blood Pressure: 151/74 mmHg Rhythm: Atrial Fibrillation Post procedure instructions given Report Given To: Rosa Site Checks Time Location Status Staff Sheath In? Note 10:10:00 AM Lt Groin No bleeding/hematoma Pau Delgado RT (R) 12/13/2017 10:30:00 AM Lt Groin No bleeding/ No Hematoma Sites, Hannah RT (R) 12/13/2017 10:45:00 AM Lt Groin No bleeding/ No Hematoma Sites, Hannah RT (R) 12/13/2017 11:00:00 AM Lt Groin No bleeding/ No Hematoma Sites, Hannah RT (R) 12/13/2017 11:15:00 AM Lt Groin No bleeding/ No Hematoma Sites, Hannah RT (R) Pulses Time Site Pre Procedure Post Procedure Note 12/13/2017 10:30:00 AM Bilateral DP & PT Doppler 12/13/2017 10:45:00 AM Bilateral DP & PT Doppler 12/13/2017 11:00:00 AM Bilateral DP & PT Doppler 12/13/2017 11:15:00 AM Bilateral DP & PT Doppler Updated by RT Sakshi (R) on 12/13/2017 11:26:31 AM RT Sakshi electronically signed on 12/13/2017 11:27:22 AM with status of Final
[2017-12-13 12:29] LABS: Basophils % 0.1 %; Eosinophils % 0.5 %; Hematocrit 26.2 % (37.5-50.1); Hemoglobin 8.3 g/dL (12.9-16.9); Immature Granulocytes % 0.8 % (0-4); Lymphocytes # 0.8 K/mcL (0.6-4.6); Lymphocytes % 8.8 %; Mean Corpuscular HGB Conc 31.7 g/dL (31.6-35.5); Mean Corpuscular Hemoglobin 27.9 pg (28.0-33.3); Mean Corpuscular Volume 87.9 fL (83.0-100.0); Mean Platelet Volume 10.2 fL (9.4-12.4); Monocytes # 0.7 K/mcL (0.0-1.3); Monocytes % 7.8 %; Neutrophils # 7.3 K/mcL (1.6-8.9); Platelet Count 159 K/mcL (140-400); Red Blood Count 2.98 M/mcL (4.19-5.50); Red Cell Distribution Width 12.9 % (11.5-14.5)
[2017-12-13] MEDS: Meropenem 1,000 MG in 0.9 % Sodium Chloride Mini Bag 100 ML IVPB SCH ×2 (12:47→18:23)
[2017-12-13] MEDS: Insulin LISPRO 300 UNITS/3 ML VIAL SQ SCH ×4 (12:47→21:47)
[2017-12-13] MEDS: Insulin DETEMIR 100 UNIT/ML X5UNITS SQ SCH ×2 (12:47→21:48)
[2017-12-13 12:53] LABS: BUN/Creatinine Ratio 21 (6-26); Blood Urea Nitrogen 18 mg/dL (8-23); Calcium 8.1 mg/dL (8.6-10.3); Carbon Dioxide 23 mEq/L (23-29); Chloride 103 mEq/L (98-107); Glucose 248 mg/dL (70-105); Osmolality,Calculated 286 (280-300); Sodium 133 mEq/L (136-145); eGFR For African Americans > 60 (> 60); eGFR For Non-African Americans > 60 (> 60)
[2017-12-13] MEDS: Nicotine 21 MG PATCH.TD24 TD SCH (14:58)
[2017-12-13] MEDS: Diltiazem CD (24hr) 120 MG CAPSULE PO SCH (14:59)
[2017-12-13] MEDS: Lisinopril 20 MG TABLET PO SCH (14:59)
[2017-12-13] MEDS: Isosorbide MONOnitrate (24 HR) 30 MG TAB.ER.24H PO SCH (14:59)
[2017-12-13] MEDS: Aspirin Enteric Coated 325 MG Tablet PO SCH (14:59)
[2017-12-13] MEDS ORDERED: Gadolinium Contrast Agent (WT Based) IV PRN (16:47)
--- NOTE | 2017-12-13 18:47 | Internal Med Progress Note ---
Date of Encounter: 12/13/17 Time of Encounter: 11:00 - Assessment and plan (1) Peripheral arterial disease Current Visit: Yes Status: Acute Assessment and plan: Has been seen by Dr. Harris who performed an angioplasty during last hospitalization Vascular surgery following with recommendations for arteriogram which showed bilateral lower extremity runoff: Standard and drug coated balloon angioplasty of distal right common femoral artery stenosis Drug coated balloon angioplasty of distal right superficial femoral artery stenosis Placement of triple lumen central venous catheter via right femoral vein (2) Osteomyelitis Current Visit: Yes Status: Acute Assessment and plan: New right fifth metatarsal head acute osteomyelitis With multiple other feet ulcers Podiatry following and appreciate recommendations Infectious disease also following with recommendations to discontinue cefepime due to prior resistance to Citrobacter with recommendations to start meropenem; patient continuing IV vancomycin as well Qualifiers: Osteomyelitis type: subacute Osteomyelitis location: foot Laterality: right Qualified Code(s): M86.271 - Subacute osteomyelitis, right ankle and foot (3) Anemia Current Visit: Yes Status: Acute Assessment and plan: Acute on chronic blood loss anemia, history of gastric ulcers Hemoglobin has dropped from 13 on November 11 down to 8.3 this morning GI consult with plans for EGD/colonoscopy on 12/11/17 but patient refused to go through with testing Qualifiers: Anemia type: unspecified type Qualified Code(s): D64.9 - Anemia, unspecified (4) Diabetes mellitus Current Visit: No Status: Chronic Assessment and plan: Insulin sliding scale Qualifiers: Diabetes mellitus type: type 2 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 insulin use: with halfway use Diabetes mellitus complication status: with circulatory complication Diabetes mellitus complication detail: with peripheral angiopathy with gangrene Qualified Code(s): E11.52 - Type 2 diabetes 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; Z79.4 - terminal clerk (current) use of insulin; Z79.4 - detention (current) use of insulin; Z79.4 - detention ( current) use of insulin; Z79.4 - terminal clerk (current) use of insulin (5) A-fib Current Visit: No Status: Chronic Assessment and plan: Not on anticoagulation, continue diltiazem Qualifiers: Atrial fibrillation type: paroxysmal Qualified Code(s): I48.0 - Paroxysmal atrial fibrillation (6) CAD (coronary artery disease) Current Visit: No Status: Chronic Assessment and plan: Continue aspirin and Plavix Qualifiers: Coronary Disease-Associated Artery/Lesion type: [place] artery [place] vs. transplanted heart: unspecified whether north [place] or transplanted heart Associated angina: without angina Qualified Code(s): I25.10 - Atherosclerotic heart disease of [place] coronary artery without angina pectoris (7) Tobacco abuse Current Visit: No Status: Chronic Assessment and plan: Smoking cessation;nicotine patch (8) DVT prophylaxis Current Visit: Yes Status: Acute Assessment and plan: Subcutaneous heparin - Time Spent With Patient Total time spent is greater than 50% in coordination of care (as documented) at patient's floor/unit and/or counseling patient: - Subjective Interval history: Patient seen hemoglobin steadily declining but hemodynamically stable Consult with plans for EGD/colonoscopy on 12/11/17 however patient declined testing Vascular surgery following with recommendations for arteriogram with potential intervention on 12/13/17 - Constitutional Vitals: Temp Pulse Resp BP Pulse Ox 98.2 F 73 18 130/57 92 12/13/17 16:03 12/13/17 16:03 12/13/17 16:03 12/13/17 16:03 12/13/17 16:03 General appearance: Present: A&O X 3, no acute distress - Cardiovascular Cardiovascular exam: Present: RRR, +S1, +S2. Absent: diastolic murmur, gallop, rubs, systolic murmur - Psychiatric Psychiatric exam: Present: normal mood - Skin Skin exam: Present: pallor Internal Medicine: Result - Labs CBC & Chem 7: 12/13/17 08:14 12/13/17 08:14 Labs: Short CBC 12/13/17 Range/Units 08:14 WBC 8.9 (4.3-11.1) K/mcL Hgb 8.3 L (12.9-16.9) g/dL Hct 26.2 L (37.5-50.1) % Plt Count 159 (140-400) K/mcL Neutrophils # 7.3 (1.6-8.9) K/mcL BMP 12/13/17 08:14 Sodium 133 L Potassium 4.0 Chloride 103 Carbon Dioxide 23 BUN 18 Creatinine 0.85 Glucose 248 H Calcium 8.1 L - ABG Interpretation ABG results: PT/INR, D-dimer PT 14.3 Seconds (9.4-12.1) H 12/09/17 11:57 - Impressions Impressions Ankle MRI 12/13/17 16:47 IMPRESSION: 1. Large deep soft tissue ulceration over the posterolateral hindfoot with possible uncovering of the posterolateral calcaneus. Subjacent gas and areas of nonenhancing soft tissues suggesting devascularization or necrotic tissue. No sinus tract or drainable fluid collection. 2. MRI signal characteristics in the inferolateral calcaneus extending from anterior to posterior and across the mid calcaneal body suspicious for osteomyelitis versus noninfectious reactive osteitis. 3. Mild peroneal tenosynovitis. 4. Mild posterior tibial tenosynovitis. D/ / Brad Osborne MD / Brad Osborne MD Interpreting Provider: Brad Osborne MD - VTE Documentation of Mechanical Device: Intermittent pneumatic compression device Consult Discharge Plan - Plan [facility]errals: [facility] [Primary Care Provider[facility] - Lius New MD [Partnered Physician] - 01/01/18 11:45 am
[2017-12-13] MEDS: Gentamicin Oint 15 GM TUBE TP SCH (21:48)
[2017-12-14] MEDS: Meropenem 1,000 MG in 0.9 % Sodium Chloride Mini Bag 100 ML IVPB SCH ×3 (00:17→17:25)
[2017-12-14] MEDS: Isosorbide MONOnitrate (24 HR) 30 MG TAB.ER.24H PO SCH (08:09)
[2017-12-14] MEDS: Lisinopril 20 MG TABLET PO SCH (08:09)
[2017-12-14] MEDS: Aspirin Enteric Coated 325 MG Tablet PO SCH (08:09)
[2017-12-14] MEDS: Insulin LISPRO 300 UNITS/3 ML VIAL SQ SCH ×4 (08:10→21:54)
[2017-12-14] MEDS: Gentamicin Oint 15 GM TUBE TP SCH (08:11)
[2017-12-14] MEDS: Diltiazem CD (24hr) 120 MG CAPSULE PO SCH (08:11)
[2017-12-14] MEDS: Nicotine 21 MG PATCH.TD24 TD SCH (08:18)
[2017-12-14] MEDS: Insulin DETEMIR 100 UNIT/ML X5UNITS SQ SCH ×2 (08:21→21:56)
--- NOTE | 2017-12-14 10:38 | Vascular/Endovas Progress Note ---
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 This should greatly facilitate the patients healing potential. Continue current medical regimen; Wound care per podiatry. Qualifiers: Peripheral atherosclerosis artery type: bypass graft, autologous vein Qualified Code(s): I70.433 - Atherosclerosis of autologous vein bypass graft(s) of the right leg with ulceration of ankle; I70.443 - Atherosclerosis of autologous vein bypass graft(s) of the left leg with ulceration of ankle (2) Chronic foot ulcer Current Visit: Yes Status: Acute Qualifiers: Laterality: right Non-pressure ulcer stage: limited to breakdown of skin Qualified Code(s): L97.511 - Non-pressure chronic ulcer of other part of right foot limited to breakdown of skin - Subjective Interval history: Pt doing well after ACTIVITIES DIRECTOR SCOUTING right femoral artery yesterday; No complaints Vital Signs, Last 4 Hours Temp Pulse Resp BP 12/14/17 07:42 99.9 F H 71 17 157/69 - Physical Examination General: Present: Conversant HEENT: Present: Atraumatic, Normocephaly, Pupils equal Cardiac: Present: Reg Rate and Rhythm, Normal S1 and S2, No Murmur Lungs: Present: Normal Breath Sounds, No Wheeze, Rales, Rhonchi Neuro: Present: Alert and responsive Vascular: Present: Normal capillary refill, Pulse, normal, Surgical incisions ( Left groin soft and line in place) Abdomen: Present: Soft, Non-tender Skin: Present: No rashes noted on visualized skin, Wound/ulcer(s) (Wounds dressed on both feet) Musculoskeletal: Present: No Chest Wall Tenderness - VTE Documentation of Mechanical Device: Intermittent pneumatic compression device Results 12/13/17 08:14 12/13/17 08:14 Lab Results, Last 24 hours 12/13/17 12/13/17 08:14 08:14 WBC 8.9 Hgb 8.3 L Hct 26.2 L Plt Count 159 Sodium 133 L Potassium 4.0 Chloride 103 Carbon Dioxide 23 BUN 18 Creatinine 0.85 Glucose 248 H Calcium 8.1 L Consult Discharge Plan - Plan [facility]errals: [facility] [Primary Care Provider] - Luis New MD [Partnered Physician] - 01/01/18 11:45 am
[2017-12-14] MEDS: *HR* HYDROcodone/Acet 5/325 mg TABLET PO PRN (12:01)
[2017-12-14 12:21] LABS: Basophils % 0.2 %; Eosinophils # 0.1 K/mcL (0.0-0.6); Eosinophils % 0.8 %; Hematocrit 24.3 % (37.5-50.1); Hemoglobin 7.8 g/dL (12.9-16.9); Immature Granulocytes % 0.6 % (0-4); Lymphocytes # 0.9 K/mcL (0.6-4.6); Lymphocytes % 8.9 %; Mean Corpuscular HGB Conc 32.1 g/dL (31.6-35.5); Mean Corpuscular Hemoglobin 28.2 pg (28.0-33.3); Mean Corpuscular Volume 87.7 fL (83.0-100.0); Monocytes # 0.7 K/mcL (0.0-1.3); Monocytes % 6.7 %; Platelet Count 158 K/mcL (140-400); Red Blood Count 2.77 M/mcL (4.19-5.50); Red Cell Distribution Width 12.8 % (11.5-14.5); Segmented Neutrophils % 82.8 %
[2017-12-14 12:43] LABS: BUN/Creatinine Ratio 21 (6-26); Blood Urea Nitrogen 18 mg/dL (8-23); Carbon Dioxide 25 mEq/L (23-29); Chloride 104 mEq/L (98-107); Glucose 125 mg/dL (70-105); Osmolality,Calculated 281 (280-300); Potassium 3.5 mEq/L (3.5-5.1); Sodium 134 mEq/L (136-145); eGFR For African Americans > 60 (> 60); eGFR For Non-African Americans > 60 (> 60)
--- NOTE | 2017-12-14 18:29 | Internal Med Progress Note ---
Date of Encounter: 12/14/17 Time of Encounter: 11:00 - Assessment and plan (1) Peripheral arterial disease Current Visit: Yes Status: Acute Assessment and plan: Has been seen by Dr. Harris who performed an angioplasty during last hospitalization Vascular surgery following with recommendations for arteriogram which showed bilateral lower extremity runoff: Standard and drug coated balloon angioplasty of distal right common femoral artery stenosis Drug coated balloon angioplasty of distal right superficial femoral artery stenosis Placement of triple lumen central venous catheter via right femoral vein (2) Osteomyelitis Current Visit: Yes Status: Acute Assessment and plan: New right fifth metatarsal head acute osteomyelitis With multiple other feet ulcers Podiatry following and appreciate recommendations Infectious disease also following with recommendations to discontinue cefepime due to prior resistance to Citrobacter with recommendations to start meropenem; patient continuing IV vancomycin as well Qualifiers: Osteomyelitis type: subacute Osteomyelitis location: foot Laterality: right Qualified Code(s): M86.271 - Subacute osteomyelitis, right ankle and foot (3) Anemia Current Visit: Yes Status: Acute Assessment and plan: Acute on chronic blood loss anemia, history of gastric ulcers Hemoglobin has dropped from 13 on November 11 down to 8.3 this morning GI consult with plans for EGD/colonoscopy on 12/11/17 but patient refused to go through with testing Qualifiers: Anemia type: unspecified type Qualified Code(s): D64.9 - Anemia, unspecified (4) Diabetes mellitus Current Visit: No Status: Chronic Assessment and plan: Insulin sliding scale 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 control representative insulin use: with fci use Diabetes mellitus complication status: with circulatory complication Diabetes mellitus complication detail: with peripheral angiopathy with gangrene Qualified Code(s): 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 - Type 2 diabetes 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; Z79.4 - regional intermodal truck driver (current) use of insulin; Z79.4 - long-term (current) use of insulin; Z79.4 - long-term ( current) use of insulin; Z79.4 - regional intermodal truck driver (current) use of insulin (5) A-fib Current Visit: No Status: Chronic Assessment and plan: Not on anticoagulation, continue diltiazem Qualifiers: Atrial fibrillation type: paroxysmal Qualified Code(s): I48.0 - Paroxysmal atrial fibrillation (6) CAD (coronary artery disease) Current Visit: No Status: Chronic Assessment and plan: Continue aspirin and Plavix Qualifiers: Coronary Disease-Associated Artery/Lesion type: [place] artery [place] vs. transplanted heart: unspecified whether [place] or transplanted heart Associated angina: without angina Qualified Code(s): I25.10 - Atherosclerotic heart disease of [place] coronary artery without angina pectoris (7) Tobacco abuse Current Visit: No Status: Chronic Assessment and plan: Smoking cessation;nicotine patch - Time Spent With Patient Total time spent is greater than 50% in coordination of care (as documented) at patient's floor/unit and/or counseling patient: - Subjective Interval history: Patient doing well this morning status post vascular procedure - Constitutional Vitals: Temp Pulse Resp BP Pulse Ox 99.6 F 65 18 141/65 93 12/14/17 16:19 12/14/17 16:19 12/14/17 16:19 12/14/17 16:19 12/14/17 16:19 General appearance: Present: A&O X 3, no acute distress - Respiratory Respiratory exam: Present: CTAB. Absent: accessory muscle use, rales, rhonchi, wheezes - Cardiovascular Cardiovascular exam: Present: RRR, +S1, +S2. Absent: diastolic murmur, gallop, rubs, systolic murmur Internal Medicine: Result - Labs CBC & Chem 7: 12/14/17 12:05 12/14/17 12:05 Labs: Short CBC 12/14/17 Range/Units 12:05 WBC 9.7 (4.3-11.1) K/mcL Hgb 7.8 L (12.9-16.9) g/dL Hct 24.3 L (37.5-50.1) % Plt Count 158 (140-400) K/mcL Neutrophils # 8.0 (1.6-8.9) K/mcL BMP 12/14/17 12:05 Sodium 134 L Potassium 3.5 Chloride 104 Carbon Dioxide 25 BUN 18 Creatinine 0.84 Glucose 125 H Calcium 8.0 L - ABG Interpretation ABG results: PT/INR, D-dimer PT 14.3 Seconds (9.4-12.1) H 12/09/17 11:57 - Impressions Impressions Ankle MRI 12/13/17 16:47 IMPRESSION: 1. Large deep soft tissue ulceration over the posterolateral hindfoot with possible uncovering of the posterolateral calcaneus. Subjacent gas and areas of nonenhancing soft tissues suggesting devascularization or necrotic tissue. No sinus tract or drainable fluid collection. 2. MRI signal characteristics in the inferolateral calcaneus extending from anterior to posterior and across the mid calcaneal body suspicious for osteomyelitis versus noninfectious reactive osteitis. 3. Mild peroneal tenosynovitis. 4. Mild posterior tibial tenosynovitis. D/ / Brad Osborne MD / Brad Osborne MD Interpreting Provider: Brad Osborne MD - VTE Documentation of Mechanical Device: Intermittent pneumatic compression device Consult Discharge Plan - Plan [facility]errals: [facility] [Primary Care Provider[facility] - Luis New MD [Partnered Physician] - 01/01/18 11:45 am
[2017-12-14] MEDS: *HR* OxyCODONE Immed Rel 5 MG TABLET PO PRN (19:31)
[2017-12-14 22:40] LABS: Hematocrit 24.1 % (37.5-50.1); Hemoglobin 7.7 g/dL (12.9-16.9)
[2017-12-15] MEDS: Meropenem 1,000 MG in 0.9 % Sodium Chloride Mini Bag 100 ML IVPB SCH ×3 (00:42→16:23)
[2017-12-15 04:08] LABS: Hematocrit 25.1 % (37.5-50.1)
[2017-12-15] MEDS: Nicotine 21 MG PATCH.TD24 TD SCH (07:59)
[2017-12-15] MEDS: Insulin DETEMIR 100 UNIT/ML X5UNITS SQ SCH ×2 (07:59→20:11)
[2017-12-15] MEDS: Insulin LISPRO 300 UNITS/3 ML VIAL SQ SCH ×4 (07:59→20:12)
[2017-12-15] MEDS: Lisinopril 20 MG TABLET PO SCH (08:04)
[2017-12-15] MEDS: Aspirin Enteric Coated 325 MG Tablet PO SCH (08:04)
[2017-12-15] MEDS: Isosorbide MONOnitrate (24 HR) 30 MG TAB.ER.24H PO SCH (08:04)
[2017-12-15] MEDS: Diltiazem CD (24hr) 120 MG CAPSULE PO SCH (08:04)
[2017-12-15] MEDS: *HR* HYDROcodone/Acet 5/325 mg TABLET PO PRN ×2 (09:20→16:31)
[2017-12-15] MEDS: Gentamicin Oint 15 GM TUBE TP SCH (10:09)
[2017-12-15 10:25] LABS: Basophils % 0.1 %; Eosinophils # 0.1 K/mcL (0.0-0.6); Eosinophils % 1.4 %; Hematocrit 24.1 % (37.5-50.1); Hemoglobin 7.7 g/dL (12.9-16.9); Immature Granulocytes % 0.6 % (0-4); Lymphocytes # 0.8 K/mcL (0.6-4.6); Lymphocytes % 8.9 %; Mean Corpuscular Hemoglobin 28.2 pg (28.0-33.3); Mean Corpuscular Volume 88.3 fL (83.0-100.0); Mean Platelet Volume 10.2 fL (9.4-12.4); Monocytes # 0.6 K/mcL (0.0-1.3); Monocytes % 6.6 %; Neutrophils # 7.7 K/mcL (1.6-8.9); Platelet Count 177 K/mcL (140-400); Red Blood Count 2.73 M/mcL (4.19-5.50); Segmented Neutrophils % 82.4 %
[2017-12-15 10:45] LABS: BUN/Creatinine Ratio 21 (6-26); Blood Urea Nitrogen 18 mg/dL (8-23); Calcium 7.8 mg/dL (8.6-10.3); Carbon Dioxide 24 mEq/L (23-29); Chloride 105 mEq/L (98-107); Glucose 138 mg/dL (70-105); Osmolality,Calculated 282 (280-300); Potassium 3.4 mEq/L (3.5-5.1); Sodium 134 mEq/L (136-145); eGFR For African Americans > 60 (> 60); eGFR For Non-African Americans > 60 (> 60)
--- NOTE | 2017-12-15 18:20 | Internal Med Progress Note ---
Date of Encounter: 12/15/17 Time of Encounter: 11:00 - Assessment and plan (1) Peripheral arterial disease Current Visit: Yes Status: Acute Assessment and plan: Has been seen by Dr. Harris who performed an angioplasty during last hospitalization Vascular surgery following with recommendations for arteriogram which showed bilateral lower extremity runoff: Standard and drug coated balloon angioplasty of distal right common femoral artery stenosis Drug coated balloon angioplasty of distal right superficial femoral artery stenosis Placement of triple lumen central venous catheter via right femoral vein (2) Osteomyelitis Current Visit: Yes Status: Acute Assessment and plan: New right fifth metatarsal head acute osteomyelitis With multiple other feet ulcers Podiatry following and appreciate recommendations Infectious disease also following with recommendations to discontinue cefepime due to prior resistance to Citrobacter with recommendations to start meropenem; patient continuing IV vancomycin as well Qualifiers: Osteomyelitis type: subacute Osteomyelitis location: foot Laterality: right Qualified Code(s): M86.271 - Subacute osteomyelitis, right ankle and foot (3) Blurred vision Current Visit: Yes Status: Acute Assessment and plan: Patient reports a history of blurred vision reports the symptoms this morning Consult ophthalmology and appreciate recommendations (4) Anemia Current Visit: Yes Status: Acute Assessment and plan: Acute on chronic blood loss anemia, history of gastric ulcers Hemoglobin has dropped from 13 on November 11 down to 8.3 this morning GI consult with plans for EGD/colonoscopy on 12/11/17 but patient refused to go through with testing Qualifiers: Anemia type: unspecified type Qualified Code(s): D64.9 - Anemia, unspecified (5) Diabetes mellitus Current Visit: No Status: Chronic Assessment and plan: Insulin sliding scale Qualifiers: Diabetes mellitus type: type 2 Diabetes mellitus penitentiary insulin use: with superintendent terminal use Diabetes mellitus complication status: with circulatory complication Diabetes mellitus complication detail: with peripheral angiopathy with gangrene Qualified Code(s): E11.52 - Type 2 diabetes 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; Z79.4 - terminal gauger supervisor (current) use of insulin; Z79.4 - terminal gauger supervisor (current) use of insulin; Z79.4 - retirement ( current) use of insulin; Z79.4 - terminal gauger supervisor (current) use of insulin (6) A-fib Current Visit: No Status: Chronic Assessment and plan: Not on anticoagulation, continue diltiazem Qualifiers: Atrial fibrillation type: paroxysmal Qualified Code(s): I48.0 - Paroxysmal atrial fibrillation (7) CAD (coronary artery disease) Current Visit: No Status: Chronic Assessment and plan: Continue aspirin and Plavix Qualifiers: Coronary Disease-Associated Artery/Lesion type: [place] artery [place] vs. transplanted heart: unspecified whether [place] or transplanted heart Associated angina: without angina Qualified Code(s): I25.10 - Atherosclerotic heart disease of [place] coronary artery without angina pectoris (8) Tobacco abuse Current Visit: No Status: Chronic Assessment and plan: Smoking cessation;nicotine patch - Time Spent With Patient Total time spent is greater than 50% in coordination of care (as documented) at patient's floor/unit and/or counseling patient: - Subjective Interval history: Patient reports of blurred vision this morning but does admit to history of blurred vision and managed by performance makeup artist specialist - Constitutional Vitals: Temp Pulse Resp BP Pulse Ox 99.6 F 70 18 134/46 91 12/15/17 16:18 12/15/17 16:18 12/15/17 16:18 12/15/17 16:18 12/15/17 16:18 General appearance: Present: A&O X 3, no acute distress - Eye Eye exam: Present: normal appearance - Respiratory Respiratory exam: Present: CTAB. Absent: accessory muscle use, rales, rhonchi, wheezes - Cardiovascular Cardiovascular exam: Present: RRR, +S1, +S2. Absent: diastolic murmur, gallop, rubs, systolic murmur Internal Medicine: Result - Labs CBC & Chem 7: 12/15/17 10:00 12/15/17 10:00 Labs: Short CBC 12/14/17 12/15/17 12/15/17 Range/Units 22:30 04:00 10:00 WBC 9.4 (4.3-11.1) K/mcL Hgb 7.7 L 8.0 L 7.7 L (12.9-16.9) g/dL Hct 24.1 L 25.1 L 24.1 L (37.5-50.1) % Plt Count 177 (140-400) K/mcL Neutrophils # 7.7 (1.6-8.9) K/mcL BMP 12/15/17 10:00 Sodium 134 L Potassium 3.4 L Chloride 105 Carbon Dioxide 24 BUN 18 Creatinine 0.85 Glucose 138 H Calcium 7.8 L - ABG Interpretation ABG results: PT/INR, D-dimer PT 14.3 Seconds (9.4-12.1) H 12/09/17 11:57 - VTE Documentation of Mechanical Device: Intermittent pneumatic compression device Consult Discharge Plan - Plan [facility]errals: [facility] [Primary Care Provider] - Luis New MD [Partnered Physician] - 01/01/18 11:45 am
[2017-12-15] MEDS: Acetaminophen 325 MG TABLET PO PRN (20:11)
[2017-12-16] MEDS: Meropenem 1,000 MG in 0.9 % Sodium Chloride Mini Bag 100 ML IVPB SCH ×3 (00:05→16:45)
[2017-12-16] MEDS: Nicotine 21 MG PATCH.TD24 TD SCH (08:11)
[2017-12-16] MEDS: Lisinopril 20 MG TABLET PO SCH (08:12)
[2017-12-16] MEDS: Isosorbide MONOnitrate (24 HR) 30 MG TAB.ER.24H PO SCH (08:12)
[2017-12-16] MEDS: Aspirin Enteric Coated 325 MG Tablet PO SCH (08:12)
[2017-12-16] MEDS: Diltiazem CD (24hr) 120 MG CAPSULE PO SCH (08:12)
[2017-12-16] MEDS: Insulin DETEMIR 100 UNIT/ML X5UNITS SQ SCH ×2 (08:12→20:09)
[2017-12-16] MEDS: Insulin LISPRO 300 UNITS/3 ML VIAL SQ SCH ×4 (08:14→20:01)
[2017-12-16] MEDS: Gentamicin Oint 15 GM TUBE TP SCH (08:15)
[2017-12-16] MEDS: *HR* OxyCODONE Immed Rel 5 MG TABLET PO PRN (08:20)
[2017-12-16 08:49] LABS: Hematocrit 24.7 % (37.5-50.1); Mean Corpuscular HGB Conc 32.4 g/dL (31.6-35.5); Mean Corpuscular Hemoglobin 28.2 pg (28.0-33.3); Mean Platelet Volume 10.2 fL (9.4-12.4); Platelet Count 203 K/mcL (140-400); Red Blood Count 2.84 M/mcL (4.19-5.50); Red Cell Distribution Width 13.2 % (11.5-14.5)
--- NOTE | 2017-12-16 08:55 | Infectious Disease Progress No ---
Date of Encounter: 12/16/17 Time of Encounter: 08:53 - Assessment and Plan (1) Sepsis Current Visit: No Status: Resolved The patient had two SIRS criteria on admission. Likely secondary to osteomyelitis of the right foot. Improved. WBC normal. Tachycardia has resolved. Afebrile x 48 hours. Blood cultures drawn 12/09/17 are negative x 2 sets. Qualifiers: Sepsis type: sepsis due to unspecified organism Qualified Code(s): A41.9 - Sepsis, unspecified organism (2) Osteomyelitis Current Visit: Yes Status: Acute Previous osteomyelitis left foot second toe status post partial amputation. Imaging shows new osteomyelitis of the 5th metatarsal and 5th proximal phalanx. Causative organism unclear. Previous cultures positive for MSSA, Citrobacter, and Lecleria. Wound culture obtained this hospitalization is negative. Previously on IV Rocephin and IV Levaquin. X-ray of the right foot showed OM of the right 5th metatarsal. MRI of the right foot showed osteomyelitis of the right 5th metatarsal and 5th proximal phalanx. MRI of the right ankle completed 12/13/17 shows OM vs. reactive osteitis to the inferolateral aspect of the right calcaneus. Podiatry consulted and following. Await further recommendations. Wound care per the podiatry team. ESR 87, CRP 163. Continue Vancomycin IV. Pharmacy to dose. Goal trough ~15. VT 18 yesterday. Continue Meropenem 1 gram IV Q8H. Duration of treatment depends on the clinical picture. Monitor renal function and for drug toxicity and dose-adjust antibiotics. Qualifiers: Osteomyelitis type: subacute Osteomyelitis location: foot Laterality: right Qualified Code(s): M86.271 - Subacute osteomyelitis, right ankle and foot (3) Wound infection Current Visit: No Status: Acute Previous wound infection of the right heel and left 5th metatarsal. Causative organisms: MSSA, Citrobacter freundii, Lecleria adecarboxylata. Clinically, left lateral foot wound looks okay, but right heel continues to have regression and very foul-smelling discharge. Podiatry consulted and following. Wound care recommendations from the Podiatry team. Given the extent of the right heel wound, I am not sure that the limb is salvageable, but will await further recommendations from the vascular and podiatry teams. Continue antibiotics as above for now. (4) Anemia Current Visit: Yes Status: Acute Hemoglobin down to 9.9 on admission, down to 8 today. GI consulted. Recommend EGD/C-scope, but patient unable to tolerate bowel prep. Further workup and management per the primary and GI teams. Qualifiers: Anemia type: unspecified type Qualified Code(s): D64.9 - Anemia, unspecified (5) Diabetes mellitus Current Visit: No Status: Chronic HgbA1C 8.8% last month. Recommend aggressive glucose monitoring and control to promote wound healing and prevent re-infection. Management per the primary team. 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 Status post left LE Angiogram with balloon angioplasty of the previous graft anastamosis 11/06/[address] Harris. Status post RLE angiogram with balloon angioplasty of the right SFA 11/18/[address] Harris. Vascular surgery consulted. Status post angiogram with balloon angioplasty to right SFA 12/13/[address] New. 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 Current Visit: Yes Status: Chronic Qualifiers: Peripheral atherosclerosis artery type: bypass graft, autologous vein Qualified Code(s): I70.433 - Atherosclerosis of autologous vein bypass graft(s) of the right leg with ulceration of ankle; I70.443 - Atherosclerosis of autologous vein bypass graft(s) of the left leg with ulceration of ankle (8) A-fib Current Visit: No Status: Chronic Qualifiers: Atrial fibrillation type: paroxysmal Qualified Code(s): I48.0 - Paroxysmal atrial fibrillation (9) CAD (coronary artery disease) Current Visit: No Status: Chronic Qualifiers: Coronary Disease-Associated Artery/Lesion type: [place] artery [place] vs. transplanted heart: unspecified whether [place] or transplanted heart Associated angina: without angina Qualified Code(s): I25.10 - Atherosclerotic heart disease of [place] coronary artery without angina pectoris (10) Tobacco abuse Current Visit: No Status: Chronic - Subjective Interval history: Patient seen and examined. Weekend notes reviewed. Status post angiogram with right SFA balloon angioplasty on Saturday. Patient states overall he feels okay. Denies known fevers, chills, or rigors. Denies chest pain, shortness of breath, or cough. Denies nausea, vomiting, or diarrhea. Denies abdominal pain, urinary complaints, or appetite changes. States last BM was two days ago Denies oral thrush or skin lesions. Complains of pain in the right foot this morning, 10/15. Is concerned that there is a new blister/erythema to the medial aspect of the right foot. Infect Dis PN-Objective Data - Labs CBC & Chem 7: 12/16/17 08:17 12/16/17 07:50 Labs: Laboratory Results - last 24 hr 12/14/17 12/15/17 12/15/17 20:54 10:00 10:00 WBC 9.4 RBC 2.73 L Hgb 7.7 L Hct 24.1 L MCV 88.3 MCH 28.2 MCHC 32.0 RDW 13.0 Plt Count 177 MPV 10.2 Immature Gran % 0.6 Seg Neutrophils % 82.4 Lymphocytes % 8.9 Monocytes % 6.6 Eosinophils % 1.4 Basophils % 0.1 Neutrophils # 7.7 Lymphocytes # 0.8 Monocytes # 0.6 Eosinophils # 0.1 Basophils # 0.0 Sodium 134 L Potassium 3.4 L Chloride 105 Carbon Dioxide 24 BUN 18 Creatinine 0.85 Est GFR ( Amer) > 60 Est GFR (Non-Af Amer) > 60 BUN/Creatinine Ratio 21 Glucose 138 H POC Glucose 150 H Calculated Osmolality 282 Calcium 7.8 L Vancomycin Trough 12/16/17 12/16/17 12/16/17 00:37 07:07 08:17 WBC 7.8 RBC 2.84 L Hgb 8.0 L Hct 24.7 L MCV 87.0 MCH 28.2 MCHC 32.4 RDW 13.2 Plt Count 203 MPV 10.2 Immature Gran % Seg Neutrophils % Lymphocytes % Monocytes % Eosinophils % Basophils % Neutrophils # Lymphocytes # Monocytes # Eosinophils # Basophils # Sodium Potassium Chloride Carbon Dioxide BUN Creatinine Est GFR ( Amer) Est GFR (Non-Af Amer) BUN/Creatinine Ratio Glucose POC Glucose 201 H Calculated Osmolality Calcium Vancomycin Trough 18 H Cultures: Cultures 12/15/17 10:00 Wound Culture - Preliminary Right Foot No growth. Exam - Constitutional Vitals: Temp Pulse Resp BP Pulse Ox 98.7 F 64 18 154/68 95 12/16/17 07:09 12/16/17 07:09 12/16/17 07:09 12/16/17 07:09 12/16/17 07:09 General appearance: average body habitus, cooperative, no acute distress - Head Head exam: Present: atraumatic, normal inspection, normocephalic - Eye Eye exam: Present: EOMI, normal appearance, PERRL Pupils: Present: normal accommodation - ENT ENT exam: Present: mucous membranes moist - Neck Neck exam: Present: normal inspection - Respiratory Respiratory exam: Present: CTAB, rhonchi (Right base). Absent: rales, respiratory distress, wheezes - Cardiovascular Cardiovascular exam: Present: irregular rhythm. Absent: tachycardia - GI/Abdominal GI/Abdominal exam: Present: normal bowel sounds, soft. Absent: distended, tenderness - Extremities Exam Extremities exam: Present: joint swelling (Right ankle), pedal edema (1+ Right foot), tenderness (right foot) - Expanded Lower Extremity Exam 1 - Serous fluid-filled blister noted to the medial aspect of the right foot with surrounding erythema. 2 - Large ulceration noted to the lateral aspect of the right heel with 75% slough. No drainage. Minimal foul odor noted. Mild surrounding erythema. 3 - Necrotic ulcer noted overlying the fifth metatarsal. No erythema or purulent drainage. Minimal foul odor. 4 - Wound VAC dressing noted C/D/I with sponge well-compressed and no leak. Continuous suction at 125mm Hg. No drainage in the canister. 5 - Previous amputation site with dressing C/D/I. - Neurological Exam Neurological exam: Present: alert, oriented X3, no focal deficits - Psychiatric Psychiatric exam: Present: normal affect, normal mood - Skin Skin exam: Present: dry, intact, normal color, warm - VTE Documentation of Mechanical Device: Intermittent pneumatic compression device Consult Discharge Plan - Plan [facility]errals: [facility] [Primary Care Provider] - Luis New MD [Partnered Physician] - 01/01/18 11:45 am - Attending Attestation I examined this patient and my medical decision-making was reviewed with the Resident Physician. I agree with the documented findings, disposition and treatment plan as described except to the extent set forth below.
[2017-12-16 09:06] LABS: BUN/Creatinine Ratio 21 (6-26); Blood Urea Nitrogen 16 mg/dL (8-23); Calcium 8.1 mg/dL (8.6-10.3); Carbon Dioxide 25 mEq/L (23-29); Chloride 105 mEq/L (98-107); Glucose 180 mg/dL (70-105); Osmolality,Calculated 286 (280-300); Potassium 3.7 mEq/L (3.5-5.1); Sodium 135 mEq/L (136-145); eGFR For African Americans > 60 (> 60); eGFR For Non-African Americans > 60 (> 60)
[2017-12-16 09:07] LABS: Eosinophils # 0.1 K/mcL (0.0-0.6); Lymphocytes # 0.9 K/mcL (0.6-4.6); Monocytes # 0.4 K/mcL (0.0-1.3); Neutrophils # 6.5 K/mcL (1.6-8.9)
[2017-12-16 09:08] LABS: Platelet Estimate Normal (Normal)
--- NOTE | 2017-12-16 10:05 | Podiatry Progress Note ---
Date of Encounter: 12/16/17 Time of Encounter: 09:30 - Assessment and Plan (1) Necrotic eschar Current Visit: No Status: Acute (2) Diabetes mellitus Current Visit: No Status: Chronic Qualifiers: Diabetes mellitus type: type 2 Diabetes mellitus terminal operations supervisor insulin use: with shelter use Diabetes mellitus complication status: with circulatory complication Diabetes mellitus complication detail: with peripheral angiopathy with gangrene Qualified Code(s): E11.52 - Type 2 diabetes 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; Z79.4 - ad terminal makeup operator (current) use of insulin; Z79.4 - ad terminal makeup operator (current) use of insulin; Z79.4 - ad terminal makeup operator ( current) use of insulin; Z79.4 - ad terminal makeup operator (current) use of insulin (3) Chronic foot ulcer Current Visit: Yes Status: Acute Two necrotic ulcerations to the right foot, lateral aspect of the 5th metatarsal head and lateral aspect of the calcaneus. Plantar medial aspect of right foot with erythema, swelling, fluctuance and warmth. MRI of right ankle from 12/13/17 showed Large deep soft tissue ulceration over the posterolateral hindfoot with possible uncovering of the posterolateral calcaneus. Subjacent gas and areas of nonenhancing soft tissues suggesting devascularization or necrotic tissue. No sinus tract or drainable fluid collection. 2. MRI signal characteristics in the inferolateral calcaneus extending from anterior to posterior and across the mid calcaneal body suspicious for osteomyelitis versus noninfectious reactive osteitis. S/P JUNIOR ASSISTANT MANAGER right femoral artery by Dr. New on 12/13/17. WBC: 7.8 Plan: Dressing changed at bedside. Continue wound vac to left foot as ordered. Dr. Morales to plan for right foot 5th digit amputation with metatarsal resection of bone with incision and drainage, left foot irrigation and debridement of ulceration to the lateral aspect of the 5th metatarsal head on 12/19/17. Continue wound care as ordered. Antibiotics per ID. Qualifiers: Laterality: right Non-pressure ulcer stage: limited to breakdown of skin Qualified Code(s): L97.511 - Non-pressure chronic ulcer of other part of right foot limited to breakdown of skin Subjective Interval history: Patient is s/p Abdominal aortogram, Aortogram with bilateral lower extremity runoff, Standard and drug coated balloon angioplasty of distal right common femoral artery stenosis, Drug coated balloon angioplasty of distal right superficial femoral artery stenosis, Placement of triple lumen central venous catheter via right femoral vein by Dr. New on 12/13/17. Patient is lying in bed with dressing intact to both feet. Wound vac connected to the left foot. Patient states right foot is painful. No c/o fever, chills, cp, sob or flu like symptoms. Objective - Vital Signs Vital Signs: Vital Signs Temp Pulse Resp BP Pulse Ox 12/16/17 07:09 98.7 F 64 18 154/68 95 12/16/17 03:45 98.6 F 70 18 140/67 95 12/16/17 00:35 98.8 F 66 20 148/70 95 12/15/17 20:00 99.7 F H 76 22 142/51 95 12/15/17 16:18 99.6 F 70 18 134/46 91 12/15/17 12:25 94 12/15/17 11:25 99.3 F 68 19 128/57 92 Intake and Output 12/15/17 12/16/17 12/16/17 23:59 07:59 15:59 Intake Total 470 / 470 100 / 100 100 / 100 Output Total 505 / 505 250 / 250 Balance -35 / -35 -150 / -150 100 / 100 Intake: IV Fluids 350 / 350 100 / 100 100 / 100 Merrem 1,000 MG In 0.9 % Sodium 100 / 100 100 / 100 100 / 100 Chloride (Mini-Bag +) 100 ML @ 200 mls/hr IVPB Q8HR [facility] Rx#: [id number] Vancocin 1,250 MG In 0.9 % 250 / 250 Sodium Chloride 250 ML @ 166.67 mls/hr IVPB Q12H [facility] Rx#: [id number] Oral 120 / 120 Output: Urine 505 / 505 250 / 250 Other: Meal Dinner Percent of Meal Consumed 100% Blood Glucose* 211 201 - Exam Exam: General appearance: alert awake oriented X 3. Calm and pleasant, no acute distress.. Vascular: Edema graded at 1+/4 left, 2+/4 right, Skin Temperature warm, No calf pain with manual compression. capillary refill time is immediate to digits . Postop Exam: S/P Incision line to toe #2 left foot well approximated with sutures intact, no periwound erythema, no streaking, no pus, no odor. Wound #1: Full thickness ulceration to the lateral aspect of the right calcaneus measuring 7 cm in length x 6.8 cm in width x 1.5 cm in depth, base of wound is with 80% connected eschar, 20 % white fibrous tissue, malodorous, moderate amount of serous drainage observed to dressing, periwound erythema, no streaking, no probe to bone, no exposed bone. Wound #2: Lateral aspect of right foot at the 5th metatarsal head, with 80% eschar 20 % white fibrous tissue, periwound erythema, malodrous. . No purulent drainage. Moderate amount of serous drainage observed to dressing. Foot is warm with Wound #3: Full thickness ulceration to the lateral aspect of left foot at the 5th metatarsal head measuring 2 cm in length x 2 cm in width x 0.2 cm in depth, tunneling at 9 O'clock measuring 1 cm, base of wound with 80 %yellow fibrous tissue, 20% granualtion tissue, wound edges connected and macerated, no odor, no pus, no drainage observed to canister. light periwound erythema, no streaking. No probe to bone, no exposed bone. Wound #4: Partial thickness ulceration to the lateral aspect of left calcaneus measuring 1.5 cm in length x 1.5 cm in width x 0.1 cm in depth base of wound with 100% granulation tissue, no pus, no odor, no tunneling, no sinus tracts, no probe to bone, no exposed bone, ligament or tendon. - Lab Result Diagrams: 12/16/17 08:17 12/16/17 07:50 Labs: Abnormal lab results RBC 2.84 M/mcL (4.19-5.50) L 12/16/17 08:17 Hgb 8.0 g/dL (12.9-16.9) L 12/16/17 08:17 Hct 24.7 % (37.5-50.1) L 12/16/17 08:17 ESR 87 mm/hr (0-10) H 12/11/17 08:59 PT 14.3 Seconds (9.4-12.1) H 12/09/17 11:57 Sodium 135 mEq/L (136-145) L 12/16/17 07:50 Glucose 180 mg/dL (70-105) H 12/16/17 07:50 POC Glucose 201 mg/dL (70-99) H 12/16/17 07:07 Calcium 8.1 mg/dL (8.6-10.3) L 12/16/17 07:50 AST 7 Units/L (13-39) L 12/09/17 11:57 ALT 6 Units/L (7-52) L 12/09/17 11:57 C-Reactive Protein 163 mg/L (Less than 10) H 12/11/17 08:59 Albumin 3.3 g/dL (3.5-5.7) L 12/09/17 11:57 Globulin 3.9 g/dL (2.4-3.5) H 12/09/17 11:57 Albumin/Globulin Ratio 0.8 (1.1-2.2) L 12/09/17 11:57 Ur Specific [place] > 1.030 (1.010-1.025) H 12/09/17 12:24 Urine Protein 30 mg/dL (Neg-Trace) H 12/09/17 12:24 Urine Glucose (UA) >=1000 mg/dL (Normal) H 12/09/17 12:24 Ur Squamous Epith Cells Many per lpf (None-Few) H 12/09/17 12:24 Vancomycin Trough 18 mcg/mL (5-10) H 12/16/17 00:37 Microbiology, Last 48 Hours 12/15/17 10:00 Wound Culture - Preliminary Right Foot No growth. - VTE Documentation of Mechanical Device: Intermittent pneumatic compression device Consult Discharge Plan - Plan [facility]: [facility]Primary Care Provider[facility] - Luis New MD [Partnered Physician] - 01/01/18 11:45 am
--- NOTE | 2017-12-16 19:18 | Internal Med Progress Note ---
Date of Encounter: 12/16/17 Time of Encounter: 11:00 - Assessment and plan (1) Osteomyelitis Current Visit: Yes Status: Acute Assessment and plan: New right fifth metatarsal head acute osteomyelitis With multiple other feet ulcers Podiatry with plans for right foot 5th digit amputation with metatarsal resection of bone with incision and drainage, left foot irrigation and debridement of ulceration to the lateral aspect of the 5th metatarsal head on 12/19/17. Qualifiers: Osteomyelitis type: subacute Osteomyelitis location: foot Laterality: right Qualified Code(s): M86.271 - Subacute osteomyelitis, right ankle and foot (2) Peripheral arterial disease Current Visit: Yes Status: Acute Assessment and plan: Has been seen by Dr. Harris who performed an angioplasty during last hospitalization Vascular surgery following with recommendations for arteriogram which showed bilateral lower extremity runoff: Standard and drug coated balloon angioplasty of distal right common femoral artery stenosis Drug coated balloon angioplasty of distal right superficial femoral artery stenosis Placement of triple lumen central venous catheter via right femoral vein (3) Blurred vision Current Visit: Yes Status: Acute Assessment and plan: Patient reports a history of blurred vision and gets "injections" in his eyes by ophthalmology seen as an outpatient Patient to follow-up with his finance intern on discharge (4) Anemia Current Visit: Yes Status: Acute Assessment and plan: Acute on chronic blood loss anemia, history of gastric ulcers Hemoglobin has dropped from 13 on November 11 down to 8.3 this morning GI consult with plans for EGD/colonoscopy on 12/11/17 but patient refused to go through with testing Qualifiers: Anemia type: unspecified type Qualified Code(s): D64.9 - Anemia, unspecified (5) Diabetes mellitus Current Visit: No Status: Chronic Assessment and plan: Insulin sliding scale 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 inspector insulin use: with termite inspector use Diabetes mellitus complication status: with circulatory complication Diabetes mellitus complication detail: with peripheral angiopathy with gangrene Qualified Code(s): E11.52 - Type 2 diabetes 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; Z79.4 - jail (current) use of insulin; Z79.4 - termite control service representative (current) use of insulin; Z79.4 - jail ( current) use of insulin; Z79.4 - termite control service representative (current) use of insulin (6) A-fib Current Visit: No Status: Chronic Assessment and plan: Not on anticoagulation, continue diltiazem Qualifiers: Atrial fibrillation type: paroxysmal Qualified Code(s): I48.0 - Paroxysmal atrial fibrillation (7) CAD (coronary artery disease) Current Visit: No Status: Chronic Assessment and plan: Continue aspirin and Plavix Qualifiers: Coronary Disease-Associated Artery/Lesion type: [place] artery [place] vs. transplanted heart: unspecified whether [place] or transplanted heart Associated angina: without angina Qualified Code(s): I25.10 - Atherosclerotic heart disease of [place] coronary artery without angina pectoris (8) Tobacco abuse Current Visit: No Status: Chronic Assessment and plan: Smoking cessation;nicotine patch - Time Spent With Patient Total time spent is greater than 50% in coordination of care (as documented) at patient's floor/unit and/or counseling patient: - Subjective Interval history: Patient found to have osteomyelitis of right foot on IV meropenem and vancomycin Podiatry with plans for right foot 5th digit amputation with metatarsal resection of bone with incision and drainage, left foot irrigation and debridement of ulceration to the lateral aspect of the 5th metatarsal head on 12/19/17. - Constitutional Vitals: Temp Pulse Resp BP Pulse Ox 98.8 F 72 18 160/69 93 12/16/17 16:20 12/16/17 16:20 12/16/17 16:20 12/16/17 16:20 12/16/17 16:20 General appearance: Present: A&O X 3, no acute distress - Respiratory Respiratory exam: Present: CTAB. Absent: accessory muscle use, rales, rhonchi, wheezes - Cardiovascular Cardiovascular exam: Present: RRR, +S1, +S2. Absent: diastolic murmur, gallop, rubs, systolic murmur Internal Medicine: Result - Labs CBC & Chem 7: 12/16/17 08:17 12/16/17 07:50 Labs: Short CBC 12/16/17 Range/Units 08:17 WBC 7.8 (4.3-11.1) K/mcL Hgb 8.0 L (12.9-16.9) g/dL Hct 24.7 L (37.5-50.1) % Plt Count 203 (140-400) K/mcL Neutrophils # 6.5 (1.6-8.9) K/mcL BMP 12/16/17 07:50 Sodium 135 L Potassium 3.7 Chloride 105 Carbon Dioxide 25 BUN 16 Creatinine 0.75 Glucose 180 H Calcium 8.1 L - ABG Interpretation ABG results: PT/INR, D-dimer PT 14.3 Seconds (9.4-12.1) H 12/09/17 11:57 - VTE Documentation of Mechanical Device: Intermittent pneumatic compression device Consult Discharge Plan - Plan [facility]errals: [facility] [Primary Care Provider] - Luis New MD [Partnered Physician] - 01/01/18 11:45 am
[2017-12-16] MEDS: *HR* HYDROcodone/Acet 5/325 mg TABLET PO PRN (20:09)
[2017-12-17] MEDS: Meropenem 1,000 MG in 0.9 % Sodium Chloride Mini Bag 100 ML IVPB SCH ×3 (00:01→16:42)
[2017-12-17] MEDS: Lisinopril 20 MG TABLET PO SCH (08:01)
[2017-12-17] MEDS: Isosorbide MONOnitrate (24 HR) 30 MG TAB.ER.24H PO SCH (08:01)
[2017-12-17] MEDS: Aspirin Enteric Coated 325 MG Tablet PO SCH (08:01)
[2017-12-17] MEDS: Diltiazem CD (24hr) 120 MG CAPSULE PO SCH (08:01)
[2017-12-17] MEDS: Insulin DETEMIR 100 UNIT/ML X5UNITS SQ SCH ×2 (08:02→20:47)
[2017-12-17] MEDS: Gentamicin Oint 15 GM TUBE TP SCH (08:02)
[2017-12-17] MEDS: Insulin LISPRO 300 UNITS/3 ML VIAL SQ SCH ×4 (08:03→20:47)
[2017-12-17] MEDS: Nicotine 21 MG PATCH.TD24 TD SCH (08:13)
[2017-12-17 09:02] LABS: Basophils % 0.1 %; Eosinophils # 0.2 K/mcL (0.0-0.6); Eosinophils % 2.3 %; Hemoglobin 7.8 g/dL (12.9-16.9); Immature Granulocytes % 0.9 % (0-4); Lymphocytes # 0.7 K/mcL (0.6-4.6); Lymphocytes % 10.7 %; Mean Corpuscular HGB Conc 32.5 g/dL (31.6-35.5); Mean Corpuscular Hemoglobin 28.6 pg (28.0-33.3); Mean Corpuscular Volume 87.9 fL (83.0-100.0); Mean Platelet Volume 9.5 fL (9.4-12.4); Monocytes # 0.5 K/mcL (0.0-1.3); Monocytes % 7.7 %; Neutrophils # 5.4 K/mcL (1.6-8.9); Platelet Count 199 K/mcL (140-400); Red Blood Count 2.73 M/mcL (4.19-5.50); Red Cell Distribution Width 13.1 % (11.5-14.5); Segmented Neutrophils % 78.3 %
[2017-12-17 09:41] LABS: BUN/Creatinine Ratio 24 (6-26); Blood Urea Nitrogen 17 mg/dL (8-23); Calcium 7.9 mg/dL (8.6-10.3); Carbon Dioxide 23 mEq/L (23-29); Chloride 104 mEq/L (98-107); Glucose 126 mg/dL (70-105); Osmolality,Calculated 283 (280-300); Potassium 3.6 mEq/L (3.5-5.1); Sodium 135 mEq/L (136-145); eGFR For African Americans > 60 (> 60); eGFR For Non-African Americans > 60 (> 60)
--- NOTE | 2017-12-17 10:23 | Infectious Disease Progress No ---
Date of Encounter: 12/17/17 Time of Encounter: 10:20 - Assessment and Plan (1) Sepsis Current Visit: No Status: Resolved The patient had two SIRS criteria on admission. Likely secondary to osteomyelitis of the right foot. Improved. WBC normal. Tachycardia has resolved. Afebrile. Blood cultures drawn 12/09/17 are negative x 2 sets. Qualifiers: Sepsis type: sepsis due to unspecified organism Qualified Code(s): A41.9 - Sepsis, unspecified organism (2) Osteomyelitis Current Visit: Yes Status: Acute Previous osteomyelitis left foot second toe status post partial amputation. Imaging shows new osteomyelitis of the 5th metatarsal and 5th proximal phalanx. Causative organism unclear. Previous cultures positive for MSSA, Citrobacter, and Lecleria. Wound culture obtained this hospitalization is negative. Previously on IV Rocephin and IV Levaquin. X-ray of the right foot showed OM of the right 5th metatarsal. MRI of the right foot showed osteomyelitis of the right 5th metatarsal and 5th proximal phalanx. MRI of the right ankle completed 12/13/17 shows OM vs. reactive osteitis to the inferolateral aspect of the right calcaneus. Wound culture positive for Yeast. Not sure if this is contributing to the patient's infection picture. Unfortunately, there is a severe drug-drug interaction between fluconazole and plavix so we will hold off on adding this to the patient's medication regimen. Podiatry consulted and following. Planning for surgery on per the notes. Wound care per the podiatry team. ESR 87, CRP 163. Continue Vancomycin IV. Pharmacy to dose. Goal trough ~15. VT 18 yesterday. Continue Meropenem 1 gram IV Q8H. Start fluconazole 200mg IV daily. Duration of treatment depends on the clinical picture. Monitor renal function and for drug toxicity and dose-adjust antibiotics. Qualifiers: Osteomyelitis type: subacute Osteomyelitis location: foot Laterality: right Qualified Code(s): M86.271 - Subacute osteomyelitis, right ankle and foot (3) Wound infection Current Visit: No Status: Acute Previous wound infection of the right heel and left 5th metatarsal. Causative organisms: MSSA, Citrobacter freundii, Lecleria adecarboxylata. Clinically, left lateral foot wound looks okay, but right heel continues to have regression and very foul-smelling discharge. Podiatry consulted and following. Wound care recommendations from the Podiatry team. Given the extent of the right heel wound, I am not sure that the limb is salvageable, but will await further recommendations from the vascular and podiatry teams. Continue antibiotics as above for now. (4) Anemia Current Visit: Yes Status: Chronic Hemoglobin down to 9.9 on admission, down to 7.8 today. GI consulted. Recommend EGD/C-scope, but patient unable to tolerate bowel prep. Further workup and management per the primary and GI teams. Qualifiers: Anemia type: unspecified type Qualified Code(s): D64.9 - Anemia, unspecified (5) Diabetes mellitus Current Visit: Yes Status: Chronic HgbA1C 8.8% last month. Recommend aggressive glucose monitoring and control to promote wound healing and prevent re-infection. Management per the primary team. Qualifiers: Diabetes mellitus type: type 2 Diabetes mellitus middle or intermediate school principal insulin use: with penitentiary use Diabetes mellitus complication status: with circulatory complication Diabetes mellitus complication detail: with peripheral angiopathy with gangrene Qualified Code(s): E11.52 - Type 2 diabetes 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; Z79.4 - intermediate project manager (current) use of insulin; Z79.4 - intermediate project manager (current) use of insulin; Z79.4 - intermediate project manager ( current) use of insulin; Z79.4 - intermediate project manager (current) use of insulin (6) Peripheral vascular disease Current Visit: No Status: Chronic Status post femoral to above the knee popliteal bypass graft in 2016. Status post left LE Angiogram with balloon angioplasty of the previous graft anastamosis 11/06/[address] Harris. Status post RLE angiogram with balloon angioplasty of the right SFA 11/18/[address] Harris. Vascular surgery consulted. Status post angiogram with balloon angioplasty to right SFA 12/13/[address] New. 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 Current Visit: Yes Status: Chronic Qualifiers: Peripheral atherosclerosis artery type: bypass graft, autologous vein Qualified Code(s): I70.433 - Atherosclerosis of autologous vein bypass graft(s) of the right leg with ulceration of ankle; I70.443 - Atherosclerosis of autologous vein bypass graft(s) of the left leg with ulceration of ankle (8) A-fib Current Visit: Yes Status: Chronic Qualifiers: Atrial fibrillation type: paroxysmal Qualified Code(s): I48.0 - Paroxysmal atrial fibrillation (9) CAD (coronary artery disease) Current Visit: No Status: Chronic Qualifiers: Coronary Disease-Associated Artery/Lesion type: [place] artery [place] vs. transplanted heart: unspecified whether [place] or transplanted heart Associated angina: without angina Qualified Code(s): I25.10 - Atherosclerotic heart disease of [place] coronary artery without angina pectoris (10) Tobacco abuse Current Visit: No Status: Chronic (11) Constipation Current Visit: Yes Status: Acute Patient reports last BM was before his angiogram last week. Denies abdominal pain. Bowel regimen per the primary team. Qualifiers: Constipation type: unspecified constipation type Qualified Code(s): K59.00 - Constipation, unspecified - Subjective Interval history: Patient seen and examined. No acute events noted overnight. Status post angiogram with right SFA balloon angioplasty on Saturday. Patient states overall he feels okay. Reports a large amount of drainage from right foot. Denies known fevers, chills, or rigors. Denies chest pain, shortness of breath, or cough. Denies nausea, vomiting, or diarrhea. Denies abdominal pain, urinary complaints , or appetite changes. States last BM was several days ago. Denies oral thrush or skin lesions. Complains of pain in the right foot this morning, 10/15.States he hasn't talked to Podiatry and doesn't know what the plan is. Infect Dis PN-Objective Data - Labs CBC & Chem 7: 12/17/17 08:41 12/17/17 08:41 Labs: Laboratory Results - last 24 hr 12/15/17 12/15/17 12/15/17 07:34 11:27 16:23 WBC RBC Hgb Hct MCV MCH MCHC RDW Plt Count MPV Immature Gran % Seg Neutrophils % Lymphocytes % Monocytes % Eosinophils % Basophils % Neutrophils # Lymphocytes # Monocytes # Eosinophils # Basophils # Sodium Potassium Chloride Carbon Dioxide BUN Creatinine Est GFR ( Amer) Est GFR (Non-Af Amer) BUN/Creatinine Ratio Glucose POC Glucose 62 L 171 H 176 H Calculated Osmolality Calcium 12/15/17 12/16/17 12/16/17 20:03 11:31 16:16 WBC RBC Hgb Hct MCV MCH MCHC RDW Plt Count MPV Immature Gran % Seg Neutrophils % Lymphocytes % Monocytes % Eosinophils % Basophils % Neutrophils # Lymphocytes # Monocytes # Eosinophils # Basophils # Sodium Potassium Chloride Carbon Dioxide BUN Creatinine Est GFR ( Amer) Est GFR (Non-Af Amer) BUN/Creatinine Ratio Glucose POC Glucose 211 H 107 H 113 H Calculated Osmolality Calcium 12/16/17 12/17/17 12/17/17 19:48 08:41 08:41 WBC 6.9 RBC 2.73 L Hgb 7.8 L Hct 24.0 L MCV 87.9 MCH 28.6 MCHC 32.5 RDW 13.1 Plt Count 199 MPV 9.5 Immature Gran % 0.9 Seg Neutrophils % 78.3 Lymphocytes % 10.7 Monocytes % 7.7 Eosinophils % 2.3 Basophils % 0.1 Neutrophils # 5.4 Lymphocytes # 0.7 Monocytes # 0.5 Eosinophils # 0.2 Basophils # 0.0 Sodium 135 L Potassium 3.6 Chloride 104 Carbon Dioxide 23 BUN 17 Creatinine 0.71 Est GFR ( Amer) > 60 Est GFR (Non-Af Amer) > 60 BUN/Creatinine Ratio 24 Glucose 126 H POC Glucose 130 H Calculated Osmolality 283 Calcium 7.9 L Cultures: Cultures 12/15/17 10:00 Wound Culture - Preliminary Right Foot Yeast Species Exam - Constitutional Vitals: Temp Pulse Resp BP Pulse Ox 98.9 F 65 16 167/91 96 12/17/17 07:24 12/17/17 04:00 12/17/17 07:24 12/17/17 07:24 12/17/17 07:24 General appearance: average body habitus, cooperative, no acute distress - Head Head exam: Present: atraumatic, normal inspection, normocephalic - Eye Eye exam: Present: EOMI, normal appearance, PERRL Pupils: Present: normal accommodation - ENT ENT exam: Present: mucous membranes moist - Neck Neck exam: Present: normal inspection - Respiratory Respiratory exam: Present: CTAB. Absent: rales, respiratory distress, rhonchi, wheezes - Cardiovascular Cardiovascular exam: Present: irregular rhythm. Absent: tachycardia - GI/Abdominal GI/Abdominal exam: Present: normal bowel sounds, soft. Absent: distended, tenderness - Extremities Exam Extremities exam: Absent: joint swelling, pedal edema, tenderness Additional comments: Right foot dressing with moderate amount of old blood to the medial aspect. No foul odor. No purulent drainage. No erythema to the skin around the dressing. Left foot wound VAC dressing with sponge well-compressed and transparent dressing intact. No drainage or leak noted. - Neurological Exam Neurological exam: Present: alert, oriented X3, no focal deficits - Psychiatric Psychiatric exam: Present: normal affect, normal mood - Skin Skin exam: Present: dry, intact, normal color, warm - VTE Documentation of Mechanical Device: Intermittent pneumatic compression device Consult Discharge Plan - Plan [facility]errals: [facility] [Primary Care Provider] - 12/30/17 11:00 am Luis New MD [Partnered Physician] - 01/01/18 11:45 am - Attending Attestation I examined this patient and my medical decision-making was reviewed with the Resident Physician. I agree with the documented findings, disposition and treatment plan as described except to the extent set forth below.
--- NOTE | 2017-12-17 15:15 | Internal Med Progress Note ---
Date of Encounter: 12/17/17 Time of Encounter: 10:20 - Assessment and plan (1) Osteomyelitis Current Visit: Yes Status: Acute Assessment and plan: Involving the right foot fifth digit. Plan for surgery including amputation and incision and drainage of the fifth digit on . Continue IV antibiotics. Patient underwent angioplasty of the distal right common femoral and superficial femoral arteries. Currently on meropenem and vancomycin. Infectious disease following. Wound cultures previously grew Citrobacter, staph aureus, leclercia Qualifiers: Osteomyelitis type: subacute Osteomyelitis location: foot Laterality: right Qualified Code(s): M86.271 - Subacute osteomyelitis, right ankle and foot (2) Diabetes mellitus Current Visit: Yes Status: Chronic Assessment and plan: Well-controlled. Continue current insulin regimen Qualifiers: Diabetes mellitus type: type 2 Diabetes mellitus shop estimator insulin use: with shop estimator use Diabetes mellitus complication status: with circulatory complication Diabetes mellitus complication detail: with peripheral angiopathy with gangrene Qualified Code(s): E11.52 - Type 2 diabetes 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; Z79.4 - care home (current) use of insulin; Z79.4 - care home (current) use of insulin; Z79.4 - care home ( current) use of insulin; Z79.4 - log hauler (current) use of insulin (3) A-fib Current Visit: Yes Status: Chronic Assessment and plan: Rate controlled. Continue Cardizem. Not currently on anticoagulation Qualifiers: Atrial fibrillation type: paroxysmal Qualified Code(s): I48.0 - Paroxysmal atrial fibrillation (4) CAD (coronary artery disease) Current Visit: No Status: Chronic Assessment and plan: On aspirin, Plavix Qualifiers: Coronary Disease-Associated Artery/Lesion type: [place] artery [place] vs. transplanted heart: unspecified whether [place] or transplanted heart Associated angina: without angina Qualified Code(s): I25.10 - Atherosclerotic heart disease of [place] coronary artery without angina pectoris (5) Tobacco abuse Current Visit: No Status: Chronic Assessment and plan: Continue nicotine patch (6) Peripheral arterial disease Current Visit: Yes Status: Acute Assessment and plan: Status post angioplasty off the right common and superficial femoral arteries. On aspirin, Plavix. (7) Anemia Current Visit: Yes Status: Chronic Assessment and plan: Hemoglobin 7.8 today. We will continue to monitor. Patient may need blood transfusion after surgery. Qualifiers: Anemia type: unspecified type Qualified Code(s): D64.9 - Anemia, unspecified (8) Blurred vision Current Visit: Yes Status: Resolved - Time Spent With Patient Total time spent is greater than 50% in coordination of care (as documented) at patient's floor/unit and/or counseling patient: - Subjective Interval history: Patient is lying in bed. He is comfortable. Denies any new complaints at this time. Awaiting surgery scheduled for . Pain well controlled and lower extremities. - Constitutional Vitals: Temp Pulse Resp BP Pulse Ox 98.3 F 69 18 173/75 96 12/17/17 11:17 12/17/17 11:17 12/17/17 11:17 12/17/17 11:17 12/17/17 11:17 General appearance: Present: cooperative, A&O X 3, no acute distress, answers questions appropriately - Neck Neck exam general surgery: Present: supple, trachea midline. Absent: lymphadenopathy - Respiratory Respiratory exam: Present: CTAB. Absent: accessory muscle use, rales, rhonchi, wheezes - Cardiovascular Cardiovascular exam: Present: RRR, +S1, +S2. Absent: diastolic murmur, gallop, rubs, systolic murmur - GI/Abdominal GI/Abdominal exam: Present: normal bowel sounds, soft, no peritoneal signs. Absent: distended, tenderness - Extremities Exam Extremities exam: Present: warm, radial pulses palpable and symmetrical. Absent : calf tenderness, cyanotic, pedal edema Additional comments: Both feet are currently bandaged - Neurological Exam Neurological exam: Present: alert, oriented X3, no focal deficits. Absent: facial droop, speech deficit Internal Medicine: Result - Labs CBC & Chem 7: 12/17/17 08:41 12/17/17 08:41 Labs: Short CBC 12/17/17 Range/Units 08:41 WBC 6.9 (4.3-11.1) K/mcL Hgb 7.8 L (12.9-16.9) g/dL Hct 24.0 L (37.5-50.1) % Plt Count 199 (140-400) K/mcL Neutrophils # 5.4 (1.6-8.9) K/mcL BMP 12/17/17 08:41 Sodium 135 L Potassium 3.6 Chloride 104 Carbon Dioxide 23 BUN 17 Creatinine 0.71 Glucose 126 H Calcium 7.9 L - ABG Interpretation ABG results: PT/INR, D-dimer PT 14.3 Seconds (9.4-12.1) H 12/09/17 11:57 - VTE Documentation of Mechanical Device: Intermittent pneumatic compression device Consult Discharge Plan - Plan Referrals: YUNIEL,PCP [Primary Care Provider] - 12/30/17 11:00 am Luis New MD [Partnered Physician] - 01/01/18 11:45 am
[2017-12-17] MEDS: *HR* HYDROcodone/Acet 5/325 mg TABLET PO PRN (20:16)
[2017-12-17] MEDS: Sennosides/Docusate Sodium TABLET PO SCH (20:19)
[2017-12-18] MEDS: Meropenem 1,000 MG in 0.9 % Sodium Chloride Mini Bag 100 ML IVPB SCH ×3 (00:33→16:57)
[2017-12-18 05:38] LABS: Eosinophils # 0.2 K/mcL (0.0-0.6); Hematocrit 22.8 % (37.5-50.1); Hemoglobin 7.2 g/dL (12.9-16.9); Immature Granulocytes % 0.6 % (0-4); Lymphocytes # 0.9 K/mcL (0.6-4.6); Lymphocytes % 16.8 %; Mean Corpuscular HGB Conc 31.6 g/dL (31.6-35.5); Mean Corpuscular Hemoglobin 27.7 pg (28.0-33.3); Mean Corpuscular Volume 87.7 fL (83.0-100.0); Monocytes # 0.5 K/mcL (0.0-1.3); Monocytes % 10.2 %; Neutrophils # 3.7 K/mcL (1.6-8.9); Platelet Count 222 K/mcL (140-400); Red Cell Distribution Width 13.1 % (11.5-14.5); Segmented Neutrophils % 69.4 %
[2017-12-18 05:46] LABS: BUN/Creatinine Ratio 23 (6-26); Blood Urea Nitrogen 17 mg/dL (8-23); Carbon Dioxide 27 mEq/L (23-29); Chloride 105 mEq/L (98-107); Glucose 204 mg/dL (70-105); Osmolality,Calculated 291 (280-300); Potassium 3.9 mEq/L (3.5-5.1); Sodium 137 mEq/L (136-145); eGFR For African Americans > 60 (> 60); eGFR For Non-African Americans > 60 (> 60)
[2017-12-18 08:02] LABS: % Iron Saturation 7 % (20-55); Iron 11 mcg/dL (65-175); Transferrin 108 mg/dL (203-362)
[2017-12-18] MEDS: Lisinopril 20 MG TABLET PO SCH (08:06)
[2017-12-18] MEDS: Insulin LISPRO 300 UNITS/3 ML VIAL SQ SCH ×4 (08:06→21:11)
[2017-12-18] MEDS: Diltiazem CD (24hr) 120 MG CAPSULE PO SCH (08:06)
[2017-12-18] MEDS: Aspirin Enteric Coated 325 MG Tablet PO SCH (08:07)
[2017-12-18] MEDS: Nicotine 21 MG PATCH.TD24 TD SCH (08:07)
[2017-12-18] MEDS: Insulin DETEMIR 100 UNIT/ML X5UNITS SQ SCH ×2 (08:07→21:11)
[2017-12-18] MEDS: Isosorbide MONOnitrate (24 HR) 30 MG TAB.ER.24H PO SCH (08:07)
[2017-12-18] MEDS: Sennosides/Docusate Sodium TABLET PO SCH (08:07)
[2017-12-18 08:21] LABS: Ferritin 438 ng/mL (20-250)
[2017-12-18 09:04] LABS: Folate 8.2 ng/mL (3.0-16.0)
[2017-12-18] MEDS ORDERED: Sennosides/Docusate Sodium TABLET PO PRN (10:13)
[2017-12-18] MEDS: Gentamicin Oint 15 GM TUBE TP SCH (10:29)
--- NOTE | 2017-12-18 10:54 | Infectious Disease Progress No ---
Date of Encounter: 12/18/17 Time of Encounter: 10:53 - Assessment and Plan (1) Sepsis Current Visit: No Status: Resolved The patient had two SIRS criteria on admission. Likely secondary to osteomyelitis of the right foot. Improved. WBC normal. Tachycardia has resolved. Afebrile. Blood cultures drawn 12/09/17 are negative x 2 sets. Qualifiers: Sepsis type: sepsis due to unspecified organism Qualified Code(s): A41.9 - Sepsis, unspecified organism (2) Osteomyelitis Current Visit: Yes Status: Acute Previous osteomyelitis left foot second toe status post partial amputation. Imaging shows new osteomyelitis of the 5th metatarsal and 5th proximal phalanx. Causative organism unclear. Previous cultures positive for MSSA, Citrobacter, and Lecleria. Wound culture obtained this hospitalization is negative. Previously on IV Rocephin and IV Levaquin. X-ray of the right foot showed OM of the right 5th metatarsal. MRI of the right foot showed osteomyelitis of the right 5th metatarsal and 5th proximal phalanx. MRI of the right ankle completed 12/13/17 shows OM vs. reactive osteitis to the inferolateral aspect of the right calcaneus. Wound culture positive for Yeast. Not sure if this is contributing to the patient's infection picture. Unfortunately, there is a severe drug-drug interaction between fluconazole and plavix so we will hold off on adding this to the patient's medication regimen. Podiatry consulted and following. Planning for surgery on per the notes. Wound care per the podiatry team. ESR 87, CRP 163. Continue Vancomycin IV. Pharmacy to dose. Goal trough ~15. VT 18. Continue Meropenem 1 gram IV Q8H through today, then switch to IV Ertapenem 1 gram daily for ease of dosing. Duration of treatment depends on the clinical picture. Monitor renal function and for drug toxicity and dose-adjust antibiotics. Qualifiers: Osteomyelitis type: subacute Osteomyelitis location: foot Laterality: right Qualified Code(s): M86.271 - Subacute osteomyelitis, right ankle and foot (3) Wound infection Current Visit: No Status: Acute Previous wound infection of the right heel and left 5th metatarsal. Causative organisms: MSSA, Citrobacter freundii, Lecleria adecarboxylata. Clinically, left lateral foot wound looks okay, but right heel continues to have regression and very foul-smelling discharge. Podiatry consulted and following. Wound care recommendations from the Podiatry team. Given the extent of the right heel wound, I am not sure that the limb is salvageable, but will await further recommendations from the vascular and podiatry teams. Continue antibiotics as above for now. (4) Anemia Current Visit: Yes Status: Chronic Hemoglobin down to 9.9 on admission, down to 7.2 today. GI consulted. Recommend EGD/C-scope, but patient unable to tolerate bowel prep. Further workup and management per the primary and GI teams. Qualifiers: Anemia type: unspecified type Qualified Code(s): D64.9 - Anemia, unspecified (5) Diabetes mellitus Current Visit: Yes Status: Chronic HgbA1C 8.8% last month. Recommend aggressive glucose monitoring and control to promote wound healing and prevent re-infection. Management per the primary team. Qualifiers: Diabetes mellitus type: type 2 Diabetes mellitus superintendent container terminal insulin use: with retirement use Diabetes mellitus complication status: with circulatory complication Diabetes mellitus complication detail: with peripheral angiopathy with gangrene Qualified Code(s): E11.52 - Type 2 diabetes 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; Z79.4 - assisted (current) use of insulin; Z79.4 - termination clerk (current) use of insulin; Z79.4 - termination clerk ( current) use of insulin; Z79.4 - assisted (current) use of insulin (6) Peripheral vascular disease Current Visit: No Status: Chronic Status post femoral to above the knee popliteal bypass graft in 2016. Status post left LE Angiogram with balloon angioplasty of the previous graft anastamosis 11/06/[address] Harris. Status post RLE angiogram with balloon angioplasty of the right SFA 11/18/[address] Harris. Vascular surgery consulted. Status post angiogram with balloon angioplasty to right SFA 12/13/[address] New. 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 Current Visit: Yes Status: Chronic Qualifiers: Peripheral atherosclerosis artery type: bypass graft, autologous vein Qualified Code(s): I70.433 - Atherosclerosis of autologous vein bypass graft(s) of the right leg with ulceration of ankle; I70.443 - Atherosclerosis of autologous vein bypass graft(s) of the left leg with ulceration of ankle (8) A-fib Current Visit: Yes Status: Chronic Qualifiers: Atrial fibrillation type: paroxysmal Qualified Code(s): I48.0 - Paroxysmal atrial fibrillation (9) CAD (coronary artery disease) Current Visit: Yes Status: Chronic Qualifiers: Coronary Disease-Associated Artery/Lesion type: [place] artery [place] vs. transplanted heart: unspecified whether [place] or transplanted heart Associated angina: without angina Qualified Code(s): I25.10 - Atherosclerotic heart disease of [place] coronary artery without angina pectoris (10) Tobacco abuse Current Visit: No Status: Chronic (11) Constipation Current Visit: Yes Status: Acute Had small BM yesterday. Denies abdominal pain. Bowel regimen per the primary team. Qualifiers: Constipation type: unspecified constipation type Qualified Code(s): K59.00 - Constipation, unspecified - Subjective Interval history: Patient seen and examined. No acute events noted overnight. Status post angiogram with right SFA balloon angioplasty on Saturday. Patient states overall he feels okay, but is grouchy because he is bored and wants to smoke. Reports a large amount of drainage from right foot. Denies known fevers, chills, or rigors. Denies chest pain, shortness of breath, or cough. Denies nausea, vomiting, or diarrhea. Denies abdominal pain, urinary complaints, or appetite changes. States last BM was several days ago. Denies oral thrush or skin lesions. Complains of pain in the right foot this morning, 10/15. Surgery planned for . Infect Dis PN-Objective Data - Labs CBC & Chem 7: 12/18/17 05:11 12/18/17 05:11 Labs: Laboratory Results - last 24 hr 12/17/17 12/17/17 12/18/17 07:21 11:16 05:11 WBC 5.3 RBC 2.60 L Hgb 7.2 L Hct 22.8 L MCV 87.7 MCH 27.7 L MCHC 31.6 RDW 13.1 Plt Count 222 MPV 10.0 Immature Gran % 0.6 Seg Neutrophils % 69.4 Lymphocytes % 16.8 Monocytes % 10.2 Eosinophils % 3.0 Basophils % 0.0 Neutrophils # 3.7 Lymphocytes # 0.9 Monocytes # 0.5 Eosinophils # 0.2 Basophils # 0.0 Sodium Potassium Chloride Carbon Dioxide BUN Creatinine Est GFR ( Amer) Est GFR (Non-Af Amer) BUN/Creatinine Ratio Glucose POC Glucose 145 H 119 H Calculated Osmolality Calcium Iron % Saturation Transferrin Ferritin Vitamin B12 Folate 12/18/17 12/18/17 05:11 07:55 WBC RBC Hgb Hct MCV MCH MCHC RDW Plt Count MPV Immature Gran % Seg Neutrophils % Lymphocytes % Monocytes % Eosinophils % Basophils % Neutrophils # Lymphocytes # Monocytes # Eosinophils # Basophils # Sodium 137 Potassium 3.9 Chloride 105 Carbon Dioxide 27 BUN 17 Creatinine 0.75 Est GFR ( Amer) > 60 Est GFR (Non-Af Amer) > 60 BUN/Creatinine Ratio 23 Glucose 204 H POC Glucose Calculated Osmolality 291 Calcium 8.0 L Iron 11 L % Saturation 7 L Transferrin 108 L Ferritin 438 H Vitamin B12 202 L Folate 8.2 Cultures: Cultures 12/15/17 10:00 Wound Culture - Preliminary Right Foot Yeast Species Exam - Constitutional Vitals: Temp Pulse Resp BP Pulse Ox 98.7 F 73 18 181/81 99 12/18/17 07:34 12/18/17 07:45 12/18/17 07:34 12/18/17 07:34 12/18/17 07:34 General appearance: average body habitus, cooperative, no acute distress - Head Head exam: Present: atraumatic, normal inspection, normocephalic - Eye Eye exam: Present: EOMI, normal appearance, PERRL Pupils: Present: normal accommodation - ENT ENT exam: Present: mucous membranes moist - Neck Neck exam: Present: normal inspection - Respiratory Respiratory exam: Present: CTAB. Absent: rales, respiratory distress, rhonchi, wheezes - Cardiovascular Cardiovascular exam: Present: irregular rhythm, +S1, +S2. Absent: tachycardia - GI/Abdominal GI/Abdominal exam: Present: normal bowel sounds, soft. Absent: distended, tenderness - Extremities Exam Extremities exam: Absent: joint swelling, pedal edema, tenderness Additional comments: Bilateral foot dressings with moderate amount of old drainage noted. Left foot wound VAC without leak. Continuous suction at 125mm Hg. - Neurological Exam Neurological exam: Present: alert, oriented X3, no focal deficits - Psychiatric Psychiatric exam: Present: normal affect, normal mood - Skin Skin exam: Present: dry, intact, normal color, warm - VTE Documentation of Mechanical Device: Intermittent pneumatic compression device Consult Discharge Plan - Plan [facility]errals: [facility] [Primary Care Provider] - 12/30/17 11:00 am Luis New MD [Partnered Physician] - 01/01/18 11:45 am - Attending Attestation I examined this patient and my medical decision-making was reviewed with the Resident Physician. I agree with the documented findings, disposition and treatment plan as described except to the extent set forth below.
--- NOTE | 2017-12-18 15:39 | Internal Med Progress Note ---
Date of Encounter: 12/18/17 Time of Encounter: 10:30 - Assessment and plan (1) Osteomyelitis Current Visit: Yes Status: Acute Assessment and plan: Involving fifth metatarsal of right foot. Planned surgery tomorrow. Patient will be switched to ertapenem tomorrow. Will continue vancomycin. Monitor vital signs closely. Moderate risk for complications. Qualifiers: Osteomyelitis type: subacute Osteomyelitis location: foot Laterality: right Qualified Code(s): M86.271 - Subacute osteomyelitis, right ankle and foot (2) Diabetes mellitus Current Visit: Yes Status: Chronic Assessment and plan: Blood sugars are elevated since last evening. We will increase his Levemir dosage to 33 units twice daily Qualifiers: Diabetes mellitus type: type 2 Diabetes mellitus assisted insulin use: with assisted use Diabetes mellitus complication status: with circulatory complication Diabetes mellitus complication detail: with peripheral angiopathy with gangrene Qualified Code(s): E11.52 - Type 2 diabetes 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; Z79.4 - intermediate (current) use of insulin; Z79.4 - intermediate (current) use of insulin; Z79.4 - predatory animal exterminator ( current) use of insulin; Z79.4 - intermediate (current) use of insulin (3) A-fib Current Visit: Yes Status: Chronic Assessment and plan: Rate controlled. Continue Cardizem and lisinopril. Qualifiers: Atrial fibrillation type: paroxysmal Qualified Code(s): I48.0 - Paroxysmal atrial fibrillation (4) CAD (coronary artery disease) Current Visit: Yes Status: Chronic Assessment and plan: Continue aspirin, Plavix and simvastatin Qualifiers: Coronary Disease-Associated Artery/Lesion type: [place] artery [place] vs. transplanted heart: unspecified whether [place] or transplanted heart Associated angina: without angina Qualified Code(s): I25.10 - Atherosclerotic heart disease of [place] coronary artery without angina pectoris (5) Tobacco abuse Current Visit: No Status: Chronic Assessment and plan: Patient was admitted in bed but currently does not want it anymore. Will DC (6) Peripheral arterial disease Current Visit: Yes Status: Acute Assessment and plan: Continue aspirin, Plavix and statin. Status post angioplasty of the distal right superficial and common femoral artery stenosis. (7) Anemia Current Visit: Yes Status: Chronic Assessment and plan: Hemoglobin 7.2. We will continue to monitor. Patient will most likely need transfusion after surgery. Qualifiers: Anemia type: unspecified type Qualified Code(s): D64.9 - Anemia, unspecified (8) Blurred vision Current Visit: Yes Status: Resolved (9) Essential hypertension Current Visit: Yes Status: Chronic Assessment and plan: Blood pressure is elevated. Currently on Cardizem and lisinopril. We will place him on beta carrie. - Time Spent With Patient Total time spent is greater than 50% in coordination of care (as documented) at patient's floor/unit and/or counseling patient: - Subjective Interval history: Patient is awake and alert. No new complaints. Pain in lower extremities is well controlled. No shortness of breath. No chest pain. - Constitutional Vitals: Temp Pulse Resp BP Pulse Ox 98.3 F 70 18 171/70 98 12/18/17 11:28 12/18/17 15:19 12/18/17 11:28 12/18/17 11:28 12/18/17 11:28 General appearance: Present: cooperative, A&O X 3, no acute distress, answers questions appropriately - Neck Neck exam general surgery: Present: supple, trachea midline. Absent: lymphadenopathy - Respiratory Respiratory exam: Present: CTAB. Absent: accessory muscle use, rales, rhonchi, wheezes - Cardiovascular Cardiovascular exam: Present: RRR, +S1, +S2. Absent: diastolic murmur, gallop, rubs, systolic murmur - GI/Abdominal GI/Abdominal exam: Present: normal bowel sounds, soft, no peritoneal signs. Absent: distended, tenderness - Extremities Exam Extremities exam: Present: warm, radial pulses palpable and symmetrical. Absent : calf tenderness, cyanotic, pedal edema Additional comments: Ulcer on right heel region open, draining serosanguineous fluid. Left foot wound VAC in place. Necrotic pressure great toe left foot. Sutures present on the third toe. - Neurological Exam Neurological exam: Present: alert, CN II-XII intact, no focal deficits. Absent : facial droop, speech deficit - Skin Skin exam: Present: dry, intact Additional comments: Ulcers Described as above Internal Medicine: Result - Labs CBC & Chem 7: 12/18/17 05:11 12/18/17 05:11 Labs: Short CBC 12/18/17 Range/Units 05:11 WBC 5.3 (4.3-11.1) K/mcL Hgb 7.2 L (12.9-16.9) g/dL Hct 22.8 L (37.5-50.1) % Plt Count 222 (140-400) K/mcL Neutrophils # 3.7 (1.6-8.9) K/mcL BMP 12/18/17 05:11 Sodium 137 Potassium 3.9 Chloride 105 Carbon Dioxide 27 BUN 17 Creatinine 0.75 Glucose 204 H Calcium 8.0 L - ABG Interpretation ABG results: PT/INR, D-dimer PT 14.3 Seconds (9.4-12.1) H 12/09/17 11:57 - VTE Documentation of Mechanical Device: Intermittent pneumatic compression device Consult Discharge Plan - Plan [facility]errals: [facility] [Primary Care Provider] - 12/30/17 11:00 am Luis New MD [Partnered Physician] - 01/01/18 11:45 am
[2017-12-18] MEDS: Cyanocobalamin (B-12) 1,000 MCG/ML VIAL SQ SCH (16:57)
[2017-12-18] MEDS: Sodium Ferric Gluconat/Sucrose 125 MG in 0.9 % Sodium Chloride 100 ML IVPB SCH (17:36)
[2017-12-18] MEDS: *HR* OxyCODONE Immed Rel 5 MG TABLET PO PRN (17:41)
--- NOTE | 2017-12-18 20:01 | Anesthesia Evaluation PreOp ---
Date of Encounter: 12/18/17 Time of Encounter: 19:59 - Past History Planned Operation: Paras foot I and D, R foot amp metatarsal #5 Cardiac History: [place] (x2), HTN, Hyperlipidemia, Arrhythmia (hx of afib), Cardiac Surgery (CABG x 3), Cardiac Stent (x3 prior to CABG), Other (PVD) Pulmonary History: Smoker, Pack/yr (50), COPD RECOOPERER History: CVA (with no residual deficits) Other Medical History: Diabetes Type II, Other (anemia) Anesthesia History: No Prior Anesthetic Complications, Past Anesthesia (CABG, paras feet wound debridement) Alcohol Use: none Drug use: none Medications and Allergies Aspirin [Lo-Dose Aspirin EC] 325 mg PO DAILY 04/12/17 [History] Insulin ASPART [Novolog Flexpen] 14 unit SQ QAM 05/10/17 [History] Acetaminophen [Tylenol] 1,000 mg PO Q6HR PRN #90 tablet 11/06/17 [Rx] Clopidogrel [Plavix] 75 mg PO DAILY #30 tablet 11/06/17 [Rx] Isosorbide MONOnitrate (24 HR) [Imdur] 30 mg PO DAILY 11/06/17 [History] Pravastatin Sodium [Pravachol] 10 mg PO MOTH 11/06/17 [History] dilTIAZem HCl [Diltiazem 24Hr Cd] 120 mg PO DAILY 11/06/17 [History] Insulin ASPART [NovoLOG] 10 unit SQ BID 11/11/17 [History] Insulin Glargine,Hum.rec.anlog [Lantus Solostar] 54 - 60 unit SQ HS 11/11/17 [ History] Levofloxacin 750 MG/150 ML [Levaquin Premix 750mg/150 mL] 750 mg IVPB DAILY #14 bag 11/21/17 [Rx] cefTRIAXone [Rocephin] 2,000 mg IVPB DAILY #14 vial 11/21/17 [Rx] Collagenase Oint [Santyl] 1 appl TP DAILY #1 tube 11/22/17 [Rx] Gentamicin Oint [Garamycin] 1 appl TP DAILY #1 tube 11/22/17 [Rx] Budesonide/Formoterol 80/4.5 [Symbicort 80/4.5] 2 puff IH BID 12/09/17 [History ] Lisinopril/Hydrochlorothiazide [Zestoretic 20-12.5 mg Tablet] 1 tab PO DAILY 10/23 [History] 3 Allergy/AdvReac Type Severity Reaction Status Date / Time atorvastatin [From Lipitor] Allergy Diarrhea Verified 11/11/17 18:33 - Meds/Allergy Pre-op Review Medications Reviewed: Yes Allergies Reviewed: Yes Beta Blockers on Current Med List: No Anesthesia Results - Labs 12/18/17 05:11 12/18/17 05:11 - Imaging EKG: report reviewed (SINUS RHYTHM Electronically Signed On 11-06-2017 7:25:29 EDT by Jose Ramirez) Additional studies: ECHO 11/2015: Impressions: LVEF 60%. The basal inferior segment appeared mildly hypokinetic, otherwise normal LV function. Mild concentric left ventricular hypertrophy. Mild left ventricular diastolic dysfunction. Atypical septal motion consistent with post-operative status. Normal right ventricular structure and function. No evidence of pulmonary hypertension. No significant valvular dysfunction. Left Ventricular Wall Motion: Rest Echo Findings The basal inferior wall was hypokinetic. All other wall segments showed normal motion. Anesthesia Exam Vital Signs/O2 Sat, Most Current Temp Pulse Resp BP Pulse Ox 98.9 F 73 19 169/84 98 12/18/17 19:12 12/18/17 19:12 12/18/17 19:12 12/18/17 19:12 12/18/17 19:12 Weight: 107kg NPO (# of Hours): >8 - HEENT Pupil (Motor): Pupils equal, EOMI Mallampati: III Teeth: Edentulous Denture Type: Upper: Complete Oral Opening: Greater than 3 - RECOOPERER LOC: Oriented RECOOPERER Motor: Normal RUE, Normal LUE, Normal RLE, Normal LLE, Normal Face RECOOPERER Sensory: Normal: RUE, LUE, Face - Cardiac Rhythm: Regular - Pulmonary Breath Sounds: bilateral Clear Respiratory Effort: Symmetrical Anesthesia Assess/Plan ASA Score: 3 Modified Viviana Scale for Level of Consciousness: Cooperative, oriented, and tranquil Anesthetic Plan: General Monitoring Plan: Standard Monitors Recovery Plan: PACU
[2017-12-19 04:00] LABS: Basophils % 0.4 %; Eosinophils # 0.2 K/mcL (0.0-0.6); Eosinophils % 3.1 %; Hematocrit 23.4 % (37.5-50.1); Hemoglobin 7.5 g/dL (12.9-16.9); Immature Granulocytes % 0.5 % (0-4); Mean Corpuscular HGB Conc 32.1 g/dL (31.6-35.5); Mean Corpuscular Hemoglobin 28.4 pg (28.0-33.3); Mean Corpuscular Volume 88.6 fL (83.0-100.0); Mean Platelet Volume 9.6 fL (9.4-12.4); Monocytes # 0.5 K/mcL (0.0-1.3); Monocytes % 9.6 %; Neutrophils # 3.8 K/mcL (1.6-8.9); Platelet Count 234 K/mcL (140-400); Red Blood Count 2.64 M/mcL (4.19-5.50); Red Cell Distribution Width 13.2 % (11.5-14.5); Segmented Neutrophils % 68.4 %
[2017-12-19 04:12] LABS: INR 1.3; Prothrombin Time 13.6 Seconds (9.4-12.1)
[2017-12-19 04:19] LABS: BUN/Creatinine Ratio 21 (6-26); Blood Urea Nitrogen 16 mg/dL (8-23); Calcium 8.1 mg/dL (8.6-10.3); Carbon Dioxide 27 mEq/L (23-29); Chloride 105 mEq/L (98-107); Glucose 125 mg/dL (70-105); Osmolality,Calculated 285 (280-300); Sodium 136 mEq/L (136-145); eGFR For African Americans > 60 (> 60); eGFR For Non-African Americans > 60 (> 60)
[2017-12-19] MEDS: Aspirin Enteric Coated 325 MG Tablet PO SCH (08:39)
[2017-12-19] MEDS: Isosorbide MONOnitrate (24 HR) 30 MG TAB.ER.24H PO SCH (08:40)
[2017-12-19] MEDS: Cyanocobalamin (B-12) 1,000 MCG/ML VIAL SQ SCH (08:40)
[2017-12-19] MEDS: Diltiazem CD (24hr) 120 MG CAPSULE PO SCH (08:40)
[2017-12-19] MEDS: Lisinopril 20 MG TABLET PO SCH (08:40)
[2017-12-19] MEDS: Gentamicin Oint 15 GM TUBE TP SCH (08:41)
[2017-12-19] MEDS: Insulin LISPRO 300 UNITS/3 ML VIAL SQ SCH ×4 (08:42→21:01)
[2017-12-19] MEDS: Ertapenem 1,000 MG in 0.9 % Sodium Chloride Mini Bag 100 ML IVPB SCH (08:43)
[2017-12-19] MEDS: Insulin DETEMIR 100 UNIT/ML X5UNITS SQ SCH ×2 (08:47→20:55)
[2017-12-19] MEDS: Sodium Ferric Gluconat/Sucrose 125 MG in 0.9 % Sodium Chloride 100 ML IVPB SCH (08:57)
[2017-12-19] MEDS ORDERED: *HR* FentaNYL (PF) 100 MCG/2 ML VIAL ONE (11:58)
[2017-12-19] MEDS ORDERED: Propofol 500 MG/50 ML INFUS..BTL ONE (11:59)
[2017-12-19] MEDS ORDERED: Lidocaine -MPF 2% 2 ML VIAL ONE (11:59)
[2017-12-19] MEDS ORDERED: *HR* Midazolam HCl 2 MG/2 ML VIAL ONE (11:59)
[2017-12-19] MEDS ORDERED: Ondansetron 4 MG/2 ML VIAL ONE (11:59)
[2017-12-19] MEDS ORDERED: Bupivacaine/Clonidine Syringe 1 EACH SYRINGE ONE (12:24)
--- NOTE | 2017-12-19 12:24 | Podiatry Progress Note ---
Date of Encounter: 12/19/17 Time of Encounter: 10:21 - Assessment and Plan (1) Chronic foot ulcer Current Visit: Yes Status: Acute The patient was instructed that we will perform an amputation/ray resection of the fifth ray/digit of the right foot with possible bone biopsy of the calcaneus and irrigation and debridement of the right foot ulcerations as well as the left foot ulcerations. The patient related understanding. Patient was instructed that he may have difficulty healing and may require a [id number] amputation and later time.Patient was informed of the risks and complications of surgery. These may include but are not limited to the following; nerve damage , numbness, tingling, RSD/CRPS, loss of motor function, loss of toe, loss of limb, loss of life, ischemia, wound healing issues, infection, scarring, keloid formation, continued pain, arthritis, non-union, mal-union, prominent hardware, displaced hardware, reaction to hardware, the need to remove hardware , bruising, continued limp, the need for future surgery, over correction, under correction, chronic swelling, the need for physical therapy, stiffness of joints , ulceration, slow healing, wound dehiscence, reaction to implant, reaction to sutures. The patient was informed of the possible conservative treatments available which may include but are not limited to the following: Orthotics, bracing, non -weight bearing, physical therapy, padding, taping, steroid injections, NSAIDS, casting. The patient was given the option to seek a second opinion. It was explained that surgery is an art and not an exact science therefore results cannot be guaranteed. All the patients questions and concerns were addressed. Patient agrees to have the surgery despite the possible risks and complications. Absolutely no guarantees were given or implied. Qualifiers: Laterality: right Non-pressure ulcer stage: limited to breakdown of skin Qualified Code(s): L97.511 - Non-pressure chronic ulcer of other part of right foot limited to breakdown of skin Subjective Principal diagnosis: Bilateral foot ulcerations with ischemia and osteomyelitis Interval history: Patient relates that he is feeling fine today. Patient relates that the ulcers are still present and that he recently had a bypass graft from vascular surgery. Patient relates that he is ready for surgery. Patient denies any new pedal complaints or recent injuries. Objective - Vital Signs Vital Signs: Vital Signs Temp Pulse Resp BP Pulse Ox 12/19/17 11:32 98.1 F 73 17 186/77 99 12/19/17 07:22 98.2 F 69 16 163/79 99 12/19/17 03:20 98.6 F 64 16 163/59 99 12/18/17 22:55 98 F 66 19 163/78 98 12/18/17 21:00 69 12/18/17 19:12 98.9 F 73 19 169/84 98 12/18/17 16:11 98.7 F 71 19 174/69 97 12/18/17 15:19 70 Intake and Output 12/18/17 12/19/17 12/19/17 23:59 07:59 15:59 Intake Total 810 / 810 210 / 210 Output Total 750 / 750 700 / 700 925 / 925 Balance 60 / 60 -700 / -700 -715 / -715 Intake: IV Fluids 450 / 450 210 / 210 INVanz 1,000 MG In 0.9 % Sodium 100 / 100 Chloride (Mini-Bag +) 100 ML @ 100 mls/hr IVPB DAILY [facility] Rx#: [id number] Merrem 1,000 MG In 0.9 % Sodium 100 / 100 Chloride (Mini-Bag +) 100 ML @ 200 mls/hr IVPB Q8HR [facility] Rx#: [id number] Ferrlecit 125 MG In 0.9 % 100 / 100 110 / 110 Sodium Chloride 100 ML @ 110 mls/hr IVPB DAILY [facility] Rx#: [id number] Vancocin 1,250 MG In 0.9 % 250 / 250 Sodium Chloride 250 ML @ 166.67 mls/hr IVPB Q12H [facility] Rx#: [id number] Oral 360 / 360 Output: Urine 750 / 750 700 / 700 925 / 925 Other: Meal Dinner NPO Percent of Meal Consumed 100% 0% Weight 108.3 kg Blood Glucose* 208 131 148 - Exam Exam: General appearance: alert awake oriented X 3. Calm and pleasant, no acute distress.. Vascular: Edema graded at 1+/4 left, 2+/4 right, Skin Temperature warm, No calf pain with manual compression. capillary refill time is immediate to digits . Postop Exam: S/P Incision line to toe #2 left foot well approximated with sutures intact, no periwound erythema, no streaking, no pus, no odor. Wound #1: Full thickness ulceration to the lateral aspect of the right calcaneus measuring 7 cm in length x 6.8 cm in width x 1.5 cm in depth, base of wound is with 80% connected eschar, 20 % white fibrous tissue, malodorous, moderate amount of serous drainage observed to dressing, periwound erythema, no streaking, no probe to bone, no exposed bone. Wound #2: Lateral aspect of right foot at the 5th metatarsal head, with 80% eschar 20 % white fibrous tissue, periwound erythema, malodrous. . No purulent drainage. Moderate amount of serous drainage observed to dressing. Foot is warm with Wound #3: Full thickness ulceration to the lateral aspect of left foot at the 5th metatarsal head measuring 2 cm in length x 2 cm in width x 0.2 cm in depth, tunneling at 9 O'clock measuring 1 cm, base of wound with 80 %yellow fibrous tissue, 20% granualtion tissue, wound edges connected and macerated, no odor, no pus, no drainage observed to canister. light periwound erythema, no streaking. No probe to bone, no exposed bone. Wound #4: Partial thickness ulceration to the lateral aspect of left calcaneus measuring 1.5 cm in length x 1.5 cm in width x 0.1 cm in depth base of wound with 100% granulation tissue, no pus, no odor, no tunneling, no sinus tracts, no probe to bone, no exposed bone, ligament or tendon. - Lab Result Diagrams: 12/19/17 03:51 12/19/17 03:51 Labs: Abnormal lab results RBC 2.64 M/mcL (4.19-5.50) L 12/19/17 03:51 Hgb 7.5 g/dL (12.9-16.9) L 12/19/17 03:51 Hct 23.4 % (37.5-50.1) L 12/19/17 03:51 ESR 87 mm/hr (0-10) H 12/11/17 08:59 PT 13.6 Seconds (9.4-12.1) H 12/19/17 03:51 Glucose 125 mg/dL (70-105) H 12/19/17 03:51 POC Glucose 148 mg/dL (70-99) H 12/19/17 11:36 Calcium 8.1 mg/dL (8.6-10.3) L 12/19/17 03:51 Iron 11 mcg/dL (65-175) L 12/18/17 05:11 % Saturation 7 % (20-55) L 12/18/17 05:11 Transferrin 108 mg/dL (203-362) L 12/18/17 05:11 Ferritin 438 ng/mL (20-250) H 12/18/17 05:11 AST 7 Units/L (13-39) L 12/09/17 11:57 ALT 6 Units/L (7-52) L 12/09/17 11:57 C-Reactive Protein 163 mg/L (Less than 10) H 12/11/17 08:59 Albumin 3.3 g/dL (3.5-5.7) L 12/09/17 11:57 Globulin 3.9 g/dL (2.4-3.5) H 12/09/17 11:57 Albumin/Globulin Ratio 0.8 (1.1-2.2) L 12/09/17 11:57 Vitamin B12 202 pg/mL (250-1100) L 12/18/17 07:55 Ur Specific [place] > 1.030 (1.010-1.025) H 12/09/17 12:24 Urine Protein 30 mg/dL (Neg-Trace) H 12/09/17 12:24 Urine Glucose (UA) >=1000 mg/dL (Normal) H 12/09/17 12:24 Ur Squamous Epith Cells Many per lpf (None-Few) H 12/09/17 12:24 Vancomycin Trough 16 mcg/mL (5-10) H 12/18/17 14:13 Microbiology, Last 48 Hours 12/15/17 10:00 Wound Culture - Final Right Foot Tere albicans - VTE Documentation of Mechanical Device: Intermittent pneumatic compression device Consult Discharge Plan - Plan [facility]Primary Care Provider[facility] - 12/30/17 11:00 am Luis New MD [Partnered Physician] - 01/01/18 11:45 am
[2017-12-19] MEDS ORDERED: *HR* Propofol 200 MG/20 ML VIAL IVP ONE (13:21)
--- NOTE | 2017-12-19 15:12 | Operative Note ---
Date of procedure: 12/19/17 Pre-op diagnosis: Osteomyelitis calcaneus, fifth digit/metatarsal, right foot with ulceration Post-op diagnosis: same Procedure: LEFT FOOT: Irrigation and debridement of left foot ulceration. RIGHT FOOT: Irrigation and debridement of large calcaneal ulcer with biopsy of calcaneal bone for possible osteomyelitis. Irrigation and debridement of fifth metatarsal ulceration with incision to bone cortex at the level of the fifth metatarsal head and base of the fifth digit proximal phalanx. Incision and drainage of medial soft tissue abscess along the medial aspect of the foot with debridement of necrotic, nonviable tissue. Implants: Iodoform gauze packing Complications: None Anesthesia: MAC Surgeon: Wiley Morales Was there an photo studio assistant present: No Estimated blood loss (cc): 35 Specimen: Bone biopsy from calcaneus and fifth metatarsal with cultures, cultures fro Condition: stable Disposition: PACU Procedure in Detail: The patient was administered IV antibiotics. The patient was transported to the operative room and placed on operating table. Following anesthesia the extremity was scrubbed prepped and draped in the usual aseptic fashion. A timeout was performed. The left foot fifth metatarsal wound was debrided first using the misonix debrider, tissue divided consisted of dermis, epidermis, subcutaneous, fascia. The wound was debrided adequately to allow for healthy bleeding tissue. The wound measured approximately 2.5 cm in length and 2.5 cm in width with a depth of 0.5 cm. No infection noted. The right foot fifth metatarsal was debrided using the misonix debrider, after debridement the wound measured approximately 4 cm in diameter and 1 cm in depth. The debridement consisted of epidermis, dermis, subcutaneous, fascia. Incision was made to the bone cortex for osteomyelitis. The osteomyelitis was removed from the fifth metatarsal and proximal phalanx of the fifth digit. Utilizing a curet the bone was tested and noted to be insufficient area a sagittal saw was then used to remove the remaining infection and to get clear margins on the fifth metatarsal and proximal phalanx of the fifth digit of the right foot. The right foot calcaneus wound on the lateral aspect of the calcaneus was then inspected and noted to have significant amounts of necrotic nonviable tissue. The wound was provided utilizing the misonix debrider. After adequate debridement was performed consisting of epidermis, dermis, subcutaneous, fascia the site was further inspected and a bone biopsy was performed utilizing a Jamshidi needle. There is noted to be tracking on the plantar aspect of the calcaneus which was also debrided. The wound measured approximately 7.5 cm in length and 7 cm and width with a depth of 1.5 cm and a small tracking site along the plantar aspect of the calcaneus the tract approximately 2.5 cm. The right foot medial abscess site/necrotic tissue site was then addressed. An incision was made approximately 4 cm in length along the medial aspect of the foot and there was noted to be significant amounts of necrotic nonviable tissue likely secondary to infection and ischemia. All of the nonviable, necrotic tissue was excised utilizing a scalpel and the wound measured approximately 4 cm in length and 2 cm and width with a depth of 1 cm. All sites were then pulse irrigated with normal saline All sites were then packed with iodoform gauze due to the mild bleeding. We will apply a wound VAC at a later time. Dry sterile dressings consisting of 4 x 4's, Kerlix were applied. The bleeding was noted and increases optimism regarding healing. Patient still is at high risk for below-knee amputation. Patient tolerated the procedure and anesthesia well and was transported to the floor. The patient will need infectious disease consult to manage antibiotics long- term as he will likely require at least 6 weeks of IV antibiotics. The patient will have a wound VAC applied tomorrow depending on the amount of bleeding. The patient will need to remain nonweightbearing. We will await cultures for antibiotic recommendation per infectious disease.
--- NOTE | 2017-12-19 15:42 | Infectious Disease Progress No ---
Date of Encounter: 12/19/17 Time of Encounter: 15:40 - Assessment and Plan (1) Sepsis Current Visit: No Status: Resolved The patient had two SIRS criteria on admission. Likely secondary to osteomyelitis of the right foot. Improved. WBC normal. Tachycardia has resolved. Afebrile. Blood cultures drawn 12/09/17 are negative x 2 sets. Qualifiers: Sepsis type: sepsis due to unspecified organism Qualified Code(s): A41.9 - Sepsis, unspecified organism (2) Osteomyelitis Current Visit: Yes Status: Acute Previous osteomyelitis left foot second toe status post partial amputation. Imaging shows new osteomyelitis of the 5th metatarsal and 5th proximal phalanx. Causative organism unclear. Previous cultures positive for MSSA, Citrobacter, and Lecleria. Wound culture obtained this hospitalization is negative. Previously on IV Rocephin and IV Levaquin. X-ray of the right foot showed OM of the right 5th metatarsal. MRI of the right foot showed osteomyelitis of the right 5th metatarsal and 5th proximal phalanx. MRI of the right ankle completed 12/13/17 shows OM vs. reactive osteitis to the inferolateral aspect of the right calcaneus. Wound culture positive for Yeast. Not sure if this is contributing to the patient's infection picture. Unfortunately, there is a severe drug-drug interaction between fluconazole and plavix so we will hold off on adding this to the patient's medication regimen. Podiatry consulted and following. Planning for surgery on per the notes. Wound care per the podiatry team. ESR 87, CRP 163. Continue Vancomycin IV. Pharmacy to dose. Goal trough ~15. VT 18. Continue Meropenem 1 gram IV Q8H through today, then switch to IV Ertapenem 1 gram daily for ease of dosing. Duration of treatment depends on the clinical picture. Monitor renal function and for drug toxicity and dose-adjust antibiotics. Status post I&D on December [address] heller. Necrotic tissue debrided. Intra- Op cultures pending Qualifiers: Osteomyelitis type: subacute Osteomyelitis location: foot Laterality: right Qualified Code(s): M86.271 - Subacute osteomyelitis, right ankle and foot (3) Wound infection Current Visit: No Status: Acute Previous wound infection of the right heel and left 5th metatarsal. Causative organisms: MSSA, Citrobacter freundii, Lecleria adecarboxylata. Clinically, left lateral foot wound looks okay, but right heel continues to have regression and very foul-smelling discharge. Podiatry consulted and following. Wound care recommendations from the Podiatry team. Given the extent of the right heel wound, I am not sure that the limb is salvageable, but will await further recommendations from the vascular and podiatry teams. Continue antibiotics as above for now. (4) Anemia Current Visit: Yes Status: Chronic Hemoglobin down to 9.9 on admission, down to 7.2 today. GI consulted. Recommend EGD/C-scope, but patient unable to tolerate bowel prep. Further workup and management per the primary and GI teams. Qualifiers: Anemia type: unspecified type Qualified Code(s): D64.9 - Anemia, unspecified (5) Diabetes mellitus Current Visit: Yes Status: Chronic HgbA1C 8.8% last month. Recommend aggressive glucose monitoring and control to promote wound healing and prevent re-infection. Management per the primary team. 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 Status post left LE Angiogram with balloon angioplasty of the previous graft anastamosis 11/06/[address] Harris. Status post RLE angiogram with balloon angioplasty of the right SFA 11/18/[address] Harris. Vascular surgery consulted. Status post angiogram with balloon angioplasty to right SFA 12/13/[address] New. 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 Current Visit: Yes Status: Chronic Qualifiers: Peripheral atherosclerosis artery type: bypass graft, autologous vein Qualified Code(s): I70.433 - Atherosclerosis of autologous vein bypass graft(s) of the right leg with ulceration of ankle; I70.443 - Atherosclerosis of autologous vein bypass graft(s) of the left leg with ulceration of ankle (8) A-fib Current Visit: Yes Status: Chronic Qualifiers: Atrial fibrillation type: paroxysmal Qualified Code(s): I48.0 - Paroxysmal atrial fibrillation (9) CAD (coronary artery disease) Current Visit: Yes Status: Chronic Qualifiers: Coronary Disease-Associated Artery/Lesion type: [place] artery [place] vs. transplanted heart: unspecified whether [place] or transplanted heart Associated angina: without angina Qualified Code(s): I25.10 - Atherosclerotic heart disease of [place] coronary artery without angina pectoris (10) Tobacco abuse Current Visit: No Status: Chronic (11) Constipation Current Visit: Yes Status: Acute Had small BM yesterday. Denies abdominal pain. Bowel regimen per the primary team. Qualifiers: Constipation type: unspecified constipation type Qualified Code(s): K59.00 - Constipation, unspecified - Subjective Interval history: Patient seen and examined. Seems to be doing well clinically. Status post op back in the room about an hour ago. Denies any pain. No breathing issues. Does not have much of an appetite. Family at bedside. Infect Dis PN-Objective Data - Labs CBC & Chem 7: 12/19/17 03:51 12/19/17 03:51 Labs: Laboratory Results - last 24 hr 12/17/17 12/18/17 12/18/17 20:04 16:13 16:45 WBC RBC Hgb Hct MCV MCH MCHC RDW Plt Count MPV Immature Gran % Seg Neutrophils % Lymphocytes % Monocytes % Eosinophils % Basophils % Neutrophils # Lymphocytes # Monocytes # Eosinophils # Basophils # PT INR Sodium Potassium Chloride Carbon Dioxide BUN Creatinine Est GFR ( Amer) Est GFR (Non-Af Amer) BUN/Creatinine Ratio Glucose POC Glucose 223 H 144 H Calculated Osmolality Calcium Blood Type O NEGATIVE Antibody Screen NEGATIVE 12/18/17 12/19/17 12/19/17 20:16 03:51 03:51 WBC 5.5 RBC 2.64 L Hgb 7.5 L Hct 23.4 L MCV 88.6 MCH 28.4 MCHC 32.1 RDW 13.2 Plt Count 234 MPV 9.6 Immature Gran % 0.5 Seg Neutrophils % 68.4 Lymphocytes % 18.0 Monocytes % 9.6 Eosinophils % 3.1 Basophils % 0.4 Neutrophils # 3.8 Lymphocytes # 1.0 Monocytes # 0.5 Eosinophils # 0.2 Basophils # 0.0 PT 13.6 H INR 1.3 Sodium Potassium Chloride Carbon Dioxide BUN Creatinine Est GFR ( Amer) Est GFR (Non-Af Amer) BUN/Creatinine Ratio Glucose POC Glucose 208 H Calculated Osmolality Calcium Blood Type Antibody Screen 12/19/17 12/19/17 12/19/17 03:51 07:26 11:36 WBC RBC Hgb Hct MCV MCH MCHC RDW Plt Count MPV Immature Gran % Seg Neutrophils % Lymphocytes % Monocytes % Eosinophils % Basophils % Neutrophils # Lymphocytes # Monocytes # Eosinophils # Basophils # PT INR Sodium 136 Potassium 4.0 Chloride 105 Carbon Dioxide 27 BUN 16 Creatinine 0.76 Est GFR ( Amer) > 60 Est GFR (Non-Af Amer) > 60 BUN/Creatinine Ratio 21 Glucose 125 H POC Glucose 131 H 148 H Calculated Osmolality 285 Calcium 8.1 L Blood Type Antibody Screen Cultures: Cultures 12/15/17 10:00 Wound Culture - Final Right Foot Tere albicans Exam - Constitutional Vitals: Temp Pulse Resp BP Pulse Ox 97.8 F 62 16 128/65 96 12/19/17 14:19 12/19/17 14:19 12/19/17 14:19 12/19/17 14:19 12/19/17 14:19 General appearance: no acute distress, no febrile - Head Head exam: Present: atraumatic, normocephalic - Respiratory Respiratory exam: Present: CTAB. Absent: rhonchi, wheezes - Cardiovascular Cardiovascular exam: Present: RRR, +S1, +S2 - GI/Abdominal GI/Abdominal exam: Present: normal bowel sounds, soft. Absent: tenderness - Extremities Exam Additional comments: Right foot surgically wrapped. Left foot with chronic - VTE Documentation of Mechanical Device: Intermittent pneumatic compression device Consult Discharge Plan - Plan [facility]errals: [facility] [Primary Care Provider] - 12/30/17 11:00 am Luis New MD [Partnered Physician] - 01/01/18 11:45 am
--- NOTE | 2017-12-19 16:08 | Internal Med Progress Note ---
Date of Encounter: 12/19/17 Time of Encounter: 16:06 - Assessment and plan (1) Osteomyelitis Current Visit: Yes Status: Acute Assessment and plan: Involving fifth metatarsal of right foot. Surgery planned for today. On IV antibiotics. Infectious disease following. Duration will depend on surgical results and intraoperative cultures. Continue to monitor renal function and vancomycin trough levels. Qualifiers: Osteomyelitis type: subacute Osteomyelitis location: foot Laterality: right Qualified Code(s): M86.271 - Subacute osteomyelitis, right ankle and foot (2) Diabetes mellitus Current Visit: Yes Status: Chronic Assessment and plan: Blood sugars are fairly controlled today. Patient has been nothing by mouth for surgery. Will continue to monitor blood sugars and adjust insulin regimen accordingly. Qualifiers: Diabetes mellitus type: type 2 Diabetes mellitus correction insulin use: with can cutter use Diabetes mellitus complication status: with circulatory complication Diabetes mellitus complication detail: with peripheral angiopathy with gangrene Qualified Code(s): E11.52 - Type 2 diabetes 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; Z79.4 - halfway (current) use of insulin; Z79.4 - halfway (current) use of insulin; Z79.4 - halfway ( current) use of insulin; Z79.4 - halfway (current) use of insulin (3) A-fib Current Visit: Yes Status: Chronic Assessment and plan: rate controlled. On Cardizem for rate control. Qualifiers: Atrial fibrillation type: paroxysmal Qualified Code(s): I48.0 - Paroxysmal atrial fibrillation (4) Essential hypertension Current Visit: Yes Status: Chronic Assessment and plan: Blood pressure is better controlled today. Has been started on carvedilol. We will continue this medication (5) CAD (coronary artery disease) Current Visit: Yes Status: Chronic Assessment and plan: on aspirin, Plavix, Zocor and carvedilol Qualifiers: Coronary Disease-Associated Artery/Lesion type: [place] artery [place] vs. transplanted heart: unspecified whether [place] or transplanted heart Associated angina: without angina Qualified Code(s): I25.10 - Atherosclerotic heart disease of [place] coronary artery without angina pectoris (6) Tobacco abuse Current Visit: No Status: Chronic Assessment and plan: Patient has refused nicotine patch. (7) Peripheral arterial disease Current Visit: Yes Status: Acute Assessment and plan: Continue aspirin, Plavix and Zocor (8) Anemia Current Visit: Yes Status: Chronic Assessment and plan: Hemoglobin levels remained stable. We will continue to monitor post surgery. Patient may need to have blood transfusion. Qualifiers: Anemia type: unspecified type Qualified Code(s): D64.9 - Anemia, unspecified (9) Blurred vision Current Visit: Yes Status: Resolved - Time Spent With Patient Total time spent is greater than 50% in coordination of care (as documented) at patient's floor/unit and/or counseling patient: - Subjective Interval history: Patient evaluated earlier today. Doing well overall. Awaiting surgery scheduled for later today. Denies any significant pain in his legs. No nausea or vomiting. No fever or chills. - Constitutional Vitals: Temp Pulse Resp BP Pulse Ox 97.8 F 62 16 128/65 96 12/19/17 14:19 12/19/17 14:19 12/19/17 14:19 12/19/17 14:19 12/19/17 14:19 General appearance: Present: cooperative, A&O X 3, no acute distress, answers questions appropriately - Neck Neck exam general surgery: Present: supple, trachea midline. Absent: lymphadenopathy - Respiratory Respiratory exam: Present: CTAB. Absent: accessory muscle use, rales, rhonchi, wheezes - Cardiovascular Cardiovascular exam: Present: RRR, +S1, +S2. Absent: diastolic murmur, gallop, rubs, systolic murmur - GI/Abdominal GI/Abdominal exam: Present: normal bowel sounds, soft, no peritoneal signs. Absent: distended, tenderness - Extremities Exam Extremities exam: Present: warm, radial pulses palpable and symmetrical. Absent : calf tenderness, cyanotic, pedal edema Additional comments: Bilateral lower extremities and bandage. Wound VAC in place over left foot. Seepage noted on bandage of both feet - Neurological Exam Neurological exam: Present: alert, CN II-XII intact, no focal deficits. Absent : facial droop, speech deficit Internal Medicine: Result - Labs CBC & Chem 7: 12/19/17 03:51 12/19/17 03:51 Labs: Short CBC 12/19/17 Range/Units 03:51 WBC 5.5 (4.3-11.1) K/mcL Hgb 7.5 L (12.9-16.9) g/dL Hct 23.4 L (37.5-50.1) % Plt Count 234 (140-400) K/mcL Neutrophils # 3.8 (1.6-8.9) K/mcL BMP 12/19/17 03:51 Sodium 136 Potassium 4.0 Chloride 105 Carbon Dioxide 27 BUN 16 Creatinine 0.76 Glucose 125 H Calcium 8.1 L - ABG Interpretation ABG results: PT/INR, D-dimer PT 13.6 Seconds (9.4-12.1) H 12/19/17 03:51 - VTE Documentation of Mechanical Device: Intermittent pneumatic compression device Consult Discharge Plan - Plan Referrals: YUNIEL,PCP [Primary Care Provider] - 12/30/17 11:00 am uLis New MD [Partnered Physician] - 01/01/18 11:45 am
[2017-12-19] MEDS: *HR* OxyCODONE Immed Rel 5 MG TABLET PO PRN (20:55)
[2017-12-20 04:15] LABS: Basophils % 0.2 %; Eosinophils # 0.1 K/mcL (0.0-0.6); Eosinophils % 2.4 %; Hematocrit 22.5 % (37.5-50.1); Hemoglobin 7.2 g/dL (12.9-16.9); Immature Granulocytes % 0.5 % (0-4); Lymphocytes % 16.7 %; Mean Corpuscular Hemoglobin 28.3 pg (28.0-33.3); Mean Corpuscular Volume 88.6 fL (83.0-100.0); Mean Platelet Volume 9.7 fL (9.4-12.4); Monocytes # 0.5 K/mcL (0.0-1.3); Neutrophils # 4.2 K/mcL (1.6-8.9); Platelet Count 260 K/mcL (140-400); Red Blood Count 2.54 M/mcL (4.19-5.50); Red Cell Distribution Width 13.3 % (11.5-14.5); Segmented Neutrophils % 71.2 %
[2017-12-20 04:40] LABS: BUN/Creatinine Ratio 20 (6-26); Blood Urea Nitrogen 17 mg/dL (8-23); Calcium 8.2 mg/dL (8.6-10.3); Carbon Dioxide 28 mEq/L (23-29); Chloride 103 mEq/L (98-107); Glucose 189 mg/dL (70-105); Osmolality,Calculated 289 (280-300); Potassium 4.3 mEq/L (3.5-5.1); Sodium 136 mEq/L (136-145); eGFR For African Americans > 60 (> 60); eGFR For Non-African Americans > 60 (> 60)
[2017-12-20] MEDS: Isosorbide MONOnitrate (24 HR) 30 MG TAB.ER.24H PO SCH (08:27)
[2017-12-20] MEDS: Lisinopril 20 MG TABLET PO SCH (08:27)
[2017-12-20] MEDS: Aspirin Enteric Coated 325 MG Tablet PO SCH (08:27)
[2017-12-20] MEDS: Diltiazem CD (24hr) 120 MG CAPSULE PO SCH (08:27)
[2017-12-20] MEDS: Cyanocobalamin (B-12) 1,000 MCG/ML VIAL SQ SCH (08:28)
[2017-12-20] MEDS: Sodium Ferric Gluconat/Sucrose 125 MG in 0.9 % Sodium Chloride 100 ML IVPB SCH (08:28)
[2017-12-20] MEDS: Ertapenem 1,000 MG in 0.9 % Sodium Chloride Mini Bag 100 ML IVPB SCH (08:28)
[2017-12-20] MEDS: Insulin LISPRO 300 UNITS/3 ML VIAL SQ SCH ×4 (08:29→21:35)
[2017-12-20] MEDS: Insulin DETEMIR 100 UNIT/ML X5UNITS SQ SCH ×2 (08:29→21:36)
--- NOTE | 2017-12-20 15:04 | Internal Med Progress Note ---
Date of Encounter: 12/20/17 Time of Encounter: 14:57 - Assessment and plan (1) Osteomyelitis Current Visit: Yes Status: Acute Assessment and plan: Status post debridement, irrigation to both feet done yesterday. Intraoperative cultures are pending. Podiatry and infectious disease following. Continue ertapenem and vancomycin. Moderate risk for complications. Qualifiers: Osteomyelitis type: subacute Osteomyelitis location: foot Laterality: right Qualified Code(s): M86.271 - Subacute osteomyelitis, right ankle and foot (2) Diabetes mellitus Current Visit: Yes Status: Chronic Assessment and plan: Blood sugars remain elevated. We will increase his long-acting insulin coverage further. Qualifiers: Diabetes mellitus type: type 2 Diabetes mellitus intermediate project manager insulin use: with alf use Diabetes mellitus complication status: with circulatory complication Diabetes mellitus complication detail: with peripheral angiopathy with gangrene Qualified Code(s): E11.52 - Type 2 diabetes 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; Z79.4 - intermediate project manager (current) use of insulin; Z79.4 - detention (current) use of insulin; Z79.4 - intermediate project manager ( current) use of insulin; Z79.4 - intermediate project manager (current) use of insulin (3) A-fib Current Visit: Yes Status: Chronic Assessment and plan: Rate controlled. Not on anticoagulation due to anemia Qualifiers: Atrial fibrillation type: paroxysmal Qualified Code(s): I48.0 - Paroxysmal atrial fibrillation (4) Essential hypertension Current Visit: Yes Status: Chronic Assessment and plan: Remains well controlled currently. Continue Carvedilol, isosorbide, lisinopril (5) CAD (coronary artery disease) Current Visit: Yes Status: Chronic Assessment and plan: On aspirin, Plavix. Qualifiers: Coronary Disease-Associated Artery/Lesion type: [place] artery [place] vs. transplanted heart: unspecified whether [place] or transplanted heart Associated angina: without angina Qualified Code(s): I25.10 - Atherosclerotic heart disease of [place] coronary artery without angina pectoris (6) Tobacco abuse Current Visit: No Status: Chronic (7) Peripheral arterial disease Current Visit: Yes Status: Acute Assessment and plan: Status post angioplasty in the right superficial and common femoral arteries. On aspirin, Plavix. (8) Anemia Current Visit: Yes Status: Chronic Assessment and plan: Hemoglobin levels remain stable. Iron deficiency. Continue iron supplementation. Qualifiers: Anemia type: iron deficiency Iron deficiency anemia type: unspecified iron deficiency Qualified Code(s): D50.9 - Iron deficiency anemia, unspecified (9) Blurred vision Current Visit: Yes Status: Resolved - Time Spent With Patient Total time spent is greater than 50% in coordination of care (as documented) at patient's floor/unit and/or counseling patient: - Subjective Interval history: Patient is doing well. No pain in lower extremities. Tolerated surgery well yesterday. No acute issues overnight. - Constitutional Vitals: Temp Pulse Resp BP Pulse Ox 98.3 F 68 18 137/58 98 12/20/17 11:37 12/20/17 11:37 12/20/17 11:37 12/20/17 11:37 12/20/17 11:37 General appearance: Present: cooperative, A&O X 3, no acute distress, answers questions appropriately - Neck Neck exam general surgery: Present: supple, trachea midline. Absent: lymphadenopathy - Respiratory Respiratory exam: Present: CTAB. Absent: accessory muscle use, rales, rhonchi, wheezes - Cardiovascular Cardiovascular exam: Present: RRR, +S1, +S2. Absent: diastolic murmur, gallop, rubs, systolic murmur - Extremities Exam Extremities exam: Present: warm, radial pulses palpable and symmetrical. Absent : calf tenderness, cyanotic, pedal edema Additional comments: both feet are currently bandaged. - Neurological Exam Neurological exam: Present: CN II-XII intact, oriented X3, no focal deficits. Absent: facial droop, speech deficit - Skin Skin exam: Present: dry, intact Internal Medicine: Result - Labs CBC & Chem 7: 12/20/17 04:00 12/20/17 04:00 Labs: Short CBC 12/20/17 Range/Units 04:00 WBC 5.9 (4.3-11.1) K/mcL Hgb 7.2 L (12.9-16.9) g/dL Hct 22.5 L (37.5-50.1) % Plt Count 260 (140-400) K/mcL Neutrophils # 4.2 (1.6-8.9) K/mcL BMP 12/20/17 04:00 Sodium 136 Potassium 4.3 Chloride 103 Carbon Dioxide 28 BUN 17 Creatinine 0.83 Glucose 189 H Calcium 8.2 L - ABG Interpretation ABG results: PT/INR, D-dimer PT 13.6 Seconds (9.4-12.1) H 12/19/17 03:51 - VTE Documentation of Mechanical Device: Intermittent pneumatic compression device Consult Discharge Plan - Plan Referrals: [facility]ELPCP [Primary Care Provider] - 12/30/17 11:00 am Luis New MD [Partnered Physician] - 01/01/18 11:45 am
[2017-12-20] MEDS: Gentamicin Oint 15 GM TUBE TP SCH (16:02)
--- NOTE | 2017-12-20 17:02 | Infectious Disease Progress No ---
Date of Encounter: 12/20/17 Time of Encounter: 17:02 - Assessment and Plan (1) Sepsis Current Visit: No Status: Resolved The patient had two SIRS criteria on admission. Likely secondary to osteomyelitis of the right foot. Improved. WBC normal. Tachycardia has resolved. Afebrile. Blood cultures drawn 12/09/17 are negative x 2 sets. Qualifiers: Sepsis type: sepsis due to unspecified organism Qualified Code(s): A41.9 - Sepsis, unspecified organism (2) Osteomyelitis Current Visit: Yes Status: Acute Previous osteomyelitis left foot second toe status post partial amputation. Imaging shows new osteomyelitis of the 5th metatarsal and 5th proximal phalanx. Causative organism unclear. Previous cultures positive for MSSA, Citrobacter, and Lecleria. Wound culture obtained this hospitalization is negative. Previously on IV Rocephin and IV Levaquin. X-ray of the right foot showed OM of the right 5th metatarsal. MRI of the right foot showed osteomyelitis of the right 5th metatarsal and 5th proximal phalanx. MRI of the right ankle completed 12/13/17 shows OM vs. reactive osteitis to the inferolateral aspect of the right calcaneus. Wound culture positive for Yeast. Not sure if this is contributing to the patient's infection picture. Unfortunately, there is a severe drug-drug interaction between fluconazole and plavix so we will hold off on adding this to the patient's medication regimen. Podiatry consulted and following. Planning for surgery on per the notes. Wound care per the podiatry team. ESR 87, CRP 163. Continue Vancomycin IV. Pharmacy to dose. Goal trough ~15. VT 18. Continue Meropenem 1 gram IV Q8H through today, then switch to IV Ertapenem 1 gram daily for ease of dosing. Duration of treatment depends on the clinical picture. Monitor renal function and for drug toxicity and dose-adjust antibiotics. Status post I&D on December [address] heller. Necrotic tissue debrided. Intra- Op cultures pending Qualifiers: Osteomyelitis type: subacute Osteomyelitis location: foot Laterality: right Qualified Code(s): M86.271 - Subacute osteomyelitis, right ankle and foot (3) Wound infection Current Visit: No Status: Acute Previous wound infection of the right heel and left 5th metatarsal. Causative organisms: MSSA, Citrobacter freundii, Lecleria adecarboxylata. Clinically, left lateral foot wound looks okay, but right heel continues to have regression and very foul-smelling discharge. Podiatry consulted and following. Wound care recommendations from the Podiatry team. Given the extent of the right heel wound, I am not sure that the limb is salvageable, but will await further recommendations from the vascular and podiatry teams. Continue antibiotics as above for now. (4) Anemia Current Visit: Yes Status: Chronic Hemoglobin down to 9.9 on admission, down to 7.2 today. GI consulted. Recommend EGD/C-scope, but patient unable to tolerate bowel prep. Further workup and management per the primary and GI teams. Qualifiers: Anemia type: iron deficiency Iron deficiency anemia type: unspecified iron deficiency Qualified Code(s): D50.9 - Iron deficiency anemia, unspecified (5) Diabetes mellitus Current Visit: Yes Status: Chronic HgbA1C 8.8% last month. Recommend aggressive glucose monitoring and control to promote wound healing and prevent re-infection. Management per the primary team. Qualifiers: Diabetes mellitus type: type 2 Diabetes mellitus intermediate insulin use: with intermediate use Diabetes mellitus complication status: with circulatory complication Diabetes mellitus complication detail: with peripheral angiopathy with gangrene Qualified Code(s): E11.52 - Type 2 diabetes 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; Z79.4 - long-term (current) use of insulin; Z79.4 - marine oil terminal superintendent (current) use of insulin; Z79.4 - marine oil terminal superintendent ( current) use of insulin; Z79.4 - long-term (current) use of insulin (6) Peripheral vascular disease Current Visit: No Status: Chronic Status post femoral to above the knee popliteal bypass graft in 2016. Status post left LE Angiogram with balloon angioplasty of the previous graft anastamosis 11/06/[address] Harris. Status post RLE angiogram with balloon angioplasty of the right SFA 11/18/[address] Harris. Vascular surgery consulted. Status post angiogram with balloon angioplasty to right SFA 12/13/[address] New. 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 Current Visit: Yes Status: Chronic Qualifiers: Peripheral atherosclerosis artery type: bypass graft, autologous vein Qualified Code(s): I70.433 - Atherosclerosis of autologous vein bypass graft(s) of the right leg with ulceration of ankle; I70.443 - Atherosclerosis of autologous vein bypass graft(s) of the left leg with ulceration of ankle (8) A-fib Current Visit: Yes Status: Chronic Qualifiers: Atrial fibrillation type: paroxysmal Qualified Code(s): I48.0 - Paroxysmal atrial fibrillation (9) CAD (coronary artery disease) Current Visit: Yes Status: Chronic Qualifiers: Coronary Disease-Associated Artery/Lesion type: [place] artery [place] vs. transplanted heart: unspecified whether [place] or transplanted heart Associated angina: without angina Qualified Code(s): I25.10 - Atherosclerotic heart disease of [place] coronary artery without angina pectoris (10) Tobacco abuse Current Visit: No Status: Chronic (11) Constipation Current Visit: Yes Status: Acute Had small BM yesterday. Denies abdominal pain. Bowel regimen per the primary team. Qualifiers: Constipation type: unspecified constipation type Qualified Code(s): K59.00 - Constipation, unspecified - Subjective Interval history: Patient seen and examined. Seems to be doing well clinically. Status post op back in the room about an hour ago. Denies any pain. No breathing issues. Does not have much of an appetite. Family at bedside. Infect Dis PN-Objective Data - Labs CBC & Chem 7: 12/20/17 04:00 12/20/17 04:00 Labs: Laboratory Results - last 24 hr 12/19/17 12/19/17 12/20/17 16:22 20:22 04:00 WBC 5.9 RBC 2.54 L Hgb 7.2 L Hct 22.5 L MCV 88.6 MCH 28.3 MCHC 32.0 RDW 13.3 Plt Count 260 MPV 9.7 Immature Gran % 0.5 Seg Neutrophils % 71.2 Lymphocytes % 16.7 Monocytes % 9.0 Eosinophils % 2.4 Basophils % 0.2 Neutrophils # 4.2 Lymphocytes # 1.0 Monocytes # 0.5 Eosinophils # 0.1 Basophils # 0.0 Sodium Potassium Chloride Carbon Dioxide BUN Creatinine Est GFR ( Amer) Est GFR (Non-Af Amer) BUN/Creatinine Ratio Glucose POC Glucose 215 H 293 H Calculated Osmolality Calcium 12/20/17 12/20/17 12/20/17 04:00 07:45 11:39 WBC RBC Hgb Hct MCV MCH MCHC RDW Plt Count MPV Immature Gran % Seg Neutrophils % Lymphocytes % Monocytes % Eosinophils % Basophils % Neutrophils # Lymphocytes # Monocytes # Eosinophils # Basophils # Sodium 136 Potassium 4.3 Chloride 103 Carbon Dioxide 28 BUN 17 Creatinine 0.83 Est GFR ( Amer) > 60 Est GFR (Non-Af Amer) > 60 BUN/Creatinine Ratio 20 Glucose 189 H POC Glucose 157 H 176 H Calculated Osmolality 289 Calcium 8.2 L Cultures: Cultures 12/15/17 10:00 Wound Culture - Final Right Foot Tere albicans Exam - Constitutional Vitals: Temp Pulse Resp BP Pulse Ox 98.5 F 64 18 123/53 98 12/20/17 16:10 12/20/17 16:10 12/20/17 16:10 12/20/17 16:10 12/20/17 16:10 General appearance: cooperative, no acute distress, no febrile - Head Head exam: Present: atraumatic, normocephalic - Respiratory Respiratory exam: Present: CTAB. Absent: wheezes - Cardiovascular Cardiovascular exam: Present: RRR, +S1, +S2 - GI/Abdominal GI/Abdominal exam: Present: soft. Absent: tenderness - VTE Documentation of Mechanical Device: Intermittent pneumatic compression device Consult Discharge Plan - Plan [facility]errals: [facility] [Primary Care Provider[facility] - 12/30/17 11:00 am Luis New MD [Partnered Physician] - 01/01/18 11:45 am
[2017-12-20] MEDS: *HR* Heparin 5,000 UNIT/ML VIAL SQ SCH (17:27)
[2017-12-21 04:37] LABS: Basophils % 0.2 %; Eosinophils # 0.1 K/mcL (0.0-0.6); Eosinophils % 2.2 %; Hematocrit 22.2 % (37.5-50.1); Hemoglobin 7.2 g/dL (12.9-16.9); Immature Granulocytes % 0.6 % (0-4); Lymphocytes # 0.9 K/mcL (0.6-4.6); Lymphocytes % 17.6 %; Mean Corpuscular HGB Conc 32.4 g/dL (31.6-35.5); Mean Corpuscular Hemoglobin 28.6 pg (28.0-33.3); Mean Corpuscular Volume 88.1 fL (83.0-100.0); Mean Platelet Volume 9.7 fL (9.4-12.4); Monocytes # 0.5 K/mcL (0.0-1.3); Monocytes % 8.8 %; Neutrophils # 3.8 K/mcL (1.6-8.9); Platelet Count 240 K/mcL (140-400); Red Blood Count 2.52 M/mcL (4.19-5.50); Red Cell Distribution Width 13.2 % (11.5-14.5); Segmented Neutrophils % 70.6 %
[2017-12-21 04:54] LABS: BUN/Creatinine Ratio 19 (6-26); Blood Urea Nitrogen 16 mg/dL (8-23); Calcium 8.3 mg/dL (8.6-10.3); Carbon Dioxide 27 mEq/L (23-29); Chloride 104 mEq/L (98-107); Glucose 94 mg/dL (70-105); Osmolality,Calculated 283 (280-300); Potassium 3.8 mEq/L (3.5-5.1); Sodium 136 mEq/L (136-145); eGFR For African Americans > 60 (> 60); eGFR For Non-African Americans > 60 (> 60)
[2017-12-21] MEDS: *HR* Heparin 5,000 UNIT/ML VIAL SQ SCH ×2 (06:05→17:09)
[2017-12-21] MEDS: Diltiazem CD (24hr) 120 MG CAPSULE PO SCH (09:06)
[2017-12-21] MEDS: Lisinopril 20 MG TABLET PO SCH (09:06)
[2017-12-21] MEDS: Insulin LISPRO 300 UNITS/3 ML VIAL SQ SCH ×4 (09:06→20:18)
[2017-12-21] MEDS: Aspirin Enteric Coated 325 MG Tablet PO SCH (09:06)
[2017-12-21] MEDS: Cyanocobalamin (B-12) 1,000 MCG/ML VIAL SQ SCH ×2 (09:07→09:14)
[2017-12-21] MEDS: Isosorbide MONOnitrate (24 HR) 30 MG TAB.ER.24H PO SCH (09:07)
[2017-12-21] MEDS: Ertapenem 1,000 MG in 0.9 % Sodium Chloride Mini Bag 100 ML IVPB SCH (09:07)
[2017-12-21] MEDS: Gentamicin Oint 15 GM TUBE TP SCH (09:08)
[2017-12-21] MEDS: Insulin DETEMIR 100 UNIT/ML X5UNITS SQ SCH ×2 (12:23→20:21)
--- NOTE | 2017-12-21 15:40 | Internal Med Progress Note ---
Date of Encounter: 12/21/17 Time of Encounter: 09:15 - Assessment and plan (1) Osteomyelitis Current Visit: Yes Status: Acute Assessment and plan: Status post debridement, irrigation to both feet done. Postop day 2. Intraoperative cultures are pending. Based on prior cultures, patient is on ertapenem and vancomycin. Infectious disease following. Recommend 6 weeks of IV antibiotics at this time. Qualifiers: Osteomyelitis type: subacute Osteomyelitis location: foot Laterality: right Qualified Code(s): M86.271 - Subacute osteomyelitis, right ankle and foot (2) Diabetes mellitus Current Visit: Yes Status: Chronic Assessment and plan: Blood sugars 72 this morning. Will decrease his Levemir dosage. Continue to monitor blood sugars closely. Continue diabetic diet. Qualifiers: Diabetes mellitus type: type 2 Diabetes mellitus fpc insulin use: with fpc use Diabetes mellitus complication status: with circulatory complication Diabetes mellitus complication detail: with peripheral angiopathy with gangrene Qualified Code(s): E11.52 - Type 2 diabetes 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; Z79.4 - [facility] (current) use of insulin; Z79.4 - [facility] (current) use of insulin; Z79.4 - moth exterminator ( current) use of insulin; Z79.4 - [facility] (current) use of insulin (3) A-fib Current Visit: Yes Status: Chronic Assessment and plan: Rate controlled. Not on anticoagulation due to anemia Qualifiers: Atrial fibrillation type: paroxysmal Qualified Code(s): I48.0 - Paroxysmal atrial fibrillation (4) Essential hypertension Current Visit: Yes Status: Chronic Assessment and plan: Blood pressure elevated today. Patient was placed on carvedilol 2 days back. If persistently elevated, will increase carvedilol dosage. (5) CAD (coronary artery disease) Current Visit: Yes Status: Chronic Assessment and plan: On aspirin, Plavix. Qualifiers: Coronary Disease-Associated Artery/Lesion type: [place] artery [place] vs. transplanted heart: unspecified whether [place] or transplanted heart Associated angina: without angina Qualified Code(s): I25.10 - Atherosclerotic heart disease of [place] coronary artery without angina pectoris (6) Tobacco abuse Current Visit: No Status: Chronic (7) Peripheral arterial disease Current Visit: Yes Status: Acute Assessment and plan: Status post angioplasty in distal right superficial femoral, and common femoral arteries. On aspirin, Plavix and Zocor. (8) Anemia Current Visit: Yes Status: Chronic Qualifiers: Anemia type: iron deficiency Iron deficiency anemia type: unspecified iron deficiency Qualified Code(s): D50.9 - Iron deficiency anemia, unspecified - Time Spent With Patient Total time spent is greater than 50% in coordination of care (as documented) at patient's floor/unit and/or counseling patient: - Subjective Interval history: Patient feeling nauseated. Had lower than normal blood sugars this morning. Denies any chest pain or palpitations. Pain in lower extremities well controlled. - Constitutional Vitals: Temp Pulse Resp BP Pulse Ox 98.5 F 72 18 163/65 95 12/21/17 11:21 12/21/17 11:21 12/21/17 11:21 12/21/17 11:21 12/21/17 11:21 General appearance: Present: cooperative, A&O X 3, no acute distress, answers questions appropriately - Neck Neck exam general surgery: Present: supple, trachea midline. Absent: lymphadenopathy - Respiratory Respiratory exam: Present: CTAB. Absent: accessory muscle use, rales, rhonchi, wheezes - Cardiovascular Cardiovascular exam: Present: RRR, +S1, +S2. Absent: diastolic murmur, gallop, rubs, systolic murmur - Extremities Exam Extremities exam: Present: warm, radial pulses palpable and symmetrical. Absent : calf tenderness, cyanotic, pedal edema Additional comments: Both feet are bandaged. - Neurological Exam Neurological exam: Present: alert, oriented X3, no focal deficits. Absent: facial droop, speech deficit - Skin Skin exam: Present: dry, intact Internal Medicine: Result - Labs CBC & Chem 7: 12/21/17 04:28 12/21/17 04:28 Labs: Short CBC 12/21/17 Range/Units 04:28 WBC 5.3 (4.3-11.1) K/mcL Hgb 7.2 L (12.9-16.9) g/dL Hct 22.2 L (37.5-50.1) % Plt Count 240 (140-400) K/mcL Neutrophils # 3.8 (1.6-8.9) K/mcL BMP 12/21/17 04:28 Sodium 136 Potassium 3.8 Chloride 104 Carbon Dioxide 27 BUN 16 Creatinine 0.85 Glucose 94 Calcium 8.3 L - ABG Interpretation ABG results: PT/INR, D-dimer PT 13.6 Seconds (9.4-12.1) H 12/19/17 03:51 - VTE Documentation of Mechanical Device: Intermittent pneumatic compression device Consult Discharge Plan - Plan Referrals: [facility] [Primary Care Provider] - 12/30/17 11:00 am Luis New MD [Partnered Physician] - 01/01/18 11:45 am
[2017-12-22] MEDS: *HR* Heparin 5,000 UNIT/ML VIAL SQ SCH ×2 (05:49→17:09)
[2017-12-22] MEDS: Insulin LISPRO 300 UNITS/3 ML VIAL SQ SCH ×4 (08:01→21:00)
[2017-12-22] MEDS: Ertapenem 1,000 MG in 0.9 % Sodium Chloride Mini Bag 100 ML IVPB SCH (08:03)
[2017-12-22] MEDS: Aspirin Enteric Coated 325 MG Tablet PO SCH (08:09)
[2017-12-22] MEDS: Lisinopril 20 MG TABLET PO SCH (08:09)
[2017-12-22] MEDS: Diltiazem CD (24hr) 120 MG CAPSULE PO SCH (08:09)
[2017-12-22] MEDS: Isosorbide MONOnitrate (24 HR) 30 MG TAB.ER.24H PO SCH (08:09)
[2017-12-22] MEDS: Insulin DETEMIR 100 UNIT/ML X5UNITS SQ SCH ×2 (08:09→21:05)
[2017-12-22] MEDS: Cyanocobalamin (B-12) 1,000 MCG/ML VIAL SQ SCH (08:10)
[2017-12-22] MEDS: Gentamicin Oint 15 GM TUBE TP SCH (08:10)
--- NOTE | 2017-12-22 13:25 | Internal Med Progress Note ---
Date of Encounter: 12/22/17 Time of Encounter: 09:45 - Assessment and plan (1) Osteomyelitis Current Visit: Yes Status: Acute Assessment and plan: On IV antibiotics. Infectious disease following. Status post irrigation and debridement. Surgical Wound cultures are negative. Continue antibiotics to complete 6 weeks treatment. Qualifiers: Osteomyelitis type: subacute Osteomyelitis location: foot Laterality: right Qualified Code(s): M86.271 - Subacute osteomyelitis, right ankle and foot (2) Diabetes mellitus Current Visit: Yes Status: Chronic Assessment and plan: Fairly controlled. Will continue current insulin regimen. Qualifiers: Diabetes mellitus type: type 2 Diabetes mellitus skilled nursing insulin use: with terminal block assembler use Diabetes mellitus complication status: with circulatory complication Diabetes mellitus complication detail: with peripheral angiopathy with gangrene Qualified Code(s): E11.52 - Type 2 diabetes 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; Z79.4 - intermediate project manager (current) use of insulin; Z79.4 - intermediate project manager (current) use of insulin; Z79.4 - group home ( current) use of insulin; Z79.4 - group home (current) use of insulin (3) A-fib Current Visit: Yes Status: Chronic Assessment and plan: Rate controlled. Not on anticoagulation due to anemia Qualifiers: Atrial fibrillation type: paroxysmal Qualified Code(s): I48.0 - Paroxysmal atrial fibrillation (4) Essential hypertension Current Visit: Yes Status: Chronic Assessment and plan: Blood pressure was elevated this morning but has since improved. Continue current medication regimen. (5) CAD (coronary artery disease) Current Visit: Yes Status: Chronic Assessment and plan: On aspirin, Plavix Qualifiers: Coronary Disease-Associated Artery/Lesion type: [place] artery [place] vs. transplanted heart: unspecified whether [place] or transplanted heart Associated angina: without angina Qualified Code(s): I25.10 - Atherosclerotic heart disease of [place] coronary artery without angina pectoris (6) Tobacco abuse Current Visit: No Status: Chronic (7) Peripheral arterial disease Current Visit: Yes Status: Acute Assessment and plan: Status post right femoral angioplasty. On aspirin, Plavix. (8) Anemia Current Visit: Yes Status: Chronic Assessment and plan: Hemoglobin is 7.2. Iron deficiency. On iron replacement therapy. Qualifiers: Anemia type: iron deficiency Iron deficiency anemia type: unspecified iron deficiency Qualified Code(s): D50.9 - Iron deficiency anemia, unspecified - Time Spent With Patient Total time spent is greater than 50% in coordination of care (as documented) at patient's floor/unit and/or counseling patient: - Subjective Interval history: Patient is doing better today. Denies any pain has some pain in his right leg. No fever or chills reported overnight. Nausea has improved. - Constitutional Vitals: Temp Pulse Resp BP Pulse Ox 98.4 F 68 18 147/64 94 12/22/17 11:08 12/22/17 11:08 12/22/17 11:08 12/22/17 11:08 12/22/17 11:08 General appearance: Present: cooperative, A&O X 3, no acute distress, answers questions appropriately - Neck Neck exam general surgery: Present: supple, trachea midline. Absent: lymphadenopathy - Respiratory Respiratory exam: Present: CTAB. Absent: accessory muscle use, rales, rhonchi, wheezes - Cardiovascular Cardiovascular exam: Present: RRR, +S1, +S2. Absent: diastolic murmur, gallop, rubs, systolic murmur - GI/Abdominal GI/Abdominal exam: Present: normal bowel sounds, soft, no peritoneal signs. Absent: distended, tenderness - Extremities Exam Extremities exam: Present: warm, radial pulses palpable and symmetrical. Absent : calf tenderness, cyanotic, pedal edema Additional comments: Both feet are bandaged. - Neurological Exam Neurological exam: Present: alert, oriented X3, no focal deficits. Absent: facial droop, speech deficit - Skin Skin exam: Present: dry, intact Internal Medicine: Result - Labs CBC & Chem 7: 12/21/17 04:28 12/21/17 04:28 - ABG Interpretation ABG results: PT/INR, D-dimer PT 13.6 Seconds (9.4-12.1) H 12/19/17 03:51 - VTE Documentation of Mechanical Device: Intermittent pneumatic compression device Consult Discharge Plan - Plan [facility] Care Provider[facility] - 12/30/17 11:00 am Luis New MD [Partnered Physician] - 01/01/18 11:45 am
[2017-12-22] MEDS: *HR* OxyCODONE Immed Rel 5 MG TABLET PO PRN (21:04)
[2017-12-23] MEDS: *HR* Heparin 5,000 UNIT/ML VIAL SQ SCH ×2 (05:00→16:08)
[2017-12-23 07:07] LABS: Basophils % 0.3 %; Eosinophils # 0.1 K/mcL (0.0-0.6); Eosinophils % 1.9 %; Hematocrit 26.9 % (37.5-50.1); Hemoglobin 8.6 g/dL (12.9-16.9); Immature Granulocytes % 0.3 % (0-4); Lymphocytes # 1.7 K/mcL (0.6-4.6); Lymphocytes % 27.3 %; Mean Corpuscular Hemoglobin 28.4 pg (28.0-33.3); Mean Corpuscular Volume 88.8 fL (83.0-100.0); Mean Platelet Volume 9.4 fL (9.4-12.4); Monocytes # 0.6 K/mcL (0.0-1.3); Neutrophils # 3.9 K/mcL (1.6-8.9); Platelet Count 325 K/mcL (140-400); Red Blood Count 3.03 M/mcL (4.19-5.50); Red Cell Distribution Width 13.4 % (11.5-14.5); Segmented Neutrophils % 61.2 %
[2017-12-23 07:20] LABS: BUN/Creatinine Ratio 17 (6-26); Blood Urea Nitrogen 14 mg/dL (8-23); Calcium 8.9 mg/dL (8.6-10.3); Carbon Dioxide 28 mEq/L (23-29); Chloride 105 mEq/L (98-107); Glucose 57 mg/dL (70-105); Osmolality,Calculated 286 (280-300); Potassium 3.8 mEq/L (3.5-5.1); Sodium 139 mEq/L (136-145); eGFR For African Americans > 60 (> 60); eGFR For Non-African Americans > 60 (> 60)
[2017-12-23] MEDS: Diltiazem CD (24hr) 120 MG CAPSULE PO SCH (08:44)
[2017-12-23] MEDS: Aspirin Enteric Coated 325 MG Tablet PO SCH (08:44)
[2017-12-23] MEDS: hydroCHLOROthiazide 25 MG TABLET PO SCH (08:44)
[2017-12-23] MEDS: Isosorbide MONOnitrate (24 HR) 30 MG TAB.ER.24H PO SCH (08:44)
[2017-12-23] MEDS: Cyanocobalamin (B-12) 1,000 MCG/ML VIAL SQ SCH (08:45)
[2017-12-23] MEDS: Insulin LISPRO 300 UNITS/3 ML VIAL SQ SCH ×4 (08:45→21:21)
[2017-12-23] MEDS: Lisinopril 20 MG TABLET PO SCH (08:45)
[2017-12-23] MEDS: Ertapenem 1,000 MG in 0.9 % Sodium Chloride Mini Bag 100 ML IVPB SCH (08:46)
[2017-12-23] MEDS: Gentamicin Oint 15 GM TUBE TP SCH (08:46)
[2017-12-23] MEDS: Insulin DETEMIR 100 UNIT/ML X5UNITS SQ SCH ×2 (09:05→21:21)
[2017-12-23] MEDS ORDERED: *HR* Alteplase (Cathflo) 2 MG VIAL IVP ONE (10:51)
--- NOTE | 2017-12-23 13:28 | Internal Med Progress Note ---
Date of Encounter: 12/23/17 Time of Encounter: 10:10 - Assessment and plan (1) Osteomyelitis Current Visit: Yes Status: Acute Assessment and plan: With multiple organisms per most recent prior cultures. On ertapenem and vancomycin per infectious disease recommendations. Patient will need 6 weeks of IV antibiotics. Surgical wound cultures are negative so far. Podiatry and infectious disease are following. workers compensation attorney following to make arrangements for discharge. Qualifiers: Osteomyelitis type: subacute Osteomyelitis location: foot Laterality: right Qualified Code(s): M86.271 - Subacute osteomyelitis, right ankle and foot (2) Diabetes mellitus Current Visit: Yes Status: Chronic Assessment and plan: Blood sugars were no again this morning. Will decrease long-acting insulin doses. Continue sliding scale coverage. 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 Not on anticoagulation due to anemia Qualifiers: Atrial fibrillation type: paroxysmal Qualified Code(s): I48.0 - Paroxysmal atrial fibrillation (4) Essential hypertension Current Visit: Yes Status: Chronic Assessment and plan: Blood pressure remains elevated. Patient is currently on carvedilol, lisinopril and isosorbide mononitrate. We will add hydrochlorothiazide. (5) CAD (coronary artery disease) Current Visit: Yes Status: Chronic Assessment and plan: On aspirin, Plavix, carvedilol, Zocor and Zestril. Qualifiers: Coronary Disease-Associated Artery/Lesion type: [place] artery [place] vs. transplanted heart: unspecified whether [place] or transplanted heart Associated angina: without angina Qualified Code(s): I25.10 - Atherosclerotic heart disease of [place] coronary artery without angina pectoris (6) Tobacco abuse Current Visit: No Status: Chronic (7) Peripheral arterial disease Current Visit: Yes Status: Acute Assessment and plan: Patient underwent right femoral angioplasty earlier during this hospitalization. Continue medication management (8) Anemia Current Visit: Yes Status: Chronic Assessment and plan: Hemoglobin levels improved to 8.6 today. Likely due to iron supplementation. Will continue. Qualifiers: Anemia type: iron deficiency Iron deficiency anemia type: unspecified iron deficiency Qualified Code(s): D50.9 - Iron deficiency anemia, unspecified - Time Spent With Patient Total time spent is greater than 50% in coordination of care (as documented) at patient's floor/unit and/or counseling patient: - Subjective Interval history: Patient denies any new complaints. Remains stable. No fever or chills reported overnight. No headache. Pain is in both lower extension disease well controlled. - Constitutional Vitals: Temp Pulse Resp BP Pulse Ox 97.6 F 70 17 178/82 95 12/23/17 11:00 12/23/17 11:00 12/23/17 11:00 12/23/17 11:00 12/23/17 11:00 General appearance: Present: cooperative, A&O X 3, no acute distress, answers questions appropriately - Neck Neck exam general surgery: Present: supple, trachea midline. Absent: lymphadenopathy - Respiratory Respiratory exam: Present: CTAB. Absent: accessory muscle use, rales, rhonchi, wheezes - Cardiovascular Cardiovascular exam: Present: RRR, +S1, +S2. Absent: diastolic murmur, gallop, rubs, systolic murmur - Extremities Exam Extremities exam: Present: warm, radial pulses palpable and symmetrical. Absent : calf tenderness, cyanotic, pedal edema Additional comments: Both feet are currently bandaged. - Skin Skin exam: Present: dry, intact Internal Medicine: Result - Labs CBC & Chem 7: 12/23/17 06:30 12/23/17 06:30 Labs: Short CBC 12/23/17 Range/Units 06:30 WBC 6.3 (4.3-11.1) K/mcL Hgb 8.6 L (12.9-16.9) g/dL Hct 26.9 L (37.5-50.1) % Plt Count 325 (140-400) K/mcL Neutrophils # 3.9 (1.6-8.9) K/mcL BMP 12/23/17 06:30 Sodium 139 Potassium 3.8 Chloride 105 Carbon Dioxide 28 BUN 14 Creatinine 0.82 Glucose 57 L Calcium 8.9 - ABG Interpretation ABG results: PT/INR, D-dimer PT 13.6 Seconds (9.4-12.1) H 12/19/17 03:51 - VTE Documentation of Mechanical Device: Intermittent pneumatic compression device Consult Discharge Plan - Plan Referrals: [facility],PCP [Primary Care Provider] - 12/30/17 11:00 am Luis New MD [Partnered Physician] - 01/01/18 11:45 am
--- NOTE | 2017-12-23 15:22 | Infectious Disease Progress No ---
Date of Encounter: 12/23/17 Time of Encounter: 15:20 - Assessment and Plan (1) Sepsis Current Visit: No Status: Resolved The patient had two SIRS criteria on admission. Likely secondary to osteomyelitis of the right foot. Improved. WBC normal. Tachycardia has resolved. Afebrile. Blood cultures drawn 12/09/17 are negative x 2 sets. Qualifiers: Sepsis type: sepsis due to unspecified organism Qualified Code(s): A41.9 - Sepsis, unspecified organism (2) Osteomyelitis Current Visit: Yes Status: Acute Previous osteomyelitis left foot second toe status post partial amputation. Imaging shows new osteomyelitis of the 5th metatarsal and 5th proximal phalanx. Causative organism unclear. Previous cultures positive for MSSA, Citrobacter, and Lecleria. Wound culture obtained this hospitalization is negative. Previously on IV Rocephin and IV Levaquin. X-ray of the right foot showed OM of the right 5th metatarsal. MRI of the right foot showed osteomyelitis of the right 5th metatarsal and 5th proximal phalanx. MRI of the right ankle completed 12/13/17 shows OM vs. reactive osteitis to the inferolateral aspect of the right calcaneus. Wound culture positive for Yeast. Not sure if this is contributing to the patient's infection picture. Unfortunately, there is a severe drug-drug interaction between fluconazole and plavix so we will hold off on adding this to the patient's medication regimen. Podiatry consulted and following. Planning for surgery on per the notes. Wound care per the podiatry team. ESR 87, CRP 163. Continue Vancomycin IV. Pharmacy to dose. Goal trough ~15. VT 18. continue ertapenem Duration of treatment depends on the clinical picture but likely 6 weeks will need a picc line placement Monitor renal function and for drug toxicity and dose-adjust antibiotics. Status post I&D on December [address] heller. Necrotic tissue debrided. Intra- Op cultures no growth Qualifiers: Osteomyelitis type: subacute Osteomyelitis location: foot Laterality: right Qualified Code(s): M86.271 - Subacute osteomyelitis, right ankle and foot (3) Wound infection Current Visit: No Status: Acute Previous wound infection of the right heel and left 5th metatarsal. Causative organisms: MSSA, Citrobacter freundii, Lecleria adecarboxylata. Clinically, left lateral foot wound looks okay, but right heel continues to have regression and very foul-smelling discharge. Podiatry consulted and following. Wound care recommendations from the Podiatry team. Given the extent of the right heel wound, I am not sure that the limb is salvageable, but will await further recommendations from the vascular and podiatry teams. Continue antibiotics as above for now. (4) Anemia Current Visit: Yes Status: Chronic Hemoglobin down to 9.9 on admission, down to 7.2 today. GI consulted. Recommend EGD/C-scope, but patient unable to tolerate bowel prep. Further workup and management per the primary and GI teams. Qualifiers: Anemia type: iron deficiency Iron deficiency anemia type: unspecified iron deficiency Qualified Code(s): D50.9 - Iron deficiency anemia, unspecified (5) Diabetes mellitus Current Visit: Yes Status: Chronic HgbA1C 8.8% last month. Recommend aggressive glucose monitoring and control to promote wound healing and prevent re-infection. Management per the primary team. 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 wall shear operator insulin use: with long wall shear operator use Diabetes mellitus complication status: with circulatory complication Diabetes mellitus complication detail: with peripheral angiopathy with gangrene Qualified Code(s): E11.52 - Type 2 diabetes 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; Z79.4 - detention (current) use of insulin; Z79.4 - buttermaker helper (current) use of insulin; Z79.4 - buttermaker helper ( current) use of insulin; Z79.4 - detention (current) use of insulin (6) Peripheral vascular disease Current Visit: No Status: Chronic Status post femoral to above the knee popliteal bypass graft in 2016. Status post left LE Angiogram with balloon angioplasty of the previous graft anastamosis 11/06/[address] Harris. Status post RLE angiogram with balloon angioplasty of the right SFA 11/18/[address] Harris. Vascular surgery consulted. Status post angiogram with balloon angioplasty to right SFA 12/13/[address] New. 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 Current Visit: Yes Status: Chronic Qualifiers: Peripheral atherosclerosis artery type: bypass graft, autologous vein Qualified Code(s): I70.433 - Atherosclerosis of autologous vein bypass graft(s) of the right leg with ulceration of ankle; I70.443 - Atherosclerosis of autologous vein bypass graft(s) of the left leg with ulceration of ankle (8) A-fib Current Visit: Yes Status: Chronic Qualifiers: Atrial fibrillation type: paroxysmal Qualified Code(s): I48.0 - Paroxysmal atrial fibrillation (9) CAD (coronary artery disease) Current Visit: Yes Status: Chronic Qualifiers: Coronary Disease-Associated Artery/Lesion type: [place] artery [place] vs. transplanted heart: unspecified whether [place] or transplanted heart Associated angina: without angina Qualified Code(s): I25.10 - Atherosclerotic heart disease of [place] coronary artery without angina pectoris (10) Tobacco abuse Current Visit: No Status: Chronic (11) Constipation Current Visit: Yes Status: Acute Had small BM yesterday. Denies abdominal pain. Bowel regimen per the primary team. Qualifiers: Constipation type: unspecified constipation type Qualified Code(s): K59.00 - Constipation, unspecified - Subjective Interval history: Patient seen and examined. Patient doing well clinically. Denies any chest pain. No shortness of breath. No diarrhea. No urinary symptoms. Still has no nicotine patch on and states that he is feeling okay. Continues to be afebrile. Heart rate is normal and sometimes bradycardic. Blood pressure elevated. Labs reviewed. WBC normal. BUN/creatinine normal. Vancomycin trough 19 Currently on vancomycin and ertapenem Infect Dis PN-Objective Data - Labs CBC & Chem 7: 12/23/17 06:30 12/23/17 06:30 Labs: Laboratory Results - last 24 hr 12/22/17 12/22/17 12/22/17 07:17 11:17 16:40 WBC RBC Hgb Hct MCV MCH MCHC RDW Plt Count MPV Immature Gran % Seg Neutrophils % Lymphocytes % Monocytes % Eosinophils % Basophils % Neutrophils # Lymphocytes # Monocytes # Eosinophils # Basophils # Sodium Potassium Chloride Carbon Dioxide BUN Creatinine Est GFR ( Amer) Est GFR (Non-Af Amer) BUN/Creatinine Ratio Glucose POC Glucose 126 H 174 H 163 H Calculated Osmolality Calcium 12/22/17 12/23/17 12/23/17 20:56 06:30 06:30 WBC 6.3 RBC 3.03 L Hgb 8.6 L Hct 26.9 L MCV 88.8 MCH 28.4 MCHC 32.0 RDW 13.4 Plt Count 325 MPV 9.4 Immature Gran % 0.3 Seg Neutrophils % 61.2 Lymphocytes % 27.3 Monocytes % 9.0 Eosinophils % 1.9 Basophils % 0.3 Neutrophils # 3.9 Lymphocytes # 1.7 Monocytes # 0.6 Eosinophils # 0.1 Basophils # 0.0 Sodium 139 Potassium 3.8 Chloride 105 Carbon Dioxide 28 BUN 14 Creatinine 0.82 Est GFR ( Amer) > 60 Est GFR (Non-Af Amer) > 60 BUN/Creatinine Ratio 17 Glucose 57 L POC Glucose 184 H Calculated Osmolality 286 Calcium 8.9 Cultures: Cultures 12/19/17 13:05 Anaerobic Culture - Preliminary Right Foot At this time, no anaerobic growth is present. The culture will be finalized after 5 days of incubation. 12/19/17 13:05 Wound Culture - Final Right Foot No growth. 12/15/17 10:00 Wound Culture - Final Right Foot Tere albicans Exam - Constitutional Vitals: Temp Pulse Resp BP Pulse Ox 97.6 F 70 17 178/82 95 12/23/17 11:00 12/23/17 11:00 12/23/17 11:00 12/23/17 11:00 12/23/17 11:00 General appearance: no acute distress, no febrile - Head Head exam: Present: atraumatic, normocephalic - Eye Eye exam: Present: EOMI, PERRL - Respiratory Respiratory exam: Present: CTAB. Absent: rhonchi, wheezes - Cardiovascular Cardiovascular exam: Present: RRR, +S1, +S2 - GI/Abdominal GI/Abdominal exam: Present: normal bowel sounds, soft. Absent: tenderness - VTE Documentation of Mechanical Device: Intermittent pneumatic compression device Consult Discharge Plan - Plan [facility]: [facility] [Primary Care Provider[facility] - 12/30/17 11:00 am Luis New MD [Partnered Physician] - 01/01/18 11:45 am
--- NOTE | 2017-12-23 18:17 | Podiatry Progress Note ---
Date of Encounter: 12/23/17 Time of Encounter: 12:30 - Assessment and Plan (1) Necrotic eschar Current Visit: No Status: Acute (2) Diabetes mellitus Current Visit: Yes Status: Chronic 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 renewal inspector insulin use: with termite renewal inspector use Diabetes mellitus complication status: with circulatory complication Diabetes mellitus complication detail: with peripheral angiopathy with gangrene Qualified Code(s): E11.52 - Type 2 diabetes 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; Z79.4 - technician terminal and repeater (current) use of insulin; Z79.4 - senior living (current) use of insulin; Z79.4 - technician terminal and repeater ( current) use of insulin; Z79.4 - technician terminal and repeater (current) use of insulin (3) Chronic foot ulcer Current Visit: Yes Status: Acute S/p Irrigation and debridement of left foot ulceration. Irrigation and debridement of large calcaneal ulcer with biopsy of calcaneal bone for possible osteomyelitis. Irrigation and debridement of fifth metatarsal ulceration with incision to bone cortex at the level of the fifth metatarsal head and base of the fifth digit proximal phalanx. Incision and drainage of medial soft tissue abscess along the medial aspect of the foot with debridement of necrotic, nonviable tissue by Dr. Morales on . S/P WINDER HELPER right femoral artery by Dr. New on 12/13/17. WBC: 6.3 Plan: Dressing changed at bedside. Plan to reapply wound vac to the left foot at the 5th metatarsal head, lateral aspect and an an application of a wound vac to the right foot to all three ulcerations tomorrow 12/24/17. Continue wound care as ordered. Antibiotics per ID. Will continue to monitor patient closely. Qualifiers: Laterality: right Non-pressure ulcer stage: limited to breakdown of skin Qualified Code(s): L97.511 - Non-pressure chronic ulcer of other part of right foot limited to breakdown of skin Subjective Principal diagnosis: Bilateral foot ulcerations with ischemia and osteomyelitis Interval history: Patient is s/p Abdominal aortogram, Aortogram with bilateral lower extremity runoff, Standard and drug coated balloon angioplasty of distal right common femoral artery stenosis, Drug coated balloon angioplasty of distal right superficial femoral artery stenosis, Placement of triple lumen central venous catheter via right femoral vein by Dr. New on 12/13/17. Patient is s/p Irrigation and debridement of left foot ulceration, Irrigation and debridement of large calcaneal ulcer with biopsy of calcaneal bone for possible osteomyelitis. Irrigation and debridement of fifth metatarsal ulceration with incision to bone cortex at the level of the fifth metatarsal head and base of the fifth digit proximal phalanx. Incision and drainage of medial soft tissue abscess along the medial aspect of the foot with debridement of necrotic, nonviable tissue by Dr. Morales on . Patient is lying in bed with dressings intact to both feet. No c/o fever, chills, cp, sob or flu like symptoms. Objective - Vital Signs Vital Signs: Vital Signs Temp Pulse Resp BP Pulse Ox 12/23/17 16:19 97.8 F 66 17 158/73 98 12/23/17 11:00 97.6 F 70 17 178/82 95 12/23/17 07:04 98.2 F 55 17 171/79 95 12/23/17 03:45 97.7 F 56 18 161/75 96 12/23/17 03:11 59 12/22/17 23:55 57 12/22/17 23:46 98 F 61 18 165/71 97 12/22/17 21:00 65 12/22/17 20:53 98.4 F 65 18 161/69 96 Intake and Output 12/23/17 12/23/17 12/23/17 07:59 15:59 23:59 Intake Total 500 / 500 240 / 240 240 / 240 Output Total 600 / 600 800 / 800 400 / 400 Balance -100 / -100 -560 / -560 -160 / -160 Intake: IV Fluids 500 / 500 Vancocin 1,250 MG In 0.9 % 500 / 500 Sodium Chloride 250 ML @ 166.67 mls/hr IVPB Q12H [facility] Rx#: [id number] Oral 240 / 240 240 / 240 Output: Urine 600 / 600 800 / 800 400 / 400 Other: Meal Breakfast Dinner Percent of Meal Consumed 100% 100% Weight 96.8 kg Blood Glucose* 66 125 179 Patient Weight 12/23/17 23:59 Weight 96.8 kg - Exam Exam: General: A&O x3, calm and cooperative. Vascular: Right foot: no necrosis, no cyanosis, no pallor, foot is pink warm and dry, CFT is immediate. Dressing dry and intact to left foot. S/P; Dressing dry and intact to left foot. no strikethrough drainage. The right foot fifth metatarsal wound measures approximately 4 cm in diameter and 1 cm in depth, base of wound with red granulation tissue, moderate amount of serous drainage observed to packing, no pus, no odor, no fluctuance, no warmth, no streaking. The right foot calcaneus wound on the lateral aspect of the calcaneus measured approximately 7.5 cm in length and 7 cm and width with a depth of 1.5 cm and a small tracking site along the plantar aspect of the calcaneus the tract approximately 2.5 cm. base of wound with 90 % yellow fibrous tissue and 10% red tissue, periwound erythema, large amount of serous drainage observed to packing , no pus, no odor, no fluctuance, no warmth, no streaking. The right foot medial wound approximately 4 cm in length and 2 cm and width with a depth of 1 cm. base of wound with red granulation tissue, moderate amount of serous drainage observed to packing, no pus, no odor, no fluctuance, no warmth, no streaking. - Lab Result Diagrams: 12/23/17 06:30 12/23/17 06:30 Labs: Abnormal lab results RBC 3.03 M/mcL (4.19-5.50) L 12/23/17 06:30 Hgb 8.6 g/dL (12.9-16.9) L 12/23/17 06:30 Hct 26.9 % (37.5-50.1) L 12/23/17 06:30 ESR 87 mm/hr (0-10) H 12/11/17 08:59 PT 13.6 Seconds (9.4-12.1) H 12/19/17 03:51 Glucose 57 mg/dL (70-105) L 12/23/17 06:30 POC Glucose 125 mg/dL (70-99) H 12/23/17 11:45 Iron 11 mcg/dL (65-175) L 12/18/17 05:11 % Saturation 7 % (20-55) L 12/18/17 05:11 Transferrin 108 mg/dL (203-362) L 12/18/17 05:11 Ferritin 438 ng/mL (20-250) H 12/18/17 05:11 AST 7 Units/L (13-39) L 12/09/17 11:57 ALT 6 Units/L (7-52) L 12/09/17 11:57 C-Reactive Protein 163 mg/L (Less than 10) H 12/11/17 08:59 Albumin 3.3 g/dL (3.5-5.7) L 12/09/17 11:57 Globulin 3.9 g/dL (2.4-3.5) H 12/09/17 11:57 Albumin/Globulin Ratio 0.8 (1.1-2.2) L 12/09/17 11:57 Vitamin B12 202 pg/mL (250-1100) L 12/18/17 07:55 Ur Specific [place] > 1.030 (1.010-1.025) H 12/09/17 12:24 Urine Protein 30 mg/dL (Neg-Trace) H 12/09/17 12:24 Urine Glucose (UA) >=1000 mg/dL (Normal) H 12/09/17 12:24 Ur Squamous Epith Cells Many per lpf (None-Few) H 12/09/17 12:24 Vancomycin Trough 19 mcg/mL (5-10) H 12/21/17 14:00 Microbiology, Last 48 Hours 12/19/17 13:05 Anaerobic Culture - Preliminary Right Foot At this time, no anaerobic growth is present. The culture will be finalized after 5 days of incubation. 12/19/17 13:05 Wound Culture - Final Right Foot No growth. - VTE Documentation of Mechanical Device: Intermittent pneumatic compression device Consult Discharge Plan - Plan [facility]Primary Care Provider[facility] - 12/30/17 11:00 am Luis New MD [Partnered Physician] - 01/01/18 11:45 am
[2017-12-23] MEDS: Acetaminophen 325 MG TABLET PO PRN (19:48)
[2017-12-24] MEDS: *HR* Heparin 5,000 UNIT/ML VIAL SQ SCH ×2 (05:53→16:24)
[2017-12-24] MEDS: Insulin LISPRO 300 UNITS/3 ML VIAL SQ SCH ×4 (08:43→20:34)
[2017-12-24] MEDS: Insulin DETEMIR 100 UNIT/ML X5UNITS SQ SCH ×2 (08:44→20:35)
[2017-12-24] MEDS: Ertapenem 1,000 MG in 0.9 % Sodium Chloride Mini Bag 100 ML IVPB SCH (08:44)
[2017-12-24] MEDS: Cyanocobalamin (B-12) 1,000 MCG/ML VIAL SQ SCH (08:45)
[2017-12-24] MEDS: Lisinopril 20 MG TABLET PO SCH (08:45)
[2017-12-24] MEDS: Isosorbide MONOnitrate (24 HR) 30 MG TAB.ER.24H PO SCH (08:45)
[2017-12-24] MEDS: Gentamicin Oint 15 GM TUBE TP SCH (08:46)
[2017-12-24] MEDS: Aspirin Enteric Coated 325 MG Tablet PO SCH (08:46)
[2017-12-24] MEDS: Diltiazem CD (24hr) 120 MG CAPSULE PO SCH (08:46)
[2017-12-24] MEDS: hydroCHLOROthiazide 25 MG TABLET PO SCH (08:46)
--- NOTE | 2017-12-24 13:48 | Internal Med Progress Note ---
Date of Encounter: 12/24/17 Time of Encounter: 13:40 - Assessment and plan (1) Osteomyelitis Current Visit: Yes Status: Acute Assessment and plan: With multiple organisms per most recent prior cultures. On ertapenem and vancomycin per infectious disease recommendations. Patient will need 6 weeks of IV antibiotics. Surgical wound cultures are negative so far. Podiatry and infectious disease are following. forming process line worker following to make arrangements for discharge. Qualifiers: Osteomyelitis type: subacute Osteomyelitis location: foot Laterality: right Qualified Code(s): M86.271 - Subacute osteomyelitis, right ankle and foot (2) Diabetes mellitus Current Visit: Yes Status: Chronic Assessment and plan: Continue sliding scale coverage. Qualifiers: Diabetes mellitus type: type 2 Diabetes mellitus senior living insulin use: with senior living use Diabetes mellitus complication status: with circulatory complication Diabetes mellitus complication detail: with peripheral angiopathy with gangrene Qualified Code(s): E11.52 - Type 2 diabetes 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; Z79.4 - nursing home (current) use of insulin; Z79.4 - etl data architect (current) use of insulin; Z79.4 - nursing home ( current) use of insulin; Z79.4 - etl data architect (current) use of insulin (3) A-fib Current Visit: Yes Status: Chronic Assessment and plan: Rate controlled. Not on anticoagulation due to anemia Qualifiers: Atrial fibrillation type: paroxysmal Qualified Code(s): I48.0 - Paroxysmal atrial fibrillation (4) CAD (coronary artery disease) Current Visit: Yes Status: Chronic Assessment and plan: On aspirin, Plavix, carvedilol, Zocor and Zestril. Qualifiers: Coronary Disease-Associated Artery/Lesion type: [place] artery [place] vs. transplanted heart: unspecified whether [place] or transplanted heart Associated angina: without angina Qualified Code(s): I25.10 - Atherosclerotic heart disease of [place] coronary artery without angina pectoris (5) Tobacco abuse Current Visit: No Status: Chronic Assessment and plan: Patient has refused nicotine patch. (6) Peripheral arterial disease Current Visit: Yes Status: Acute Assessment and plan: Patient underwent right femoral angioplasty earlier during this hospitalization. Continue medication management (7) Anemia Current Visit: Yes Status: Chronic Assessment and plan: Hemoglobin levels improved to 8.6 today. Likely due to iron supplementation. Will continue. Qualifiers: Anemia type: iron deficiency Iron deficiency anemia type: unspecified iron deficiency Qualified Code(s): D50.9 - Iron deficiency anemia, unspecified (8) Essential hypertension Current Visit: Yes Status: Chronic Assessment and plan: Blood pressure remains elevated. Patient is currently on carvedilol, lisinopril and isosorbide mononitrate. We will add hydrochlorothiazide. - Time Spent With Patient Total time spent is greater than 50% in coordination of care (as documented) at patient's floor/unit and/or counseling patient: - Subjective Interval history: No acute events overnight - Constitutional Vitals: Temp Pulse Resp BP Pulse Ox 98.2 F 68 15 168/80 97 12/24/17 11:16 12/24/17 11:16 12/24/17 11:16 12/24/17 11:16 12/24/17 11:16 General appearance: Present: cooperative, A&O X 3, no acute distress, answers questions appropriately - Head Head exam: Present: atraumatic, normocephalic - Eye Eye exam: Present: PERRL, conjuntiva pink, sclera anicteric Pupils: Present: PERRL - Neck Neck exam general surgery: Present: supple, trachea midline. Absent: lymphadenopathy - Respiratory Respiratory exam: Present: CTAB. Absent: accessory muscle use, rales, rhonchi, wheezes - Cardiovascular Cardiovascular exam: Present: RRR, +S1, +S2. Absent: diastolic murmur, gallop, rubs, systolic murmur - GI/Abdominal GI/Abdominal exam: Present: normal bowel sounds, soft, no peritoneal signs. Absent: distended, tenderness - Extremities Exam Extremities exam: Present: warm, radial pulses palpable and symmetrical. Absent : calf tenderness, cyanotic, pedal edema - Neurological Exam Neurological exam: Present: CN II-XII intact, oriented X3, no focal deficits. Absent: pronater drift, facial droop, speech deficit - Skin Skin exam: Present: dry, intact Internal Medicine: Result - Labs CBC & Chem 7: 12/23/17 06:30 12/23/17 06:30 - ABG Interpretation ABG results: PT/INR, D-dimer PT 13.6 Seconds (9.4-12.1) H 12/19/17 03:51 - VTE Documentation of Mechanical Device: Intermittent pneumatic compression device Consult Discharge Plan - Plan [facility]errals: [facility] [Primary Care Provider] - 12/30/17 11:00 am Luis New MD [Partnered Physician] - 01/01/18 11:45 am
--- NOTE | 2017-12-24 16:14 | Podiatry Progress Note ---
Date of Encounter: 12/24/17 Time of Encounter: 12:00 - Assessment and Plan (1) Necrotic eschar Current Visit: No Status: Acute (2) Diabetes mellitus Current Visit: Yes Status: Chronic Qualifiers: Diabetes mellitus type: type 2 Diabetes mellitus skilled nursing insulin use: with rn long term care use Diabetes mellitus complication status: with circulatory complication Diabetes mellitus complication detail: with peripheral angiopathy with gangrene Qualified Code(s): E11.52 - Type 2 diabetes 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; Z79.4 - half-way (current) use of insulin; Z79.4 - half-way (current) use of insulin; Z79.4 - long term care phlebotomist ( current) use of insulin; Z79.4 - half-way (current) use of insulin (3) Chronic foot ulcer Current Visit: Yes Status: Acute S/p Irrigation and debridement of left foot ulceration. Irrigation and debridement of large calcaneal ulcer with biopsy of calcaneal bone for possible osteomyelitis. Irrigation and debridement of fifth metatarsal ulceration with incision to bone cortex at the level of the fifth metatarsal head and base of the fifth digit proximal phalanx. Incision and drainage of medial soft tissue abscess along the medial aspect of the foot with debridement of necrotic, nonviable tissue by Dr. Morales on . S/P METHODS ANALYST DATA PROCESSING right femoral artery by Dr. New on 12/13/17. WBC: 6.3 on 12/23/17 Plan: Dressing changed at bedside. Small black [place] wound vac sponge applied to the left foot at the 5th metatarsal head, lateral aspect and an an application of a small black [place] wound vac to the right foot, lateral aspect at 5th metatarsal head, lateral calcaneus and medial aspect of right foot, bridged to dorsum of right foot. Prep all surrounding skin with Allkare skin barrier prep prior to application of drape. Connected to 125 mmhg low continuous suction, right and left foot. Patient will be discharged with wound vac to both feet. Wound vac paperwork completed. Antibiotics per ID. NWB to right foot, protective weight bearing to left. Will continue to monitor patient closely. Patient will follow up with Dr. Morales one week after discharge from hospital. Qualifiers: Laterality: right Non-pressure ulcer stage: limited to breakdown of skin Qualified Code(s): L97.511 - Non-pressure chronic ulcer of other part of right foot limited to breakdown of skin Subjective Principal diagnosis: Bilateral foot ulcerations with ischemia and osteomyelitis Interval history: Patient is s/p Abdominal aortogram, Aortogram with bilateral lower extremity runoff, Standard and drug coated balloon angioplasty of distal right common femoral artery stenosis, Drug coated balloon angioplasty of distal right superficial femoral artery stenosis, Placement of triple lumen central venous catheter via right femoral vein by Dr. New on 12/13/17. Patient is s/p Irrigation and debridement of left foot ulceration, Irrigation and debridement of large calcaneal ulcer with biopsy of calcaneal bone for possible osteomyelitis. Irrigation and debridement of fifth metatarsal ulceration with incision to bone cortex at the level of the fifth metatarsal head and base of the fifth digit proximal phalanx. Incision and drainage of medial soft tissue abscess along the medial aspect of the foot with debridement of necrotic, nonviable tissue by Dr. Morales on . Patient is lying in bed with dressings intact to both feet. No c/o fever, chills, cp, sob or flu like symptoms. Objective - Vital Signs Vital Signs: Vital Signs Temp Pulse Resp BP Pulse Ox 12/24/17 15:37 98 F 67 16 137/73 98 12/24/17 11:16 98.2 F 68 15 168/80 97 12/24/17 07:26 98.1 F 65 15 162/69 97 12/24/17 03:55 97.9 F 64 17 150/68 98 12/24/17 01:30 98.1 F 58 17 181/74 99 12/23/17 22:58 98.2 F 66 18 154/56 99 12/23/17 20:00 64 12/23/17 19:34 97.8 F 66 16 168/73 94 12/23/17 16:19 97.8 F 66 17 158/73 98 Intake and Output 12/24/17 12/24/17 12/24/17 07:59 15:59 23:59 Intake Total 600 / 600 340 / 340 Output Total 1525 / 1525 950 / 950 Balance -925 / -925 -610 / -610 Intake: IV Fluids 250 / 250 100 / 100 INVanz 1,000 MG In 0.9 % Sodium 100 / 100 Chloride (Mini-Bag +) 100 ML @ 100 mls/hr IVPB DAILY [facility] Rx#: [id number] Vancocin 1,000 MG In 0.9 % 250 / 250 Sodium Chloride 250 ML @ 166. 667 mls/hr IVPB Q12H [facility] Rx#: [id number] Oral 350 / 350 240 / 240 Output: Urine 1525 / 1525 950 / 950 Wound Drainage 0 / 0 Left Heel 0 / 0 Left Lateral Foot 0 / 0 Left Toe - 2nd Digit 0 / 0 Right Lateral Foot 0 / 0 Right Medial Foot 0 / 0 right lateral foot near fifth 0 / 0 toe Other: Meal Lunch Percent of Meal Consumed 50% Weight 102.4 kg Blood Glucose* 162 133 Patient Weight 12/24/17 23:59 Weight 102.4 kg - Exam Exam: General: A&O x3, calm and cooperative. Vascular: Right foot: no necrosis, no cyanosis, no pallor, foot is pink warm and dry, CFT is immediate. Dressing dry and intact to left foot. S/P; Left: Full thickness ulcer to the lateral aspect of the left foot, 5th metatarsal head measuring 2.5 cm in length x 2.5 cm in width x 0.5 cm in depth, base of wound with red and yellow fibrous tissue, moderate amount of serous drainage observed to packing, no pus, no odor, no fluctuance, no warmth, no streaking. The right foot fifth metatarsal wound measures approximately 4 cm in diameter and 1 cm in depth, base of wound with red granulation tissue, moderate amount of serous drainage observed to packing, no pus, no odor, no fluctuance, no warmth, no streaking. The right foot calcaneus wound on the lateral aspect of the calcaneus measured approximately 7.5 cm in length and 7 cm and width with a depth of 1.5 cm and a small tracking site along the plantar aspect of the calcaneus the tract approximately 2.5 cm. base of wound with 90 % yellow fibrous tissue and 10% red tissue, periwound erythema, large amount of serous drainage observed to packing , no pus, no odor, no fluctuance, no warmth, no streaking. The right foot medial wound approximately 4 cm in length and 2 cm and width with a depth of 1 cm. base of wound with red granulation tissue, moderate amount of serous drainage observed to packing, no pus, no odor, no fluctuance, no warmth, no streaking. - Lab Result Diagrams: 12/23/17 06:30 12/23/17 06:30 Labs: Abnormal lab results RBC 3.03 M/mcL (4.19-5.50) L 12/23/17 06:30 Hgb 8.6 g/dL (12.9-16.9) L 12/23/17 06:30 Hct 26.9 % (37.5-50.1) L 12/23/17 06:30 ESR 87 mm/hr (0-10) H 12/11/17 08:59 PT 13.6 Seconds (9.4-12.1) H 12/19/17 03:51 Glucose 57 mg/dL (70-105) L 12/23/17 06:30 POC Glucose 133 mg/dL (70-99) H 12/24/17 15:40 Iron 11 mcg/dL (65-175) L 12/18/17 05:11 % Saturation 7 % (20-55) L 12/18/17 05:11 Transferrin 108 mg/dL (203-362) L 12/18/17 05:11 Ferritin 438 ng/mL (20-250) H 12/18/17 05:11 AST 7 Units/L (13-39) L 12/09/17 11:57 ALT 6 Units/L (7-52) L 12/09/17 11:57 C-Reactive Protein 163 mg/L (Less than 10) H 12/11/17 08:59 Albumin 3.3 g/dL (3.5-5.7) L 12/09/17 11:57 Globulin 3.9 g/dL (2.4-3.5) H 12/09/17 11:57 Albumin/Globulin Ratio 0.8 (1.1-2.2) L 12/09/17 11:57 Vitamin B12 202 pg/mL (250-1100) L 12/18/17 07:55 Ur Specific [place] > 1.030 (1.010-1.025) H 12/09/17 12:24 Urine Protein 30 mg/dL (Neg-Trace) H 12/09/17 12:24 Urine Glucose (UA) >=1000 mg/dL (Normal) H 12/09/17 12:24 Ur Squamous Epith Cells Many per lpf (None-Few) H 12/09/17 12:24 Vancomycin Trough 19 mcg/mL (5-10) H 12/21/17 14:00 Microbiology, Last 48 Hours 12/19/17 13:05 Anaerobic Culture - Preliminary Right Foot At this time, no anaerobic growth is present. The culture will be finalized after 5 days of incubation. 12/19/17 13:05 Wound Culture - Final Right Foot No growth. - VTE Documentation of Mechanical Device: Intermittent pneumatic compression device Consult Discharge Plan - Plan [facility]errals: [facility] [Primary Care Provider] - 12/30/17 11:00 am uLis New MD [Partnered Physician] - 01/01/18 11:45 am
[2017-12-24] MEDS: Acetaminophen 325 MG TABLET PO PRN (16:31)
--- NOTE | 2017-12-24 17:44 | Infectious Disease Progress No ---
Date of Encounter: 12/24/17 Time of Encounter: 17:43 - Assessment and Plan (1) Osteomyelitis Current Visit: Yes Status: Acute Previous osteomyelitis left foot second toe status post partial amputation. Imaging shows new osteomyelitis of the 5th metatarsal and 5th proximal phalanx. Causative organism unclear. Previous cultures positive for MSSA, Citrobacter, and Lecleria. Wound culture obtained this hospitalization is negative. Previously on IV Rocephin and IV Levaquin. X-ray of the right foot showed OM of the right 5th metatarsal. MRI of the right foot showed osteomyelitis of the right 5th metatarsal and 5th proximal phalanx. MRI of the right ankle completed 12/13/17 shows OM vs. reactive osteitis to the inferolateral aspect of the right calcaneus. Wound culture positive for Yeast. Not sure if this is contributing to the patient's infection picture. Unfortunately, there is a severe drug-drug interaction between fluconazole and plavix so we will hold off on adding this to the patient's medication regimen. Podiatry consulted and following. Planning for surgery on per the notes. Wound care per the podiatry team. ESR 87, CRP 163. Continue Vancomycin IV. Pharmacy to dose. Goal trough ~15. VT 18. continue ertapenem Duration of treatment depends on the clinical picture but likely 6 weeks will need a picc line placement Monitor renal function and for drug toxicity and dose-adjust antibiotics. Status post I&D on December [address] heller. Necrotic tissue debrided. Intra- Op cultures no growth I spoke with social worker psychiatric and nursing staff at her all the prescriptions. The [facility]. Qualifiers: Osteomyelitis type: subacute Osteomyelitis location: foot Laterality: right Qualified Code(s): M86.271 - Subacute osteomyelitis, right ankle and foot (2) Wound infection Current Visit: No Status: Acute Previous wound infection of the right heel and left 5th metatarsal. Causative organisms: MSSA, Citrobacter freundii, Lecleria adecarboxylata. Clinically, left lateral foot wound looks okay, but right heel continues to have regression and very foul-smelling discharge. Podiatry consulted and following. Wound care recommendations from the Podiatry team. Given the extent of the right heel wound, I am not sure that the limb is salvageable, but will await further recommendations from the vascular and podiatry teams. Continue antibiotics as above for now. (3) Anemia Current Visit: Yes Status: Chronic Hemoglobin down to 9.9 on admission, down to 7.2 today. GI consulted. Recommend EGD/C-scope, but patient unable to tolerate bowel prep. Further workup and management per the primary and GI teams. Qualifiers: Anemia type: iron deficiency Iron deficiency anemia type: unspecified iron deficiency Qualified Code(s): D50.9 - Iron deficiency anemia, unspecified (4) Diabetes mellitus Current Visit: Yes Status: Chronic HgbA1C 8.8% last month. Recommend aggressive glucose monitoring and control to promote wound healing and prevent re-infection. Management per the primary team. Qualifiers: Diabetes mellitus type: type 2 Diabetes mellitus snf insulin use: with termite control technician use Diabetes mellitus complication status: with circulatory complication Diabetes mellitus complication detail: with peripheral angiopathy with gangrene Qualified Code(s): E11.52 - Type 2 diabetes 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; Z79.4 - termite control technician (current) use of insulin; Z79.4 - alf (current) use of insulin; Z79.4 - alf ( current) use of insulin; Z79.4 - alf (current) use of insulin (5) Peripheral vascular disease Current Visit: No Status: Chronic Status post femoral to above the knee popliteal bypass graft in 2016. Status post left LE Angiogram with balloon angioplasty of the previous graft anastamosis 11/06/[address] Harris. Status post RLE angiogram with balloon angioplasty of the right SFA 11/18/[address] Harris. Vascular surgery consulted. Status post angiogram with balloon angioplasty to right SFA 12/13/[address] New. 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 Current Visit: Yes Status: Chronic Qualifiers: Peripheral atherosclerosis artery type: bypass graft, autologous vein Qualified Code(s): I70.433 - Atherosclerosis of autologous vein bypass graft(s) of the right leg with ulceration of ankle; I70.443 - Atherosclerosis of autologous vein bypass graft(s) of the left leg with ulceration of ankle (7) A-fib Current Visit: Yes Status: Chronic Qualifiers: Atrial fibrillation type: paroxysmal Qualified Code(s): I48.0 - Paroxysmal atrial fibrillation (8) CAD (coronary artery disease) Current Visit: Yes Status: Chronic Qualifiers: Coronary Disease-Associated Artery/Lesion type: [place] artery [place] vs. transplanted heart: unspecified whether [place] or transplanted heart Associated angina: without angina Qualified Code(s): I25.10 - Atherosclerotic heart disease of [place] coronary artery without angina pectoris (9) Tobacco abuse Current Visit: No Status: Chronic (10) Constipation Current Visit: Yes Status: Acute Had small BM yesterday. Denies abdominal pain. Bowel regimen per the primary team. Qualifiers: Constipation type: unspecified constipation type Qualified Code(s): K59.00 - Constipation, unspecified - Subjective Interval history: Patient seen and examined. Patient doing well clinically. Denies any chest pain. No shortness of breath. No diarrhea. No urinary symptoms. Still has no nicotine patch on and states that he is feeling okay. Continues to be afebrile. Heart rate is normal and sometimes bradycardic. Blood pressure elevated. Labs reviewed. WBC normal. BUN/creatinine normal. Infect Dis PN-Objective Data - Labs CBC & Chem 7: 12/23/17 06:30 12/23/17 06:30 Labs: Laboratory Results - last 24 hr 12/23/17 12/23/17 12/24/17 16:21 20:42 07:30 POC Glucose 179 H 244 H 162 H 12/24/17 12/24/17 11:14 15:40 POC Glucose 157 H 133 H Cultures: Cultures 12/19/17 13:05 Anaerobic Culture - Preliminary Right Foot At this time, no anaerobic growth is present. The culture will be finalized after 5 days of incubation. 12/19/17 13:05 Wound Culture - Final Right Foot No growth. 12/15/17 10:00 Wound Culture - Final Right Foot Tere albicans Exam - Constitutional Vitals: Temp Pulse Resp BP Pulse Ox 98 F 67 16 137/73 98 12/24/17 15:37 12/24/17 15:37 12/24/17 15:37 12/24/17 15:37 12/24/17 15:37 General appearance: no acute distress, no febrile - Respiratory Respiratory exam: Present: CTAB. Absent: wheezes - Cardiovascular Cardiovascular exam: Present: RRR, +S1, +S2 - GI/Abdominal GI/Abdominal exam: Present: normal bowel sounds, soft. Absent: tenderness - Extremities Exam Additional comments: Wound VAC placed on both feet - VTE Documentation of Mechanical Device: Intermittent pneumatic compression device Consult Discharge Plan - Plan Referrals: YUNIEL,PCP [Primary Care Provider] - 12/30/17 11:00 am Luis New MD [Partnered Physician] - 01/01/18 11:45 am
[2017-12-25 04:40] LABS: Basophils % 0.6 %; Eosinophils # 0.2 K/mcL (0.0-0.6); Hematocrit 25.3 % (37.5-50.1); Hemoglobin 8.2 g/dL (12.9-16.9); Immature Granulocytes % 0.4 % (0-4); Immature Platelets 1.7 % (1.1-6.1); Lymphocytes # 1.4 K/mcL (0.6-4.6); Lymphocytes % 28.8 %; Mean Corpuscular HGB Conc 32.4 g/dL (31.6-35.5); Mean Corpuscular Hemoglobin 28.4 pg (28.0-33.3); Mean Corpuscular Volume 87.5 fL (83.0-100.0); Monocytes # 0.4 K/mcL (0.0-1.3); Monocytes % 8.1 %; Neutrophils # 2.9 K/mcL (1.6-8.9); Platelet Count 292 K/mcL (140-400); Red Blood Count 2.89 M/mcL (4.19-5.50); Red Cell Distribution Width 13.6 % (11.5-14.5); Segmented Neutrophils % 59.1 %
[2017-12-25 04:51] LABS: BUN/Creatinine Ratio 19 (6-26); Blood Urea Nitrogen 16 mg/dL (8-23); Carbon Dioxide 27 mEq/L (23-29); Chloride 104 mEq/L (98-107); Glucose 159 mg/dL (70-105); Osmolality,Calculated 287 (280-300); Sodium 136 mEq/L (136-145); eGFR For African Americans > 60 (> 60); eGFR For Non-African Americans > 60 (> 60)
[2017-12-25] MEDS: *HR* Heparin 5,000 UNIT/ML VIAL SQ SCH ×2 (05:25→16:42)
[2017-12-25] MEDS: Lisinopril 20 MG TABLET PO SCH (08:05)
[2017-12-25] MEDS: hydroCHLOROthiazide 25 MG TABLET PO SCH (08:06)
[2017-12-25] MEDS: Isosorbide MONOnitrate (24 HR) 30 MG TAB.ER.24H PO SCH (08:06)
[2017-12-25] MEDS: Diltiazem CD (24hr) 120 MG CAPSULE PO SCH (08:06)
[2017-12-25] MEDS: Aspirin Enteric Coated 325 MG Tablet PO SCH (08:06)
[2017-12-25] MEDS: Insulin DETEMIR 100 UNIT/ML X5UNITS SQ SCH ×2 (08:07→20:11)
[2017-12-25] MEDS: Ertapenem 1,000 MG in 0.9 % Sodium Chloride Mini Bag 100 ML IVPB SCH (08:07)
[2017-12-25] MEDS: Insulin LISPRO 300 UNITS/3 ML VIAL SQ SCH ×4 (08:08→20:12)
[2017-12-25] MEDS: Cyanocobalamin (B-12) 1,000 MCG/ML VIAL SQ SCH (08:12)
[2017-12-25] MEDS: Acetaminophen 325 MG TABLET PO PRN (08:18)
[2017-12-25] MEDS: Gentamicin Oint 15 GM TUBE TP SCH (08:19)
[2017-12-25] MEDS ORDERED: LIDOCAINE 1% PF 2 ML AMPUL INFILT ONE (11:21)
--- NOTE | 2017-12-25 13:08 | Internal Med Progress Note ---
Date of Encounter: 12/25/17 Time of Encounter: 13:00 - Assessment and plan (1) Osteomyelitis Current Visit: Yes Status: Acute Assessment and plan: With multiple organisms per most recent prior cultures. On ertapenem and vancomycin per infectious disease recommendations. Patient will need 6 weeks of IV antibiotics and PICC line placement. Surgical wound cultures are negative so far. Podiatry and infectious disease are following. hog worker following to make arrangements for discharge.[facility] Qualifiers: Osteomyelitis type: subacute Osteomyelitis location: foot Laterality: right Qualified Code(s): M86.271 - Subacute osteomyelitis, right ankle and foot (2) Diabetes mellitus Current Visit: Yes Status: Chronic Assessment and plan: Continue sliding scale coverage. 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 Not on anticoagulation due to anemia Qualifiers: Atrial fibrillation type: paroxysmal Qualified Code(s): I48.0 - Paroxysmal atrial fibrillation (4) CAD (coronary artery disease) Current Visit: Yes Status: Chronic Assessment and plan: On aspirin, Plavix, carvedilol, Zocor and Zestril. Qualifiers: Coronary Disease-Associated Artery/Lesion type: [place] artery [place] vs. transplanted heart: unspecified whether [place] or transplanted heart Associated angina: without angina Qualified Code(s): I25.10 - Atherosclerotic heart disease of [place] coronary artery without angina pectoris (5) Tobacco abuse Current Visit: No Status: Chronic Assessment and plan: Patient has refused nicotine patch. (6) Peripheral arterial disease Current Visit: Yes Status: Acute Assessment and plan: Patient underwent right femoral angioplasty earlier during this hospitalization. Continue medication management (7) Anemia Current Visit: Yes Status: Chronic Assessment and plan: Hemoglobin levels improved to 8.6 today. Likely due to iron supplementation. Will continue. Qualifiers: Anemia type: iron deficiency Iron deficiency anemia type: unspecified iron deficiency Qualified Code(s): D50.9 - Iron deficiency anemia, unspecified (8) Essential hypertension Current Visit: Yes Status: Chronic Assessment and plan: Blood pressure remains elevated. Patient is currently on carvedilol, lisinopril and isosorbide mononitrate. We will add hydrochlorothiazide. - Time Spent With Patient Total time spent is greater than 50% in coordination of care (as documented) at patient's floor/unit and/or counseling patient: - Subjective Interval history: No acute events overnight - Constitutional Vitals: Temp Pulse Resp BP Pulse Ox 98.6 F 61 18 162/72 99 12/25/17 11:19 12/25/17 11:19 12/25/17 11:19 12/25/17 11:19 12/25/17 11:19 General appearance: Present: cooperative, A&O X 3, no acute distress, answers questions appropriately - Head Head exam: Present: atraumatic, normocephalic - Eye Eye exam: Present: PERRL, conjuntiva pink, sclera anicteric Pupils: Present: PERRL - Neck Neck exam general surgery: Present: supple, trachea midline. Absent: lymphadenopathy - Respiratory Respiratory exam: Present: CTAB. Absent: accessory muscle use, rales, rhonchi, wheezes - Cardiovascular Cardiovascular exam: Present: RRR, +S1, +S2. Absent: diastolic murmur, gallop, rubs, systolic murmur - GI/Abdominal GI/Abdominal exam: Present: normal bowel sounds, soft, no peritoneal signs. Absent: distended, tenderness - Extremities Exam Extremities exam: Present: warm, radial pulses palpable and symmetrical. Absent : calf tenderness, cyanotic, pedal edema - Neurological Exam Neurological exam: Present: CN II-XII intact, oriented X3, no focal deficits. Absent: pronater drift, facial droop, speech deficit - Skin Skin exam: Present: dry, intact Internal Medicine: Result - Labs CBC & Chem 7: 12/25/17 04:22 12/25/17 04:22 Labs: Short CBC 12/25/17 Range/Units 04:22 WBC 4.9 (4.3-11.1) K/mcL Hgb 8.2 L (12.9-16.9) g/dL Hct 25.3 L (37.5-50.1) % Plt Count 292 (140-400) K/mcL Neutrophils # 2.9 (1.6-8.9) K/mcL BMP 12/25/17 04:22 Sodium 136 Potassium 4.0 Chloride 104 Carbon Dioxide 27 BUN 16 Creatinine 0.86 Glucose 159 H Calcium 9.0 - ABG Interpretation ABG results: PT/INR, D-dimer PT 13.6 Seconds (9.4-12.1) H 12/19/17 03:51 - VTE Documentation of Mechanical Device: Intermittent pneumatic compression device Consult Discharge Plan - Plan Referrals: YUNIEL,PCP [Primary Care Provider] - 12/30/17 11:00 am Luis New MD [Partnered Physician] - 01/01/18 11:45 am
--- NOTE | 2017-12-25 13:59 | Infectious Disease Progress No ---
Date of Encounter: 12/25/17 Time of Encounter: 13:56 - Assessment and Plan (1) Osteomyelitis Current Visit: Yes Status: Acute Previous osteomyelitis left foot second toe status post partial amputation. Imaging shows new osteomyelitis of the 5th metatarsal and 5th proximal phalanx. Causative organism unclear. Previous cultures positive for MSSA, Citrobacter, and Lecleria. Wound culture obtained this hospitalization is negative. Previously on IV Rocephin and IV Levaquin. X-ray of the right foot showed OM of the right 5th metatarsal. MRI of the right foot showed osteomyelitis of the right 5th metatarsal and 5th proximal phalanx. MRI of the right ankle completed 12/13/17 shows OM vs. reactive osteitis to the inferolateral aspect of the right calcaneus. Wound culture positive for Yeast. Not sure if this is contributing to the patient's infection picture. Unfortunately, there is a severe drug-drug interaction between fluconazole and plavix so we will hold off on adding this to the patient's medication regimen. Podiatry consulted and following. Planning for surgery on per the notes. Wound care per the podiatry team. ESR 87, CRP 163. Continue Vancomycin IV. Pharmacy to dose. Goal trough ~15. VT 18. continue ertapenem Duration of treatment depends on the clinical picture but likely 6 weeks will need a picc line placement Monitor renal function and for drug toxicity and dose-adjust antibiotics. Status post I&D on December [address] heller. Necrotic tissue debrided. Intra- Op cultures no growth I spoke with social service technician and nursing staff at her all the prescriptions. The only [facility]. Qualifiers: Osteomyelitis type: subacute Osteomyelitis location: foot Laterality: right Qualified Code(s): M86.271 - Subacute osteomyelitis, right ankle and foot (2) Wound infection Current Visit: No Status: Acute Previous wound infection of the right heel and left 5th metatarsal. Causative organisms: MSSA, Citrobacter freundii, Lecleria adecarboxylata. Clinically, left lateral foot wound looks okay, but right heel continues to have regression and very foul-smelling discharge. Podiatry consulted and following. Wound care recommendations from the Podiatry team. Given the extent of the right heel wound, I am not sure that the limb is salvageable, but will await further recommendations from the vascular and podiatry teams. Continue antibiotics as above for now. (3) Anemia Current Visit: Yes Status: Chronic Hemoglobin down to 9.9 on admission, down to 7.2 today. GI consulted. Recommend EGD/C-scope, but patient unable to tolerate bowel prep. Further workup and management per the primary and GI teams. Qualifiers: Anemia type: iron deficiency Iron deficiency anemia type: unspecified iron deficiency Qualified Code(s): D50.9 - Iron deficiency anemia, unspecified (4) Diabetes mellitus Current Visit: Yes Status: Chronic HgbA1C 8.8% last month. Recommend aggressive glucose monitoring and control to promote wound healing and prevent re-infection. Management per the primary team. Qualifiers: Diabetes mellitus type: type 2 Diabetes mellitus penitentiary insulin use: with sample mounter use Diabetes mellitus complication status: with circulatory complication Diabetes mellitus complication detail: with peripheral angiopathy with gangrene Qualified Code(s): E11.52 - Type 2 diabetes 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; Z79.4 - magento developer (current) use of insulin; Z79.4 - FPC (current) use of insulin; Z79.4 - FPC ( current) use of insulin; Z79.4 - [facility]PC (current) use of insulin (5) Peripheral vascular disease Current Visit: No Status: Chronic Status post femoral to above the knee popliteal bypass graft in 2016. Status post left LE Angiogram with balloon angioplasty of the previous graft anastamosis 11/06/[address] Harris. Status post RLE angiogram with balloon angioplasty of the right SFA 11/18/[address] Harris. Vascular surgery consulted. Status post angiogram with balloon angioplasty to right SFA 12/13/[address] New. 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 Current Visit: Yes Status: Chronic Qualifiers: Peripheral atherosclerosis artery type: bypass graft, autologous vein Qualified Code(s): I70.433 - Atherosclerosis of autologous vein bypass graft(s) of the right leg with ulceration of ankle; I70.443 - Atherosclerosis of autologous vein bypass graft(s) of the left leg with ulceration of ankle (7) A-fib Current Visit: Yes Status: Chronic Qualifiers: Atrial fibrillation type: paroxysmal Qualified Code(s): I48.0 - Paroxysmal atrial fibrillation (8) CAD (coronary artery disease) Current Visit: Yes Status: Chronic Qualifiers: Coronary Disease-Associated Artery/Lesion type: [place] artery [place] vs. transplanted heart: unspecified whether [place] or transplanted heart Associated angina: without angina Qualified Code(s): I25.10 - Atherosclerotic heart disease of [place] coronary artery without angina pectoris (9) Tobacco abuse Current Visit: No Status: Chronic (10) Constipation Current Visit: Yes Status: Acute Had small BM yesterday. Denies abdominal pain. Bowel regimen per the primary team. Qualifiers: Constipation type: unspecified constipation type Qualified Code(s): K59.00 - Constipation, unspecified - Subjective Interval history: Patient seen and examined. Patient doing well clinically. Denies any chest pain. No shortness of breath. No diarrhea. No urinary symptoms. Was getting a midline placed Infect Dis PN-Objective Data - Labs CBC & Chem 7: 12/25/17 04:22 12/25/17 04:22 Labs: Laboratory Results - last 24 hr 12/24/17 12/24/17 12/24/17 07:30 11:14 15:40 WBC RBC Hgb Hct MCV MCH MCHC RDW Plt Count MPV Immature Gran % Seg Neutrophils % Lymphocytes % Monocytes % Eosinophils % Basophils % Neutrophils # Lymphocytes # Monocytes # Eosinophils # Basophils # Immature Plt Fraction Sodium Potassium Chloride Carbon Dioxide BUN Creatinine Est GFR ( Amer) Est GFR (Non-Af Amer) BUN/Creatinine Ratio Glucose POC Glucose 162 H 157 H 133 H Calculated Osmolality Calcium 12/24/17 12/25/17 12/25/17 20:31 04:22 04:22 WBC 4.9 RBC 2.89 L Hgb 8.2 L Hct 25.3 L MCV 87.5 MCH 28.4 MCHC 32.4 RDW 13.6 Plt Count 292 MPV 9.0 L Immature Gran % 0.4 Seg Neutrophils % 59.1 Lymphocytes % 28.8 Monocytes % 8.1 Eosinophils % 3.0 Basophils % 0.6 Neutrophils # 2.9 Lymphocytes # 1.4 Monocytes # 0.4 Eosinophils # 0.2 Basophils # 0.0 Immature Plt Fraction 1.7 Sodium 136 Potassium 4.0 Chloride 104 Carbon Dioxide 27 BUN 16 Creatinine 0.86 Est GFR ( Amer) > 60 Est GFR (Non-Af Amer) > 60 BUN/Creatinine Ratio 19 Glucose 159 H POC Glucose 252 H Calculated Osmolality 287 Calcium 9.0 12/25/17 07:10 WBC RBC Hgb Hct MCV MCH MCHC RDW Plt Count MPV Immature Gran % Seg Neutrophils % Lymphocytes % Monocytes % Eosinophils % Basophils % Neutrophils # Lymphocytes # Monocytes # Eosinophils # Basophils # Immature Plt Fraction Sodium Potassium Chloride Carbon Dioxide BUN Creatinine Est GFR ( Amer) Est GFR (Non-Af Amer) BUN/Creatinine Ratio Glucose POC Glucose 164 H Calculated Osmolality Calcium Cultures: Cultures 12/19/17 13:05 Anaerobic Culture - Final Right Foot No anaerobes were recovered. 12/19/17 13:05 Wound Culture - Final Right Foot No growth. 12/15/17 10:00 Wound Culture - Final Right Foot Tere albicans Exam - Constitutional Vitals: Temp Pulse Resp BP Pulse Ox 98.6 F 61 18 162/72 99 12/25/17 11:19 12/25/17 11:19 12/25/17 11:19 12/25/17 11:19 12/25/17 11:19 General appearance: no acute distress, no febrile - Respiratory Respiratory exam: Present: CTAB. Absent: wheezes - Cardiovascular Cardiovascular exam: Present: RRR, +S1, +S2 - GI/Abdominal GI/Abdominal exam: Present: normal bowel sounds, soft. Absent: tenderness - VTE Documentation of Mechanical Device: Intermittent pneumatic compression device Consult Discharge Plan - Plan [facility] - 12/30/17 11:00 am Luis New MD [Partnered Physician] - 01/01/18 11:45 am
[2017-12-26 05:40] LABS: Basophils % 0.6 %; Eosinophils # 0.1 K/mcL (0.0-0.6); Eosinophils % 2.6 %; Hematocrit 26.3 % (37.5-50.1); Hemoglobin 8.3 g/dL (12.9-16.9); Immature Granulocytes % 0.2 % (0-4); Lymphocytes # 1.3 K/mcL (0.6-4.6); Lymphocytes % 23.6 %; Mean Corpuscular HGB Conc 31.6 g/dL (31.6-35.5); Mean Corpuscular Hemoglobin 27.6 pg (28.0-33.3); Mean Corpuscular Volume 87.4 fL (83.0-100.0); Mean Platelet Volume 9.2 fL (9.4-12.4); Monocytes # 0.4 K/mcL (0.0-1.3); Monocytes % 8.1 %; Neutrophils # 3.4 K/mcL (1.6-8.9); Platelet Count 292 K/mcL (140-400); Red Blood Count 3.01 M/mcL (4.19-5.50); Red Cell Distribution Width 13.7 % (11.5-14.5); Segmented Neutrophils % 64.9 %
[2017-12-26 05:57] LABS: BUN/Creatinine Ratio 21 (6-26); Blood Urea Nitrogen 17 mg/dL (8-23); Calcium 8.9 mg/dL (8.6-10.3); Carbon Dioxide 28 mEq/L (23-29); Chloride 104 mEq/L (98-107); Glucose 156 mg/dL (70-105); Osmolality,Calculated 287 (280-300); Potassium 3.9 mEq/L (3.5-5.1); Sodium 136 mEq/L (136-145); eGFR For African Americans > 60 (> 60); eGFR For Non-African Americans > 60 (> 60)
[2017-12-26] MEDS: *HR* Heparin 5,000 UNIT/ML VIAL SQ SCH ×2 (06:22→17:52)
[2017-12-26] MEDS ORDERED: Aminoglycoside Consult 1 EACH MC ONE (07:51)
[2017-12-26] MEDS: Ertapenem 1,000 MG in 0.9 % Sodium Chloride Mini Bag 100 ML IVPB SCH (07:54)
[2017-12-26] MEDS: Insulin LISPRO 300 UNITS/3 ML VIAL SQ SCH ×4 (07:55→20:56)
[2017-12-26] MEDS: Cyanocobalamin (B-12) 1,000 MCG/ML VIAL SQ SCH (07:55)
[2017-12-26] MEDS: hydroCHLOROthiazide 25 MG TABLET PO SCH (07:55)
[2017-12-26] MEDS: Isosorbide MONOnitrate (24 HR) 30 MG TAB.ER.24H PO SCH (07:56)
[2017-12-26] MEDS: Aspirin Enteric Coated 325 MG Tablet PO SCH (07:56)
[2017-12-26] MEDS: Diltiazem CD (24hr) 120 MG CAPSULE PO SCH (07:56)
[2017-12-26] MEDS: Lisinopril 20 MG TABLET PO SCH (07:56)
[2017-12-26] MEDS: Insulin DETEMIR 100 UNIT/ML X5UNITS SQ SCH ×2 (07:57→20:56)
--- NOTE | 2017-12-26 11:15 | Discharge Summary ---
Orders not resulted at time of discharge: Pending orders 12/27/17 04:00 Basic Metabolic Panel AM 0400 CBC [Complete Blood Count] [HEME] AM 0400 12/28/17 04:00 Basic Metabolic Panel AM 0400 CBC [Complete Blood Count] [HEME] AM 0400 12/29/17 04:00 Basic Metabolic Panel AM 0400 CBC [Complete Blood Count] [HEME] AM 0400 12/30/17 04:00 Basic Metabolic Panel AM 0400 CBC [Complete Blood Count] [HEME] AM 0400 Date of Encounter: 12/26/17 Time of Encounter: 11:00 - Discharge Diagnosis (1) Osteomyelitis Priority: Primary Status: Acute Assessment and Plan: 62 year old male with past medical history of hypertension diabetes type 2 insulin-dependent, tobacco abuse who was recently discharged from this hospital on 11/22/2017 when he was treated for osteomyelitis, he was sent on 2 more weeks of Rocephin and Levaquin IV as he grew Leclercia, Staphylococcus aureus and Citrobacter in his cultures, the patient says that he has been very compliant and has been taking his antibiotics every day until yesterday, he was sent from the wound center as his wounds have been more foul smelling in both feet.With multiple organisms per most recent prior cultures. He was seen by vascular surgery, infectious diseases and podiatry. He was assessed with foot ulcer with multiple ulcerations and MRI of the foot showed new osteomyelitis of the right 5th metartasal but no evidence of abscess formation. He also has peripheral vascular disease with ulceration. His left ankle brachial index is normal. His right ankle brachial index consistent with moderate disease. His right lower extremity arterial duplex reveals evidence of superficial femoral artery stenosis greater than 75%. He had an abdominal aortogram, aortogram with bilateral lower extremity runoff, Standard and drug coated balloon angioplasty of distal right common femoral artery stenosis, Drug coated balloon angioplasty of distal right superficial femoral artery stenosis, Placement of triple lumen central venous catheter via right femoral vein by Dr. New on 12/13/17. Tolerated procedure well with no acute complications. He also had amputation/ray resection of the fifth ray/digit of the right foot with bone biopsy of the calcaneus and irrigation and debridement of the right foot ulcerations as well as the left foot ulcerations on 12/19 by podiatry. he tolerated procedure well. He is on ertapenem and vancomycin per infectious disease recommendations. Previous cultures were positive for MSSA, citrobacter and lecleria. Patient will need 6 weeks of IV antibiotics and a PICC line was placed. Surgical wound cultures were negative. He was discharged in a stable condition. 35minutes were spent discharging this patient Qualifiers: Osteomyelitis type: subacute Osteomyelitis location: foot Laterality: right Qualified Code(s): M86.271 - Subacute osteomyelitis, right ankle and foot (2) Diabetes mellitus Priority: Secondary Status: Chronic Qualifiers: Diabetes mellitus type: type 2 Diabetes mellitus meterman insulin use: with meterman use Diabetes mellitus complication status: with circulatory complication Diabetes mellitus complication detail: with peripheral angiopathy with gangrene Qualified Code(s): E11.52 - Type 2 diabetes 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; Z79.4 - skilled nursing (current) use of insulin; Z79.4 - skilled nursing (current) use of insulin; Z79.4 - skilled nursing ( current) use of insulin; 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 transplanted heart: unspecified whether [place] or transplanted heart Associated angina: without angina Qualified Code(s): I25.10 - Atherosclerotic heart disease of [place] coronary artery without angina pectoris (5) Tobacco abuse Priority: Secondary Status: Chronic (6) Peripheral arterial disease Priority: Secondary Status: Acute (7) Anemia Priority: Secondary Status: Chronic Qualifiers: Anemia type: iron deficiency Iron deficiency anemia type: unspecified iron deficiency Qualified Code(s): D50.9 - Iron deficiency anemia, unspecified (8) Essential hypertension Priority: Secondary Status: Chronic Hospital course: Mr. Prescott is a 62 year old male - Time Spent with Patient Total time spent providing and/or coordinating discharge services: - Discharge Medications Prescriptions: Carvedilol [Coreg] 3.125 mg PO BIDWM #60 tablet Ferrous Sulfate 325 mg PO TIDWM #60 tablet Sennosides/Docusate Sodium [Senna Plus] 2 each PO BID PRN #60 tablet PRN Reason: Constipation Home Medications: Aspirin [Lo-Dose Aspirin EC] 325 mg PO DAILY 04/12/17 [History] Insulin ASPART [Novolog Flexpen] 14 unit SQ QAM 05/10/17 [History] Acetaminophen [Tylenol] 1,000 mg PO Q6HR PRN #90 tablet 11/06/17 [Rx] Clopidogrel [Plavix] 75 mg PO DAILY #30 tablet 11/06/17 [Rx] Isosorbide MONOnitrate (24 HR) [Imdur] 30 mg PO DAILY 11/06/17 [History] Pravastatin Sodium [Pravachol] 10 mg PO MOTH 11/06/17 [History] dilTIAZem HCl [Diltiazem 24Hr Cd] 120 mg PO DAILY 11/06/17 [History] Insulin ASPART [NovoLOG] 10 unit SQ BID 11/11/17 [History] Insulin Glargine,Hum.rec.anlog [Lantus Solostar] 54 - 60 unit SQ HS 11/11/17 [ History] Collagenase Oint [Santyl] 1 appl TP DAILY #1 tube 11/22/17 [Rx] Gentamicin Oint [Garamycin] 1 appl TP DAILY #1 tube 11/22/17 [Rx] Budesonide/Formoterol 80/4.5 [Symbicort 80/4.5] 2 puff IH BID 12/09/17 [History ] Lisinopril/Hydrochlorothiazide [Zestoretic 20-12.5 mg Tablet] 1 tab PO DAILY 10/23 [History] Carvedilol [Coreg] 3.125 mg PO BIDWM #60 tablet 12/26/17 [Rx] Ferrous Sulfate 325 mg PO TIDWM #60 tablet 12/26/17 [Rx] Sennosides/Docusate Sodium [Senna Plus] 2 each PO BID PRN #60 tablet 12/26/17 [ Rx] Allergies/Adverse Reactions: 3 Allergy/AdvReac Type Severity Reaction Status Date / Time atorvastatin [From Lipitor] Allergy Diarrhea Verified 11/11/17 18:33 Date of admission: 12/09/17 18:54 [facility]: [facility] Consults: 12/10/17 14:03 Consult to Vascular Surgery [CONS] Routine Consulting Provider: Vascular Surgery Jet Reason for Consult: 11/18 Angiogram with right superficial femoral artery angioplasty with 4 x 100mm balloon. Direct pressure held for hemostasis. Steven. New onset pain RLE Call Completed: No 12/10/17 14:18 Consult to Infectious Diseases [CONS] Routine Consulting Provider: Infectious Disease Bree Reason for Consult: patient was seen by ID on last admission Time Notified: 14:19 Call Completed: No 12/16/17 19:26 Consult to Invasive Line Access Team [CONS] Routine Reason for Consult: limited vascular access with multiple failed epivs Line Type: Midline 12/25/17 11:21 Consult to Invasive Line Access Team [CONS] Routine Reason for Consult: Picc Line Insertion Line Type: PICC Call Completed: Yes - Constitutional Vitals: Temp Pulse Resp BP Pulse Ox 98.4 F 69 16 149/74 95 12/26/17 06:51 12/26/17 06:51 12/26/17 06:51 12/26/17 06:51 12/26/17 06:51 General appearance: Present: cooperative, A&O X 3, no acute distress, answers questions appropriately - Head Head exam: Present: atraumatic, normocephalic - Eye Eye exam: Present: PERRL, conjuntiva pink, sclera anicteric Pupils: Present: PERRL - Neck Neck exam general surgery: Present: supple, trachea midline. Absent: lymphadenopathy - Respiratory Respiratory exam: Present: CTAB. Absent: accessory muscle use, rales, rhonchi, wheezes - Cardiovascular Cardiovascular exam: Present: RRR, +S1, +S2. Absent: diastolic murmur, gallop, rubs, systolic murmur - GI/Abdominal GI/Abdominal exam: Present: normal bowel sounds, soft, no peritoneal signs. Absent: distended, tenderness - Extremities Exam Extremities exam: Present: warm, radial pulses palpable and symmetrical. Absent : calf tenderness, cyanotic, pedal edema - Neurological Exam Neurological exam: Present: CN II-XII intact, oriented X3, no focal deficits. Absent: pronater drift, facial droop, speech deficit - Skin Skin exam: Present: dry, intact - Patient Status Disposition: Home, Self-Care Condition: Good - Discharge Instructions Follow Up With: YUNIEL,PCP [Primary Care Provider] - 12/30/17 11:00 am Luis New MD [Partnered Physician] - 01/01/18 11:45 am - VTE Documentation of Mechanical Device: Intermittent pneumatic compression device
[2017-12-26] MEDS: Gentamicin Oint 15 GM TUBE TP SCH (11:33)
--- NOTE | 2017-12-26 12:57 | Infectious Disease Progress No ---
Date of Encounter: 12/26/17 Time of Encounter: 12:55 - Assessment and Plan (1) Osteomyelitis Current Visit: Yes Status: Acute Previous osteomyelitis left foot second toe status post partial amputation. Imaging shows new osteomyelitis of the 5th metatarsal and 5th proximal phalanx. Causative organism unclear. Previous cultures positive for MSSA, Citrobacter, and Lecleria. Wound culture obtained this hospitalization is negative. Previously on IV Rocephin and IV Levaquin. X-ray of the right foot showed OM of the right 5th metatarsal. MRI of the right foot showed osteomyelitis of the right 5th metatarsal and 5th proximal phalanx. MRI of the right ankle completed 12/13/17 shows OM vs. reactive osteitis to the inferolateral aspect of the right calcaneus. Wound culture positive for Yeast. Not sure if this is contributing to the patient's infection picture. Unfortunately, there is a severe drug-drug interaction between fluconazole and plavix so we will hold off on adding this to the patient's medication regimen. Podiatry consulted and following. Planning for surgery on per the notes. Wound care per the podiatry team. ESR 87, CRP 163. Continue Vancomycin IV 750 mg q12hrs. Pharmacy to dose. Goal trough ~15. VT 18. continue ertapenem Duration of treatment depends on the clinical picture but likely 6 weeks picc line placed Monitor renal function and for drug toxicity and dose-adjust antibiotics. Status post I&D on December [address] heller. Necrotic tissue debrided. Intra- Op cultures no growth I spoke with social media director and nursing staff at her all the prescriptions. The only thing holding discharge [facility]. added ESR and CRP to today's labs Qualifiers: Osteomyelitis type: subacute Osteomyelitis location: foot Laterality: right Qualified Code(s): M86.271 - Subacute osteomyelitis, right ankle and foot (2) Wound infection Current Visit: No Status: Acute Previous wound infection of the right heel and left 5th metatarsal. Causative organisms: MSSA, Citrobacter freundii, Lecleria adecarboxylata. Clinically, left lateral foot wound looks okay, but right heel continues to have regression and very foul-smelling discharge. Podiatry consulted and following. Wound care recommendations from the Podiatry team. Given the extent of the right heel wound, I am not sure that the limb is salvageable, but will await further recommendations from the vascular and podiatry teams. Continue antibiotics as above for now. (3) Anemia Current Visit: Yes Status: Chronic Hemoglobin down to 9.9 on admission, down to 7.2 today. GI consulted. Recommend EGD/C-scope, but patient unable to tolerate bowel prep. Further workup and management per the primary and GI teams. Qualifiers: Anemia type: iron deficiency Iron deficiency anemia type: unspecified iron deficiency Qualified Code(s): D50.9 - Iron deficiency anemia, unspecified (4) Diabetes mellitus Current Visit: Yes Status: Chronic HgbA1C 8.8% last month. Recommend aggressive glucose monitoring and control to promote wound healing and prevent re-infection. Management per the primary team. 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 Status post left LE Angiogram with balloon angioplasty of the previous graft anastamosis 11/06/[address] Harris. Status post RLE angiogram with balloon angioplasty of the right SFA 11/18/[address] Harris. Vascular surgery consulted. Status post angiogram with balloon angioplasty to right SFA 12/13/[address] New. 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 Current Visit: Yes Status: Chronic Qualifiers: Peripheral atherosclerosis artery type: bypass graft, autologous vein Qualified Code(s): I70.433 - Atherosclerosis of autologous vein bypass graft(s) of the right leg with ulceration of ankle; I70.443 - Atherosclerosis of autologous vein bypass graft(s) of the left leg with ulceration of ankle (7) A-fib Current Visit: Yes Status: Chronic Qualifiers: Atrial fibrillation type: paroxysmal Qualified Code(s): I48.0 - Paroxysmal atrial fibrillation (8) CAD (coronary artery disease) Current Visit: Yes Status: Chronic Qualifiers: Coronary Disease-Associated Artery/Lesion type: [place] artery [place] vs. transplanted heart: unspecified whether [place] or transplanted heart Associated angina: without angina Qualified Code(s): I25.10 - Atherosclerotic heart disease of [place] coronary artery without angina pectoris (9) Tobacco abuse Current Visit: No Status: Chronic (10) Constipation Current Visit: Yes Status: Acute Had small BM yesterday. Denies abdominal pain. Bowel regimen per the primary team. Qualifiers: Constipation type: unspecified constipation type Qualified Code(s): K59.00 - Constipation, unspecified - Subjective Interval history: Patient seen and examined. Clinically looking better. Eager to go home. Patient denies any chest pain no shortness of breath no headache no urinary symptoms no diarrhea no abdominal pain. Vital signs stable no fever Labs: WBC is 5.3 creatinine 0.82 Vanco trough last night was 20 Vancomycin was switched to 750 mg IV every 12 hours from 1 g IV every 12 hours Infect Dis PN-Objective Data - Labs CBC & Chem 7: 12/26/17 05:15 12/26/17 05:15 Labs: Laboratory Results - last 24 hr 12/25/17 12/25/17 12/25/17 11:43 15:00 16:21 WBC RBC Hgb Hct MCV MCH MCHC RDW Plt Count MPV Immature Gran % Seg Neutrophils % Lymphocytes % Monocytes % Eosinophils % Basophils % Neutrophils # Lymphocytes # Monocytes # Eosinophils # Basophils # Sodium Potassium Chloride Carbon Dioxide BUN Creatinine Est GFR ( Amer) Est GFR (Non-Af Amer) BUN/Creatinine Ratio Glucose POC Glucose 241 H 126 H Calculated Osmolality Calcium Vancomycin Trough 20 H 12/25/17 12/26/17 12/26/17 20:10 05:15 05:15 WBC 5.3 RBC 3.01 L Hgb 8.3 L Hct 26.3 L MCV 87.4 MCH 27.6 L MCHC 31.6 RDW 13.7 Plt Count 292 MPV 9.2 L Immature Gran % 0.2 Seg Neutrophils % 64.9 Lymphocytes % 23.6 Monocytes % 8.1 Eosinophils % 2.6 Basophils % 0.6 Neutrophils # 3.4 Lymphocytes # 1.3 Monocytes # 0.4 Eosinophils # 0.1 Basophils # 0.0 Sodium 136 Potassium 3.9 Chloride 104 Carbon Dioxide 28 BUN 17 Creatinine 0.82 Est GFR ( Amer) > 60 Est GFR (Non-Af Amer) > 60 BUN/Creatinine Ratio 21 Glucose 156 H POC Glucose 252 H Calculated Osmolality 287 Calcium 8.9 Vancomycin Trough 12/26/17 12/26/17 06:50 11:30 WBC RBC Hgb Hct MCV MCH MCHC RDW Plt Count MPV Immature Gran % Seg Neutrophils % Lymphocytes % Monocytes % Eosinophils % Basophils % Neutrophils # Lymphocytes # Monocytes # Eosinophils # Basophils # Sodium Potassium Chloride Carbon Dioxide BUN Creatinine Est GFR ( Amer) Est GFR (Non-Af Amer) BUN/Creatinine Ratio Glucose POC Glucose 169 H 170 H Calculated Osmolality Calcium Vancomycin Trough Cultures: Cultures 12/19/17 13:05 Anaerobic Culture - Final Right Foot No anaerobes were recovered. 12/19/17 13:05 Wound Culture - Final Right Foot No growth. 12/15/17 10:00 Wound Culture - Final Right Foot Tere albicans Exam - Constitutional Vitals: Temp Pulse Resp BP Pulse Ox 98.9 F 69 16 114/71 97 12/26/17 11:29 12/26/17 11:29 12/26/17 11:29 12/26/17 11:29 12/26/17 11:29 General appearance: no acute distress, no febrile - Respiratory Respiratory exam: Present: CTAB. Absent: wheezes - Cardiovascular Cardiovascular exam: Present: RRR, +S1, +S2 - GI/Abdominal GI/Abdominal exam: Present: soft. Absent: tenderness - Extremities Exam Additional comments: right foot with stage IV ulcers on bilatera with visible bone. no surrounding erythema. no major drainage - VTE Documentation of Mechanical Device: Intermittent pneumatic compression device Consult Discharge Plan - Plan [facility]errals: [facility] [Primary Care Provider] - 12/30/17 11:00 am Luis New MD [Partnered Physician] - 01/01/18 11:45 am Prescriptions: Carvedilol [Coreg] 3.125 mg PO BIDWM #60 tablet Ferrous Sulfate 325 mg PO TIDWM #60 tablet Sennosides/Docusate Sodium [Senna Plus] 2 each PO BID PRN #60 tablet PRN Reason: Constipation
[2017-12-26 13:41] LABS: C-Reactive Protein 8 mg/L (Less than 10)
--- NOTE | 2017-12-26 13:45 | Physician Discharge Referral ---
Home Health/Hosp Referral Info Transfer to: Home Health - Diagnosis (1) Osteomyelitis Priority: Primary Status: Acute (2) Diabetes mellitus Status: Chronic (3) A-fib Status: Chronic (4) CAD (coronary artery disease) Status: Chronic (5) Tobacco abuse Status: Chronic (6) Peripheral arterial disease Status: Acute (7) Anemia Status: Chronic (8) Essential hypertension Status: Chronic - Respiratory Orders Smoking Cessation: Smoking cessation has been advised. For more information, call the [place] Tobacco Quit Line at 4-667-QGPS-NOW. - Diet/Nutrition Diet/Nutrition Orders: Cardiac - Activity Activity Orders: Ambulate - Services Needed Following services are medically necessary services: Nursing, Home Health Aide, Physical Therapy, Home Infusion - Transfer Medications Prescriptions: Carvedilol [Coreg] 3.125 mg PO BIDWM #60 tablet Ferrous Sulfate 325 mg PO TIDWM #60 tablet Sennosides/Docusate Sodium [Senna Plus] 2 each PO BID PRN #60 tablet PRN Reason: Constipation Home Medications: Aspirin [Lo-Dose Aspirin EC] 325 mg PO DAILY 04/12/17 [History] Insulin ASPART [Novolog Flexpen] 14 unit SQ QAM 05/10/17 [History] Acetaminophen [Tylenol] 1,000 mg PO Q6HR PRN #90 tablet 11/06/17 [Rx] Clopidogrel [Plavix] 75 mg PO DAILY #30 tablet 11/06/17 [Rx] Isosorbide MONOnitrate (24 HR) [Imdur] 30 mg PO DAILY 11/06/17 [History] Pravastatin Sodium [Pravachol] 10 mg PO MOTH 11/06/17 [History] dilTIAZem HCl [Diltiazem 24Hr Cd] 120 mg PO DAILY 11/06/17 [History] Insulin ASPART [NovoLOG] 10 unit SQ BID 11/11/17 [History] Insulin Glargine,Hum.rec.anlog [Lantus Solostar] 54 - 60 unit SQ HS 11/11/17 [ History] Collagenase Oint [Santyl] 1 appl TP DAILY #1 tube 11/22/17 [Rx] Gentamicin Oint [Garamycin] 1 appl TP DAILY #1 tube 11/22/17 [Rx] Budesonide/Formoterol 80/4.5 [Symbicort 80/4.5] 2 puff IH BID 12/09/17 [History ] Lisinopril/Hydrochlorothiazide [Zestoretic 20-12.5 mg Tablet] 1 tab PO DAILY 10/23 [History] Carvedilol [Coreg] 3.125 mg PO BIDWM #60 tablet 12/26/17 [Rx] Ferrous Sulfate 325 mg PO TIDWM #60 tablet 12/26/17 [Rx] Sennosides/Docusate Sodium [Senna Plus] 2 each PO BID PRN #60 tablet 12/26/17 [ Rx] Allergies/Adverse Reactions: 3 Allergy/AdvReac Type Severity Reaction Status Date / Time atorvastatin [From Lipitor] Allergy Diarrhea Verified 11/11/17 18:33 Certification: Further, I certify that my clinical findings support that this patient is homebound (i.e. absences from home require considerable and taxing effort and are for medical reasons or hinduism services or infrequently or short duration when for other reasons) because: Homebound Reason: Patient requires assistance of a person or device to safely leave home Attestation: My signature below is to certify that this patient is under my care and that I, or nurse practitioner, or a physician's executive assistant working with me, has a face-to -face encounter with this patient.
[2017-12-27] MEDS: *HR* Heparin 5,000 UNIT/ML VIAL SQ SCH ×2 (05:19→16:58)
[2017-12-27 05:30] LABS: Basophils % 0.7 %; Eosinophils # 0.2 K/mcL (0.0-0.6); Eosinophils % 3.3 %; Hematocrit 26.6 % (37.5-50.1); Hemoglobin 8.9 g/dL (12.9-16.9); Immature Granulocytes % 0.3 % (0-4); Lymphocytes # 1.5 K/mcL (0.6-4.6); Lymphocytes % 26.2 %; Mean Corpuscular HGB Conc 33.5 g/dL (31.6-35.5); Mean Corpuscular Hemoglobin 29.1 pg (28.0-33.3); Mean Corpuscular Volume 86.9 fL (83.0-100.0); Mean Platelet Volume 9.1 fL (9.4-12.4); Monocytes # 0.5 K/mcL (0.0-1.3); Monocytes % 8.4 %; Neutrophils # 3.5 K/mcL (1.6-8.9); Platelet Count 274 K/mcL (140-400); Red Blood Count 3.06 M/mcL (4.19-5.50); Segmented Neutrophils % 61.1 %
[2017-12-27 05:49] LABS: BUN/Creatinine Ratio 22 (6-26); Blood Urea Nitrogen 19 mg/dL (8-23); Calcium 8.9 mg/dL (8.6-10.3); Carbon Dioxide 27 mEq/L (23-29); Chloride 103 mEq/L (98-107); Glucose 185 mg/dL (70-105); Osmolality,Calculated 289 (280-300); Potassium 3.9 mEq/L (3.5-5.1); Sodium 136 mEq/L (136-145); eGFR For African Americans > 60 (> 60); eGFR For Non-African Americans > 60 (> 60)
[2017-12-27] MEDS: hydroCHLOROthiazide 25 MG TABLET PO SCH (07:37)
[2017-12-27] MEDS: Isosorbide MONOnitrate (24 HR) 30 MG TAB.ER.24H PO SCH (07:37)
[2017-12-27] MEDS: Lisinopril 20 MG TABLET PO SCH (07:37)
[2017-12-27] MEDS: Ertapenem 1,000 MG in 0.9 % Sodium Chloride Mini Bag 100 ML IVPB SCH (07:38)
[2017-12-27] MEDS: Diltiazem CD (24hr) 120 MG CAPSULE PO SCH (07:38)
[2017-12-27] MEDS: Aspirin Enteric Coated 325 MG Tablet PO SCH (07:38)
[2017-12-27] MEDS: Insulin DETEMIR 100 UNIT/ML X5UNITS SQ SCH ×2 (07:39→20:18)
[2017-12-27] MEDS: Cyanocobalamin (B-12) 1,000 MCG/ML VIAL SQ SCH (07:40)
[2017-12-27] MEDS: Gentamicin Oint 15 GM TUBE TP SCH (07:40)
[2017-12-27] MEDS: Insulin LISPRO 300 UNITS/3 ML VIAL SQ SCH ×4 (07:40→20:18)
[2017-12-27] MEDS: Acetaminophen 325 MG TABLET PO PRN (07:43)
--- NOTE | 2017-12-27 13:11 | Internal Med Progress Note ---
Date of Encounter: 12/27/17 Time of Encounter: 13:00 - Assessment and plan (1) Osteomyelitis Current Visit: Yes Status: Acute Assessment and plan: 62 year old male with past medical history of hypertension diabetes type 2 insulin-dependent, tobacco abuse who was recently discharged from this hospital on 11/22/2017 when he was treated for osteomyelitis, he was sent on 2 more weeks of Rocephin and Levaquin IV as he grew Leclercia, Staphylococcus aureus and Citrobacter in his cultures, the patient says that he has been very compliant and has been taking his antibiotics every day until yesterday, he was sent from the wound center as his wounds have been more foul smelling in both feet.With multiple organisms per most recent prior cultures. He was seen by vascular surgery, infectious diseases and podiatry. He was assessed with foot ulcer with multiple ulcerations and MRI of the foot showed new osteomyelitis of the right 5th metartasal but no evidence of abscess formation. He also has peripheral vascular disease with ulceration. His left ankle brachial index is normal. His right ankle brachial index consistent with moderate disease. His right lower extremity arterial duplex reveals evidence of superficial femoral artery stenosis greater than 75%. He had an abdominal aortogram, aortogram with bilateral lower extremity runoff, Standard and drug coated balloon angioplasty of distal right common femoral artery stenosis, Drug coated balloon angioplasty of distal right superficial femoral artery stenosis, Placement of triple lumen central venous catheter via right femoral vein by Dr. New on 12/13/17. Tolerated procedure well with no acute complications. He also had amputation/ray resection of the fifth ray/digit of the right foot with bone biopsy of the calcaneus and irrigation and debridement of the right foot ulcerations as well as the left foot ulcerations on 12/19 by podiatry. he tolerated procedure well. He is on ertapenem and vancomycin per infectious disease recommendations. Previous cultures were positive for MSSA, citrobacter and lecleria. Patient will need 6 weeks of IV antibiotics and a PICC line was placed. Surgical wound cultures were negative. 12/27. Patient was unable to be discharged overnight due to safety issues with wound vac. he was supposed to be discharged on one wound vac with a Y connection but his home infusion refused based on fall risk of connecting one wound vac to both feet. He needs to have 2 wound vacs, [facility] Qualifiers: Osteomyelitis type: subacute Osteomyelitis location: foot Laterality: right Qualified Code(s): M86.271 - Subacute osteomyelitis, right ankle and foot (2) Diabetes mellitus Current Visit: Yes Status: Chronic Assessment and plan: Continue sliding scale coverage. Qualifiers: Diabetes mellitus type: type 2 Diabetes mellitus intermediate insulin use: with terminal manager use Diabetes mellitus complication status: with circulatory complication Diabetes mellitus complication detail: with peripheral angiopathy with gangrene Qualified Code(s): E11.52 - Type 2 diabetes 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; Z79.4 - assisted (current) use of insulin; Z79.4 - termite helper (current) use of insulin; Z79.4 - termite helper ( current) use of insulin; Z79.4 - termite helper (current) use of insulin (3) A-fib Current Visit: Yes Status: Chronic Assessment and plan: Rate controlled. Not on anticoagulation due to anemia Qualifiers: Atrial fibrillation type: paroxysmal Qualified Code(s): I48.0 - Paroxysmal atrial fibrillation (4) CAD (coronary artery disease) Current Visit: Yes Status: Chronic Assessment and plan: On aspirin, Plavix, carvedilol, Zocor and Zestril. Qualifiers: Coronary Disease-Associated Artery/Lesion type: [place] artery [place] vs. transplanted heart: unspecified whether [place] or transplanted heart Associated angina: without angina Qualified Code(s): I25.10 - Atherosclerotic heart disease of [place] coronary artery without angina pectoris (5) Tobacco abuse Current Visit: No Status: Chronic Assessment and plan: Patient has refused nicotine patch. (6) Peripheral arterial disease Current Visit: Yes Status: Acute Assessment and plan: Patient underwent right femoral angioplasty earlier during this hospitalization. Continue medication management (7) Anemia Current Visit: Yes Status: Chronic Assessment and plan: Hemoglobin levels improved to 8.6 today. Likely due to iron supplementation. Will continue. Qualifiers: Anemia type: iron deficiency Iron deficiency anemia type: unspecified iron deficiency Qualified Code(s): D50.9 - Iron deficiency anemia, unspecified (8) Essential hypertension Current Visit: Yes Status: Chronic Assessment and plan: Blood pressure remains elevated. Patient is currently on carvedilol, lisinopril and isosorbide mononitrate. We will add hydrochlorothiazide. - Time Spent With Patient Total time spent is greater than 50% in coordination of care (as documented) at patient's floor/unit and/or counseling patient: - Subjective Interval history: No acute events overnight - Constitutional Vitals: Temp Pulse Resp BP Pulse Ox 98.5 F 69 16 131/73 99 12/27/17 10:48 12/27/17 10:48 12/27/17 10:48 12/27/17 10:48 12/27/17 10:48 General appearance: Present: cooperative, A&O X 3, no acute distress, answers questions appropriately - Head Head exam: Present: atraumatic, normocephalic - Eye Eye exam: Present: PERRL, conjuntiva pink, sclera anicteric Pupils: Present: PERRL - Neck Neck exam general surgery: Present: supple, trachea midline. Absent: lymphadenopathy - Respiratory Respiratory exam: Present: CTAB. Absent: accessory muscle use, rales, rhonchi, wheezes - Cardiovascular Cardiovascular exam: Present: RRR, +S1, +S2. Absent: diastolic murmur, gallop, rubs, systolic murmur - GI/Abdominal GI/Abdominal exam: Present: normal bowel sounds, soft, no peritoneal signs. Absent: distended, tenderness - Extremities Exam Extremities exam: Present: warm, radial pulses palpable and symmetrical. Absent : calf tenderness, cyanotic, pedal edema - Neurological Exam Neurological exam: Present: CN II-XII intact, oriented X3, no focal deficits. Absent: pronater drift, facial droop, speech deficit - Skin Skin exam: Present: dry, intact Internal Medicine: Result - Labs CBC & Chem 7: 12/27/17 04:00 12/27/17 04:00 Labs: Short CBC 12/27/17 Range/Units 04:00 WBC 5.8 (4.3-11.1) K/mcL Hgb 8.9 L (12.9-16.9) g/dL Hct 26.6 L (37.5-50.1) % Plt Count 274 (140-400) K/mcL Neutrophils # 3.5 (1.6-8.9) K/mcL BMP 12/26/17 12/27/17 05:15 04:00 Sodium 136 136 Potassium 3.9 3.9 Chloride 104 103 Carbon Dioxide 28 27 BUN 17 19 Creatinine 0.82 0.88 Glucose 156 H 185 H Calcium 8.9 8.9 - ABG Interpretation ABG results: PT/INR, D-dimer PT 13.6 Seconds (9.4-12.1) H 12/19/17 03:51 - VTE Documentation of Mechanical Device: Intermittent pneumatic compression device Consult Discharge Plan - Plan Referrals: [facility] [Primary Care Provider] - 12/30/17 11:00 am Luis New MD [Partnered Physician] - 01/01/18 11:45 am Prescriptions: Carvedilol [Coreg] 3.125 mg PO BIDWM #60 tablet Ferrous Sulfate 325 mg PO TIDWM #60 tablet Sennosides/Docusate Sodium [Senna Plus] 2 each PO BID PRN #60 tablet PRN Reason: Constipation
--- NOTE | 2017-12-27 16:46 | Infectious Disease Progress No ---
Date of Encounter: 12/27/17 Time of Encounter: 16:43 - Assessment and Plan (1) Osteomyelitis Current Visit: Yes Status: Acute Previous osteomyelitis left foot second toe status post partial amputation. Imaging shows new osteomyelitis of the 5th metatarsal and 5th proximal phalanx. Causative organism unclear. Previous cultures positive for MSSA, Citrobacter, and Lecleria. Wound culture obtained this hospitalization is negative. Previously on IV Rocephin and IV Levaquin. X-ray of the right foot showed OM of the right 5th metatarsal. MRI of the right foot showed osteomyelitis of the right 5th metatarsal and 5th proximal phalanx. MRI of the right ankle completed 12/13/17 shows OM vs. reactive osteitis to the inferolateral aspect of the right calcaneus. Wound culture positive for Yeast. Not sure if this is contributing to the patient's infection picture. Unfortunately, there is a severe drug-drug interaction between fluconazole and plavix so we will hold off on adding this to the patient's medication regimen. Podiatry consulted and following. Planning for surgery on per the notes. Wound care per the podiatry team. ESR 87, CRP 163. Continue Vancomycin IV 750 mg q12hrs. Pharmacy to dose. Goal trough ~15. VT 18. continue ertapenem Duration of treatment depends on the clinical picture but likely 6 weeks picc line placed Monitor renal function and for drug toxicity and dose-adjust antibiotics. Status post I&D on December [address] heller. Necrotic tissue debrided. Intra- Op cultures no growth I spoke with social media sr strategy manager and nursing staff at her all the prescriptions. The only thing [facility]. added ESR and CRP to today's labs Qualifiers: Osteomyelitis type: subacute Osteomyelitis location: foot Laterality: right Qualified Code(s): M86.271 - Subacute osteomyelitis, right ankle and foot (2) Wound infection Current Visit: No Status: Acute Previous wound infection of the right heel and left 5th metatarsal. Causative organisms: MSSA, Citrobacter freundii, Lecleria adecarboxylata. Clinically, left lateral foot wound looks okay, but right heel continues to have regression and very foul-smelling discharge. Podiatry consulted and following. Wound care recommendations from the Podiatry team. Given the extent of the right heel wound, I am not sure that the limb is salvageable, but will await further recommendations from the vascular and podiatry teams. Continue antibiotics as above for now. (3) Anemia Current Visit: Yes Status: Chronic Hemoglobin down to 9.9 on admission, down to 7.2 today. GI consulted. Recommend EGD/C-scope, but patient unable to tolerate bowel prep. Further workup and management per the primary and GI teams. Qualifiers: Anemia type: iron deficiency Iron deficiency anemia type: unspecified iron deficiency Qualified Code(s): D50.9 - Iron deficiency anemia, unspecified (4) Diabetes mellitus Current Visit: Yes Status: Chronic HgbA1C 8.8% last month. Recommend aggressive glucose monitoring and control to promote wound healing and prevent re-infection. Management per the primary team. Qualifiers: Diabetes mellitus type: type 2 Diabetes mellitus certified caregiver insulin use: with certified caregiver use Diabetes mellitus complication status: with circulatory complication Diabetes mellitus complication detail: with peripheral angiopathy with gangrene Qualified Code(s): E11.52 - Type 2 diabetes 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; Z79.4 - temporary receptionist (current) use of insulin; Z79.4 - temporary receptionist (current) use of insulin; Z79.4 - intermediate ( current) use of insulin; Z79.4 - temporary receptionist (current) use of insulin (5) Peripheral vascular disease Current Visit: No Status: Chronic Status post femoral to above the knee popliteal bypass graft in 2016. Status post left LE Angiogram with balloon angioplasty of the previous graft anastamosis 11/06/[address] Harris. Status post RLE angiogram with balloon angioplasty of the right SFA 11/18/[address] Harris. Vascular surgery consulted. Status post angiogram with balloon angioplasty to right SFA 12/13/[address] New. 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 Current Visit: Yes Status: Chronic Qualifiers: Peripheral atherosclerosis artery type: bypass graft, autologous vein Qualified Code(s): I70.433 - Atherosclerosis of autologous vein bypass graft(s) of the right leg with ulceration of ankle; I70.443 - Atherosclerosis of autologous vein bypass graft(s) of the left leg with ulceration of ankle (7) A-fib Current Visit: Yes Status: Chronic Qualifiers: Atrial fibrillation type: paroxysmal Qualified Code(s): I48.0 - Paroxysmal atrial fibrillation (8) CAD (coronary artery disease) Current Visit: Yes Status: Chronic Qualifiers: Coronary Disease-Associated Artery/Lesion type: [place] artery [place] vs. transplanted heart: unspecified whether [place] or transplanted heart Associated angina: without angina Qualified Code(s): I25.10 - Atherosclerotic heart disease of [place] coronary artery without angina pectoris (9) Tobacco abuse Current Visit: No Status: Chronic (10) Constipation Current Visit: Yes Status: Acute Had small BM yesterday. Denies abdominal pain. Bowel regimen per the primary team. Qualifiers: Constipation type: unspecified constipation type Qualified Code(s): K59.00 - Constipation, unspecified - Subjective Interval history: Patient seen and examined. Clinically looking better. Eager to go home. Patient denies any chest pain no shortness of breath no headache no urinary symptoms no diarrhea no abdominal pain. Vital signs stable no fever Labs: WBC is 5.8 creatinine 0.88 Vanco trough last night was 20 Vancomycin was switched to 750 mg IV every 12 hours from 1 g IV every 12 hours Infect Dis PN-Objective Data - Labs CBC & Chem 7: 12/27/17 04:00 12/27/17 04:00 Labs: Laboratory Results - last 24 hr 12/26/17 12/26/17 12/27/17 16:42 20:41 04:00 WBC 5.8 RBC 3.06 L Hgb 8.9 L Hct 26.6 L MCV 86.9 MCH 29.1 MCHC 33.5 RDW 14.0 Plt Count 274 MPV 9.1 L Immature Gran % 0.3 Seg Neutrophils % 61.1 Lymphocytes % 26.2 Monocytes % 8.4 Eosinophils % 3.3 Basophils % 0.7 Neutrophils # 3.5 Lymphocytes # 1.5 Monocytes # 0.5 Eosinophils # 0.2 Basophils # 0.0 Sodium Potassium Chloride Carbon Dioxide BUN Creatinine Est GFR ( Amer) Est GFR (Non-Af Amer) BUN/Creatinine Ratio Glucose POC Glucose 172 H 199 H Calculated Osmolality Calcium 12/27/17 12/27/17 04:00 06:44 WBC RBC Hgb Hct MCV MCH MCHC RDW Plt Count MPV Immature Gran % Seg Neutrophils % Lymphocytes % Monocytes % Eosinophils % Basophils % Neutrophils # Lymphocytes # Monocytes # Eosinophils # Basophils # Sodium 136 Potassium 3.9 Chloride 103 Carbon Dioxide 27 BUN 19 Creatinine 0.88 Est GFR ( Amer) > 60 Est GFR (Non-Af Amer) > 60 BUN/Creatinine Ratio 22 Glucose 185 H POC Glucose 164 H Calculated Osmolality 289 Calcium 8.9 Cultures: Cultures 12/19/17 13:05 Anaerobic Culture - Final Right Foot No anaerobes were recovered. 12/19/17 13:05 Wound Culture - Final Right Foot No growth. 12/15/17 10:00 Wound Culture - Final Right Foot Tere albicans Exam - Constitutional Vitals: Temp Pulse Resp BP Pulse Ox 98.0 F 56 16 112/66 99 12/27/17 15:44 12/27/17 15:44 12/27/17 15:44 12/27/17 15:44 12/27/17 15:44 General appearance: no acute distress, no febrile - Respiratory Respiratory exam: Present: CTAB. Absent: wheezes - Cardiovascular Cardiovascular exam: Present: RRR, +S1, +S2 - GI/Abdominal GI/Abdominal exam: Present: soft. Absent: tenderness - VTE Documentation of Mechanical Device: Intermittent pneumatic compression device Consult Discharge Plan - Plan [facility] - 12/30/17 11:00 am Luis New MD [Partnered Physician] - 01/01/18 11:45 am Prescriptions: Carvedilol [Coreg] 3.125 mg PO BIDWM #60 tablet Ferrous Sulfate 325 mg PO TIDWM #60 tablet Sennosides/Docusate Sodium [Senna Plus] 2 each PO BID PRN #60 tablet PRN Reason: Constipation
[2017-12-28] MEDS: *HR* Heparin 5,000 UNIT/ML VIAL SQ SCH ×2 (05:24→17:49)
[2017-12-28 06:53] LABS: Basophils % 0.5 %; Eosinophils # 0.2 K/mcL (0.0-0.6); Eosinophils % 3.5 %; Hematocrit 26.7 % (37.5-50.1); Hemoglobin 8.8 g/dL (12.9-16.9); Immature Granulocytes % 0.3 % (0-4); Lymphocytes # 1.3 K/mcL (0.6-4.6); Lymphocytes % 21.9 %; Mean Corpuscular Volume 88.1 fL (83.0-100.0); Mean Platelet Volume 9.4 fL (9.4-12.4); Monocytes # 0.5 K/mcL (0.0-1.3); Monocytes % 8.4 %; Neutrophils # 3.9 K/mcL (1.6-8.9); Platelet Count 250 K/mcL (140-400); Red Blood Count 3.03 M/mcL (4.19-5.50); Red Cell Distribution Width 14.1 % (11.5-14.5); Segmented Neutrophils % 65.4 %
[2017-12-28 07:11] LABS: BUN/Creatinine Ratio 28 (6-26); Blood Urea Nitrogen 23 mg/dL (8-23); Calcium 8.8 mg/dL (8.6-10.3); Carbon Dioxide 22 mEq/L (23-29); Chloride 105 mEq/L (98-107); Glucose 169 mg/dL (70-105); Osmolality,Calculated 290 (280-300); Sodium 136 mEq/L (136-145); eGFR For African Americans > 60 (> 60); eGFR For Non-African Americans > 60 (> 60)
[2017-12-28] MEDS: Insulin LISPRO 300 UNITS/3 ML VIAL SQ SCH ×4 (08:20→21:41)
[2017-12-28] MEDS: Diltiazem CD (24hr) 120 MG CAPSULE PO SCH (08:21)
[2017-12-28] MEDS: Ertapenem 1,000 MG in 0.9 % Sodium Chloride Mini Bag 100 ML IVPB SCH (08:22)
[2017-12-28] MEDS: hydroCHLOROthiazide 25 MG TABLET PO SCH (08:22)
[2017-12-28] MEDS: Lisinopril 20 MG TABLET PO SCH (08:22)
[2017-12-28] MEDS: Isosorbide MONOnitrate (24 HR) 30 MG TAB.ER.24H PO SCH (08:22)
[2017-12-28] MEDS: Aspirin Enteric Coated 325 MG Tablet PO SCH (08:22)
[2017-12-28] MEDS: Cyanocobalamin (B-12) 1,000 MCG/ML VIAL SQ SCH (08:23)
[2017-12-28] MEDS: Gentamicin Oint 15 GM TUBE TP SCH (08:23)
[2017-12-28] MEDS: Insulin DETEMIR 100 UNIT/ML X5UNITS SQ SCH ×2 (08:25→21:40)
--- NOTE | 2017-12-28 11:49 | Internal Med Progress Note ---
Date of Encounter: 12/28/17 Time of Encounter: 11:45 - Assessment and plan (1) Osteomyelitis Current Visit: Yes Status: Acute Assessment and plan: 62 year old male with past medical history of hypertension diabetes type 2 insulin-dependent, tobacco abuse who was recently discharged from this hospital on 11/22/2017 when he was treated for osteomyelitis, he was sent on 2 more weeks of Rocephin and Levaquin IV as he grew Leclercia, Staphylococcus aureus and Citrobacter in his cultures, the patient says that he has been very compliant and has been taking his antibiotics every day until yesterday, he was sent from the wound center as his wounds have been more foul smelling in both feet.With multiple organisms per most recent prior cultures. He was seen by vascular surgery, infectious diseases and podiatry. He was assessed with foot ulcer with multiple ulcerations and MRI of the foot showed new osteomyelitis of the right 5th metartasal but no evidence of abscess formation. He also has peripheral vascular disease with ulceration. His left ankle brachial index is normal. His right ankle brachial index consistent with moderate disease. His right lower extremity arterial duplex reveals evidence of superficial femoral artery stenosis greater than 75%. He had an abdominal aortogram, aortogram with bilateral lower extremity runoff, Standard and drug coated balloon angioplasty of distal right common femoral artery stenosis, Drug coated balloon angioplasty of distal right superficial femoral artery stenosis, Placement of triple lumen central venous catheter via right femoral vein by Dr. New on 12/13/17. Tolerated procedure well with no acute complications. He also had amputation/ray resection of the fifth ray/digit of the right foot with bone biopsy of the calcaneus and irrigation and debridement of the right foot ulcerations as well as the left foot ulcerations on 12/19 by podiatry. he tolerated procedure well. He is on ertapenem and vancomycin per infectious disease recommendations. Previous cultures were positive for MSSA, citrobacter and lecleria. Patient will need 6 weeks of IV antibiotics and a PICC line was placed. Surgical wound cultures were negative. 12/28. Patient was unable to be discharged since 12/26 due to safety issues with wound vac. he was supposed to be discharged on one wound vac with a Y connection but his home infusion refused based on fall risk of connecting one wound vac to both feet. He needs to have 2 wound vacs, [facility] Qualifiers: Osteomyelitis type: subacute Osteomyelitis location: foot Laterality: right Qualified Code(s): M86.271 - Subacute osteomyelitis, right ankle and foot (2) Diabetes mellitus Current Visit: Yes Status: Chronic Assessment and plan: Continue sliding scale coverage. Qualifiers: Diabetes mellitus type: type 2 Diabetes mellitus senior living insulin use: with dedicated intermodal truck driver use Diabetes mellitus complication status: with circulatory complication Diabetes mellitus complication detail: with peripheral angiopathy with gangrene Qualified Code(s): E11.52 - Type 2 diabetes 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; Z79.4 - middle or intermediate school principal (current) use of insulin; Z79.4 - half-way (current) use of insulin; Z79.4 - middle or intermediate school principal ( current) use of insulin; Z79.4 - middle or intermediate school principal (current) use of insulin (3) A-fib Current Visit: Yes Status: Chronic Assessment and plan: Rate controlled. Not on anticoagulation due to anemia Qualifiers: Atrial fibrillation type: paroxysmal Qualified Code(s): I48.0 - Paroxysmal atrial fibrillation (4) CAD (coronary artery disease) Current Visit: Yes Status: Chronic Assessment and plan: On aspirin, Plavix, carvedilol, Zocor and Zestril. Qualifiers: Coronary Disease-Associated Artery/Lesion type: [place] artery [place] vs. transplanted heart: unspecified whether [place] or transplanted heart Associated angina: without angina Qualified Code(s): I25.10 - Atherosclerotic heart disease of [place] coronary artery without angina pectoris (5) Tobacco abuse Current Visit: No Status: Chronic Assessment and plan: Patient has refused nicotine patch. (6) Peripheral arterial disease Current Visit: Yes Status: Acute Assessment and plan: Patient underwent right femoral angioplasty earlier during this hospitalization. Continue medication management (7) Anemia Current Visit: Yes Status: Chronic Assessment and plan: Hemoglobin levels improved to 8.6 today. Likely due to iron supplementation. Will continue. Qualifiers: Anemia type: iron deficiency Iron deficiency anemia type: unspecified iron deficiency Qualified Code(s): D50.9 - Iron deficiency anemia, unspecified (8) Essential hypertension Current Visit: Yes Status: Chronic Assessment and plan: Blood pressure remains elevated. Patient is currently on carvedilol, lisinopril and isosorbide mononitrate. We will add hydrochlorothiazide. - Time Spent With Patient Total time spent is greater than 50% in coordination of care (as documented) at patient's floor/unit and/or counseling patient: - Subjective Interval history: No acute events overnight - Constitutional Vitals: Temp Pulse Resp BP Pulse Ox 98.5 F 78 16 134/87 96 12/28/17 10:02 12/28/17 10:02 12/28/17 10:02 12/28/17 10:02 12/28/17 10:02 General appearance: Present: cooperative, A&O X 3, no acute distress, answers questions appropriately - Head Head exam: Present: atraumatic, normocephalic - Eye Eye exam: Present: PERRL, conjuntiva pink, sclera anicteric Pupils: Present: PERRL - Neck Neck exam general surgery: Present: supple, trachea midline. Absent: lymphadenopathy - Respiratory Respiratory exam: Present: CTAB. Absent: accessory muscle use, rales, rhonchi, wheezes - Cardiovascular Cardiovascular exam: Present: RRR, +S1, +S2. Absent: diastolic murmur, gallop, rubs, systolic murmur - GI/Abdominal GI/Abdominal exam: Present: normal bowel sounds, soft, no peritoneal signs. Absent: distended, tenderness - Extremities Exam Extremities exam: Present: warm, radial pulses palpable and symmetrical. Absent : calf tenderness, cyanotic, pedal edema - Neurological Exam Neurological exam: Present: CN II-XII intact, oriented X3, no focal deficits. Absent: pronater drift, facial droop, speech deficit - Skin Skin exam: Present: dry, intact Internal Medicine: Result - Labs CBC & Chem 7: 12/28/17 06:25 12/28/17 06:25 Labs: Short CBC 12/28/17 Range/Units 06:25 WBC 5.9 (4.3-11.1) K/mcL Hgb 8.8 L (12.9-16.9) g/dL Hct 26.7 L (37.5-50.1) % Plt Count 250 (140-400) K/mcL Neutrophils # 3.9 (1.6-8.9) K/mcL BMP 12/28/17 06:25 Sodium 136 Potassium 4.0 Chloride 105 Carbon Dioxide 22 L BUN 23 Creatinine 0.82 Glucose 169 H Calcium 8.8 - ABG Interpretation ABG results: PT/INR, D-dimer PT 13.6 Seconds (9.4-12.1) H 12/19/17 03:51 - VTE Documentation of Mechanical Device: Intermittent pneumatic compression device Consult Discharge Plan - Plan Referrals: [facility],PCP [Primary Care Provider] - 12/30/17 11:00 am Luis New MD [Partnered Physician] - 01/01/18 11:45 am Prescriptions: Carvedilol [Coreg] 3.125 mg PO BIDWM #60 tablet Ferrous Sulfate 325 mg PO TIDWM #60 tablet Sennosides/Docusate Sodium [Senna Plus] 2 each PO BID PRN #60 tablet PRN Reason: Constipation
[2017-12-29] MEDS: *HR* Heparin 5,000 UNIT/ML VIAL SQ SCH ×2 (04:46→16:32)
[2017-12-29 05:06] LABS: Basophils % 0.5 %; Eosinophils # 0.2 K/mcL (0.0-0.6); Eosinophils % 3.7 %; Hemoglobin 8.8 g/dL (12.9-16.9); Immature Granulocytes % 0.3 % (0-4); Lymphocytes # 1.5 K/mcL (0.6-4.6); Lymphocytes % 25.8 %; Mean Corpuscular HGB Conc 32.6 g/dL (31.6-35.5); Mean Corpuscular Hemoglobin 28.8 pg (28.0-33.3); Mean Corpuscular Volume 88.2 fL (83.0-100.0); Mean Platelet Volume 9.5 fL (9.4-12.4); Monocytes # 0.5 K/mcL (0.0-1.3); Monocytes % 9.1 %; Neutrophils # 3.5 K/mcL (1.6-8.9); Platelet Count 249 K/mcL (140-400); Red Blood Count 3.06 M/mcL (4.19-5.50); Red Cell Distribution Width 14.3 % (11.5-14.5); Segmented Neutrophils % 60.6 %
[2017-12-29 05:22] LABS: BUN/Creatinine Ratio 31 (6-26); Blood Urea Nitrogen 26 mg/dL (8-23); Calcium 8.9 mg/dL (8.6-10.3); Carbon Dioxide 24 mEq/L (23-29); Chloride 104 mEq/L (98-107); Glucose 174 mg/dL (70-105); Osmolality,Calculated 287 (280-300); Potassium 3.8 mEq/L (3.5-5.1); Sodium 134 mEq/L (136-145); eGFR For African Americans > 60 (> 60); eGFR For Non-African Americans > 60 (> 60)
[2017-12-29] MEDS: Insulin LISPRO 300 UNITS/3 ML VIAL SQ SCH ×4 (08:45→21:05)
[2017-12-29] MEDS: Lisinopril 20 MG TABLET PO SCH (08:46)
[2017-12-29] MEDS: Insulin DETEMIR 100 UNIT/ML X5UNITS SQ SCH ×2 (08:46→21:05)
[2017-12-29] MEDS: hydroCHLOROthiazide 25 MG TABLET PO SCH (08:46)
[2017-12-29] MEDS: Aspirin Enteric Coated 325 MG Tablet PO SCH (08:46)
[2017-12-29] MEDS: Isosorbide MONOnitrate (24 HR) 30 MG TAB.ER.24H PO SCH (08:46)
[2017-12-29] MEDS: Gentamicin Oint 15 GM TUBE TP SCH (08:47)
[2017-12-29] MEDS: Ertapenem 1,000 MG in 0.9 % Sodium Chloride Mini Bag 100 ML IVPB SCH (08:47)
[2017-12-29] MEDS: Diltiazem CD (24hr) 120 MG CAPSULE PO SCH (08:48)
[2017-12-29] MEDS: Cyanocobalamin (B-12) 1,000 MCG/ML VIAL SQ SCH (08:48)
--- NOTE | 2017-12-29 10:51 | Internal Med Progress Note ---
Date of Encounter: 12/29/17 Time of Encounter: 10:50 - Assessment and plan (1) Osteomyelitis Current Visit: Yes Status: Acute Assessment and plan: 62 year old male with past medical history of hypertension diabetes type 2 insulin-dependent, tobacco abuse who was recently discharged from this hospital on 11/22/2017 when he was treated for osteomyelitis, he was sent on 2 more weeks of Rocephin and Levaquin IV as he grew Leclercia, Staphylococcus aureus and Citrobacter in his cultures, the patient says that he has been very compliant and has been taking his antibiotics every day until yesterday, he was sent from the wound center as his wounds have been more foul smelling in both feet.With multiple organisms per most recent prior cultures. He was seen by vascular surgery, infectious diseases and podiatry. He was assessed with foot ulcer with multiple ulcerations and MRI of the foot showed new osteomyelitis of the right 5th metartasal but no evidence of abscess formation. He also has peripheral vascular disease with ulceration. His left ankle brachial index is normal. His right ankle brachial index consistent with moderate disease. His right lower extremity arterial duplex reveals evidence of superficial femoral artery stenosis greater than 75%. He had an abdominal aortogram, aortogram with bilateral lower extremity runoff, Standard and drug coated balloon angioplasty of distal right common femoral artery stenosis, Drug coated balloon angioplasty of distal right superficial femoral artery stenosis, Placement of triple lumen central venous catheter via right femoral vein by Dr. New on 12/13/17. Tolerated procedure well with no acute complications. He also had amputation/ray resection of the fifth ray/digit of the right foot with bone biopsy of the calcaneus and irrigation and debridement of the right foot ulcerations as well as the left foot ulcerations on 12/19 by podiatry. he tolerated procedure well. He is on ertapenem and vancomycin per infectious disease recommendations. Previous cultures were positive for MSSA, citrobacter and lecleria. Patient will need 6 weeks of IV antibiotics and a PICC line was placed. Surgical wound cultures were negative. 12/29. Patient was unable to be discharged since 12/26 due to safety issues with wound vac. he was supposed to be discharged on one wound vac with a Y connection but his home infusion refused based on fall risk of connecting one wound vac to both feet. He needs to have 2 wound vacs, [facility] Qualifiers: Osteomyelitis type: subacute Osteomyelitis location: foot Laterality: right Qualified Code(s): M86.271 - Subacute osteomyelitis, right ankle and foot (2) Diabetes mellitus Current Visit: Yes Status: Chronic Assessment and plan: Continue sliding scale coverage. Qualifiers: Diabetes mellitus type: type 2 Diabetes mellitus usp insulin use: with prefabricated houses trimmer use Diabetes mellitus complication status: with circulatory complication Diabetes mellitus complication detail: with peripheral angiopathy with gangrene Qualified Code(s): E11.52 - Type 2 diabetes 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; Z79.4 - taffy candy maker (current) use of insulin; Z79.4 - [facility] (current) use of insulin; Z79.4 - [facility] ( current) use of insulin; Z79.4 - taffy candy maker (current) use of insulin (3) A-fib Current Visit: Yes Status: Chronic Assessment and plan: Rate controlled. Not on anticoagulation due to anemia Qualifiers: Atrial fibrillation type: paroxysmal Qualified Code(s): I48.0 - Paroxysmal atrial fibrillation (4) CAD (coronary artery disease) Current Visit: Yes Status: Chronic Assessment and plan: On aspirin, Plavix, carvedilol, Zocor and Zestril. Qualifiers: Coronary Disease-Associated Artery/Lesion type: [place] artery [place] vs. transplanted heart: unspecified whether [place] or transplanted heart Associated angina: without angina Qualified Code(s): I25.10 - Atherosclerotic heart disease of [place] coronary artery without angina pectoris (5) Tobacco abuse Current Visit: No Status: Chronic Assessment and plan: Patient has refused nicotine patch. (6) Peripheral arterial disease Current Visit: Yes Status: Acute Assessment and plan: Patient underwent right femoral angioplasty earlier during this hospitalization. Continue medication management (7) Anemia Current Visit: Yes Status: Chronic Assessment and plan: Hemoglobin levels improved to 8.6 today. Likely due to iron supplementation. Will continue. Qualifiers: Anemia type: iron deficiency Iron deficiency anemia type: unspecified iron deficiency Qualified Code(s): D50.9 - Iron deficiency anemia, unspecified (8) Essential hypertension Current Visit: Yes Status: Chronic Assessment and plan: Blood pressure remains elevated. Patient is currently on carvedilol, lisinopril and isosorbide mononitrate. We will add hydrochlorothiazide. - Time Spent With Patient Total time spent is greater than 50% in coordination of care (as documented) at patient's floor/unit and/or counseling patient: - Subjective Interval history: No acute events overnight - Constitutional Vitals: Temp Pulse Resp BP Pulse Ox 98.4 F 62 18 177/78 99 12/29/17 07:36 12/29/17 07:36 12/29/17 07:36 12/29/17 07:36 12/29/17 07:36 General appearance: Present: cooperative, A&O X 3, no acute distress, answers questions appropriately - Head Head exam: Present: atraumatic, normocephalic - Eye Eye exam: Present: PERRL, conjuntiva pink, sclera anicteric Pupils: Present: PERRL - Neck Neck exam general surgery: Present: supple, trachea midline. Absent: lymphadenopathy - Respiratory Respiratory exam: Present: CTAB. Absent: accessory muscle use, rales, rhonchi, wheezes - Cardiovascular Cardiovascular exam: Present: RRR, +S1, +S2. Absent: diastolic murmur, gallop, rubs, systolic murmur - GI/Abdominal GI/Abdominal exam: Present: normal bowel sounds, soft, no peritoneal signs. Absent: distended, tenderness - Extremities Exam Extremities exam: Present: warm, radial pulses palpable and symmetrical. Absent : calf tenderness, cyanotic, pedal edema - Neurological Exam Neurological exam: Present: CN II-XII intact, oriented X3, no focal deficits. Absent: pronater drift, facial droop, speech deficit - Skin Skin exam: Present: dry, intact Internal Medicine: Result - Labs CBC & Chem 7: 12/29/17 04:47 12/29/17 04:47 Labs: Short CBC 12/29/17 Range/Units 04:47 WBC 5.7 (4.3-11.1) K/mcL Hgb 8.8 L (12.9-16.9) g/dL Hct 27.0 L (37.5-50.1) % Plt Count 249 (140-400) K/mcL Neutrophils # 3.5 (1.6-8.9) K/mcL BMP 12/29/17 04:47 Sodium 134 L Potassium 3.8 Chloride 104 Carbon Dioxide 24 BUN 26 H Creatinine 0.83 Glucose 174 H Calcium 8.9 - ABG Interpretation ABG results: PT/INR, D-dimer PT 13.6 Seconds (9.4-12.1) H 12/19/17 03:51 - VTE Documentation of Mechanical Device: Intermittent pneumatic compression device Consult Discharge Plan - Plan Referrals: YUNIEL,PCP [Primary Care Provider] - 12/30/17 11:00 am Luis New MD [Partnered Physician] - 01/01/18 11:45 am Prescriptions: Carvedilol [Coreg] 3.125 mg PO BIDWM #60 tablet Ferrous Sulfate 325 mg PO TIDWM #60 tablet Sennosides/Docusate Sodium [Senna Plus] 2 each PO BID PRN #60 tablet PRN Reason: Constipation
[2017-12-29] MEDS: Acetaminophen 325 MG TABLET PO PRN (12:01)
[2017-12-30] MEDS: *HR* Heparin 5,000 UNIT/ML VIAL SQ SCH ×2 (04:39→17:35)
[2017-12-30 05:01] LABS: Basophils % 0.8 %; Eosinophils # 0.2 K/mcL (0.0-0.6); Eosinophils % 4.7 %; Hematocrit 26.1 % (37.5-50.1); Hemoglobin 8.4 g/dL (12.9-16.9); Immature Granulocytes % 0.4 % (0-4); Lymphocytes # 1.4 K/mcL (0.6-4.6); Lymphocytes % 27.1 %; Mean Corpuscular HGB Conc 32.2 g/dL (31.6-35.5); Mean Corpuscular Hemoglobin 28.1 pg (28.0-33.3); Mean Corpuscular Volume 87.3 fL (83.0-100.0); Mean Platelet Volume 9.5 fL (9.4-12.4); Monocytes # 0.5 K/mcL (0.0-1.3); Monocytes % 9.8 %; Neutrophils # 2.9 K/mcL (1.6-8.9); Platelet Count 241 K/mcL (140-400); Red Blood Count 2.99 M/mcL (4.19-5.50); Red Cell Distribution Width 14.4 % (11.5-14.5); Segmented Neutrophils % 57.2 %
[2017-12-30 05:19] LABS: BUN/Creatinine Ratio 31 (6-26); Blood Urea Nitrogen 28 mg/dL (8-23); Calcium 8.8 mg/dL (8.6-10.3); Carbon Dioxide 26 mEq/L (23-29); Chloride 106 mEq/L (98-107); Glucose 213 mg/dL (70-105); Osmolality,Calculated 294 (280-300); Potassium 3.9 mEq/L (3.5-5.1); Sodium 136 mEq/L (136-145); eGFR For African Americans > 60 (> 60); eGFR For Non-African Americans > 60 (> 60)
[2017-12-30] MEDS: Insulin LISPRO 300 UNITS/3 ML VIAL SQ SCH ×4 (08:16→22:28)
[2017-12-30] MEDS: Gentamicin Oint 15 GM TUBE TP SCH (09:00)
[2017-12-30] MEDS: Lisinopril 20 MG TABLET PO SCH (09:05)
[2017-12-30] MEDS: Aspirin Enteric Coated 325 MG Tablet PO SCH (09:05)
[2017-12-30] MEDS: Ertapenem 1,000 MG in 0.9 % Sodium Chloride Mini Bag 100 ML IVPB SCH (09:06)
[2017-12-30] MEDS: Diltiazem CD (24hr) 120 MG CAPSULE PO SCH (09:06)
[2017-12-30] MEDS: hydroCHLOROthiazide 25 MG TABLET PO SCH (09:06)
[2017-12-30] MEDS: Insulin DETEMIR 100 UNIT/ML X5UNITS SQ SCH ×2 (09:06→22:22)
[2017-12-30] MEDS: Isosorbide MONOnitrate (24 HR) 30 MG TAB.ER.24H PO SCH (09:06)
[2017-12-30] MEDS: Cyanocobalamin (B-12) 1,000 MCG/ML VIAL SQ SCH (09:07)
[2017-12-30] MEDS: Acetaminophen 325 MG TABLET PO PRN (09:11)
--- NOTE | 2017-12-30 10:04 | Internal Med Progress Note ---
Date of Encounter: 12/30/17 Time of Encounter: 10:00 - Assessment and plan (1) Osteomyelitis Current Visit: Yes Status: Acute Assessment and plan: 62 year old male with past medical history of hypertension diabetes type 2 insulin-dependent, tobacco abuse who was recently discharged from this hospital on 11/22/2017 when he was treated for osteomyelitis, he was sent on 2 more weeks of Rocephin and Levaquin IV as he grew Leclercia, Staphylococcus aureus and Citrobacter in his cultures, the patient says that he has been very compliant and has been taking his antibiotics every day until yesterday, he was sent from the wound center as his wounds have been more foul smelling in both feet.With multiple organisms per most recent prior cultures. He was seen by vascular surgery, infectious diseases and podiatry. He was assessed with foot ulcer with multiple ulcerations and MRI of the foot showed new osteomyelitis of the right 5th metartasal but no evidence of abscess formation. He also has peripheral vascular disease with ulceration. His left ankle brachial index is normal. His right ankle brachial index consistent with moderate disease. His right lower extremity arterial duplex reveals evidence of superficial femoral artery stenosis greater than 75%. He had an abdominal aortogram, aortogram with bilateral lower extremity runoff, Standard and drug coated balloon angioplasty of distal right common femoral artery stenosis, Drug coated balloon angioplasty of distal right superficial femoral artery stenosis, Placement of triple lumen central venous catheter via right femoral vein by Dr. New on 12/13/17. Tolerated procedure well with no acute complications. He also had amputation/ray resection of the fifth ray/digit of the right foot with bone biopsy of the calcaneus and irrigation and debridement of the right foot ulcerations as well as the left foot ulcerations on 12/19 by podiatry. he tolerated procedure well. He is on ertapenem and vancomycin per infectious disease recommendations. Previous cultures were positive for MSSA, citrobacter and lecleria. Patient will need 6 weeks of IV antibiotics and a PICC line was placed. Surgical wound cultures were negative. 12/30. Patient was unable to be discharged since 12/26 due to safety issues with wound vac. he was supposed to be discharged on one wound vac with a Y connection but his home infusion refused based on fall risk of connecting one wound vac to both feet. He needs to have 2 wound vacs, [facility] Social work following Qualifiers: Osteomyelitis type: subacute Osteomyelitis location: foot Laterality: right Qualified Code(s): M86.271 - Subacute osteomyelitis, right ankle and foot (2) Diabetes mellitus Current Visit: Yes Status: Chronic Assessment and plan: Continue sliding scale coverage. Qualifiers: Diabetes mellitus type: type 2 Diabetes mellitus prison insulin use: with intermediate frame tender use Diabetes mellitus complication status: with circulatory complication Diabetes mellitus complication detail: with peripheral angiopathy with gangrene Qualified Code(s): E11.52 - Type 2 diabetes 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; Z79.4 - intermediate accountant (current) use of insulin; Z79.4 - half-way (current) use of insulin; Z79.4 - intermediate accountant ( current) use of insulin; Z79.4 - intermediate accountant (current) use of insulin (3) A-fib Current Visit: Yes Status: Chronic Assessment and plan: Rate controlled. Not on anticoagulation due to anemia Qualifiers: Atrial fibrillation type: paroxysmal Qualified Code(s): I48.0 - Paroxysmal atrial fibrillation (4) CAD (coronary artery disease) Current Visit: Yes Status: Chronic Assessment and plan: On aspirin, Plavix, carvedilol, Zocor and Zestril. Qualifiers: Coronary Disease-Associated Artery/Lesion type: [place] artery [place] vs. transplanted heart: unspecified whether [place] or transplanted heart Associated angina: without angina Qualified Code(s): I25.10 - Atherosclerotic heart disease of [place] coronary artery without angina pectoris (5) Tobacco abuse Current Visit: No Status: Chronic Assessment and plan: Patient has refused nicotine patch. (6) Peripheral arterial disease Current Visit: Yes Status: Acute Assessment and plan: Patient underwent right femoral angioplasty earlier during this hospitalization. Continue medication management (7) Anemia Current Visit: Yes Status: Chronic Assessment and plan: Hemoglobin levels improved to 8.6 today. Likely due to iron supplementation. Will continue. Qualifiers: Anemia type: iron deficiency Iron deficiency anemia type: unspecified iron deficiency Qualified Code(s): D50.9 - Iron deficiency anemia, unspecified (8) Essential hypertension Current Visit: Yes Status: Chronic Assessment and plan: Blood pressure remains elevated. Patient is currently on carvedilol, lisinopril and isosorbide mononitrate. We will add hydrochlorothiazide. - Time Spent With Patient Total time spent is greater than 50% in coordination of care (as documented) at patient's floor/unit and/or counseling patient: - Subjective Interval history: No acute events overnight - Constitutional Vitals: Temp Pulse Resp BP Pulse Ox 98.4 F 67 18 143/72 98 12/30/17 07:20 12/30/17 07:20 12/30/17 07:20 12/30/17 07:20 12/30/17 07:20 General appearance: Present: cooperative, A&O X 3, no acute distress, answers questions appropriately - Head Head exam: Present: atraumatic, normocephalic - Eye Eye exam: Present: PERRL, conjuntiva pink, sclera anicteric Pupils: Present: PERRL - Neck Neck exam general surgery: Present: supple, trachea midline. Absent: lymphadenopathy - Respiratory Respiratory exam: Present: CTAB. Absent: accessory muscle use, rales, rhonchi, wheezes - Cardiovascular Cardiovascular exam: Present: RRR, +S1, +S2. Absent: diastolic murmur, gallop, rubs, systolic murmur - GI/Abdominal GI/Abdominal exam: Present: normal bowel sounds, soft, no peritoneal signs. Absent: distended, tenderness - Extremities Exam Extremities exam: Present: warm, radial pulses palpable and symmetrical. Absent : calf tenderness, cyanotic, pedal edema - Neurological Exam Neurological exam: Present: CN II-XII intact, oriented X3, no focal deficits. Absent: pronater drift, facial droop, speech deficit - Skin Skin exam: Present: dry, intact Internal Medicine: Result - Labs CBC & Chem 7: 12/30/17 04:00 12/30/17 04:00 Labs: Short CBC 12/30/17 Range/Units 04:00 WBC 5.1 (4.3-11.1) K/mcL Hgb 8.4 L (12.9-16.9) g/dL Hct 26.1 L (37.5-50.1) % Plt Count 241 (140-400) K/mcL Neutrophils # 2.9 (1.6-8.9) K/mcL BMP 12/30/17 04:00 Sodium 136 Potassium 3.9 Chloride 106 Carbon Dioxide 26 BUN 28 H Creatinine 0.91 Glucose 213 H Calcium 8.8 - ABG Interpretation ABG results: PT/INR, D-dimer PT 13.6 Seconds (9.4-12.1) H 12/19/17 03:51 - VTE Documentation of Mechanical Device: Intermittent pneumatic compression device Consult Discharge Plan - Plan Referrals: YUNIEL,PCP [Primary Care Provider] - 12/30/17 11:00 am Luis New MD [Partnered Physician] - 01/01/18 11:45 am Prescriptions: Carvedilol [Coreg] 3.125 mg PO BIDWM #60 tablet Ferrous Sulfate 325 mg PO TIDWM #60 tablet Sennosides/Docusate Sodium [Senna Plus] 2 each PO BID PRN #60 tablet PRN Reason: Constipation
--- NOTE | 2017-12-30 17:59 | Infectious Disease Progress No ---
Date of Encounter: 12/30/17 Time of Encounter: 17:57 - Assessment and Plan (1) Osteomyelitis Current Visit: Yes Status: Acute Previous osteomyelitis left foot second toe status post partial amputation. Imaging shows new osteomyelitis of the 5th metatarsal and 5th proximal phalanx. Causative organism unclear. Previous cultures positive for MSSA, Citrobacter, and Lecleria. Wound culture obtained this hospitalization is negative. Previously on IV Rocephin and IV Levaquin. X-ray of the right foot showed OM of the right 5th metatarsal. MRI of the right foot showed osteomyelitis of the right 5th metatarsal and 5th proximal phalanx. MRI of the right ankle completed 12/13/17 shows OM vs. reactive osteitis to the inferolateral aspect of the right calcaneus. Wound culture positive for Yeast. Not sure if this is contributing to the patient's infection picture. Unfortunately, there is a severe drug-drug interaction between fluconazole and plavix so we will hold off on adding this to the patient's medication regimen. Podiatry consulted and following. Planning for surgery on per the notes. Wound care per the podiatry team. ESR 87, CRP 163. Continue Vancomycin IV 750 mg q12hrs. Pharmacy to dose. Goal trough ~15. VT 18. continue ertapenem Duration of treatment depends on the clinical picture but likely 6 weeks picc line placed Monitor renal function and for drug toxicity and dose-adjust antibiotics. Status post I&D on December [address] heller. Necrotic tissue debrided. Intra- Op cultures no growth I spoke with community mental health social worker and nursing staff at her all the prescriptions. The only thing [facility]. I would appreciate it Vanco trough before the patient gets discharged since the vancomycin dose was changed on 12/25 Qualifiers: Osteomyelitis type: subacute Osteomyelitis location: foot Laterality: right Qualified Code(s): M86.271 - Subacute osteomyelitis, right ankle and foot (2) Wound infection Current Visit: No Status: Acute Previous wound infection of the right heel and left 5th metatarsal. Causative organisms: MSSA, Citrobacter freundii, Lecleria adecarboxylata. Clinically, left lateral foot wound looks okay, but right heel continues to have regression and very foul-smelling discharge. Podiatry consulted and following. Wound care recommendations from the Podiatry team. Given the extent of the right heel wound, I am not sure that the limb is salvageable, but will await further recommendations from the vascular and podiatry teams. Continue antibiotics as above for now. (3) Anemia Current Visit: Yes Status: Chronic Hemoglobin down to 9.9 on admission, down to 7.2 today. GI consulted. Recommend EGD/C-scope, but patient unable to tolerate bowel prep. Further workup and management per the primary and GI teams. Qualifiers: Anemia type: iron deficiency Iron deficiency anemia type: unspecified iron deficiency Qualified Code(s): D50.9 - Iron deficiency anemia, unspecified (4) Diabetes mellitus Current Visit: Yes Status: Chronic HgbA1C 8.8% last month. Recommend aggressive glucose monitoring and control to promote wound healing and prevent re-infection. Management per the primary team. Qualifiers: Diabetes mellitus type: type 2 Diabetes mellitus assisted insulin use: with assisted use Diabetes mellitus complication status: with circulatory complication Diabetes mellitus complication detail: with peripheral angiopathy with gangrene Qualified Code(s): E11.52 - Type 2 diabetes 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; Z79.4 - oysterman (current) use of insulin; Z79.4 - intermediate (current) use of insulin; Z79.4 - oysterman ( current) use of insulin; Z79.4 - intermediate (current) use of insulin (5) Peripheral vascular disease Current Visit: No Status: Chronic Status post femoral to above the knee popliteal bypass graft in 2016. Status post left LE Angiogram with balloon angioplasty of the previous graft anastamosis 11/06/[address] Harris. Status post RLE angiogram with balloon angioplasty of the right SFA 11/18/[address] Harris. Vascular surgery consulted. Status post angiogram with balloon angioplasty to right SFA 12/13/[address] New. 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 Current Visit: Yes Status: Chronic Qualifiers: Peripheral atherosclerosis artery type: bypass graft, autologous vein Qualified Code(s): I70.433 - Atherosclerosis of autologous vein bypass graft(s) of the right leg with ulceration of ankle; I70.443 - Atherosclerosis of autologous vein bypass graft(s) of the left leg with ulceration of ankle (7) A-fib Current Visit: Yes Status: Chronic Qualifiers: Atrial fibrillation type: paroxysmal Qualified Code(s): I48.0 - Paroxysmal atrial fibrillation (8) CAD (coronary artery disease) Current Visit: Yes Status: Chronic Qualifiers: Coronary Disease-Associated Artery/Lesion type: [place] artery [place] vs. transplanted heart: unspecified whether [place] or transplanted heart Associated angina: without angina Qualified Code(s): I25.10 - Atherosclerotic heart disease of [place] coronary artery without angina pectoris (9) Tobacco abuse Current Visit: No Status: Chronic (10) Constipation Current Visit: Yes Status: Acute Had small BM yesterday. Denies abdominal pain. Bowel regimen per the primary team. Qualifiers: Constipation type: unspecified constipation type Qualified Code(s): K59.00 - Constipation, unspecified - Subjective Interval history: Patient seen and examined. Clinically looking better. Eager to go home. Patient denies any chest pain no shortness of breath no headache no urinary symptoms no diarrhea no abdominal pain. Vital signs stable no fever Labs stable. Creatinine stable. Last Vanco trough was on December 25. Infect Dis PN-Objective Data - Labs CBC & Chem 7: 12/30/17 04:00 12/30/17 04:00 Labs: Laboratory Results - last 24 hr 12/28/17 12/30/17 12/30/17 20:19 04:00 04:00 WBC 5.1 RBC 2.99 L Hgb 8.4 L Hct 26.1 L MCV 87.3 MCH 28.1 MCHC 32.2 RDW 14.4 Plt Count 241 MPV 9.5 Immature Gran % 0.4 Seg Neutrophils % 57.2 Lymphocytes % 27.1 Monocytes % 9.8 Eosinophils % 4.7 Basophils % 0.8 Neutrophils # 2.9 Lymphocytes # 1.4 Monocytes # 0.5 Eosinophils # 0.2 Basophils # 0.0 Sodium 136 Potassium 3.9 Chloride 106 Carbon Dioxide 26 BUN 28 H Creatinine 0.91 Est GFR ( Amer) > 60 Est GFR (Non-Af Amer) > 60 BUN/Creatinine Ratio 31 H Glucose 213 H POC Glucose 182 H Calculated Osmolality 294 Calcium 8.8 12/30/17 12/30/17 12/30/17 07:17 11:21 17:04 WBC RBC Hgb Hct MCV MCH MCHC RDW Plt Count MPV Immature Gran % Seg Neutrophils % Lymphocytes % Monocytes % Eosinophils % Basophils % Neutrophils # Lymphocytes # Monocytes # Eosinophils # Basophils # Sodium Potassium Chloride Carbon Dioxide BUN Creatinine Est GFR ( Amer) Est GFR (Non-Af Amer) BUN/Creatinine Ratio Glucose POC Glucose 191 H 164 H 154 H Calculated Osmolality Calcium Cultures: Cultures 12/19/17 13:05 Anaerobic Culture - Final Right Foot No anaerobes were recovered. 12/19/17 13:05 Wound Culture - Final Right Foot No growth. 12/15/17 10:00 Wound Culture - Final Right Foot Tere albicans Exam - Constitutional Vitals: Temp Pulse Resp BP Pulse Ox 98.3 F 60 16 104/62 99 12/30/17 15:12 12/30/17 15:12 12/30/17 15:12 12/30/17 15:12 12/30/17 15:12 General appearance: no acute distress, no febrile - Respiratory Respiratory exam: Present: CTAB. Absent: rhonchi, wheezes - Cardiovascular Cardiovascular exam: Present: RRR, +S1, +S2 - GI/Abdominal GI/Abdominal exam: Present: normal bowel sounds, soft. Absent: tenderness - VTE Documentation of Mechanical Device: Intermittent pneumatic compression device Consult Discharge Plan - Plan [facility] - 12/30/17 11:00 am Luis New MD [Partnered Physician] - 01/01/18 11:45 am Prescriptions: Carvedilol [Coreg] 3.125 mg PO BIDWM #60 tablet Ferrous Sulfate 325 mg PO TIDWM #60 tablet Sennosides/Docusate Sodium [Senna Plus] 2 each PO BID PRN #60 tablet PRN Reason: Constipation
--- NOTE | 2017-12-30 20:23 | Podiatry Progress Note ---
Date of Encounter: 12/30/17 Time of Encounter: 12:11 - Assessment and Plan (1) Chronic foot ulcer Current Visit: Yes Status: Acute The patient will continue antibiotics per ID The patient will continue a wound vac to the bilateral lower extremities. Vac will be changed Saturday, Saturday, Saturday. Patient will minimize weightbearing. Patient will follow up on . Qualifiers: Laterality: right Non-pressure ulcer stage: limited to breakdown of skin Qualified Code(s): L97.511 - Non-pressure chronic ulcer of other part of right foot limited to breakdown of skin Subjective Principal diagnosis: Bilateral foot ulcerations with ischemia and osteomyelitis Interval history: Patient relates that he is feeling fine today. Patient denies any new complaints. Patient relates that his foot hurts today. Objective - Vital Signs Vital Signs: Vital Signs Temp Pulse Resp BP Pulse Ox 12/30/17 18:32 98.8 F 70 16 134/73 97 12/30/17 15:12 98.3 F 60 16 104/62 99 12/30/17 11:21 98.5 F 69 16 123/70 100 12/30/17 07:20 98.4 F 67 18 143/72 98 12/30/17 00:19 98.3 F 71 16 128/74 99 Intake and Output 12/30/17 12/30/17 12/30/17 07:59 15:59 23:59 Intake Total 250 / 250 Output Total 1350 / 1350 50 / 50 Balance -1100 / -1100 -50 / -50 Intake: IV Fluids 250 / 250 Vancocin 750 MG In 0.9 % Sodium 250 / 250 Chloride 250 ML @ 250 mls/hr IVPB Q12H [facility] Rx#:[id number] Output: Urine 1350 / 1350 Wound Drainage 50 / 50 right and left feet 50 / 50 Other: Blood Glucose* 191 164 225 - Exam Exam: Exam: General: A&O x3, calm and cooperative. Vascular: Right foot: no necrosis, no cyanosis, no pallor, foot is pink warm and dry, CFT is immediate. Dressing dry and intact to left foot. S/P; Left: Full thickness ulcer to the lateral aspect of the left foot, 5th metatarsal head measuring 2.5 cm in length x 2.5 cm in width x 0.5 cm in depth, base of wound with red and yellow fibrous tissue, no pus, no odor, no fluctuance , no warmth, no streaking. Small amount of granulation tissue developing. The right foot fifth metatarsal wound measures approximately 4 cm in diameter and 1 cm in depth, base of wound with red granulation tissue, no pus, no odor, no fluctuance, no warmth, no streaking. The right foot calcaneus wound on the lateral aspect of the calcaneus measured approximately 7.5 cm in length and 7 cm and width with a depth of 1.5 cm and a small tracking site along the plantar aspect of the calcaneus the tract approximately 2.5 cm. base of wound with 90 % yellow fibrous tissue and 10% red tissue, periwound erythema, lno pus, no odor, no fluctuance, no warmth, no streaking. The right foot medial wound approximately 4 cm in length and 2 cm and width with a depth of 1 cm. base of wound with wiseman/yellow fibrotic tissue, no pus, no odor, no fluctuance, no warmth, no streaking. - Lab Result Diagrams: 12/30/17 04:00 12/30/17 04:00 Labs: Abnormal lab results RBC 2.99 M/mcL (4.19-5.50) L 12/30/17 04:00 Hgb 8.4 g/dL (12.9-16.9) L 12/30/17 04:00 Hct 26.1 % (37.5-50.1) L 12/30/17 04:00 ESR 73 mm/hr (0-10) H 12/26/17 05:15 PT 13.6 Seconds (9.4-12.1) H 12/19/17 03:51 BUN 28 mg/dL (8-23) H 12/30/17 04:00 BUN/Creatinine Ratio 31 (6-26) H 12/30/17 04:00 Glucose 213 mg/dL (70-105) H 12/30/17 04:00 POC Glucose 225 mg/dL (70-99) H 12/30/17 19:02 Iron 11 mcg/dL (65-175) L 12/18/17 05:11 % Saturation 7 % (20-55) L 12/18/17 05:11 Transferrin 108 mg/dL (203-362) L 12/18/17 05:11 Ferritin 438 ng/mL (20-250) H 12/18/17 05:11 AST 7 Units/L (13-39) L 12/09/17 11:57 ALT 6 Units/L (7-52) L 12/09/17 11:57 Albumin 3.3 g/dL (3.5-5.7) L 12/09/17 11:57 Globulin 3.9 g/dL (2.4-3.5) H 12/09/17 11:57 Albumin/Globulin Ratio 0.8 (1.1-2.2) L 12/09/17 11:57 Vitamin B12 202 pg/mL (250-1100) L 12/18/17 07:55 Ur Specific [place] > 1.030 (1.010-1.025) H 12/09/17 12:24 Urine Protein 30 mg/dL (Neg-Trace) H 12/09/17 12:24 Urine Glucose (UA) >=1000 mg/dL (Normal) H 12/09/17 12:24 Ur Squamous Epith Cells Many per lpf (None-Few) H 12/09/17 12:24 Vancomycin Trough 20 mcg/mL (5-10) H 12/25/17 15:00 - VTE Documentation of Mechanical Device: Intermittent pneumatic compression device Consult Discharge Plan - Plan [facility]errals: [facility] Care Provider[facility] - 12/30/17 11:00 am Luis New MD [Partnered Physician] - 01/01/18 11:45 am Prescriptions: Carvedilol [Coreg] 3.125 mg PO BIDWM #60 tablet Ferrous Sulfate 325 mg PO TIDWM #60 tablet Sennosides/Docusate Sodium [Senna Plus] 2 each PO BID PRN #60 tablet PRN Reason: Constipation
[2017-12-31] MEDS: *HR* Heparin 5,000 UNIT/ML VIAL SQ SCH (08:40)
[2017-12-31] MEDS: Insulin LISPRO 300 UNITS/3 ML VIAL SQ SCH ×2 (08:42→12:48)
[2017-12-31] MEDS: hydroCHLOROthiazide 25 MG TABLET PO SCH (09:21)
[2017-12-31] MEDS: Gentamicin Oint 15 GM TUBE TP SCH (09:22)
[2017-12-31] MEDS: Diltiazem CD (24hr) 120 MG CAPSULE PO SCH (09:22)
[2017-12-31] MEDS: Aspirin Enteric Coated 325 MG Tablet PO SCH (09:22)
[2017-12-31] MEDS: Lisinopril 20 MG TABLET PO SCH (09:22)
[2017-12-31] MEDS: Ertapenem 1,000 MG in 0.9 % Sodium Chloride Mini Bag 100 ML IVPB SCH (09:23)
[2017-12-31] MEDS: Cyanocobalamin (B-12) 1,000 MCG/ML VIAL SQ SCH (09:23)
[2017-12-31] MEDS: Insulin DETEMIR 100 UNIT/ML X5UNITS SQ SCH (09:29)
[2017-12-31] MEDS: Isosorbide MONOnitrate (24 HR) 30 MG TAB.ER.24H PO SCH (12:49)
--- NOTE | 2017-12-31 13:37 | Infectious Disease Progress No ---
Date of Encounter: 12/31/17 Time of Encounter: 13:35 - Assessment and Plan (1) Osteomyelitis Current Visit: Yes Status: Acute Previous osteomyelitis left foot second toe status post partial amputation. Imaging shows new osteomyelitis of the 5th metatarsal and 5th proximal phalanx. Causative organism unclear. Previous cultures positive for MSSA, Citrobacter, and Lecleria. Wound culture obtained this hospitalization is negative. Previously on IV Rocephin and IV Levaquin. X-ray of the right foot showed OM of the right 5th metatarsal. MRI of the right foot showed osteomyelitis of the right 5th metatarsal and 5th proximal phalanx. MRI of the right ankle completed 12/13/17 shows OM vs. reactive osteitis to the inferolateral aspect of the right calcaneus. Wound culture positive for Yeast. Not sure if this is contributing to the patient's infection picture. Unfortunately, there is a severe drug-drug interaction between fluconazole and plavix so we will hold off on adding this to the patient's medication regimen. Podiatry consulted and following. Status post I & D of left foot ulceration, I & D of right foot calcaneus, fifth metatarsal, and medial soft tissue abscess by Dr. Morales. Intra-op cultures were negative, but the patient had been on IV antibiotics for several weeks prior to collection. Wound care per the podiatry team. Post-op ESR 73 (87), CRP 8 (163) Continue Vancomycin IV 750 mg q12hrs. Pharmacy to dose. Goal trough ~15. VT 16. Continue Ertapenem 1 gram IV daily. Duration of treatment depends on the clinical picture but likely 6 weeks Monitor renal function and for drug toxicity and dose-adjust antibiotics. Vancomycin held this morning pending Vanc troug level, but nursing never notified by pharmacy to give the medication, so the patient has not received his medication. At this point, in order for the patient to be able to be discharged today, we will give him a dose this afternoon at a slightly increased dose in order to keep him therapeutic until home health can come re- start the medication in the morning. Will need weekly CBC, BUN/Cr, ESR, CRP, and Vanc trough. Will need weekly PICC care per protocol. Follow up with ID 01/15/18 at 0840. Qualifiers: Osteomyelitis type: subacute Osteomyelitis location: foot Laterality: right Qualified Code(s): M86.271 - Subacute osteomyelitis, right ankle and foot (2) Wound infection Current Visit: No Status: Acute Previous wound infection of the right heel and left 5th metatarsal. Causative organisms: MSSA, Citrobacter freundii, Lecleria adecarboxylata. Clinically, left lateral foot wound looks okay, but right heel continues to have regression and very foul-smelling discharge. Podiatry consulted and following. Wound care recommendations from the Podiatry team. Continue antibiotics as above for now. (3) Anemia Current Visit: Yes Status: Chronic Hemoglobin stable around 8. GI consulted. Recommend EGD/C-scope, but patient unable to tolerate bowel prep. Further workup and management per the primary and GI teams. Qualifiers: Anemia type: iron deficiency Iron deficiency anemia type: unspecified iron deficiency Qualified Code(s): D50.9 - Iron deficiency anemia, unspecified (4) Diabetes mellitus Current Visit: Yes Status: Chronic HgbA1C 8.8% last month. Recommend aggressive glucose monitoring and control to promote wound healing and prevent re-infection. Management per the primary team. Qualifiers: Diabetes mellitus type: type 2 Diabetes mellitus half-way insulin use: with moth exterminator use Diabetes mellitus complication status: with circulatory complication Diabetes mellitus complication detail: with peripheral angiopathy with gangrene Qualified Code(s): E11.52 - Type 2 diabetes 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; Z79.4 - custodial (current) use of insulin; Z79.4 - ferry terminal agent (current) use of insulin; Z79.4 - ferry terminal agent ( current) use of insulin; Z79.4 - custodial (current) use of insulin (5) Peripheral vascular disease Current Visit: No Status: Chronic Status post femoral to above the knee popliteal bypass graft in 2016. Status post left LE Angiogram with balloon angioplasty of the previous graft anastamosis 11/06/[address] Harris. Status post RLE angiogram with balloon angioplasty of the right SFA 11/18/[address] Harris. Vascular surgery consulted. Status post angiogram with balloon angioplasty to right SFA 12/13/[address] New. 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 Current Visit: Yes Status: Chronic Qualifiers: Peripheral atherosclerosis artery type: bypass graft, autologous vein Qualified Code(s): I70.433 - Atherosclerosis of autologous vein bypass graft(s) of the right leg with ulceration of ankle; I70.443 - Atherosclerosis of autologous vein bypass graft(s) of the left leg with ulceration of ankle (7) A-fib Current Visit: Yes Status: Chronic Qualifiers: Atrial fibrillation type: paroxysmal Qualified Code(s): I48.0 - Paroxysmal atrial fibrillation (8) CAD (coronary artery disease) Current Visit: Yes Status: Chronic Qualifiers: Coronary Disease-Associated Artery/Lesion type: [place] artery [place] vs. transplanted heart: unspecified whether [place] or transplanted heart Associated angina: without angina Qualified Code(s): I25.10 - Atherosclerotic heart disease of [place] coronary artery without angina pectoris (9) Tobacco abuse Current Visit: No Status: Chronic (10) Constipation Current Visit: Yes Status: Acute Resolved. Bowel regimen per the primary team. Qualifiers: Constipation type: unspecified constipation type Qualified Code(s): K59.00 - Constipation, unspecified - Subjective Interval history: Patient seen and examined. No acute events noted overnight. Patient states overall he feels okay. Is awaiting discharge later today. Denies known fevers, chills, or rigors. Denies chest pain, shortness of breath, or cough. Denies nausea, vomiting, or diarrhea. Denies abdominal pain, urinary complaints, or appetite changes. States last BM was yesterday. Denies oral thrush or skin lesions. Complains of pain in the right foot this morning, 10/15. Infect Dis PN-Objective Data - Labs CBC & Chem 7: 12/30/17 04:00 12/30/17 04:00 Labs: Laboratory Results - last 24 hr 12/29/17 12/29/17 12/29/17 07:41 11:42 16:02 POC Glucose 158 H 178 H 171 H Vancomycin Trough 12/29/17 12/30/17 12/30/17 19:24 11:21 17:04 POC Glucose 222 H 164 H 154 H Vancomycin Trough 12/30/17 12/31/17 12/31/17 19:02 05:06 07:57 POC Glucose 225 H 191 H Vancomycin Trough 16 H Cultures: Cultures 12/19/17 13:05 Anaerobic Culture - Final Right Foot No anaerobes were recovered. 12/19/17 13:05 Wound Culture - Final Right Foot No growth. 12/15/17 10:00 Wound Culture - Final Right Foot Tere albicans Exam - Constitutional Vitals: Temp Pulse Resp BP Pulse Ox 98.3 F 63 18 149/88 98 12/31/17 08:05 12/31/17 08:05 12/31/17 08:05 12/31/17 08:05 12/31/17 08:05 General appearance: cooperative, no acute distress, obese - Head Head exam: Present: atraumatic, normal inspection, normocephalic - Eye Eye exam: Present: EOMI, normal appearance, PERRL Pupils: Present: normal accommodation - ENT ENT exam: Present: mucous membranes moist - Neck Neck exam: Present: normal inspection - Respiratory Respiratory exam: Present: CTAB. Absent: rales, respiratory distress, rhonchi, wheezes - Cardiovascular Cardiovascular exam: Present: irregular rhythm. Absent: tachycardia - GI/Abdominal GI/Abdominal exam: Present: normal bowel sounds, soft. Absent: distended, tenderness - Extremities Exam Extremities exam: Present: normal inspection. Absent: joint swelling, pedal edema, tenderness Additional comments: Right lateral foot wound VAC dressing with sponge well-compressed and transparent dressing intact. Small leak noted that appears positional. Overlying guaze dressing C/D/I. Left foot dressing C/D/I. - Neurological Exam Neurological exam: Present: alert, oriented X3, no focal deficits - Psychiatric Psychiatric exam: Present: normal affect, normal mood - Skin Skin exam: Present: dry, intact, normal color, warm - VTE Documentation of Mechanical Device: Intermittent pneumatic compression device Consult Discharge Plan - Plan [facility]errals: [facility] [Primary Care Provider[facility] - 12/30/17 11:00 am Luis New MD [Partnered Physician] - 01/01/18 11:45 am Shannan Kulkarni CNP [Advanced Practice Nurse] - 01/15/18 8:40 am Prescriptions: Carvedilol [Coreg] 3.125 mg PO BIDWM #60 tablet Ferrous Sulfate 325 mg PO TIDWM #60 tablet Sennosides/Docusate Sodium [Senna Plus] 2 each PO BID PRN #60 tablet PRN Reason: Constipation - Attending Attestation I examined this patient and my medical decision-making was reviewed with the Resident Physician. I agree with the documented findings, disposition and treatment plan as described except to the extent set forth below.
--- NOTE | 2017-12-31 15:22 | Internal Med Progress Note ---
Date of Encounter: 12/31/17 Time of Encounter: 11:15 - Assessment and plan (1) Osteomyelitis Current Visit: Yes Status: Acute Assessment and plan: Podiatry and infectious diseases on board. Patient underwent irrigation and debridement of bilateral feet ulcers. Has been on IV ertapenem and vancomycin per ID recommendations. Currently stable for discharge with home health services for IV antibiotic infusion. Local wound care and wound VAC recommendations per podiatry. To minimize weightbearing. Qualifiers: Osteomyelitis type: subacute Osteomyelitis location: foot Laterality: right Qualified Code(s): M86.271 - Subacute osteomyelitis, right ankle and foot (2) Diabetes mellitus Current Visit: Yes Status: Chronic Assessment and plan: Blood sugars noted to be fairly well controlled. Continue basal bolus insulin regimen with Accu-Chek blood glucose monitoring. Diabetic diet. 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 Not on anticoagulation due to anemia Qualifiers: Atrial fibrillation type: paroxysmal Qualified Code(s): I48.0 - Paroxysmal atrial fibrillation (4) CAD (coronary artery disease) Current Visit: Yes Status: Chronic Qualifiers: Coronary Disease-Associated Artery/Lesion type: [place] artery [place] vs. transplanted heart: unspecified whether [place] or transplanted heart Associated angina: without angina Qualified Code(s): I25.10 - Atherosclerotic heart disease of [place] coronary artery without angina pectoris (5) Tobacco abuse Current Visit: No Status: Chronic (6) Peripheral arterial disease Current Visit: Yes Status: Acute (7) Anemia Current Visit: Yes Status: Chronic Qualifiers: Anemia type: iron deficiency Iron deficiency anemia type: unspecified iron deficiency Qualified Code(s): D50.9 - Iron deficiency anemia, unspecified (8) Essential hypertension Current Visit: Yes Status: Chronic - Time Spent With Patient Total time spent is greater than 50% in coordination of care (as documented) at patient's floor/unit and/or counseling patient: - Subjective Interval history: Received second wound VAC today. No fever, chills, chest pain, shortness of breath. Anxious to be discharged home today. - Constitutional Vitals: Temp Pulse Resp BP Pulse Ox 98.3 F 63 18 149/88 98 12/31/17 08:05 12/31/17 08:05 12/31/17 08:05 12/31/17 08:05 12/31/17 08:05 General appearance: Present: cooperative, A&O X 3, answers questions appropriately - Extremities Exam Extremities exam: Present: warm, radial pulses palpable and symmetrical. Absent : calf tenderness, cyanotic, pedal edema Additional comments: Bilateral feet with ischemic ulcers and multiple toe amputations; surgical dressings intACT; WOUND VACS IN PLACE; Internal Medicine: Result - Labs CBC & Chem 7: 12/30/17 04:00 12/30/17 04:00 - ABG Interpretation ABG results: PT/INR, D-dimer PT 13.6 Seconds (9.4-12.1) H 12/19/17 03:51 - VTE Documentation of Mechanical Device: Intermittent pneumatic compression device Consult Discharge Plan - Plan Referrals: Shannan Kulkarni CNP [Advanced Practice Nurse] - 01/15/18 8:40 am [place],PCP [Primary Care Provider] - 12/30/17 11:00 am Luis New MD [Partnered Physician] - 01/01/18 11:45 am Prescriptions: Carvedilol [Coreg] 3.125 mg PO BIDWM #60 tablet Ferrous Sulfate 325 mg PO TIDWM #60 tablet Sennosides/Docusate Sodium [Senna Plus] 2 each PO BID PRN #60 tablet PRN Reason: Constipation
[2017-12-31 15:39] VITALS: BP 119/70
== END 2017-12-31 17:10 | disposition home or self-care (01) | DRG 629 ==
LOC: 3ANU 10:18 → EMEROO 10:18 → 3ANU 13:22 → SUATTDRO 18:54 → 2NNU 12-13 10:46 → 3NENU 12-24 01:08
PROVIDERS: ADMIT Internal Medicine Hematology & Oncology; ATTEND Internal Medicine

== ENCOUNTER 2020-01-20 12:17 | Inpatient (IN) ==
[~2020-01-20 12:17] MED LIST: Vancomycin 1,000 MG, Sodium Chloride IRRigation 1,000 ML IR ONE
[2020-01-20] MEDS ORDERED: *HR* Midazolam HCl 2 MG/2 ML VIAL ONE (12:38)
[2020-01-20] MEDS ORDERED: *HR* FentaNYL (PF) 100 MCG/2 ML VIAL ONE (12:38)
[2020-01-20] MEDS ORDERED: *HR* Propofol 200 MG/20 ML VIAL IVP ONE (12:38)
[2020-01-20] MEDS ORDERED: *HR* Succinylcholine 200 MG/10 ML VIAL IVP ONE (12:40)
[2020-01-20] MEDS ORDERED: Lidocaine -MPF 2% 2 ML VIAL ONE (12:40)
[2020-01-20] MEDS ORDERED: Lidocaine HCL 4 ML Topical Solution (Laryng-O-Jet Kit Sterile Pak) TP ONE (12:43)
[2020-01-20] MEDS ORDERED: Ringers Solution, Lactated 1,000 ML IVC SCH (12:45)
[2020-01-20] MEDS ORDERED: Vancomycin 1,250 MG/262.5 ML IV.SOLN IVPB ONE (13:00)
[2020-01-20] MEDS ORDERED: CeFAZolin Syr 2,000MG/20 ML 2,000 MG/20 ML SYRINGE IVPB ONE (13:00)
[2020-01-20] MEDS ORDERED: Heparin 1,000 UNITS/500 mL 1,500 ML ONE (13:08)
[2020-01-20] MEDS ORDERED: Vancomycin 1,000 MG VIAL ONE (13:09)
[2020-01-20] MEDS ORDERED: Heparin 1,000 UNITS/500 mL 500 ML ONE (13:10)
[2020-01-20] MEDS ORDERED: Acetaminophen IV 1,000 MG/100 ML BAG ONE (13:36)
[2020-01-20] MEDS ORDERED: Naloxone 0.4 MG/ML INJ IVP PRN ×2 (13:49→17:44)
[2020-01-20] MEDS ORDERED: Albuterol 2.5 MG/3 ML NEBULIZER IH PRN (13:49)
[2020-01-20] MEDS ORDERED: *HR* HYDROmorphone PF 0.5 MG/0.5 ML SYRINGE IVP PRN (13:49)
[2020-01-20] MEDS ORDERED: flumazeniL 0.5 MG/5 ML VIAL IVP PRN (13:49)
[2020-01-20] MEDS ORDERED: *HR* FentaNYL (PF) 100 MCG/2 ML VIAL IVP PRN (13:49)
[2020-01-20] MEDS ORDERED: Ondansetron 4 MG/2 ML VIAL IVP ONE (13:49)
[2020-01-20] MEDS ORDERED: Ondansetron 4 MG/2 ML VIAL ONE (14:01)
[2020-01-20] MEDS ORDERED: *HR* Rocuronium Bromide 50 MG/5 ML VIAL ONE (14:01)
[2020-01-20] MEDS ORDERED: Dexamethasone 4 MG/ML VIAL ONE (14:01)
[2020-01-20] MEDS ORDERED: *HR* HYDROMORPHONE 2 MG/ML VIAL ONE (15:10)
[2020-01-20] MEDS ORDERED: *HR* Heparin 5,000 UNIT/ML VIAL ONE ×2 (15:13→15:25)
[2020-01-20] MEDS ORDERED: EPHEDrine 50 MG/ML VIAL ONE (15:29)
[2020-01-20] MEDS ORDERED: *HR* Labetalol 20 MG/4 ML SYRINGE IVP PRN (17:44)
[2020-01-20] MEDS ORDERED: 0.9 % Sodium Chloride 1,000 ML IVC SCH (17:44)
[2020-01-20] MEDS ORDERED: *HR* Dextrose 50 % in Water (Vial) 50 ML VIAL IVP PRN (17:44)
[2020-01-20] MEDS ORDERED: *HR* HYDROcodone/Acet 5/325 mg TABLET PO PRN ×2 (17:44)
[2020-01-20] MEDS ORDERED: Dextrose Gel 15 GM/37.5 ML TUBE PO PRN ×2 (17:44)
[2020-01-20] MEDS ORDERED: Ondansetron 4 MG/2 ML VIAL IVP PRN (17:44)
[2020-01-20] MEDS ORDERED: Acetaminophen 325 MG TABLET PO PRN ×2 (17:44)
[2020-01-20] MEDS ORDERED: *HR* OxyCODONE Immed Rel 5 MG TABLET PO PRN ×2 (17:44)
[2020-01-20] MEDS ORDERED: D5% in Water 1,000 ML IVC PRN (17:44)
[2020-01-20] MEDS: *HR* Metoprolol 5 MG/5 ML VIAL IVP SCH ×2 (18:21→22:41)
[2020-01-20] MEDS: Insulin LISPRO 300 UNITS/3 ML VIAL SQ SCH (18:21)
[2020-01-20] MEDS ORDERED: Insulin LISPRO 300 UNITS/3 ML VIAL SQ SCH (21:00)
[2020-01-20] MEDS: CeFAZolin 2 GM/120 ML BAG IVPB SCH (22:40)
[2020-01-21 01:24] LABS: Basophils % 0.2 %; Hematocrit 40.4 % (37.5-50.1); Hemoglobin 13.5 g/dL (12.9-16.9); Immature Granulocytes % 0.2 % (0-4); Lymphocytes # 0.9 K/mcL (0.6-4.6); Lymphocytes % 9.5 %; Mean Corpuscular HGB Conc 33.4 g/dL (31.6-35.5); Mean Corpuscular Hemoglobin 30.1 pg (28.0-33.3); Mean Platelet Volume 10.8 fL (9.4-12.4); Monocytes # 0.4 K/mcL (0.0-1.3); Monocytes % 4.4 %; Neutrophils # 7.9 K/mcL (1.6-8.9); Platelet Count 152 K/mcL (140-400); Red Blood Count 4.49 M/mcL (4.19-5.50); Red Cell Distribution Width 12.7 % (11.5-14.5); Segmented Neutrophils % 85.7 %; White Blood Count 9.2 K/mcL (4.3-11.1)
[2020-01-21 01:43] LABS: BUN/Creatinine Ratio 20 (6-26); Blood Urea Nitrogen 18 mg/dL (8-23); Calcium 8.8 mg/dL (8.6-10.3); Carbon Dioxide 22 mEq/L (23-29); Chloride 106 mEq/L (98-107); Glucose 273 mg/dL (70-105); Osmolality,Calculated 292 (280-300); Sodium 135 mEq/L (136-145); eGFR For African Americans > 60 (> 60); eGFR For Non-African Americans > 60 (> 60)
[2020-01-21] MEDS ORDERED: Vancomycin 1,250 MG/262.5 ML IV.SOLN IVPB ONE (02:00)
[2020-01-21] MEDS: CeFAZolin 2 GM/120 ML BAG IVPB SCH (03:03)
[2020-01-21] MEDS: *HR* Metoprolol 5 MG/5 ML VIAL IVP SCH ×2 (05:05→11:33)
[2020-01-21] MEDS ORDERED: *HR* Heparin 5,000 UNIT/ML VIAL SQ SCH (06:00)
[2020-01-21] MEDS: Insulin LISPRO 300 UNITS/3 ML VIAL SQ SCH ×2 (07:54→11:34)
[2020-01-21] MEDS ORDERED: DilTIAZem CD (24hr) 120 MG CAP.ER.24H PO SCH (09:00)
[2020-01-21] MEDS ORDERED: Aspirin Enteric Coated 81 MG Tablet PO SCH (09:00)
[2020-01-21 11:20] VITALS: BP 161/87
== END 2020-01-21 14:33 | disposition home or self-care (01) | DRG 271 ==
LOC: SAMDAY 12:17 → 2NNU 17:39
PROVIDERS: ADMIT Surgery; ATTEND Surgery

== ENCOUNTER 2020-11-14 13:55 | Inpatient (IN) ==
[2020-11-14] MEDS ORDERED: *HR* Heparin 5,000 UNIT/ML VIAL IVP ONE (16:04)
[2020-11-14] MEDS ORDERED: *HR* Heparin 5,000 UNIT/ML VIAL IVP PRN (16:04)
[2020-11-14] MEDS ORDERED: Insulin Regular, Human 100 UNIT/ML IV PRN (16:07)
[2020-11-14] MEDS ORDERED: D5% in 0.45% NACL w KCl 20 MEQ/1,000 ML MLS IVC PRN (16:07)
[2020-11-14] MEDS ORDERED: *HR* Dextrose 50 % in Water (Vial) 50 ML VIAL IVP PRN (16:07)
[2020-11-14] MEDS ORDERED: D5% in 0.45% NACL 1,000 ML IVC PRN (16:07)
[2020-11-14] MEDS ORDERED: Naloxone 0.4 MG/ML INJ IVP PRN (16:09)
[2020-11-14] MEDS ORDERED: Ondansetron 4 MG/2 ML VIAL IVP PRN (16:09)
[2020-11-14 16:31] LABS: ABG Base Excess -5 mEq/L (-2 to 3); ABG HCO3 19 mEq/L (21-27); ABG Oxygen Saturation 95 % (95-98); ABG PCO2 31 mmHg (35-45); ABG PH 7.39 pH Units (7.32-7.45); ABG PO2 73 mmHg (85-104); ABG TCO2 20 mEq/L (20-26)
[2020-11-14] MEDS ORDERED: Perflutren Lipid Microsphere 1.3 ML in 0.9 % Sodium Chloride 8.7 ML IVP PRN (16:44)
[2020-11-14] MEDS: 0.45 % Sodium Chloride w/KCl 20 MEQ/1,000 ML MLS IVC SCH ×2 (16:46→18:14)
[2020-11-14] MEDS: Heparin 25,000UNIT/250ML 1/2NS 25,000 UNIT/250 ML IV.SOLN IVC SCH (16:46)
[2020-11-14 16:56] LABS: Hematocrit 44.5 % (37.5-50.1); Immature Platelets 11.7 % (1.1-6.1); Mean Corpuscular HGB Conc 31.5 g/dL (31.6-35.5); Mean Corpuscular Hemoglobin 29.4 pg (28.0-33.3); Mean Corpuscular Volume 93.5 fL (83.0-100.0); Mean Platelet Volume 12.1 fL (9.4-12.4); Red Blood Count 4.76 M/mcL (4.19-5.50); Red Cell Distribution Width 13.5 % (11.5-14.5); White Blood Count 11.1 K/mcL (4.3-11.1)
[2020-11-14 17:04] LABS: Heparin anti-factor XA UFH < 0.04 IU/mL (0.30-0.70)
[2020-11-14 17:05] LABS: INR 1.1; Prothrombin Time 13.2 Seconds (9.4-12.1)
[2020-11-14 17:12] LABS: Calcium 8.5 mg/dL (8.6-10.3); Potassium 4.4 mEq/L (3.5-5.1)
[2020-11-15] MEDS: *HR* Heparin 5,000 UNIT/ML VIAL IVP PRN ×2 (00:21→09:25)
[2020-11-15 00:59] LABS: VBG HCO3 20 mEq/L (21-27); VBG PCO2 39 mmHg (41-51); VBG PH 7.32 pH Units (7.32-7.42); VBG PO2 45 mmHg (25-50)
[2020-11-15 01:01] LABS: Mean Corpuscular Volume 93.1 fL (83.0-100.0); Red Cell Distribution Width 13.4 % (11.5-14.5)
[2020-11-15 01:03] LABS: Hematocrit 44.6 % (37.5-50.1); Hemoglobin 14.1 g/dL (12.9-16.9); Immature Platelets 11.3 % (1.1-6.1); Mean Corpuscular HGB Conc 31.6 g/dL (31.6-35.5); Mean Corpuscular Hemoglobin 29.4 pg (28.0-33.3); Mean Platelet Volume 12.6 fL (9.4-12.4); Monocytes # 1.4 K/mcL (0.0-1.3); Red Blood Count 4.79 M/mcL (4.19-5.50); White Blood Count 10.8 K/mcL (4.3-11.1)
[2020-11-15 01:05] LABS: Platelet Count 84 K/mcL (140-400)
[2020-11-15 01:21] LABS: Calcium 8.3 mg/dL (8.6-10.3); Magnesium 2.3 mg/dL (1.6-2.6); Potassium 4.4 mEq/L (3.5-5.1)
[2020-11-15 01:41] LABS: Lymphocytes # 0.8 K/mcL (0.6-4.6); Neutrophils # 8.6 K/mcL (1.6-8.9); Platelet Estimate Decreased (Normal)
[2020-11-15 04:55] LABS: ABG Base Excess -5 mEq/L (-2 to 3); ABG HCO3 19 mEq/L (21-27); ABG Oxygen Saturation 93 % (95-98); ABG PCO2 34 mmHg (35-45); ABG PH 7.36 pH Units (7.32-7.45); ABG PO2 68 mmHg (85-104); ABG TCO2 20 mEq/L (20-26)
[2020-11-15] MEDS ORDERED: 0.9 % Sodium Chloride 1,000 ML IVC SCH (08:30)
[2020-11-15] MEDS ORDERED: D5% in 0.45% NACL 1,000 ML IVC SCH (09:00)
[2020-11-15] MEDS ORDERED: DilTIAZem CD (24hr) 120 MG CAP.ER.24H PO SCH (09:00)
[2020-11-15 09:05] LABS: Troponin I 1.83 ng/mL (< 0.04)
[2020-11-15] MEDS: Insulin DETEMIR 100 UNIT/ML X5UNITS SUBQ SCH ×2 (09:35→23:12)
[2020-11-15] MEDS: Insulin LISPRO 300 UNITS/3 ML VIAL SUBQ SCH ×4 (09:35→23:12)
[2020-11-15] MEDS ORDERED: Metoprolol XL (24 HR) Succ 25 MG TAB.ER.24H PO SCH (11:15)
[2020-11-15 11:29] LABS: Bilirubin,Urine Negative (Negative); Blood,Urine Trace (Negative); Clarity,Urine Clear (Clear); Color,Urine Yellow (Yellow); Glucose,Urine (UA) 500 mg/dL (Normal); Ketones,Urine Trace mg/dL (Negative); Leukocyte Esterase,Urine Small (Negative); Mucus,Urine Few per lpf (None-Few); Nitrite,Urine Negative (Negative); PH,Urine 5.5 pH Units (5.0-8.0); Protein,Urine 50 mg/dL (Neg-Trace); Specific Gravity,Urine 1.021 (1.010-1.025); Squamous Epithelial Cell,Urine Few per hpf (None-Few); Urobilinogen,Urine Normal (Normal)
[2020-11-15] MEDS ORDERED: Furosemide 20 MG/2 ML VIAL IVP ONE (11:41)
[2020-11-15] MEDS ORDERED: Vancomycin 1,250 MG/262.5 ML IV.SOLN IVPB ONE (12:00)
[2020-11-15] MEDS: Piperacillin/Tazobactam 3.375 GM in 0.9 % Sodium Chloride Mini Bag 100 ML IVPB SCH (13:01)
[2020-11-15] MEDS ORDERED: Lidocaine -MPF 2% 2 ML VIAL ONE ×2 (18:34→19:16)
[2020-11-15] MEDS ORDERED: *HR* Etomidate 40 MG/20 ML VIAL IVP ONE (18:34)
[2020-11-15] MEDS ORDERED: Ondansetron 4 MG/2 ML VIAL ONE (18:35)
[2020-11-15] MEDS ORDERED: *HR* Succinylcholine 200 MG/10 ML VIAL IVP ONE (18:35)
[2020-11-15] MEDS ORDERED: Heparin 1,000 UNITS/500 mL 500 ML ONE (19:01)
[2020-11-15] MEDS ORDERED: *HR* FentaNYL (PF) 100 MCG/2 ML VIAL ONE (20:24)
[2020-11-15] MEDS ORDERED: Acetaminophen IV 1,000 MG/100 ML BAG IVPB ONE (21:06)
[2020-11-16] MEDS ORDERED: Piperacillin/Tazobactam 3.375 GM in 0.9 % Sodium Chloride Mini Bag 100 ML IVPB SCH
[2020-11-16] MEDS: Insulin LISPRO 300 UNITS/3 ML VIAL SUBQ SCH ×5 (02:55→20:19)
[2020-11-16] MEDS: Piperacillin/Tazobactam 3.375 GM in 0.9 % Sodium Chloride Mini Bag 100 ML IVPB SCH ×4 (04:39→23:54)
[2020-11-16 06:45] LABS: Calcium 8.1 mg/dL (8.6-10.3)
[2020-11-16] MEDS ORDERED: Insulin Regular, Human 100 UNIT/ML IV PRN (07:10)
[2020-11-16] MEDS ORDERED: Ondansetron 4 MG/2 ML VIAL IVP PRN (07:10)
[2020-11-16] MEDS ORDERED: Naloxone 0.4 MG/ML INJ IVP PRN (07:10)
[2020-11-16] MEDS ORDERED: D5% in 0.45% NACL 1,000 ML IVC PRN (07:10)
[2020-11-16] MEDS ORDERED: D5% in 0.45% NACL w KCl 20 MEQ/1,000 ML MLS IVC PRN (07:10)
[2020-11-16] MEDS ORDERED: Insulin LISPRO 300 UNITS/3 ML VIAL SUBQ SCH (08:00)
[2020-11-16] MEDS: Insulin DETEMIR 100 UNIT/ML X5UNITS SUBQ SCH ×2 (08:15→20:18)
[2020-11-16] MEDS ORDERED: Metoprolol XL (24 HR) Succ 25 MG TAB.ER.24H PO SCH (09:00)
[2020-11-16 11:14] LABS: Hemoglobin 14.2 g/dL (12.9-16.9); Immature Platelets 11.2 % (1.1-6.1); Mean Corpuscular HGB Conc 30.9 g/dL (31.6-35.5); Mean Corpuscular Hemoglobin 29.4 pg (28.0-33.3); Mean Corpuscular Volume 95.2 fL (83.0-100.0); Mean Platelet Volume 12.5 fL (9.4-12.4); Red Blood Count 4.83 M/mcL (4.19-5.50); Red Cell Distribution Width 13.9 % (11.5-14.5); White Blood Count 14.9 K/mcL (4.3-11.1)
[2020-11-16 11:15] LABS: Platelet Count 67 K/mcL (140-400)
[2020-11-16 11:32] LABS: Lymphocytes # 0.6 K/mcL (0.6-4.6); Monocytes # 1.2 K/mcL (0.0-1.3); Neutrophils # 13.1 K/mcL (1.6-8.9)
[2020-11-16 11:33] LABS: Platelet Estimate Decreased (Normal)
[2020-11-16 11:49] LABS: ABG Base Excess -6 mEq/L (-2 to 3); ABG HCO3 20 mEq/L (21-27); ABG Oxygen Saturation 98 % (95-98); ABG PCO2 36 mmHg (35-45); ABG PH 7.34 pH Units (7.32-7.45); ABG PO2 110 mmHg (85-104); ABG TCO2 21 mEq/L (20-26)
[2020-11-16 16:06] LABS: Adenovirus Not Detected (Not Detect); Bordetella Pertussis Not Detected (Not Detect); Chlamydophila pneumoniae Not Detected (Not Detect); Coronavirus 229E Not Detected (Not Detect); Coronavirus HKU1 Not Detected (Not Detect); Coronavirus NL63 Not Detected (Not Detect); Coronavirus OC43 Not Detected (Not Detect); Human Metapneumovirus Not Detected (Not Detect); Human Rhinovirus/Enterovirus Not Detected (Not Detect); Influenza A Subtype 2009 H1 Not Detected (Not Detect); Influenza B Not Detected (Not Detect); Mycoplasma pneumoniae Not Detected (Not Detect); Parainfluenza Virus 1 Not Detected (Not Detect); Parainfluenza Virus 2 Not Detected (Not Detect); Parainfluenza Virus 3 Not Detected (Not Detect); Parainfluenza Virus 4 Not Detected (Not Detect); Respiratory Syncytial Virus Not Detected (Not Detect); SARS-CoV-2 Not Detected (Not Detect)
[2020-11-16 16:50] LABS: Lactate Dehydrogenase 236 Units/L (140-271); Total Protein 5.5 g/dL (6.4-8.9)
[2020-11-16 18:24] LABS: INR 1.4; Prothrombin Time 16.3 Seconds (9.4-12.1)
[2020-11-16 19:12] LABS: Sodium, Urine 20.4 mEq/L
[2020-11-17 07:14] LABS: Basophils % 0.2 %; Eosinophils % 0.1 %; Hemoglobin 13.3 g/dL (12.9-16.9); Segmented Neutrophils % 86.6 %
[2020-11-17 07:16] LABS: Hematocrit 43.5 % (37.5-50.1); Immature Granulocytes % 0.7 % (0-4); Immature Platelets 13.3 % (1.1-6.1); Lymphocytes % 5.9 %; Mean Corpuscular HGB Conc 30.6 g/dL (31.6-35.5); Mean Corpuscular Hemoglobin 29.1 pg (28.0-33.3); Mean Corpuscular Volume 95.2 fL (83.0-100.0); Mean Platelet Volume 12.6 fL (9.4-12.4); Monocytes # 1.1 K/mcL (0.0-1.3); Monocytes % 6.5 %; Neutrophils # 14.2 K/mcL (1.6-8.9); Red Blood Count 4.57 M/mcL (4.19-5.50); Red Cell Distribution Width 13.7 % (11.5-14.5); White Blood Count 16.4 K/mcL (4.3-11.1)
[2020-11-17 07:23] LABS: Platelet Count 85 K/mcL (140-400)
[2020-11-17 07:27] LABS: Calcium 8.2 mg/dL (8.6-10.3)
[2020-11-17 07:35] LABS: INR 1.5; Prothrombin Time 17.2 Seconds (9.4-12.1)
[2020-11-17 07:40] LABS: Magnesium 2.4 mg/dL (1.6-2.6)
[2020-11-17] MEDS: Insulin LISPRO 300 UNITS/3 ML VIAL SUBQ SCH ×4 (08:49→21:14)
[2020-11-17] MEDS: Piperacillin/Tazobactam 3.375 GM in 0.9 % Sodium Chloride Mini Bag 100 ML IVPB SCH ×2 (09:00→16:43)
[2020-11-17] MEDS ORDERED: Metoprolol XL (24 HR) Succ 25 MG TAB.ER.24H PO SCH (09:00)
[2020-11-17] MEDS: Insulin DETEMIR 100 UNIT/ML X5UNITS SUBQ SCH ×2 (09:01→21:14)
[2020-11-17] MEDS ORDERED: Acetaminophen IV 1,000 MG/100 ML BAG IVPB ONE (11:37)
[2020-11-17] MEDS: *HR* Dextrose 50 % in Water (Vial) 50 ML VIAL IVP PRN ×3 (11:43→20:08)
[2020-11-17] MEDS ORDERED: Albumin 25% 25gram/100mL 25 GM/100 ML IV.SOLN ONE (14:56)
[2020-11-17] MEDS: Albumin 25% 25gram/100mL 25 GM/100 ML IV.SOLN IVPB SCH ×2 (14:58→18:35)
[2020-11-17] MEDS: Heparin 25,000UNIT/250ML 1/2NS 25,000 UNIT/250 ML IV.SOLN IVC SCH (19:15)
[2020-11-17] MEDS: 0.45 % Sodium Chloride w/KCl 20 MEQ/1,000 ML MLS IVC SCH ×3 (19:15→19:17)
[2020-11-17] MEDS ORDERED: Furosemide 20 MG/2 ML VIAL IVP SCH (20:00)
[2020-11-18] MEDS: Norepinephrine 4 MG/254 ML IV.SOLN IVC SCH ×2 (00:17→17:11)
[2020-11-18] MEDS: Piperacillin/Tazobactam 3.375 GM in 0.9 % Sodium Chloride Mini Bag 100 ML IVPB SCH ×4 (00:17→23:27)
[2020-11-18] MEDS ORDERED: Morphine Sulfate 2 MG/ML SYRINGE IVP ONE (01:05)
[2020-11-18 04:09] LABS: Basophils % 0.1 %; Eosinophils % 0.2 %; Hematocrit 39.4 % (37.5-50.1); Mean Corpuscular Volume 96.6 fL (83.0-100.0); Red Blood Count 4.08 M/mcL (4.19-5.50)
[2020-11-18 04:11] LABS: Immature Platelets 11.3 % (1.1-6.1); Lymphocytes # 0.9 K/mcL (0.6-4.6); Mean Corpuscular HGB Conc 30.5 g/dL (31.6-35.5); Mean Corpuscular Hemoglobin 29.4 pg (28.0-33.3); Mean Platelet Volume 12.7 fL (9.4-12.4); Monocytes # 0.5 K/mcL (0.0-1.3); Monocytes % 4.5 %; Neutrophils # 9.8 K/mcL (1.6-8.9); Red Cell Distribution Width 13.9 % (11.5-14.5); Segmented Neutrophils % 86.2 %; White Blood Count 11.4 K/mcL (4.3-11.1)
[2020-11-18 04:13] LABS: VBG Ionized Calcium 1.06 mmol/L (1.15-1.35)
[2020-11-18 04:17] LABS: Platelet Count 76 K/mcL (140-400)
[2020-11-18 04:28] LABS: Calcium 7.9 mg/dL (8.6-10.3); Potassium 4.5 mEq/L (3.5-5.1)
[2020-11-18 04:29] LABS: Magnesium 2.5 mg/dL (1.6-2.6); Phosphorous 4.9 mg/dL (2.7-4.5)
[2020-11-18] MEDS: Calcium Gluconate 1gm/50mL 1 GM/50 ML BAG IVPB SCH ×2 (05:25→06:02)
[2020-11-18] MEDS: Albumin 25% 25gram/100mL 25 GM/100 ML IV.SOLN IVPB SCH (05:25)
[2020-11-18] MEDS ORDERED: Furosemide 20 MG/2 ML VIAL IVP SCH (08:00)
[2020-11-18] MEDS ORDERED: Furosemide 240 MG in 0.9 % Sodium Chloride 96 ML IVC SCH (08:00)
[2020-11-18] MEDS: Insulin LISPRO 300 UNITS/3 ML VIAL SUBQ SCH ×4 (08:25→19:49)
[2020-11-18] MEDS: Insulin DETEMIR 100 UNIT/ML X5UNITS SUBQ SCH (08:59)
[2020-11-18 11:03] LABS: Vancomycin,Random 16 mcg/mL
[2020-11-18] MEDS ORDERED: Albumin 25% 25gram/100mL 25 GM/100 ML IV.SOLN IVPB SCH (12:00)
[2020-11-18] MEDS: *HR* Heparin 5,000 UNIT/ML VIAL SQ SCH ×2 (13:39→17:08)
[2020-11-18 15:19] LABS: Lactate Dehydrogenase 174 Units/L (140-271); Total Protein 5.4 g/dL (6.4-8.9)
[2020-11-18 16:46] LABS: Glucose,Pleural Fluid 128 mg/dL (No Ref Range); LDH,Pleural Fluid 75 Units/L (No Ref Range); Total Protein,Pleural Fluid < 2.0 g/dL
[2020-11-18 16:48] LABS: RBC,Pleural Fluid < 2000 RBC/mcL
[2020-11-18 16:50] LABS: RBC,Pleural Fluid < 2000 RBC/mcL
[2020-11-18 17:00] LABS: Glucose,Pleural Fluid 124 mg/dL (No Ref Range); LDH,Pleural Fluid 61 Units/L (No Ref Range); Total Protein,Pleural Fluid < 2.0 g/dL
[2020-11-18] MEDS ORDERED: *HR* Dextrose 50 % in Water (Vial) 50 ML VIAL IVP PRN (17:40)
[2020-11-18] MEDS ORDERED: Ondansetron 4 MG/2 ML VIAL IVP PRN (17:40)
[2020-11-18] MEDS ORDERED: Naloxone 0.4 MG/ML INJ IVP PRN (17:40)
[2020-11-18] MEDS ORDERED: *HR* Heparin 5,000 UNIT/ML VIAL SQ SCH ×2 (18:00)
[2020-11-18 18:22] LABS: Appearance of Pleural Fl Clear (Clear); Basophils,Pleural Fluid 0 %; Eosinophils,Pleural Fluid 0 %; Monocytes,Pleural Fluid 0 %
[2020-11-18 18:26] LABS: Appearance of Pleural Fl Clear (Clear); Basophils,Pleural Fluid 0 %; Eosinophils,Pleural Fluid 0 %; Monocytes,Pleural Fluid 0 %
[2020-11-18] MEDS: Furosemide 240 MG in 0.9 % Sodium Chloride 96 ML IVC SCH (19:48)
[2020-11-19 04:47] LABS: VBG Ionized Calcium 1.08 mmol/L (1.15-1.35)
[2020-11-19 05:04] LABS: Eosinophils % 0.1 %; Immature Granulocytes % 0.7 % (0-4); Lymphocytes % 5.5 %; Red Cell Distribution Width 13.8 % (11.5-14.5)
[2020-11-19 05:06] LABS: Basophils % 0.2 %; Hematocrit 38.7 % (37.5-50.1); Hemoglobin 11.6 g/dL (12.9-16.9); Immature Platelets 12.3 % (1.1-6.1); Lymphocytes # 0.8 K/mcL (0.6-4.6); Mean Corpuscular Hemoglobin 29.2 pg (28.0-33.3); Mean Corpuscular Volume 97.5 fL (83.0-100.0); Mean Platelet Volume 13.1 fL (9.4-12.4); Monocytes # 0.6 K/mcL (0.0-1.3); Monocytes % 4.1 %; Red Blood Count 3.97 M/mcL (4.19-5.50); Segmented Neutrophils % 89.4 %; White Blood Count 13.7 K/mcL (4.3-11.1)
[2020-11-19 05:09] LABS: Neutrophils # 12.3 K/mcL (1.6-8.9); Platelet Count 85 K/mcL (140-400)
[2020-11-19 05:30] LABS: Potassium 4.6 mEq/L (3.5-5.1)
[2020-11-19 05:32] LABS: Magnesium 2.4 mg/dL (1.6-2.6); Phosphorous 5.3 mg/dL (2.7-4.5)
[2020-11-19] MEDS: *HR* Heparin 5,000 UNIT/ML VIAL SQ SCH ×2 (06:10→18:04)
[2020-11-19] MEDS: Piperacillin/Tazobactam 3.375 GM in 0.9 % Sodium Chloride Mini Bag 100 ML IVPB SCH ×3 (08:31→23:57)
[2020-11-19] MEDS: Furosemide 240 MG in 0.9 % Sodium Chloride 96 ML IVC SCH (08:33)
[2020-11-19] MEDS ORDERED: Calcium Gluconate 1gm/50mL 1 GM/50 ML BAG IVPB ONE (08:33)
[2020-11-19] MEDS: Insulin LISPRO 300 UNITS/3 ML VIAL SUBQ SCH ×4 (08:36→22:23)
[2020-11-19] MEDS: Albumin 25% 25gram/100mL 25 GM/100 ML IV.SOLN IVPB SCH ×3 (12:59→23:58)
[2020-11-19] MEDS: Saliva Stimulant 44.3ml BOTTLE PO PRN (13:02)
[2020-11-20 04:59] LABS: Basophils % 0.1 %; Eosinophils % 0.1 %; Hemoglobin 11.1 g/dL (12.9-16.9)
[2020-11-20 05:01] LABS: Hematocrit 37.5 % (37.5-50.1); Immature Granulocytes % 0.8 % (0-4); Immature Platelets 11.8 % (1.1-6.1); Lymphocytes # 0.6 K/mcL (0.6-4.6); Lymphocytes % 3.9 %; Mean Corpuscular HGB Conc 29.6 g/dL (31.6-35.5); Mean Corpuscular Volume 97.9 fL (83.0-100.0); Mean Platelet Volume 13.1 fL (9.4-12.4); Monocytes # 0.6 K/mcL (0.0-1.3); Monocytes % 4.3 %; Neutrophils # 13.2 K/mcL (1.6-8.9); Red Blood Count 3.83 M/mcL (4.19-5.50); Red Cell Distribution Width 13.8 % (11.5-14.5); Segmented Neutrophils % 90.8 %; White Blood Count 14.5 K/mcL (4.3-11.1)
[2020-11-20 05:05] LABS: Platelet Count 80 K/mcL (140-400)
[2020-11-20 05:10] LABS: Magnesium 2.1 mg/dL (1.6-2.6); Phosphorous 4.8 mg/dL (2.7-4.5); Potassium 4.6 mEq/L (3.5-5.1)
[2020-11-20] MEDS: *HR* Heparin 5,000 UNIT/ML VIAL SQ SCH ×2 (05:57→16:24)
[2020-11-20] MEDS: Furosemide 240 MG in 0.9 % Sodium Chloride 96 ML IVC SCH (06:01)
[2020-11-20] MEDS: Piperacillin/Tazobactam 3.375 GM in 0.9 % Sodium Chloride Mini Bag 100 ML IVPB SCH ×3 (07:55→23:35)
[2020-11-20] MEDS: Albumin 25% 25gram/100mL 25 GM/100 ML IV.SOLN IVPB SCH ×3 (07:55→23:36)
[2020-11-20] MEDS: Saliva Stimulant 44.3ml BOTTLE PO PRN (07:56)
[2020-11-20] MEDS: Insulin LISPRO 300 UNITS/3 ML VIAL SUBQ SCH ×4 (08:39→20:01)
[2020-11-20] MEDS: *HR* HYDROmorphone (PF) 1 MG/ML SYRINGE IVP PRN ×2 (12:44→22:47)
[2020-11-20] MEDS: Metoprolol XL (24 HR) Succ 25 MG TAB.ER.24H PO SCH ×2 (12:45→13:24)
[2020-11-20] MEDS: Vancomycin 500 MG in 0.9 % Sodium Chloride Mini Bag 100 ML IVPB SCH (14:12)
[2020-11-20] MEDS: Insulin DETEMIR 100 UNIT/ML X5UNITS SUBQ SCH (20:26)
[2020-11-21 01:21] LABS: Basophils % 0.1 %
[2020-11-21 01:23] LABS: Eosinophils % 0.1 %; Hematocrit 34.8 % (37.5-50.1); Hemoglobin 10.6 g/dL (12.9-16.9); Immature Granulocytes % 0.8 % (0-4); Immature Platelets 11.5 % (1.1-6.1); Lymphocytes # 0.6 K/mcL (0.6-4.6); Lymphocytes % 4.7 %; Mean Corpuscular HGB Conc 30.5 g/dL (31.6-35.5); Mean Corpuscular Volume 95.3 fL (83.0-100.0); Mean Platelet Volume 12.9 fL (9.4-12.4); Monocytes # 0.6 K/mcL (0.0-1.3); Monocytes % 4.6 %; Neutrophils # 12.2 K/mcL (1.6-8.9); Red Blood Count 3.65 M/mcL (4.19-5.50); Red Cell Distribution Width 13.7 % (11.5-14.5); Segmented Neutrophils % 89.7 %; White Blood Count 13.6 K/mcL (4.3-11.1)
[2020-11-21 01:25] LABS: Platelet Count 77 K/mcL (140-400)
[2020-11-21 01:41] LABS: Phosphorous 4.1 mg/dL (2.7-4.5); Potassium 3.8 mEq/L (3.5-5.1)
[2020-11-21] MEDS: Furosemide 240 MG in 0.9 % Sodium Chloride 96 ML IVC SCH (03:00)
[2020-11-21] MEDS: *HR* Heparin 5,000 UNIT/ML VIAL SQ SCH ×2 (04:58→17:56)
[2020-11-21] MEDS: *HR* HYDROmorphone (PF) 1 MG/ML SYRINGE IVP PRN ×3 (05:27→20:06)
[2020-11-21] MEDS: Metoprolol XL (24 HR) Succ 25 MG TAB.ER.24H PO SCH (08:27)
[2020-11-21] MEDS: Albumin 25% 25gram/100mL 25 GM/100 ML IV.SOLN IVPB SCH ×2 (08:28→16:22)
[2020-11-21] MEDS: Piperacillin/Tazobactam 3.375 GM in 0.9 % Sodium Chloride Mini Bag 100 ML IVPB SCH ×2 (08:28→16:23)
[2020-11-21] MEDS: Insulin LISPRO 300 UNITS/3 ML VIAL SUBQ SCH ×4 (09:00→20:05)
[2020-11-21] MEDS: Vancomycin 500 MG in 0.9 % Sodium Chloride Mini Bag 100 ML IVPB SCH (14:40)
[2020-11-21] MEDS ORDERED: Amiodarone Premix 150 MG/100 ML BAG IVPB ONE (17:25)
[2020-11-21] MEDS ORDERED: Amiodarone Premix 360 MG/200 ML BAG IVC ONE (17:25)
[2020-11-21] MEDS: Insulin DETEMIR 100 UNIT/ML X5UNITS SUBQ SCH (20:35)
[2020-11-22] MEDS: Albumin 25% 25gram/100mL 25 GM/100 ML IV.SOLN IVPB SCH ×3 (00:04→16:43)
[2020-11-22] MEDS: Amiodarone Premix 360 MG/200 ML BAG IVC SCH ×2 (00:06→12:05)
[2020-11-22] MEDS: Piperacillin/Tazobactam 3.375 GM in 0.9 % Sodium Chloride Mini Bag 100 ML IVPB SCH ×3 (00:06→16:42)
[2020-11-22] MEDS: *HR* HYDROmorphone (PF) 1 MG/ML SYRINGE IVP PRN ×2 (00:14→22:14)
[2020-11-22 01:28] LABS: Basophils % 0.2 %; Eosinophils % 0.1 %; Mean Corpuscular Volume 95.9 fL (83.0-100.0); Monocytes % 4.1 %
[2020-11-22 01:30] LABS: Hematocrit 35.4 % (37.5-50.1); Hemoglobin 10.8 g/dL (12.9-16.9); Immature Granulocytes % 0.5 % (0-4); Immature Platelets 13.4 % (1.1-6.1); Lymphocytes # 0.6 K/mcL (0.6-4.6); Lymphocytes % 4.9 %; Mean Corpuscular HGB Conc 30.5 g/dL (31.6-35.5); Mean Corpuscular Hemoglobin 29.3 pg (28.0-33.3); Mean Platelet Volume 12.8 fL (9.4-12.4); Monocytes # 0.5 K/mcL (0.0-1.3); Neutrophils # 11.7 K/mcL (1.6-8.9); Platelet Count 79 K/mcL (140-400); Red Blood Count 3.69 M/mcL (4.19-5.50); Red Cell Distribution Width 13.8 % (11.5-14.5); Segmented Neutrophils % 90.2 %
[2020-11-22 01:47] LABS: Calcium 8.3 mg/dL (8.6-10.3); Potassium 3.4 mEq/L (3.5-5.1)
[2020-11-22 01:48] LABS: Magnesium 1.9 mg/dL (1.6-2.6); Phosphorous 3.7 mg/dL (2.7-4.5)
[2020-11-22] MEDS: *HR* Heparin 5,000 UNIT/ML VIAL SQ SCH ×2 (04:59→17:34)
[2020-11-22] MEDS: Furosemide 240 MG in 0.9 % Sodium Chloride 96 ML IVC SCH (05:02)
[2020-11-22] MEDS ORDERED: Potassium Chloride Elixir 20 MEQ/15 ML UDC PO ONE (07:13)
[2020-11-22] MEDS: Magnesium Oxide 400 MG TABLET PO SCH ×2 (08:15→08:40)
[2020-11-22] MEDS: Insulin LISPRO 300 UNITS/3 ML VIAL SUBQ SCH ×4 (08:26→20:15)
[2020-11-22] MEDS: Metoprolol XL (24 HR) Succ 25 MG TAB.ER.24H PO SCH (08:36)
[2020-11-22] MEDS: Insulin DETEMIR 100 UNIT/ML X5UNITS SUBQ SCH ×2 (10:33→20:31)
[2020-11-22] MEDS: Aspirin 81 MG TAB.CHEW PO SCH ×2 (16:41→16:47)
[2020-11-22] MEDS: Vancomycin 500 MG in 0.9 % Sodium Chloride Mini Bag 100 ML IVPB SCH (16:41)
[2020-11-22] MEDS ORDERED: *HR* LORazepam 2 MG/ML VIAL IVP ONE (21:49)
[2020-11-23] MEDS: Albumin 25% 25gram/100mL 25 GM/100 ML IV.SOLN IVPB SCH ×3 (00:14→15:01)
[2020-11-23] MEDS: Piperacillin/Tazobactam 3.375 GM in 0.9 % Sodium Chloride Mini Bag 100 ML IVPB SCH ×3 (00:15→15:05)
[2020-11-23 01:38] LABS: Basophils % 0.1 %; Eosinophils % 0.1 %; Hematocrit 34.2 % (37.5-50.1); Hemoglobin 10.6 g/dL (12.9-16.9); Immature Granulocytes % 0.9 % (0-4); Immature Platelets 14.1 % (1.1-6.1); Lymphocytes # 0.3 K/mcL (0.6-4.6); Lymphocytes % 1.9 %; Mean Corpuscular Volume 93.7 fL (83.0-100.0); Mean Platelet Volume 12.7 fL (9.4-12.4); Monocytes # 0.1 K/mcL (0.0-1.3); Monocytes % 0.8 %; Neutrophils # 12.9 K/mcL (1.6-8.9); Platelet Count 79 K/mcL (140-400); Red Blood Count 3.65 M/mcL (4.19-5.50); Red Cell Distribution Width 13.9 % (11.5-14.5); Segmented Neutrophils % 96.2 %; White Blood Count 13.4 K/mcL (4.3-11.1)
[2020-11-23 01:56] LABS: Calcium 8.5 mg/dL (8.6-10.3); Magnesium 1.7 mg/dL (1.6-2.6); Phosphorous 2.8 mg/dL (2.7-4.5); Potassium 2.9 mEq/L (3.5-5.1)
[2020-11-23] MEDS: *HR* Heparin 5,000 UNIT/ML VIAL SQ SCH ×2 (04:43→16:19)
[2020-11-23] MEDS: *HR* HYDROmorphone (PF) 1 MG/ML SYRINGE IVP PRN (05:01)
[2020-11-23] MEDS: Furosemide 240 MG in 0.9 % Sodium Chloride 96 ML IVC SCH (05:02)
[2020-11-23] MEDS: Insulin DETEMIR 100 UNIT/ML X5UNITS SUBQ SCH ×2 (07:51→20:35)
[2020-11-23] MEDS: Insulin LISPRO 300 UNITS/3 ML VIAL SUBQ SCH ×4 (07:52→20:35)
[2020-11-23] MEDS: Magnesium Oxide 400 MG TABLET PO SCH (07:55)
[2020-11-23] MEDS: Metoprolol XL (24 HR) Succ 25 MG TAB.ER.24H PO SCH (07:57)
[2020-11-23] MEDS: Saliva Stimulant 44.3ml BOTTLE PO PRN (07:57)
[2020-11-23] MEDS: Aspirin 81 MG TAB.CHEW PO SCH (08:00)
[2020-11-23] MEDS ORDERED: Potassium Chloride 40 MEQ, Lidocaine 1% 2 ML in 0.9 % Sodium Chloride 500 ML IVPB ONE (08:00)
[2020-11-23] MEDS: *HR* LORazepam 2 MG/ML VIAL IVP PRN (11:49)
[2020-11-23] MEDS: *HR* Amiodarone 200 MG TABLET PO SCH ×2 (11:56→20:34)
[2020-11-23 14:27] LABS: Acinetobacter baumannii by PCR Not Detected (Not Detect); Candida albicans by PCR Not Detected (Not Detect); Candida glabrata by PCR Not Detected (Not Detect); Candida krusei by PCR Not Detected (Not Detect); Candida parapsilosis by PCR Not Detected (Not Detect); Candida tropicalis by PCR Not Detected (Not Detect); Enterobacter cloacae Cmplx PCR Not Detected (Not Detect); Enterococcus by PCR Not Detected (Not Detect); Escherichia coli by PCR Not Detected (Not Detect); Klebsiella oxytoca by PCR Not Detected (Not Detect); Klebsiella pneumoniae by PCR DETECTED (Not Detect); Proteus by PCR Not Detected (Not Detect); Pseudomonas aeruginosa by PCR Not Detected (Not Detect); Serratia marcescens by PCR Not Detected (Not Detect); Staphylococcus aureus by PCR Not Detected (Not Detect); Staphylococcus by PCR Not Detected (Not Detect); Streptococcus agalactiae(B)PCR Not Detected (Not Detect); Streptococcus by PCR Not Detected (Not Detect); Streptococcus pneumoniae PCR Not Detected (Not Detect); Streptococcus pyogenes (A) PCR Not Detected (Not Detect)
[2020-11-23] MEDS: Vancomycin 500 MG in 0.9 % Sodium Chloride Mini Bag 100 ML IVPB SCH (15:52)
[2020-11-24] MEDS: Albumin 25% 25gram/100mL 25 GM/100 ML IV.SOLN IVPB SCH ×2 (01:30→07:25)
[2020-11-24] MEDS: Piperacillin/Tazobactam 3.375 GM in 0.9 % Sodium Chloride Mini Bag 100 ML IVPB SCH ×2 (01:30→07:28)
[2020-11-24] MEDS: *HR* Heparin 5,000 UNIT/ML VIAL SQ SCH (05:21)
[2020-11-24] MEDS: Furosemide 240 MG in 0.9 % Sodium Chloride 96 ML IVC SCH (05:21)
[2020-11-24] MEDS: *HR* LORazepam 2 MG/ML VIAL IVP PRN (07:23)
[2020-11-24] MEDS: Aspirin 81 MG TAB.CHEW PO SCH (07:27)
[2020-11-24] MEDS: Insulin DETEMIR 100 UNIT/ML X5UNITS SUBQ SCH (07:27)
[2020-11-24] MEDS: *HR* Amiodarone 200 MG TABLET PO SCH (07:27)
[2020-11-24] MEDS: Magnesium Oxide 400 MG TABLET PO SCH (07:39)
[2020-11-24] MEDS: Metoprolol XL (24 HR) Succ 25 MG TAB.ER.24H PO SCH (07:44)
[2020-11-24] MEDS: Insulin LISPRO 300 UNITS/3 ML VIAL SUBQ SCH ×3 (07:50→16:45)
[2020-11-24 11:26] VITALS: BP 106/60
[2020-11-24 12:26] LABS: Basophils % 0.2 %; Eosinophils % 0.1 %; Hematocrit 32.8 % (37.5-50.1); Hemoglobin 10.2 g/dL (12.9-16.9); Immature Granulocytes % 1.4 % (0-4); Lymphocytes # 0.2 K/mcL (0.6-4.6); Mean Corpuscular HGB Conc 31.1 g/dL (31.6-35.5); Mean Corpuscular Hemoglobin 29.1 pg (28.0-33.3); Mean Corpuscular Volume 93.7 fL (83.0-100.0); Mean Platelet Volume 12.7 fL (9.4-12.4); Monocytes # 0.1 K/mcL (0.0-1.3); Monocytes % 1.3 %; Red Cell Distribution Width 13.9 % (11.5-14.5); White Blood Count 10.8 K/mcL (4.3-11.1)
[2020-11-24 12:46] LABS: Calcium 8.7 mg/dL (8.6-10.3); Potassium 2.9 mEq/L (3.5-5.1)
[2020-11-24 12:49] LABS: Neutrophils # 10.3 K/mcL (1.6-8.9); Platelet Count 83 K/mcL (140-400)
== END 2020-11-24 18:24 | disposition hospice, inpatient (51) | DRG 853 ==
LOC: 2NNU → SUATTDRO 16:09 → ICNU 11-17 18:14 → 2NNU 11-19 11:34
PROVIDERS: ADMIT Internal Medicine; ATTEND Family Medicine

== ENCOUNTER 2020-11-24 15:12 | Inpatient (IN) ==
[2020-11-24] MEDS ORDERED: Scopolamine Patch 1.5 MG PATCH.TD72 TD PRN (15:19)
[2020-11-24] MEDS ORDERED: *HR* LORazepam Oral Conc 2 MG/ML PO PRN (15:19)
[2020-11-24] MEDS ORDERED: Ondansetron 4 MG/2 ML VIAL IVP PRN (15:19)
[2020-11-24] MEDS ORDERED: Haloperidol Oral Conc 10 MG/5 ML UDC PO PRN (15:19)
[2020-11-24] MEDS: *HR* Amiodarone 200 MG TABLET PO SCH (20:54)
[2020-11-25] MEDS: Metoprolol XL (24 HR) Succ 25 MG TAB.ER.24H PO SCH (09:46)
[2020-11-25] MEDS: *HR* Amiodarone 200 MG TABLET PO SCH ×2 (09:46→20:57)
[2020-11-25] MEDS: Aspirin 81 MG TAB.CHEW PO SCH (09:46)
[2020-11-25] MEDS: *HR* HYDROmorphone (PF) 1 MG/ML SYRINGE IVP PRN (17:59)
[2020-11-26] MEDS: *HR* Amiodarone 200 MG TABLET PO SCH ×2 (07:44→21:05)
[2020-11-26] MEDS: Aspirin 81 MG TAB.CHEW PO SCH (07:44)
[2020-11-26] MEDS: Metoprolol XL (24 HR) Succ 25 MG TAB.ER.24H PO SCH (07:44)
[2020-11-26] MEDS: *HR* HYDROmorphone (PF) 1 MG/ML SYRINGE IVP PRN (17:56)
[2020-11-27] MEDS: Aspirin 81 MG TAB.CHEW PO SCH (08:57)
[2020-11-27] MEDS: *HR* Amiodarone 200 MG TABLET PO SCH ×2 (08:57→21:54)
[2020-11-27] MEDS: Metoprolol XL (24 HR) Succ 25 MG TAB.ER.24H PO SCH (08:57)
[2020-11-27] MEDS: *HR* HYDROmorphone (PF) 1 MG/ML SYRINGE IVP PRN (08:59)
[2020-11-28] MEDS: *HR* Amiodarone 200 MG TABLET PO SCH ×2 (08:40→08:49)
[2020-11-28] MEDS: Aspirin 81 MG TAB.CHEW PO SCH ×2 (08:40→08:49)
[2020-11-28] MEDS: Metoprolol XL (24 HR) Succ 25 MG TAB.ER.24H PO SCH ×2 (08:40→08:50)
[2020-11-28] MEDS: *HR* HYDROmorphone (PF) 1 MG/ML SYRINGE IVP PRN ×2 (08:40→18:50)
[2020-11-28] MEDS ORDERED: Scopolamine Patch 1.5 MG PATCH.TD72 TD SCH (11:15)
[2020-11-29] MEDS: *HR* HYDROmorphone (PF) 1 MG/ML SYRINGE IVP PRN (04:01)
[2020-11-29 08:14] VITALS: BP 117/75
[2020-11-29] MEDS ORDERED: Acetaminophen 650 MG RECTAL SUPP RC PRN (08:40)
[2020-11-29] MEDS ORDERED: *HR* HYDROmorphone (PF) 1 MG/ML SYRINGE IVP PRN (09:12)
[2020-11-29] MEDS ORDERED: *HR* LORazepam Oral Conc 2 MG/ML SL PRN (09:12)
[2020-11-29] MEDS ORDERED: Atropine 1% Opth Drops 100 DROP/5 ML BOTTLE SL PRN (11:31)
== END 2020-11-29 15:45 | disposition expired | DRG 951 ==
LOC: 2ANU 18:29
PROVIDERS: ADMIT Internal Medicine Hospice and Palliative Medicine; ATTEND Internal Medicine Hospice and Palliative Medicine